=== PATIENT | female | born 1950 | race Caucasian/White ===

== ENCOUNTER 2020-04-19 13:02 | Outpatient (REF) | payer MEDICARE, SELFPAY ==
--- NOTE | 2020-04-19 13:08 | MM_ITS ---
EXAMINATION: MM SCREENING DIGITAL BREAST TOMOSYNTHESIS, BILATERAL CLINICAL INFORMATION: Screening. Asymptomatic. The lifetime risk of breast cancer based on the Tyrer-Cuzick Model is 4.0%. COMPARISON: Mammography: November 09, 2018 and studies dating back to March 25, 2012 TECHNIQUE: Digital breast tomosynthesis is performed in both the craniocaudal and mediolateral oblique views along with computer-aided detection (CAD). Synthesized 2D images are generated from the tomosynthesis. FINDINGS: There are scattered areas of fibroglandular density (ACR BI-RADS breast composition Category b). There are no significant masses, abnormal calcifications, or other abnormalities. MM/MM tomosynthesis screening BI IMPRESSION: There are no significant changes from prior study. ASSESSMENT: BI-RADS 1: Negative RECOMMENDATION: Routine annual mammography screening. This patient's information was entered into a reminder system with a target due date for their next mammogram.
== END 2020-04-19 13:03 | disposition home or self-care (01) ==
LOC: HO.MAMMO 13:02
PROVIDERS: PCP Internal Medicine; Visit Provider Internal Medicine
DX: Z12.31 Encounter for screening mammogram for malignant neoplasm of breast (principal)
CPT/HCPCS: 77063; 77067

== ENCOUNTER 2020-04-27 16:43 | Outpatient (REF) | payer MEDICARE, BC, SELFPAY ==
--- NOTE | 2020-04-27 16:58 | XR_ITS ---
EXAMINATION: 1. LEFT ANKLE. 2. LEFT FOOT. CLINICAL INFORMATION: Pain in left ankle. Trauma. COMPARISON: None TECHNIQUE: 1. Left ankle. 3 views 2. Left foot. 3 views FINDINGS: 1. Left ankle. There is a minimally displaced transverse fracture of the lateral malleolus. There is soft tissue swelling over the lateral malleolus. The ankle mortise is congruent. 2. Left foot. No fracture or dislocation of the foot. Bone and joint are normal. No soft tissue abnormality. XR/XR foot LT min 3V IMPRESSION: 1. Left ankle. Fracture lateral malleolus. 2. Left foot. No acute abnormality.
--- NOTE | 2020-04-27 16:58 | XR_ITS ---
EXAMINATION: 1. LEFT ANKLE. 2. LEFT FOOT. CLINICAL INFORMATION: Pain in left ankle. Trauma. COMPARISON: None TECHNIQUE: 1. Left ankle. 3 views 2. Left foot. 3 views FINDINGS: 1. Left ankle. There is a minimally displaced transverse fracture of the lateral malleolus. There is soft tissue swelling over the lateral malleolus. The ankle mortise is congruent. 2. Left foot. No fracture or dislocation of the foot. Bone and joint are normal. No soft tissue abnormality. XR/XR ankle LT 2V IMPRESSION: 1. Left ankle. Fracture lateral malleolus. 2. Left foot. No acute abnormality.
== END 2020-04-27 16:44 | disposition home or self-care (01) ==
LOC: HO.XRAY 16:43
PROVIDERS: PCP Internal Medicine; Visit Provider Internal Medicine
DX: M25.572 Pain in left ankle and joints of left foot (principal)
CPT/HCPCS: 73600; 73630

== ENCOUNTER 2020-08-09 09:48 | Outpatient (REF) | payer MEDICARE, SELFPAY ==
[2020-08-09 11:10] LABS: MANUAL DIFF FLAG NO
[2020-08-09 11:21] LABS: Basophils Percent Auto 0.5 % (0-2); Eosinophils Absolute Auto 0.2 X10*3/uL (0.0-0.4); Hematocrit 39.9 % (37-47); Hemoglobin 13.2 g/dl (12.0-16.0); Imm Gran Abs Auto 0.03 X10*3/uL (0.00-0.03); Imm Gran Pct Auto 0.4 % (0.0-0.4); Lymphocytes Absolute Auto 2.4 X10*3/uL (1.2-4.9); Lymphocytes Percent Auto 30.6 % (20-40); Mean Corpuscular HGB Conc 33.1 g/dl (31.0-35.0); Mean Corpuscular Hemoglobin 31.2 pg (27.0-33.0); Mean Corpuscular Volume 94.3 fL (80-98); Mean Platelet Volume 11.2 fL (9.4-12.3); Monocytes Absolute Auto 0.6 X10*3/uL (0.1-1.2); Neutrophils Absolute Auto 4.7 X10*3/uL (2.0-8.3); Neutrophils Percent Auto 59.5 % (45-73); Platelet Count 217 X10*3/uL (160-400); Red Blood Count 4.23 X10*6/uL (4.20-5.50); Red Cell Distribution Width 12.3 % (11.0-16.0)
[2020-08-09 11:37] LABS: Estimated Average Glucose 100 mg/dL; Hemoglobin A1c % 5.1 %
[2020-08-09 12:20] LABS: T4 Thyroxine 6.5 ug/dL (4.5-12.0); Vitamin D 25-OH Total 39.3 ng/mL (>30)
[2020-08-09 12:26] LABS: Alanine Aminotransferase 60 U/L (0-31); Albumin Level 4.7 g/dL (3.5-5.0); Alkaline Phosphatase 94 U/L (39-117); Anion Gap 15 (12-20); Aspartate Amino Transferase 35 U/L (5-31); Bilirubin Total 0.5 mg/dL (0.0-1.0); Blood Urea Nitrogen 17 mg/dL (9-16); Calcium 9.3 mg/dL (8.4-10.2); Carbon Dioxide 28 mmol/L (22-29); Chloride 104 mmol/L (96-108); Cholesterol 209 mg/dL; Estimated Glomerular Filt Rate > 60; Glucose Fasting 114 mg/dL (60-99); HDL Cholesterol 50 mg/dL; LDL Cholesterol Calculated 97 mg/dl; Potassium 3.7 mmol/L (3.3-5.1); Sodium 143 mmol/L (135-145); Total Protein 7.4 g/dL (6.5-8.0); Triglycerides 310 mg/dL
[2020-08-09 12:56] LABS: Vitamin B12 415 pg/mL (200-900)
[2020-08-09 13:21] LABS: Erythrocyte Sedimentation Rate 10 MM/HR (0-20)
[2020-08-09 15:20] LABS: Folate > 20.0 ng/mL (> or = 4.0)
[2020-08-10 07:07] LABS: Lyme Blot 0.94 index
[2020-08-10 14:22] LABS: 18 KD (IgG) Band NON-REACTIVE; 23 KD (IgG) Band NON-REACTIVE; 23 KD (IgM) Band NON-REACTIVE; 28 KD (IgG) Band NON-REACTIVE; 30 KD (IgG) Band NON-REACTIVE; 39 KD (IgM) Band NON-REACTIVE; 41 KD (IgM) Band NON-REACTIVE; 45 KD (IgG) Band NON-REACTIVE; 58 KD (IgG) Band NON-REACTIVE; 66 KD (IgG) Band NON-REACTIVE; 93 KD (IgG) Band NON-REACTIVE; Lyme IgG Blot Interp NEGATIVE (NEGATIVE); Lyme IgM Blot Interp NEGATIVE (NEGATIVE)
== END 2020-08-09 09:49 | disposition home or self-care (01) ==
LOC: HO.HMGCLDS 09:48
PROVIDERS: PCP Internal Medicine; Visit Provider Nurse Practitioner Family
DX: I10 Essential (primary) hypertension (principal); K21.9 Gastro-esophageal reflux disease without esophagitis; E78.00 Pure hypercholesterolemia, unspecified; K80.20 Calculus of gallbladder without cholecystitis without obstruction; R73.02 Impaired glucose tolerance (oral); L23.9 Allergic contact dermatitis, unspecified cause; M25.561 Pain in right knee
CPT/HCPCS: 36415; 80053; 80061; 82306; 82607; 82746; 83036; 84436; 84443; 84550; 85025; 85652; 86618

== ENCOUNTER 2020-09-05 13:25 | Outpatient (REF) | payer MEDICARE, SELFPAY ==
--- NOTE | ~2020-09-05 | MM_ITS ---
EXAMINATION: BONE DENSITOMETRY CLINICAL INDICATION: Other fracture of upper and lower end of the left fibula, subsequent encounter for closed fracture with routine healing. COMPARISON: Previous BD dated 11/05/2017 and baseline BD dated 04/24/2005. TECHNIQUE: Using a [employer] DXA System (software version: 13.1) manufactured by [employer], dual-energy x-ray absorptiometry was performed of the lumbar spine and left hip. The images are of good technical quality. Summary results are attached. FINDINGS: AP SPINE L1-L4: Current: BMD 1.155 g/cm2, Z-score 1.6, T-score -0.2, normal, 5.1% increase from previous, 1.5% increase from baseline (<5% change is not significant). Prior: BMD 1.099 g/cm2. Baseline: BMD 1.138 g/cm2. LEFT FEMUR, NECK: Current: BMD 0.864 g/cm2, Z-score 0.5, T-score -1.2, osteopenia. Prior: BMD 0.833 g/cm2. Baseline: BMD 0.894 g/cm2. LEFT FEMUR, TOTAL: Current: BMD 0.902 g/cm2, Z-score 0.7, T-score -0.8, normal, 0.3% decrease from previous, 6.4% decrease from baseline (<5% change is not significant). Prior: BMD 0.905 g/cm2. Baseline: BMD 0.964 g/cm2. IDENTIFIED RISK FACTORS: Menopause, history of fracture (adult). HISTORY OF FRACTURE: Other. MEDICATIONS: Calcium supplements or multivitamin, vitamin D. MM/XR DEXA axial skeleton IMPRESSION: 1. DIAGNOSIS: Osteopenia based on the lowest T-score value of -1.2 in the femoral neck applying World Health Organization criteria. 2. 10-YEAR FRACTURE RISK PREDICTION, FRAX: Major osteoporotic fracture (clinical spine, forearm, hip or shoulder) 14.9%. Hip fracture 1.6%. 3. Treatment Recommendations: NOF guidelines recommend consideration for treatment in postmenopausal women and men age 50 and older presenting with the following: -A hip or vertebral (clinical or morphometric) fracture. -T-score less than or equal to -2.5 at the femoral neck or spine after appropriate evaluation to exclude secondary causes. -Low bone mass at the hip or spine and a 10-year fracture probability by FRAX of greater than or equal to 3% for hip fracture or greater than or equal to 20% for major osteoporotic fracture based on the [place] adapted WHO algorithm. 4. Other Recommendations: All treatment decisions require clinical judgment and consideration of individual patient factors, including patient preferences, comorbidities, previous drug use, risk factors not captured in the FRAX model (e.g. frailty, falls, vitamin D deficiency, increased bone turnover, interval significant decline in bone density) and possible under or overestimation of fracture risk by FRAX. Additional medical evaluation for secondary cause of low bone mineral density may be appropriate. FUTURE SCAN RECOMMENDATION: People with diagnosed cases of osteoporosis or at high risk for fracture should have regular bone mineral density tests. For patients eligible for Medicare, routine testing is allowed once every 2 years. The testing frequency can be increased to one year for patients who have rapidly progressing disease, those who are receiving or discontinuing medical therapy to restore bone mass, or have additional risk factors.
== END 2020-09-05 13:26 | disposition home or self-care (01) ==
LOC: HO.MAMMO 13:25
PROVIDERS: Visit Provider Internal Medicine
DX: M81.0 Age-related osteoporosis without current pathological fracture (principal); S82.832D Other fracture of upper and lower end of left fibula, subsequent encounter for closed fracture with routine healing; X58.XXXD Exposure to other specified factors, subsequent encounter; Z78.0 Asymptomatic menopausal state
CPT/HCPCS: 77080

== ENCOUNTER 2020-11-17 09:42 | Outpatient (REF) | payer MEDICARE, SELFPAY ==
[2020-11-17 11:21] LABS: MANUAL DIFF FLAG NO
[2020-11-17 11:23] LABS: Basophils Percent Auto 0.5 % (0-2); Eosinophils Absolute Auto 0.1 X10*3/uL (0.0-0.4); Hematocrit 39.4 % (37-47); Imm Gran Abs Auto 0.02 X10*3/uL (0.00-0.03); Imm Gran Pct Auto 0.3 % (0.0-0.4); Lymphocytes Absolute Auto 2.2 X10*3/uL (1.2-4.9); Lymphocytes Percent Auto 34.4 % (20-40); Mean Corpuscular Hemoglobin 31.2 pg (27.0-33.0); Mean Corpuscular Volume 94.5 fL (80-98); Mean Platelet Volume 10.7 fL (9.4-12.3); Monocytes Absolute Auto 0.5 X10*3/uL (0.1-1.2); Monocytes Percent Auto 8.1 % (2-11); Neutrophils Absolute Auto 3.5 X10*3/uL (2.0-8.3); Neutrophils Percent Auto 54.7 % (45-73); Platelet Count 206 X10*3/uL (160-400); Red Blood Count 4.17 X10*6/uL (4.20-5.50); Red Cell Distribution Width 12.2 % (11.0-16.0); White Blood Count 6.4 X10*3/uL (4.8-10.8)
[2020-11-17 11:39] LABS: Alanine Aminotransferase 26 U/L (0-31); Albumin Level 4.6 g/dL (3.5-5.0); Alkaline Phosphatase 79 U/L (39-117); Anion Gap 14 (12-20); Aspartate Amino Transferase 24 U/L (5-31); Bilirubin Total 0.5 mg/dL (0.0-1.0); Blood Urea Nitrogen 25 mg/dL (9-16); Calcium 9.6 mg/dL (8.4-10.2); Carbon Dioxide 27 mmol/L (22-29); Chloride 103 mmol/L (96-108); Cholesterol 191 mg/dL; Estimated Glomerular Filt Rate > 60; Glucose Random 101 mg/dL (60-115); HDL Cholesterol 61 mg/dL; LDL Cholesterol Calculated 97 mg/dl; Sodium 140 mmol/L (135-145); Total Protein 6.9 g/dL (6.5-8.0); Triglycerides 169 mg/dL
[2020-11-23 07:17] LABS: Lipoprotein A <10 nmol/L (<75)
== END 2020-11-17 09:43 | disposition home or self-care (01) ==
LOC: HO.HMGCLDS 09:42
PROVIDERS: PCP Internal Medicine; Visit Provider Internal Medicine Cardiovascular Disease
DX: E78.00 Pure hypercholesterolemia, unspecified (principal); Z82.49 Family history of ischemic heart disease and other diseases of the circulatory system
CPT/HCPCS: 36415; 80053; 80061; 83695; 85025; 86141

== ENCOUNTER → 2020-12-11 15:04 | Outpatient (BNVA) | payer MEDICARE, SELFPAY | PROVIDERS: PCP Internal Medicine; Visit Provider Internal Medicine | DX: M25.50 Pain in unspecified joint (principal); I10 Essential (primary) hypertension; E78.00 Pure hypercholesterolemia, unspecified; E55.9 Vitamin D deficiency, unspecified; Z88.0 Allergy status to penicillin; Z88.2 Allergy status to sulfonamides; Z87.891 Personal history of nicotine dependence | CPT/HCPCS: 99202 ==

== ENCOUNTER 2021-04-23 | Outpatient (REF) | payer MEDICARE, SELFPAY ==
[2021-04-24 12:40] LABS: Influenza A PCR NEGATIVE (Negative); Influenza B PCR NEGATIVE (Negative); Resp Syncy Virus RNA Qual PCR NEGATIVE (Negative); SARS COV2 PCR INHOUSE NEGATIVE (Negative)
== END 2021-04-23 00:01 | disposition home or self-care (01) ==
LOC: HO.LNP
PROVIDERS: Visit Provider Internal Medicine
DX: Z20.822 Contact with and (suspected) exposure to COVID-19 (principal); R43.9 Unspecified disturbances of smell and taste
CPT/HCPCS: 0241U

== ENCOUNTER 2021-04-24 11:29 | Outpatient (REF) | payer MEDICARE, SELFPAY | END 2021-04-24 11:30 | disposition home or self-care (01) | LOC: HO.LNP 11:29 | PROVIDERS: Visit Provider Internal Medicine | DX: Z13.89 Encounter for screening for other disorder (principal) | CPT/HCPCS: 0241U ==

== ENCOUNTER 2021-04-30 08:37 | Outpatient (REF) | payer MEDICARE, SELFPAY ==
[2021-04-30 11:28] LABS: MANUAL DIFF FLAG NO
[2021-04-30 11:36] LABS: Basophils Absolute Auto 0.1 X10*3/uL (0.0-0.2); Basophils Percent Auto 0.6 % (0-2); Eosinophils Absolute Auto 0.2 X10*3/uL (0.0-0.4); Eosinophils Percent Auto 2.2 % (0-4); Hematocrit 41.4 % (37.0-47.0); Hemoglobin 13.7 g/dl (12.0-16.0); Imm Gran Abs Auto 0.03 X10*3/uL (0.00-0.03); Imm Gran Pct Auto 0.4 % (0.0-0.4); Lymphocytes Absolute Auto 2.5 X10*3/uL (1.2-4.9); Lymphocytes Percent Auto 32.4 % (20-40); Mean Corpuscular HGB Conc 33.1 g/dl (31.0-35.0); Mean Corpuscular Volume 93.7 fL (80.0-98.0); Mean Platelet Volume 11.1 fL (9.4-12.3); Monocytes Absolute Auto 0.7 X10*3/uL (0.1-1.2); Monocytes Percent Auto 8.7 % (2-11); Neutrophils Absolute Auto 4.4 x10*3/uL (2.0-8.3); Neutrophils Percent Auto 55.7 % (45-73); Platelet Count 233 X10*3/uL (160-400); Red Blood Count 4.42 X10*6/uL (4.20-5.50); White Blood Count 7.9 X10*3/uL (4.8-10.8)
[2021-04-30 12:10] LABS: Alanine Aminotransferase 25 U/L (0-31); Albumin Level 4.6 g/dL (3.5-5.0); Alkaline Phosphatase 76 U/L (39-117); Anion Gap 15 (12-20); Aspartate Amino Transferase 26 U/L (5-31); Bilirubin Total 0.6 mg/dL (0.0-1.0); Blood Urea Nitrogen 18 mg/dL (9-16); Calcium 9.9 mg/dL (8.4-10.2); Carbon Dioxide 27 mmol/L (22-29); Chloride 104 mmol/L (96-108); Cholesterol 184 mg/dL; Estimated Glomerular Filt Rate > 60; Glucose Random 102 mg/dL (60-115); HDL Cholesterol 55 mg/dL; LDL Cholesterol Calculated 98 mg/dl; Potassium 3.9 mmol/L (3.3-5.1); Sodium 142 mmol/L (135-145); Total Protein 7.3 g/dL (6.5-8.0); Triglycerides 156 mg/dL; Uric Acid 5.9 mg/dL (2.4-5.7)
[2021-04-30 12:12] LABS: Free T4 (Free Thyroxine) 1.02 ng/dL (0.71-1.85); Thyroid Stimulating Hormone 2.14 uIU/mL (0.32-4.0); Vitamin D 25-OH Total 38.4 ng/mL (>30)
[2021-04-30 12:29] LABS: Folate > 20.0 ng/mL (> or = 4.0); Vitamin B12 520 pg/mL (200-900)
== END 2021-04-30 08:38 | disposition home or self-care (01) ==
LOC: HO.HMGCLDS 08:37
PROVIDERS: Absent Provider Internal Medicine Cardiovascular Disease; PCP Internal Medicine; Visit Provider Internal Medicine
DX: E78.00 Pure hypercholesterolemia, unspecified (principal); K21.9 Gastro-esophageal reflux disease without esophagitis
CPT/HCPCS: 36415; 80053; 80061; 82306; 82607; 82746; 84439; 84443; 84550; 85025

== ENCOUNTER 2021-06-02 13:40 | Inpatient (IN) | payer MEDICARE, SELFPAY ==
[2021-06-02] VITALS (10 sets, daily range): BP systolic 121–170; BP diastolic 57–76; PULSE 76–98; RESP 16–18; TEMP 36.9; O2SAT 95–98; BMI 24.5
--- NOTE | ~2021-06-02 | CT_ITS ---
EXAMINATION: CT ABDOMEN AND PELVIS WITH CONTRAST CLINICAL INFORMATION: Gallstones and choledocholithiasis noted on a recent abdominal ultrasound. COMPARISON: Abdominal ultrasound dated from 06/02/2021. MR of the abdomen dated from 09/25/2014. TECHNIQUE: Multidetector volumetric images were obtained from the superior aspect of the liver through the pubic symphysis following administration 85 mL of Omnipaque 350 intravenous contrast. Sagittal and coronal reformatted images were obtained on the technologist's workstation. Oral contrast: No This CT examination was performed using dose optimization techniques as appropriate, variously including the following: *Automated exposure control *Adjustment of mA and/or kV according to patient size (this includes techniques or standardized protocols for targeted exams where dose is matched to indication/reason for exam; i.e. extremities or head) *Use of iterative reconstruction technique DLP: 417 mGy-cm FINDINGS: LUNG BASES: Small amount of right-sided pleural fluid with associated subsegmental atelectasis. No focal consolidation. Coronary and aortic valve calcifications. LIVER, GALLBLADDER, AND BILIARY TREE: The liver is normal in size, shape, and attenuation. No focal hepatic lesion or biliary ductal dilatation is present. There is a 2 cm hyperattenuating structure in the gallbladder neck, corresponding to shadowing stones on the most recent ultrasound. There is associated diffuse gallbladder wall thickening, pericholecystic fluid and surrounding inflammatory changes. In the gallbladder fundus, there is focal adenomyomatosis. The common bile duct is mildly dilated up to 0.8 cm. In the lower third of the common bile duct at about 2 cm from the periampullary region, there is a 0.7 cm hyperattenuating structure (5:41 and 3:32) likely correlating with the recently described choledocholithiasis. Trace volume of free fluid predominantly around the liver, gallbladder and right paracolic space, likely reactive. PANCREAS: Subtle cystic-appearing lesions throughout the pancreas are best appreciated on a prior MR from 2014. Indeterminate calcification in the pancreatic body (3:23) possibly sequela of prior pancreatitis. The main pancreatic duct is nondilated. There is no peripancreatic free fluid or fat stranding. SPLEEN: Unremarkable. ADRENAL GLANDS: Unremarkable. KIDNEYS AND URETERS: The kidneys are normal in size, shape, and attenuation. There is a 1.2 cm water density cyst in the lower pole of the right kidney. There are a few other too small to characterize hypodensities bilaterally which statistically are also likely to represent simple cysts and do not require further follow-up. No hydronephrosis, hydroureter, or calculi seen. No perinephric stranding. BLADDER: Unremarkable. GASTROINTESTINAL TRACT: The stomach and the small bowel are nondilated. No active inflammatory bowel changes nor bowel obstruction. ABDOMINAL WALL: No significant hernia is appreciated. LYMPH NODES: No lymphadenopathy by size criteria. VASCULAR: Atherosclerotic disease. The abdominal aorta is of normal diameter. PELVIC VISCERA: There is a tubular-like water density structure in the right adnexa which appears to be in continuity with the small bowel and likely represents fluid-filled loops of small bowel. However, potentially this could also represent hydrosalpinx as is in very close proximity to the right ovary. OSSEOUS STRUCTURES: No acute or suspicious osseous abnormalities. Subtle increased sclerosis in the femoral heads suggesting possible early avascular necrosis. Thoracolumbar spondylosis. CT/CT abdomen pelvis w con IMPRESSION: 1. Cholelithiasis with associated wall thickening and surrounding inflammatory changes most consistent with acute cholecystitis in the appropriate clinical setting. 2. Choledocholithiasis with stable dilatation of the CBD. 3. Small right pleural effusion. 4. Fluid-filled tubular structure adjacent to the right adnexa likely represents a fluid-filled loop of small bowel, although hydrosalpinx cannot be entirely excluded given the proximity to the adnexa. If indicated, consider correlation with a dedicated pelvic ultrasound.
--- NOTE | ~2021-06-02 | XR_ITS ---
EXAMINATION: XR CHEST CLINICAL INFORMATION: Epigastric abdominal pain. COMPARISON: Chest x-ray 07/24/2019 TECHNIQUE: Frontal view of the chest was obtained. FINDINGS: Lungs are clear. No pulmonary vascular congestion. There is no pleural effusion. The heart size is normal. The cardiac and mediastinal contours are normal. There are calcifications of the thoracic aorta. There are multilevel degenerative changes of dorsal spine. XR/XR chest 1V IMPRESSION: Unremarkable examination.
--- NOTE | ~2021-06-02 | US_ITS ---
EXAMINATION: US ABDOMEN LIMITED CLINICAL INFORMATION: Right upper quadrant pain/epigastric pain. COMPARISON: Ultrasound abdomen 01/06/2020 TECHNIQUE: Real-time imaging of the right upper quadrant abdominal viscera. FINDINGS: PANCREAS: The pancreas appears unremarkable, without masses or ductal dilatation, with the exception of the tail which is obscured by bowel gas. LIVER: The liver is normal in size. The liver contour is normal. There is mild increased liver parenchymal echogenicity suggesting hepatic steatosis. No focal hepatic lesion. There is no intrahepatic biliary duct dilatation seen. GALLBLADDER: Multiple stones are noted in the neck of the gallbladder, the largest measuring 1.2 x 1.0 cm The gallbladder is physiologically distended without evidence of stones, sludge, polyps, wall thickening or pericholecystic fluid. COMMON BILE DUCT: Normal in caliber measuring 0.7 cm in diameter. Stones can also be seen within the common bile duct the largest measuring 0.6 x 0.4 cm. RIGHT KIDNEY: No hydronephrosis. No renal calculi or focal parenchymal lesions. The kidney measures 11.0 cm in maximum dimension. A 1.3 cm upper pole cyst is present which needs no further follow-up. FREE FLUID: None. US/US abdomen limited IMPRESSION: Choledocholithiasis with gallstones as well as stones in the common bile duct.
--- NOTE | ~2021-06-02 | FL_ITS ---
PROCEDURE: ERCP INDICATION: Choledocholithiasis FLUOROSCOPY: Fluoroscopy Time: 4.7 minutes Dose: 23.7 Gy cm sq Images saved: 8 FINDINGS: Multiple fluoroscopic images are submitted status post reported ERCP performed by the gastroenterology services. Correlation with operative report. Evaluation is limited secondary to fluoroscopic technique. FL/FL guidance in OR IMPRESSION: Status post reported ERCP. Fluoroscopy was provided by radiology for this procedure. Please refer to the full gastroenterology report.
--- NOTE | 2021-06-02 13:46 | ECG_ITS ---
Test Reason : CHEST PAIN Blood Pressure : / mmHG Vent. Rate : 072 BPM Atrial Rate : 072 BPM P-R Int : 178 ms QRS Dur : 066 ms QT Int : 398 ms P-R-T Axes : 060 006 040 degrees QTc Int : 435 ms Normal sinus rhythm Low voltage QRS Borderline ECG When compared with ECG of 23-JUL-2019 23:53, No significant change was found Referred By: Generic ED Physician Electronically Signed By:Darwin Mckeon
--- NOTE | 2021-06-02 17:10 | ED_ITS ---
HPI - Chest Pain General Chief Complaint: Chest Pain <STEPHANIE Steel - Last Filed: 06/02/21 18:59> Stated Complaint: chest pain <STEPHANIE Steel - Last Filed: 06/02/21 18:59> Time Seen by Provider: 06/02/21 16:39 <STEPHANIE Steel - Last Filed: 06/02/21 18:59> Source: patient <STEPHANIE Steel - Last Filed: 06/02/21 18:59> Mode of arrival: ambulatory <STEPHANIE Steel - Last Filed: 06/02/21 18:59> History of Present Illness HPI narrative: 71-year-old female with a PMHx of cholelithiasis, GERD, HLD, HTN, PUD, duodenal ulcer rupture, presenting to the ED complaining of sudden onset epigastric /substernal CP radiating to RUQ/right scapular region since this afternoon. Reports pain worse with movement/ breathing and palpation. Also reports nausea. Denies SOB, fever, chills, cough, vomiting, diarrhea. <STEPHANIE Steel - Last Filed: 06/02/21 18:59> MD complaint: chest discomfort <STEPHANIE Steel - Last Filed: 06/02/21 18:59> Onset (ago): hour(s) <STEPHANIE Steel - Last Filed: 06/02/21 18:59> Related Data Home Medications: Home Medications Medication Instructions Recorded Confirmed ascorbate calcium (vitamin C) 500 500 mg PO DAILY 05/23/21 06/02/21 mg tablet aspirin 81 mg tablet,delayed 81 mg PO DAILY 05/23/21 06/02/21 release (Adult Aspirin Regimen) cholecalciferol (vitamin D3) 50 50 mcg PO DAILY 05/23/21 06/02/21 mcg (2,000 unit) capsule glucosamine sulfate 500 mg tablet 500 mg PO DAILY 05/23/21 06/02/21 (Glucosamine) multivitamin 1 tab PO DAILY 05/23/21 06/02/21 omega-3 fatty acids 1,000 mg 2,000 mg PO DAILY 05/23/21 06/02/21 capsule (Fish Oil Concentrate) vitamin A-vitamin C-vit E-min 1 tab PO DAILY 05/23/21 06/02/21 tablet Previous Rx's Medication Instructions Recorded lisinopril 20 mg tablet 20 mg PO DAILY #90 tab 10/23/20 omeprazole 20 mg capsule,delayed 20 mg PO DAILY #90 cap 10/23/20 release cetirizine 10 mg tablet 10 mg PO DAILY PRN #30 tab 11/22/20 hydrochlorothiazide 25 mg tablet 25 mg PO DAILY #90 tab 02/09/21 rosuvastatin 40 mg tablet 40 mg PO DAILY 90 Days #90 tab 05/23/21 <STEPHANIE Steel Last Filed: 06/02/21 18:59> Allergies/Adverse Reactions: Allergies Allergy/AdvReac Type Severity Reaction Status Date / Time penicillamine [Cuprimine] Allergy Unknown Rash Verified 05/23/21 13:07 penicillin V Allergy Unknown Rash Verified 05/23/21 13:07 Penicillins [PENICILLINS] Allergy Unknown HIVES Verified 05/23/21 13:07 Sulfa (Sulfonamide Allergy Unknown HIVES Verified 05/23/21 13:07 Antibiotics) [SULFA (SULFONAMIDE ANTIBIOTICS)] sulfasalazine [Sulfazine] Allergy Unknown Rash Verified 05/23/21 13:07 <STEPHANIE Steel Last Filed: 06/02/21 18:59> Review of Systems Review of Systems: Constitutional: No Fever, No Chills, No Fatigue, No Malaise ENT/Mouth: No Ear Pain, No Nasal Congestion, No sore throat, No Rhinorrhea, No Swallowing Difficulty Eyes: No Eye Pain, No Swelling, No Redness, No Discharge Cardiovascular: + Chest Pain, No SOB, No Dyspnea on Exertion, No Edema, No Palpi tations Respiratory: No Cough, No Dyspnea Gastrointestinal: + Nausea, No Vomiting, No Diarrhea, No Constipation, + Abdominal pain Genitourinary: No Dysuria, No Urinary Frequency, No Hematuria, No Flank Pain Musculoskeletal: No joint pain, No Myalgias, No Joint Swelling Skin: No Skin Lesions, No rash Neuro: No Weakness, No Loss of Consciousness, No Dizziness, No Headache <STEPHANIE Steel Last Filed: 06/02/21 18:59> Yes all other systems are reviewed and are negative <STEPHANIE Steel Last Filed: 06/02/21 18:59> [facility] Past Medical History Attestation statement: The following information was validated with the patient. <STEPHANIE Steel Last Filed: 06/02/21 18:59> Medical History: Medical History Arthralgia Cholelithiasis Finger osteomyelitis GERD (gastroesophageal reflux disease) Hypercholesterolemia Hypertension Pancreatic pseudocyst Peptic ulcer disease Vitamin D deficiency <STEPHANIE Steel - Last Filed: 06/02/21 18:59> Family History Family History: Family History Brother CAD (coronary artery disease) Aneurysm <STEPHANIE Steel - Last Filed: 06/02/21 18:59> Social History Social History: Social History Housing: House Alcohol intake: current Alcohol intake frequency: holidays/special occasions only Patient Tobacco Use Status: Former Tobacco user Tobacco use type: Cigarette Years Smoked: quit 1999 Advance Directives: No Advance Directives Information Provided: No service: No Current occupational status: retired <STEPHANIE Steel - Last Filed: 06/02/21 18:59> Physical Exam Vital Signs: Vital Signs: Last Vital Signs Temp 98.4 F 06/02/21 22:50 Pulse 98 06/02/21 22:50 Resp 16 06/02/21 22:47 BP 121/58 L 06/02/21 22:47 Pulse Ox 95 06/02/21 19:33 BMI result Body Mass Index 24.5 <STEPHANIE Steel - Last Filed: 06/02/21 18:59> Vital Signs: Last Vital Signs Temp 98.4 F 06/02/21 22:50 Pulse 98 06/02/21 22:50 Resp 16 06/02/21 22:47 BP 121/58 L 06/02/21 22:47 Pulse Ox 95 06/02/21 19:33 BMI result Body Mass Index 24.5 <STEPHANIE Collazo - Last Filed: 06/02/21 23:15> Const: Other: In pain <STEPHANIE Steel - Last Filed: 06/02/21 18:59> General: cooperative <STEPHANIE Steel - Last Filed: 06/02/21 18:59> Orientation/consciousness: patient oriented x3 <Ashley Tayloroste, [facility] Last Filed: 06/02/21 18:59> Limitations: no limitations <Ashley Owen [facility] Last Filed: 06/02/21 18:59> HENMT: Head: Yes normal to inspection <Ashley Owen [facility] Last Filed: 06/02/21 18:59> Ears: hearing grossly normal bilaterally <Ashley Owen [facility] Last Filed: 18:59> General nose exam: Normal external nose present <Ashley Owen [facility] Last Filed: 06/02/21 18:59> Face and sinus: Yes normal facial exam <Ashley Owen [facility] Last Filed: 06/02/21 18:59> Eyes: General: appearance normal, both eyes and all related structures <Ashley Owen [facility] Last Filed: 06/02/21 18:59> EOM: EOMs intact bilaterally <Ashley Owen [facility] Last Filed: 06/02/21 18:59> Neck: Neck: Yes normal visual inspection and Yes no meningeal signs <Ashley Owen [facility] Last Filed: 06/02/21 18:59> Chest: Other: +Boas's sign <Ashley Owen [facility] Last Filed: 06/02/21 18:59> Resp: Effort & Inspection: normal respiratory effort <Ashley Owen [facility] Last Filed: 06/02/21 18:59> Auscultation: clear to auscultation bilaterally, no rales, no rhonchi and no wheezes <Ashley Owen [facility] Last Filed: 06/02/21 18:59> Cardio: Rate: regular rate <Ashley Owen [facility] Last Filed: 06/02/21 18:59> Heart sounds: S1 normal heart sound present and S2 normal heart sound present <Ashley Owen [facility] Last Filed: 06/02/21 18:59> GI: Inspection: Yes normal to inspection <Ashley Owen [facility] Last Filed: 06/02/21 18:59> Palpation (GI): Soft to palpation, Tenderness to palpation present (GI) in the epigastrum and in the RUQ, no guarding and not rigid <Ashleytodd Weaver NM - Last Filed: 06/02/21 18:59> : General: Yes no CVA tenderness <STEPHANIE Steel Last Filed: 06/02/21 18:59> Back/Spine/Pelvis: Back: no CVA tenderness <STEPHANIE Steel Last Filed: 06/02/21 18:59> Skin: Rashes: no rashes <STEPHANIE Steel Last Filed: 06/02/21 18:59> Wounds: no wounds <STEPHANIE Steel Last Filed: 06/02/21 18:59> Neuro: General: patient oriented x3 and no meningeal signs <STEPHANIE Steel Last Filed: 06/02/21 18:59> Extrem: General: Yes normal to inspection <STEPHANIE Steel Last Filed: 06/02/21 18:59> Course Course Course Narrative: -1746-- leukocytosis of 16.3 >> empiric IV Ceftriaxone and Metronidazole ordered due to patients allergies. UA negative XR chest 1V IMPRESSION: Unremarkable examination. -1800-- lactic acid 1.3. Magnesium low at 1.4 > 2g IV repletion ordered. AST and ALT elevated -1900-- ED care transferred to STEPHANIE Gauthier pending ultrasound results and repeat troponin at 8:30 p.m. Anticipated admission <STEPHANIE Steel Last Filed: 06/02/21 18:59> Reevaluation(s) Reevaluation #1: Patient to be admitted to hospitalist for cholidocholelithiasis and gallstone in the common bowel duct. Patient has intractable pain even while given 8 of morphine and 0.5 of Dilaudid. Elevated liver enzymes. With Dr. Bradshaw of Gastroenterology and Dr. Herrera of surgery and they recommend patient be admitted to hospitalist for ERCP and surgeon will follow up as decorator consultant service. Hospitalist agreeable with plan. <STEPHANIE Collazo - Last Filed: 06/02/21 23:15> Time: 23:14 <STEPHANIE Collazo Last Filed: 06/02/21 23:15> MDM - Chest Pain MDM Narrative Medical decision making narrative: 71-year-old female with a PMHx of cholelithiasis, GERD, HLD, HTN, PUD, duodenal ulcer rupture, presenting to the ED complaining of sudden onset epiga stric /substernal CP radiating to RUQ/right scapular region since this afternoon. on exam vital signs stable, appears in pain, lungs CTA, abdomen soft with epigastric/ RUQ TTP, right scapular region tender to palpation. Concern for cholecystitis/lithiasis vs pancreatitis vs ? PUD. ready CS. Lower concern for dissection/AAA plan: EKG, labs, CXR, abdomen ultrasound, pain management, re-evaluate <STEPHANIE Steel - Last Filed: 06/02/21 18:59> Differential Diagnosis Differential diagnosis: Likely atypical chest pain and biliary colic <STEPHANIE Steel - Last Filed: 06/02/21 18:59> Medical Records Data Attestation: I reviewed the patient's medical records. <STEPHANIE Steel - Last Filed: 06/02/21 18:59> Lab Data Attestation: I reviewed the patient's lab results. <STEPHANIE Steel - Last Filed: 06/02/21 18:59> Result diagrams: : 06/02/21 17:29 06/02/21 17:29 <STEPHANIE Steel - Last Filed: 06/02/21 18:59> Labs: Lab Results 06/02/21 06/02/21 06/02/21 Range/Units 17:28 17:29 17:29 WBC 16.3 H (4.8-10.8) X10*3/uL RBC 4.13 L (4.20-5.50) X10*6/uL Hgb 13.3 (12.0-16.0) g/dl Hct 37.6 (37.0-47.0) % MCV 91.0 (80.0-98.0) fL MCH 32.2 (27.0-33.0) pg MCHC 35.4 H (31.0-35.0) g/dl RDW 11.9 (11.0-16.0) % Plt Count 200 (160-400) X10*3/uL MPV 10.5 (9.4-12.3) fL Absolute Nucleated RBC 0.000 (0.0-0.012) X10*3/uL Nucleated RBC % (auto) 0.0 (0.0-0.2) /100WBC Sodium 136 (135-145) mmol/L Potassium 3.3 (3.3-5.1) mmol/L Chloride 100 (96-108) mmol/L Carbon Dioxide 26 (22-29) mmol/L Anion Gap 13 (12-20) BUN 15 (9-16) mg/dL Creatinine 0.72 (0.5-1.4) mg/dL Estim Creat Clear Calc 60.8 Estimated GFR > 60 Random Glucose 127 H (60-115) mg/dL Lactic Acid 1.3 (0.5-2.0) mmol/L Calcium 9.7 (8.4-10.2) mg/dL Magnesium (1.6-2.6) mg/dL Total Bilirubin (0.0-1.0) mg/dL Direct Bilirubin (0.0-0.5) mg/dL AST (5-31) U/L ALT (0-31) U/L Alkaline Phosphatase (39-117) U/L Troponin I High Sens (<3.5-17.0) ng/L Total Protein (6.5-8.0) g/dL Albumin (3.5-5.0) g/dL Lipase (8-78) U/L Urine Color Urine Appearance Urine pH (5.0-8.0) Ur Specific [place] (1.005-1.025) Urine Protein (NEG-TRACE) MG/DL Urine Glucose (UA) (NEG) MG/DL Urine Ketones (NEG) MG/DL Urine Blood (NEG) Urine Nitrite (NEG) Ur Leukocyte Esterase (NEG) COVID-19 (WONG) (Negative) COVID-19 Clin Com 06/02/21 06/02/21 06/02/21 Range/Units 17:29 17:29 17:31 WBC (4.8-10.8) X10*3/uL RBC (4.20-5.50) X10*6/uL Hgb (12.0-16.0) g/dl Hct (37.0-47.0) % MCV (80.0-98.0) fL MCH (27.0-33.0) pg MCHC (31.0-35.0) g/dl RDW (11.0-16.0) % Plt Count (160-400) X10*3/uL MPV (9.4-12.3) fL Absolute Nucleated RBC (0.0-0.012) X10*3/uL Nucleated RBC % (auto) (0.0-0.2) /100WBC Sodium (135-145) mmol/L Potassium (3.3-5.1) mmol/L Chloride (96-108) mmol/L Carbon Dioxide (22-29) mmol/L Anion Gap (12-20) BUN (9-16) mg/dL Creatinine (0.5-1.4) mg/dL Estim Creat Clear Calc Estimated GFR Random Glucose (60-115) mg/dL Lactic Acid (0.5-2.0) mmol/L Calcium (8.4-10.2) mg/dL Magnesium 1.4 L* (1.6-2.6) mg/dL Total Bilirubin 0.4 (0.0-1.0) mg/dL Direct Bilirubin 0.3 (0.0-0.5) mg/dL AST 140 H (5-31) U/L ALT 200 H (0-31) U/L Alkaline Phosphatase 124 H D (39-117) U/L Troponin I High Sens 6.1 (<3.5-17.0) ng/L Total Protein 7.0 (6.5-8.0) g/dL Albumin 4.4 (3.5-5.0) g/dL Lipase 15 (8-78) U/L Urine Color YELLOW Urine Appearance CLEAR Urine pH 5.5 (5.0-8.0) Ur Specific [place] >= 1.030 H (1.005-1.025) Urine Protein NEG (NEG-TRACE) MG/DL Urine Glucose (UA) NEG (NEG) MG/DL Urine Ketones NEG (NEG) MG/DL Urine Blood NEG (NEG) Urine Nitrite NEG (NEG) Ur Leukocyte Esterase NEG (NEG) COVID-19 (WONG) (Negative) COVID-19 Clin Com 06/02/21 Range/Units 17:33 WBC (4.8-10.8) X10*3/uL RBC (4.20-5.50) X10*6/uL Hgb (12.0-16.0) g/dl Hct (37.0-47.0) % MCV (80.0-98.0) fL MCH (27.0-33.0) pg MCHC (31.0-35.0) g/dl RDW (11.0-16.0) % Plt Count (160-400) X10*3/uL MPV (9.4-12.3) fL Absolute Nucleated RBC (0.0-0.012) X10*3/uL Nucleated RBC % (auto) (0.0-0.2) /100WBC Sodium (135-145) mmol/L Potassium (3.3-5.1) mmol/L Chloride (96-108) mmol/L Carbon Dioxide (22-29) mmol/L Anion Gap (12-20) BUN (9-16) mg/dL Creatinine (0.5-1.4) mg/dL Estim Creat Clear Calc Estimated GFR Random Glucose (60-115) mg/dL Lactic Acid (0.5-2.0) mmol/L Calcium (8.4-10.2) mg/dL Magnesium (1.6-2.6) mg/dL Total Bilirubin (0.0-1.0) mg/dL Direct Bilirubin (0.0-0.5) mg/dL AST (5-31) U/L ALT (0-31) U/L Alkaline Phosphatase (39-117) U/L Troponin I High Sens (<3.5-17.0) ng/L Total Protein (6.5-8.0) g/dL Albumin (3.5-5.0) g/dL Lipase (8-78) U/L Urine Color Urine Appearance Urine pH (5.0-8.0) Ur Specific [place] (1.005-1.025) Urine Protein (NEG-TRACE) MG/DL Urine Glucose (UA) (NEG) MG/DL Urine Ketones (NEG) MG/DL Urine Blood (NEG) Urine Nitrite (NEG) Ur Leukocyte Esterase (NEG) COVID-19 (WONG) Negative (Negative) COVID-19 Clin Com See Note <STEPHANIE Steel - Last Filed: 06/02/21 18:59> Lab Results 06/02/21 06/02/21 06/02/21 Range/Units 17:28 17:29 17:29 WBC 16.3 H (4.8-10.8) X10*3/uL RBC 4.13 L (4.20-5.50) X10*6/uL Hgb 13.3 (12.0-16.0) g/dl Hct 37.6 (37.0-47.0) % MCV 91.0 (80.0-98.0) fL MCH 32.2 (27.0-33.0) pg MCHC 35.4 H (31.0-35.0) g/dl RDW 11.9 (11.0-16.0) % Plt Count 200 (160-400) X10*3/uL MPV 10.5 (9.4-12.3) fL Absolute Nucleated RBC 0.000 (0.0-0.012) X10*3/uL Nucleated RBC % (auto) 0.0 (0.0-0.2) /100WBC Sodium 136 (135-145) mmol/L Potassium 3.3 (3.3-5.1) mmol/L Chloride 100 (96-108) mmol/L Carbon Dioxide 26 (22-29) mmol/L Anion Gap 13 (12-20) BUN 15 (9-16) mg/dL Creatinine 0.72 (0.5-1.4) mg/dL Estim Creat Clear Calc 60.8 Estimated GFR > 60 Random Glucose 127 H (60-115) mg/dL Lactic Acid 1.3 (0.5-2.0) mmol/L Calcium 9.7 (8.4-10.2) mg/dL Magnesium (1.6-2.6) mg/dL Total Bilirubin (0.0-1.0) mg/dL Direct Bilirubin (0.0-0.5) mg/dL AST (5-31) U/L ALT (0-31) U/L Alkaline Phosphatase (39-117) U/L Troponin I High Sens (<3.5-17.0) ng/L Total Protein (6.5-8.0) g/dL Albumin (3.5-5.0) g/dL Lipase (8-78) U/L Urine Color Urine Appearance Urine pH (5.0-8.0) Ur Specific [place] (1.005-1.025) Urine Protein (NEG-TRACE) MG/DL Urine Glucose (UA) (NEG) MG/DL Urine Ketones (NEG) MG/DL Urine Blood (NEG) Urine Nitrite (NEG) Ur Leukocyte Esterase (NEG) COVID-19 (WONG) (Negative) COVID-19 Clin Com 06/02/21 06/02/21 06/02/21 Range/Units 17:29 17:29 17:31 WBC (4.8-10.8) X10*3/uL RBC (4.20-5.50) X10*6/uL Hgb (12.0-16.0) g/dl Hct (37.0-47.0) % MCV (80.0-98.0) fL MCH (27.0-33.0) pg MCHC (31.0-35.0) g/dl RDW (11.0-16.0) % Plt Count (160-400) X10*3/uL MPV (9.4-12.3) fL Absolute Nucleated RBC (0.0-0.012) X10*3/uL Nucleated RBC % (auto) (0.0-0.2) /100WBC Sodium (135-145) mmol/L Potassium (3.3-5.1) mmol/L Chloride (96-108) mmol/L Carbon Dioxide (22-29) mmol/L Anion Gap (12-20) BUN (9-16) mg/dL Creatinine (0.5-1.4) mg/dL Estim Creat Clear Calc Estimated GFR Random Glucose (60-115) mg/dL Lactic Acid (0.5-2.0) mmol/L Calcium (8.4-10.2) mg/dL Magnesium 1.4 L* (1.6-2.6) mg/dL Total Bilirubin 0.4 (0.0-1.0) mg/dL Direct Bilirubin 0.3 (0.0-0.5) mg/dL AST 140 H (5-31) U/L ALT 200 H (0-31) U/L Alkaline Phosphatase 124 H D (39-117) U/L Troponin I High Sens 6.1 (<3.5-17.0) ng/L Total Protein 7.0 (6.5-8.0) g/dL Albumin 4.4 (3.5-5.0) g/dL Lipase 15 (8-78) U/L Urine Color YELLOW Urine Appearance CLEAR Urine pH 5.5 (5.0-8.0) Ur Specific [place] >= 1.030 H (1.005-1.025) Urine Protein NEG (NEG-TRACE) MG/DL Urine Glucose (UA) NEG (NEG) MG/DL Urine Ketones NEG (NEG) MG/DL Urine Blood NEG (NEG) Urine Nitrite NEG (NEG) Ur Leukocyte Esterase NEG (NEG) COVID-19 (WONG) (Negative) COVID-19 Clin Com 06/02/21 Range/Units 17:33 WBC (4.8-10.8) X10*3/uL RBC (4.20-5.50) X10*6/uL Hgb (12.0-16.0) g/dl Hct (37.0-47.0) % MCV (80.0-98.0) fL MCH (27.0-33.0) pg MCHC (31.0-35.0) g/dl RDW (11.0-16.0) % Plt Count (160-400) X10*3/uL MPV (9.4-12.3) fL Absolute Nucleated RBC (0.0-0.012) X10*3/uL Nucleated RBC % (auto) (0.0-0.2) /100WBC Sodium (135-145) mmol/L Potassium (3.3-5.1) mmol/L Chloride (96-108) mmol/L Carbon Dioxide (22-29) mmol/L Anion Gap (12-20) BUN (9-16) mg/dL Creatinine (0.5-1.4) mg/dL Estim Creat Clear Calc Estimated GFR Random Glucose (60-115) mg/dL Lactic Acid (0.5-2.0) mmol/L Calcium (8.4-10.2) mg/dL Magnesium (1.6-2.6) mg/dL Total Bilirubin (0.0-1.0) mg/dL Direct Bilirubin (0.0-0.5) mg/dL AST (5-31) U/L ALT (0-31) U/L Alkaline Phosphatase (39-117) U/L Troponin I High Sens (<3.5-17.0) ng/L Total Protein (6.5-8.0) g/dL Albumin (3.5-5.0) g/dL Lipase (8-78) U/L Urine Color Urine Appearance Urine pH (5.0-8.0) Ur Specific [place] (1.005-1.025) Urine Protein (NEG-TRACE) MG/DL Urine Glucose (UA) (NEG) MG/DL Urine Ketones (NEG) MG/DL Urine Blood (NEG) Urine Nitrite (NEG) Ur Leukocyte Esterase (NEG) COVID-19 (WONG) Negative (Negative) COVID-19 Clin Com See Note <STEPHANIE Collazo - Last Filed: 06/02/21 23:15> ECG Data ECG #1: Attestation: I personally reviewed and interpreted this ECG as follows: <STEPHANIE Steel - Last Filed: 06/02/21 18:59> ECG interpretation date: 06/02/21 <STEPHANIE Steel - Last Filed: 06/02/21 18:59> ECG interpretation time: 13:47 <STEPHANIE Steel - Last Filed: 06/02/21 18:59> Interpretation: EKG normal sinus rhythm at a rate 72. Low-voltage QRS. QTC 435 <STEPHANIE Steel - Last Filed: 06/02/21 18:59> Discharge Plan Discharge Clinical Impression: Abdominal pain, Gallstones, common bile duct <STEPHANIE Steel Last Filed: 06/02/21 18:59> Patient Disposition: Admitted As Inpatient <STEPHANIE Steel - Last Filed: 06/02/21 18:59> Prescriptions: No Action lisinopril 20 mg tablet 20 mg PO DAILY Qty: 90 RF: 2 omeprazole 20 mg capsule,delayed release(DR/EC) 20 mg PO DAILY Qty: 90 RF: 2 hydrochlorothiazide 25 mg tablet 25 mg PO DAILY Qty: 90 RF: 2 cetirizine 10 mg tablet 10 mg PO DAILY PRN (Reason: allergy symptoms) Qty: 30 RF: 0 aspirin [Adult Aspirin Regimen] 81 mg tablet,delayed release (DR/EC) 81 mg PO DAILY RF: 0 omega-3 fatty acids [Fish Oil Concentrate] 1,000 mg capsule 2,000 mg PO DAILY RF: 0 multivitamin Tablet 1 tab PO DAILY RF: 0 cholecalciferol (vitamin D3) 50 mcg (2,000 unit) capsule 50 mcg PO DAILY RF: 0 vitamin A-vitamin C-vit E-min Tablet 1 tab PO DAILY RF: 0 glucosamine sulfate [Glucosamine] 500 mg tablet 500 mg PO DAILY RF: 0 ascorbate calcium (vitamin C) 500 mg tablet 500 mg PO DAILY RF: 0 rosuvastatin 40 mg tablet 40 mg PO DAILY 90 Days Qty: 90 RF: 3 <STEPHANIE Steel - Last Filed: 06/02/21 18:59>
[2021-06-02] MEDS: Morphine Sulfate 2 MG/ML CARTRIDGE IVPUSH ×2 (17:39→19:30)
[2021-06-02 17:40] LABS: Hematocrit 37.6 % (37.0-47.0); Hemoglobin 13.3 g/dl (12.0-16.0); Mean Corpuscular HGB Conc 35.4 g/dl (31.0-35.0); Mean Corpuscular Hemoglobin 32.2 pg (27.0-33.0); Mean Platelet Volume 10.5 fL (9.4-12.3); Platelet Count 200 X10*3/uL (160-400); Red Blood Count 4.13 X10*6/uL (4.20-5.50); Red Cell Distribution Width 11.9 % (11.0-16.0); White Blood Count 16.3 X10*3/uL (4.8-10.8)
[2021-06-02 17:41] LABS: Appearance Urine CLEAR; Color Urine YELLOW; Glucose Urine UA NEG (NEG); Leukocyte Esterase Urine NEG (NEG); Nitrite Urine NEG (NEG); PH 5.5 (5.0-8.0); Specific Gravity - Urine >= 1.030 (1.005-1.025); Urine Blood NEG (NEG); Urine Ketones NEG (NEG); Urine Protein NEG (NEG-TRACE)
[2021-06-02 17:51] LABS: Lactic Acid 1.3 mmol/L (0.5-2.0)
[2021-06-02 17:54] LABS: Anion Gap 13 (12-20); Blood Urea Nitrogen 15 mg/dL (9-16); Calcium 9.7 mg/dL (8.4-10.2); Carbon Dioxide 26 mmol/L (22-29); Chloride 100 mmol/L (96-108); Creatinine Clr Calc Pharmacy 60.8; Estimated Glomerular Filt Rate > 60; Glucose Random 127 mg/dL (60-115); Potassium 3.3 mmol/L (3.3-5.1); Sodium 136 mmol/L (135-145)
[2021-06-02 17:55] LABS: COVID-19 Test Negative (Negative)
[2021-06-02 17:59] LABS: Alanine Aminotransferase 200 U/L (0-31); Albumin Level 4.4 g/dL (3.5-5.0); Alkaline Phosphatase 124 U/L (39-117); Aspartate Amino Transferase 140 U/L (5-31); Bilirubin Direct 0.3 mg/dL (0.0-0.5); Bilirubin Total 0.4 mg/dL (0.0-1.0); Lipase 15 U/L (8-78); Magnesium 1.4 mg/dL (1.6-2.6)
[2021-06-02 18:01] LABS: Troponin-I High Sensitivity 6.1 ng/L (<3.5-17.0)
[2021-06-02] MEDS: cefTRIAXone sodium 2 GM in 0.9 % Sodium Chloride 50 ML IV (18:05)
[2021-06-02] MEDS: 0.9 % Sodium Chloride 1,000 ML 999 ML IVCONT (18:06)
[2021-06-02] MEDS: metroNIDAZOLE/NS 500 MG/100 ML PIGGYBACK 100 MG IV (19:20)
[2021-06-02] MEDS: Magnesium Sulfate/H2O 2 GM/50 ML PIGGYBACK IV (20:43)
[2021-06-02] MEDS: HYDROmorphone HCl 0.5 MG/0.5 ML SYRINGE IVPUSH (21:40)
[2021-06-02] MEDS: Dextrose 5 % and 0.45 % NaCl 1,000 ML 50 ML IVCONT (22:47)
--- NOTE | 2021-06-02 22:49 | PM.IMHP ---
History of Present Illness Date of Service: 06/02/21 Chief Complaint: Abdominal pain 71-year-old female with a past medical history of hypertension, hyperlipidemia, peptic ulcer disease, cholelithiasis, GERD presented to the hospital with a chief complaint of abdominal pain. Patient reported that she was doing fine this morning and suddenly she started oral abdominal pain located in the right side of the abdomen, radiating to the back, sharp in nature, 10/10 in intensity, associated nausea and vomiting. Denies any fevers and chills. Denies cough. Denies any urinary symptoms. Review of all other systems is negative mentioned above ER course: Per ER team who initially spoke to Gastroenterology on-call who suggested to speak to General surgery for possible intervention; general surgery recommended to admit to the medicine service for possible ERCP in the morning. Patient noted to have leukocytosis but no fever; empirically covered with ceftriaxone and Flagyl. Also noted to elevated liver enzymes in the setting of choledocholithiasis. No evidence of cholecystitis on the imaging. Admitted to the hospital for further management no associated fever chills. [facility] Medical History Arthralgia Cholelithiasis Finger osteomyelitis GERD (gastroesophageal reflux disease) Hypercholesterolemia Hypertension Pancreatic pseudocyst Peptic ulcer disease Vitamin D deficiency Family History Brother CAD (coronary artery disease) Aneurysm Pertinent family history: As mentioned above Social History Housing: House Alcohol intake: current Alcohol intake frequency: holidays/special occasions only Patient Tobacco Use Status: Former Tobacco user Tobacco use type: Cigarette Years Smoked: quit 1999 Advance Directives: No Advance Directives Information Provided: No service: No Current occupational status: retired Meds Allergies Allergy/AdvReac Type Severity Reaction Status Date / Time penicillamine [Cuprimine] Allergy Unknown Rash Verified 05/23/21 13:07 penicillin V Allergy Unknown Rash Verified 05/23/21 13:07 Penicillins [PENICILLINS] Allergy Unknown HIVES Verified 05/23/21 13:07 Sulfa (Sulfonamide Allergy Unknown HIVES Verified 05/23/21 13:07 Antibiotics) [SULFA (SULFONAMIDE ANTIBIOTICS)] sulfasalazine [Sulfazine] Allergy Unknown Rash Verified 05/23/21 13:07 Active Medications: Current Medications Ascorbic Acid (Ascorbic Acid 500 Mg Tablet) 500 mg PO DAILY [facility] Hydromorphone HCl (Hydromorphone Hcl 0.5 Mg/0.5 Ml Syringe) 0.5 mg IVPUSH Q4H PRN; Protocol PRN Reason: Pain, Severe (Pain Scale 7-10) Dextrose/Sodium Chloride (D51/2ns) 1,000 mls @ 50 mls/hr IVCONT .Q20H [facility] Last Admin: 06/02/21 22:47 Dose: 50 mls/hr Documented by: Loratadine (Loratadine 10 Mg Tablet) 10 mg PO DAILY PRN PRN Reason: allergy symptoms Melatonin (Melatonin 3 Mg Tablet) 6 mg PO BEDTIME PRN PRN Reason: Insomnia Multivitamins/Vitamin C (Multivitamin Tablet) 1 tab PO DAILY [facility] Omeprazole (Omeprazole 20 Mg Capsule.) 20 mg PO DAILY@0630 [facility] Pharmacy Consult (Consult Rx Perform Med Rec) 1 each MISCELLANE ONCE PRN PRN Reason: Consult order Senna (Sennosides 8.6 Mg Tablet) 17.2 mg PO BEDTIME PRN PRN Reason: Constipation Sodium Chloride (0.9 % Sodium Chloride Flush 3 Ml Syringe) 3 ml IVFLUSH QSHIFT [facility] Home Medications Medication Instructions Recorded Confirmed Last Taken Type ascorbate calcium (vitamin C) 500 500 mg PO DAILY 05/23/21 06/02/21 06/02/21 History mg tablet aspirin 81 mg tablet,delayed 81 mg PO DAILY 05/23/21 06/02/21 06/02/21 History release (Adult Aspirin Regimen) cholecalciferol (vitamin D3) 50 50 mcg PO DAILY 05/23/21 06/02/21 06/02/21 History mcg (2,000 unit) capsule glucosamine sulfate 500 mg tablet 500 mg PO DAILY 05/23/21 06/02/21 Unknown History (Glucosamine) multivitamin 1 tab PO DAILY 05/23/21 06/02/21 Unknown History omega-3 fatty acids 1,000 mg 2,000 mg PO DAILY 05/23/21 06/02/21 Unknown History capsule (Fish Oil Concentrate) vitamin A-vitamin C-vit E-min 1 tab PO DAILY 05/23/21 06/02/21 Unknown History tablet Physical Exam Vital Signs and Narrative: Vital Signs: Last Vital Signs Pulse 94 12/26/21 20:43 Resp 16 06/02/21 22:47 BP 121/58 L 06/02/21 22:47 Pulse Ox 95 06/02/21 19:33 BMI result Body Mass Index 24.5 Gen: Appears be in no acute distress HEENT: NCAT, Moist mucosa. Pulmonary: Vesicular breath sounds, fair air entry CVS: Normal S1-S2 Abdomen: BS+, Soft, tender in the right upper quadrant; no guarding no rigidity Extremities: Warm well perfused Neuro: Alert and awake. Results Labs CBC and Chem 7: 06/02/21 17:29 06/02/21 17:29 Labs: Laboratory Results - last 24 hr 06/02/21 06/02/21 06/02/21 17:28 17:29 17:29 MCV 91.0 MCH 32.2 MCHC 35.4 H RDW 11.9 Plt Count 200 MPV 10.5 Absolute Nucleated RBC 0.000 Nucleated RBC % (auto) 0.0 Anion Gap 13 Estim Creat Clear Calc 60.8 Estimated GFR > 60 Random Glucose 127 H Lactic Acid 1.3 Calcium 9.7 Magnesium Total Bilirubin Direct Bilirubin AST ALT Alkaline Phosphatase Troponin I High Sens Total Protein Albumin Lipase Urine Color Urine Appearance Urine pH Ur Specific [place] Urine Protein Urine Glucose (UA) Urine Ketones Urine Blood Urine Nitrite Ur Leukocyte Esterase COVID-19 ([facility]) COVID-19 Clin Com 06/02/21 06/02/21 06/02/21 17:29 17:29 17:31 MCV MCH MCHC RDW Plt Count MPV Absolute Nucleated RBC Nucleated RBC % (auto) Anion Gap Estim Creat Clear Calc Estimated GFR Random Glucose Lactic Acid Calcium Magnesium 1.4 L* Total Bilirubin 0.4 Direct Bilirubin 0.3 AST 140 H ALT 200 H Alkaline Phosphatase 124 H D Troponin I High Sens 6.1 Total Protein 7.0 Albumin 4.4 Lipase 15 Urine Color YELLOW Urine Appearance CLEAR Urine pH 5.5 Ur Specific [place] >= 1.030 H Urine Protein NEG Urine Glucose (UA) NEG Urine Ketones NEG Urine Blood NEG Urine Nitrite NEG Ur Leukocyte Esterase NEG COVID-19 ([facility]) COVID-19 Clin Com 06/02/21 17:33 MCV MCH MCHC RDW Plt Count MPV Absolute Nucleated RBC Nucleated RBC % (auto) Anion Gap Estim Creat Clear Calc Estimated GFR Random Glucose Lactic Acid Calcium Magnesium Total Bilirubin Direct Bilirubin AST ALT Alkaline Phosphatase Troponin I High Sens Total Protein Albumin Lipase Urine Color Urine Appearance Urine pH Ur Specific [place] Urine Protein Urine Glucose (UA) Urine Ketones Urine Blood Urine Nitrite Ur Leukocyte Esterase COVID-19 ([facility]) Negative COVID-19 Clin Com See Note Imaging Radiologist's Impressions: Impressions Chest X-Ray 06/02/21 16:58 IMPRESSION: Unremarkable examination. Abdomen Ultrasound 06/02/21 18:14 IMPRESSION: Choledocholithiasis with gallstones as well as stones in the common bile duct. Assessment and Plan (1) Abdominal pain: Qualifiers: Abdominal location: right upper quadrant Qualified Code(s): R10.11 - Right upper quadrant pain Status: Acute 71-year-old female with a past medical history of hypertension, hyperlipidemia, peptic ulcer disease, cholelithiasis, GERD presented to the hospital with a chief complaint of abdominal pain. Noted to have choledocholithiasis/transaminitis. Admitted for further management. Choledocholithiasis: USG:Choledocholithiasis with gallstones as well as stones in the common bile duct. Gastroenterology and General surgery aware of the patient. Plan for ERCP. NPO after midnight. Gentle IV fluids Pain control Leukocytosis: Likely reactive. Patient was empirically given antibiotics in the ER. Follow fever curve. Transaminitis: Likely in setting of choledocholithiasis. Trend liver enzymes. Avoid hepatotoxins. Hold home statin. Hypertension: Will hold the patient's blood pressure medications for now. Currently blood pressure is stable and normal side. GI prophylaxis: Ppi DVT prophylaxis: SCD boots Code status: Full code Quality Stroke Does the patient have a stroke diagnosis?: No VTE Prior VTE?: No VTE Risk Level:: Medical - low VTE Device Contraindication: N/A - Device Ordered VTE Drug Contraindication: Treatment Not Indicated
[2021-06-03] VITALS (12 sets, daily range): BP systolic 113–152; BP diastolic 54–70; PULSE 73–101; RESP 16–20; TEMP 36.3–37.4; O2SAT 93–99
--- NOTE | 2021-06-03 | PC.NURSE ---
O2SAT ON ROOM AIR 89%. 1L APPLIED AND SAT UP TO 96.
--- NOTE | 2021-06-03 01:00 | PC.NURSE ---
REPORT GIVEN AND CARE TRANSFERED TO CHRISTAL YOST.
[2021-06-03 01:07] LABS: Troponin-I High Sensitivity 12.3 ng/L (<3.5-17.0)
[2021-06-03] MEDS: HYDROmorphone HCl 0.5 MG/0.5 ML SYRINGE IVPUSH ×3 (03:21→18:02)
[2021-06-03 07:03] LABS: MANUAL DIFF FLAG NO
[2021-06-03 07:07] LABS: Basophils Percent Auto 0.2 % (0-2); Eosinophils Percent Auto 0.1 % (0-4); Hematocrit 36.3 % (37.0-47.0); Hemoglobin 12.4 g/dl (12.0-16.0); Imm Gran Pct Auto 0.6 % (0.0-0.4); Lymphocytes Absolute Auto 1.3 X10*3/uL (1.2-4.9); Lymphocytes Percent Auto 7.7 % (20-40); Mean Corpuscular HGB Conc 34.2 g/dl (31.0-35.0); Mean Corpuscular Hemoglobin 31.2 pg (27.0-33.0); Mean Corpuscular Volume 91.4 fL (80.0-98.0); Mean Platelet Volume 10.5 fL (9.4-12.3); Monocytes Absolute Auto 0.6 X10*3/uL (0.1-1.2); Monocytes Percent Auto 3.5 % (2-11); Neutrophils Absolute Auto 14.9 x10*3/uL (2.0-8.3); Neutrophils Percent Auto 87.9 % (45-73); Platelet Count 172 X10*3/uL (160-400); Red Blood Count 3.97 X10*6/uL (4.20-5.50); Red Cell Distribution Width 12.1 % (11.0-16.0); White Blood Count 16.9 X10*3/uL (4.8-10.8)
[2021-06-03 07:33] LABS: Anion Gap 11 (12-20); Blood Urea Nitrogen 9 mg/dL (9-16); Calcium 8.8 mg/dL (8.4-10.2); Carbon Dioxide 28 mmol/L (22-29); Chloride 101 mmol/L (96-108); Creatinine Clr Calc Pharmacy 65.4; Estimated Glomerular Filt Rate > 60; Glucose Random 129 mg/dL (60-115); Potassium 3.5 mmol/L (3.3-5.1); Sodium 136 mmol/L (135-145)
[2021-06-03 07:39] LABS: Alanine Aminotransferase 126 U/L (0-31); Albumin Level 3.6 g/dL (3.5-5.0); Alkaline Phosphatase 91 U/L (39-117); Aspartate Amino Transferase 59 U/L (5-31); Bilirubin Direct 0.3 mg/dL (0.0-0.5); Bilirubin Total 0.6 mg/dL (0.0-1.0); Total Protein 5.8 g/dL (6.5-8.0)
--- NOTE | 2021-06-03 07:57 | PHA.MEDREC ---
Pharmacy Consult ? Medication Reconciliation RN completed med rec , pharmacist reviewed.
--- NOTE | 2021-06-03 08:18 | PM.CNGS ---
History of Present Illness Consult details Consult date: 06/03/21 <CARRINGTON Childress Last Filed: 06/03/21 08:37> Reason for consult: gallstones <CARRINGTON Childress Last Filed: 06/03/21 08:37> Narrative: Mary Jane Valencia is a 71 year old female with PMH including hypertension, hyperlipidemia, peptic ulcer disease/GERD, cholelithiasis, who presented to the ED with complaints of RUQ abdominal pain. She reports for the past 2-3 days she felt off but yesterday morning awoke with RUQ pain. It progressively worsened throughout the day and became severe, prompting her to seek care in the ED. The pain is sharp in nature and radiates to her upper back. She denies nausea, vomiting, fever or chills. She has a history of gallstones and underwent an ERCP in [address] Coyle for a similar presentation but the exam was normal. She denies episodes of RUQ pain since then. She also has a history of PUD with perforation which was treated nonoperatively with IV abx at [facility]. In the ED, abd US was performed which showed a distended gallbladder with gallstones and stones within the CBD. She had a transaminitis with AST/ALT 140/200. Bilirubin was actually WNL. She does also have a leukocytosis. This morning, she reports continued RUQ pain that remains severe. Pain medication is helping but wears off quickly. She denies change in stool color, urine or skin color. <CARRINGTON Childress Last Filed: 06/03/21 08:37> Review of Systems Constitutional: Constitutional: Denies chills, Denies fever(s) and Denies malaise <CARRINGTON Childress Last Filed: 06/03/21 08:37> ENT: Denies dizziness <CARRINGTON Childress Last Filed: 06/03/21 08:37> Cardiovascular: Cardiovascular: Denies chest pain, Denies palpitations and Denies dyspnea <CARRINGTON Childress Last Filed: 06/03/21 08:37> Respiratory: Respiratory: Denies cough and Denies dyspnea <CARRINGTON Childress Filed: 06/03/21 08:37> Gastrointestinal: Gastrointestinal: Reports as per HPI and Denies diarrhea <Consuelo Pham PA-C - Last Filed: 06/03/21 08:37> Genitourinary: Genitourinary: Denies dysuria <Consuelo Pham PA-C - Last Filed: 06/03/21 08:37> Integumentary/Breasts: Skin/Breast: Denies rash and Denies jaundice <Consuelo Pham PA-C - Last Filed: 06/03/21 08:37> Neurologic: Denies dizziness and Denies focal weakness <Consuelo Pham PA-C - Last Filed: 06/03/21 08:37> Endocrine: Endocrine: Denies palpitations <Consuelo Pham PA-C - Last Filed: 06/03/21 08:37> PMF Past Medical History Medical History: Medical History (Updated 06/02/21 @ 23:15 by STEPHANIE Collazo) Arthralgia Cholelithiasis Finger osteomyelitis GERD (gastroesophageal reflux disease) Hypercholesterolemia Hypertension Pancreatic pseudocyst Peptic ulcer disease Vitamin D deficiency <Consuelo Pham PA-C - Last Filed: 06/03/21 08:37> Family History Family History: Family History Brother CAD (coronary artery disease) Aneurysm <Consuelo Pham PA-C - Last Filed: 06/03/21 08:37> Surgical History Surgical History: Surgical History (Updated 06/03/21 @ 08:30 by Consuelo Pham PA-C) History of section History of ERCP (~2013) History of esophagogastroduodenoscopy (EGD) <Consuelo Pham PA-C - Last Filed: 06/03/21 08:37> Social History Social History: Social History Housing: House Alcohol intake: current Alcohol intake frequency: holidays/special occasions only Patient Tobacco Use Status: Former Tobacco user Quit Date: 21yrs ago Tobacco use type: Cigarette Years Smoked: quit 2000 Use of substances other than those prescribed or required for medical reasons: No Are you DNR?: No Advance Directives: No Advance Directives Information Provided: No service: No Current occupational status: retired <Consuelo Pham PA-C - Last Filed: 06/03/21 08:37> Meds Allergies/Adverse reactions: Allergies Allergy/AdvReac Type Severity Reaction Status Date / Time penicillamine [Cuprimine] Allergy Unknown Rash Verified 05/23/21 13:07 penicillin V Allergy Unknown Rash Verified 05/23/21 13:07 Penicillins [PENICILLINS] Allergy Unknown HIVES Verified 05/23/21 13:07 Sulfa (Sulfonamide Allergy Unknown HIVES Verified 05/23/21 13:07 Antibiotics) [SULFA (SULFONAMIDE ANTIBIOTICS)] sulfasalazine [Sulfazine] Allergy Unknown Rash Verified 05/23/21 13:07 <Consuelo Pham PA-C - Last Filed: 06/03/21 08:37> Active Medications: Current Medications Ascorbic Acid (Ascorbic Acid 500 Mg Tablet) 500 mg PO DAILY [facility] Last Admin: 06/03/21 08:04 Dose: Not Given Documented by: Hydromorphone HCl (Hydromorphone Hcl 0.5 Mg/0.5 Ml Syringe) 0.5 mg IVPUSH Q4H PRN; Protocol PRN Reason: Pain, Severe (Pain Scale 7-10) Last Admin: 06/03/21 08:02 Dose: 0.5 mg Documented by: Dextrose/Sodium Chloride (D51/2ns) 1,000 mls @ 50 mls/hr IVCONT .Q20H [facility] Last Admin: 06/02/21 22:47 Dose: 50 mls/hr Documented by: Loratadine (Loratadine 10 Mg Tablet) 10 mg PO DAILY PRN PRN Reason: allergy symptoms Melatonin (Melatonin 3 Mg Tablet) 6 mg PO BEDTIME PRN PRN Reason: Insomnia Multivitamins/Vitamin C (Multivitamin Tablet) 1 tab PO DAILY [facility] Last Admin: 06/03/21 08:04 Dose: Not Given Documented by: Omeprazole (Omeprazole 20 Mg Capsule.) 20 mg PO DAILY@0630 [facility] Last Admin: 06/03/21 08:03 Dose: Not Given Documented by: Pharmacy Consult (Consult Rx Perform Med Rec) 1 each MISCELLANE ONCE PRN PRN Reason: Consult order Senna (Sennosides 8.6 Mg Tablet) 17.2 mg PO BEDTIME PRN PRN Reason: Constipation Sodium Chloride (0.9 % Sodium Chloride Flush 3 Ml Syringe) 3 ml IVFLUSH [facility] Last Admin: 06/03/21 07:33 Dose: Not Given Documented by: <Consuelo Pham PA-C - Last Filed: 06/03/21 08:37> Home medications: Home Medications Medication Instructions Recorded Confirmed Last Taken Type ascorbate calcium (vitamin C) 500 500 mg PO DAILY 05/23/21 06/02/21 06/02/21 History mg tablet aspirin 81 mg tablet,delayed 81 mg PO DAILY 05/23/21 06/02/21 06/02/21 History release (Adult Aspirin Regimen) cholecalciferol (vitamin D3) 50 50 mcg PO DAILY 05/23/21 06/02/21 06/02/21 History mcg (2,000 unit) capsule glucosamine sulfate 500 mg tablet 500 mg PO DAILY 05/23/21 06/02/21 Unknown History (Glucosamine) multivitamin 1 tab PO DAILY 05/23/21 06/02/21 Unknown History omega-3 fatty acids 1,000 mg 2,000 mg PO DAILY 05/23/21 06/02/21 Unknown History capsule (Fish Oil Concentrate) vitamin A-vitamin C-vit E-min 1 tab PO DAILY 05/23/21 06/02/21 Unknown History tablet <Consuelo Pham PA-C - Last Filed: 06/03/21 08:37> Physical Exam Vital Signs: Vital Signs: Last Vital Signs Temp 98.6 F 06/03/21 07:24 Pulse 90 06/03/21 08:04 Resp 16 06/03/21 08:04 BP 129/61 06/03/21 08:04 Pulse Ox 96 06/03/21 08:04 BMI result Body Mass Index 24.5 <CARRINGTON Childress Last Filed: 06/03/21 08:37> Const: General: no acute distress, alert and other (in pain) <CARRINGTON Childress Last Filed: 06/03/21 08:37> Orientation/consciousness: patient oriented x3 <CARRINGTON Childress Last Filed: 06/03/21 08:37> Eyes: Sclerae: sclerae normal <Consuelo NAYE Pham - Last Filed: 06/03/21 08:37> GI: Inspection: Yes normal to inspection, No distended and Yes scar (pfannensteil incision) [facility] Last Filed: 06/03/21 08:37> Palpation (GI): Soft to palpation, Tenderness to palpation present (GI) in the RUQ and Whyte's sign positive, Guarding due to palpation present (GI) (voluntary) and not rigid <NAYE Childress - Last Filed: 06/03/21 08:37> Percussion: Yes normal to percussion <[facility] Last Filed: 06/03/21 08:37> Skin: General skin exam: no rashes or lesions noted <[facility] Last Filed: 06/03/21 08:37> Neuro: General: patient oriented x3 <[facility] Last Filed: 06/03/21 08:37> Extrem: General: Yes no clubbing, cyanosis or edema <[facility] Last Filed: 06/03/21 08:37> Results Labs Result diagrams: : 06/03/21 06:50 06/03/21 06:50 <[facility] Last Filed: 06/03/21 08:37> Labs: Abnormal lab results 06/02/21 06/02/21 06/02/21 Range/Units 17:29 17:29 17:29 WBC 16.3 H (4.8-10.8) X10*3/uL RBC 4.13 L (4.20-5.50) X10*6/uL Hct (37.0-47.0) % MCHC 35.4 H (31.0-35.0) g/dl Immature Gran % (Auto) (0.0-0.4) % Neut % (Auto) (45-73) % Lymph % (Auto) (20-40) % Abs Immat Gran (auto) (0.00-0.03) X10*3/uL Absolute Neuts (auto) (2.0-8.3) x10*3/uL Anion Gap (12-20) Random Glucose 127 H (60-115) mg/dL Magnesium 1.4 L* (1.6-2.6) mg/dL AST 140 H (5-31) U/L ALT 200 H (0-31) U/L Alkaline Phosphatase 124 H D (39-117) U/L Total Protein (6.5-8.0) g/dL Ur Specific [place] (1.005-1.025) 06/02/21 06/03/21 06/03/21 Range/Units 17:31 06:50 06:50 WBC 16.9 H (4.8-10.8) X10*3/uL RBC 3.97 L (4.20-5.50) X10*6/uL Hct 36.3 L (37.0-47.0) % MCHC (31.0-35.0) g/dl Immature Gran % (Auto) 0.6 H (0.0-0.4) % Neut % (Auto) 87.9 H (45-73) % Lymph % (Auto) 7.7 L (20-40) % Abs Immat Gran (auto) 0.10 H (0.00-0.03) X10*3/uL Absolute Neuts (auto) 14.9 H (2.0-8.3) x10*3/uL Anion Gap 11 L (12-20) Random Glucose 129 H (60-115) mg/dL Magnesium (1.6-2.6) mg/dL AST (5-31) U/L ALT (0-31) U/L Alkaline Phosphatase (39-117) U/L Total Protein (6.5-8.0) g/dL Ur Specific [place] >= 1.030 H (1.005-1.025) 06/03/21 Range/Units 06:50 WBC (4.8-10.8) X10*3/uL RBC (4.20-5.50) X10*6/uL Hct (37.0-47.0) % MCHC (31.0-35.0) g/dl Immature Gran % (Auto) (0.0-0.4) % Neut % (Auto) (45-73) % Lymph % (Auto) (20-40) % Abs Immat Gran (auto) (0.00-0.03) X10*3/uL Absolute Neuts (auto) (2.0-8.3) x10*3/uL Anion Gap (12-20) Random Glucose (60-115) mg/dL Magnesium (1.6-2.6) mg/dL AST 59 H (5-31) U/L ALT 126 H (0-31) U/L Alkaline Phosphatase (39-117) U/L Total Protein 5.8 L (6.5-8.0) g/dL Ur Specific [place] (1.005-1.025) Short CBC 06/02/21 06/03/21 Range/Units 17:29 06:50 WBC 16.3 H 16.9 H (4.8-10.8) X10*3/uL Hgb 13.3 12.4 (12.0-16.0) g/dl Hct 37.6 36.3 L (37.0-47.0) % Plt Count 200 172 (160-400) X10*3/uL BMP 06/02/21 06/03/21 17:29 06:50 Sodium 136 136 Potassium 3.3 3.5 Chloride 100 101 Carbon Dioxide 26 28 BUN 15 9 Creatinine 0.72 0.67 Calcium 9.7 8.8 D Liver Function 06/02/21 06/03/21 Range/Units 17:29 06:50 Total Bilirubin 0.4 0.6 (0.0-1.0) mg/dL Direct Bilirubin 0.3 0.3 (0.0-0.5) mg/dL AST 140 H 59 H (5-31) U/L ALT 200 H 126 H (0-31) U/L Alkaline Phosphatase 124 H D 91 D (39-117) U/L Albumin 4.4 3.6 (3.5-5.0) g/dL Urine 06/02/21 Range/Units 17:31 Urine Color YELLOW Urine Appearance CLEAR Urine pH 5.5 (5.0-8.0) Ur Specific [place] >= 1.030 H (1.005-1.025) Urine Protein NEG (NEG-TRACE) MG/DL Urine Glucose (UA) NEG (NEG) MG/DL All other labs normal. <Consuelo Pham PA-C - Last Filed: 06/03/21 08:37> Assessment and Plan (1) Gallstones, common bile duct: Status: Acute <Consuelo Pham PA-C - Last Filed: 06/03/21 08:37> She was admitted because upper quadrant and epigastric pain Her ultrasound shows CBD stones Her bilirubin was normal yesterday but is a little higher this morning CT scan has been ordered GI consult for ERCP She has a previous ERCP in 2014 Eventual cholecystectomy Antibiotics Pain management Seen and examined - agree with STEPHANIE Pham <Masood Herrera MD - Last Filed: 06/03/21 12:06> Mary Jane Valencia is a 71 year old female with PMH including hypertension, hyperlipidemia, peptic ulcer disease/GERD, cholelithiasis, who presented to the ED with complaints of RUQ abdominal pain found to have elevated transaminases and gallstones, CBD stone on ABD US. Similar presentation in 2013 and underwent ERCP which was negative for CBD stone. The patient was admitted to the medical service for further work up and treatment. She has a transaminitis but her bilirubin is actually normal but she has persistent severe RUQ pain. Will order CT scan. Await GI input regarding possible ERCP today. Also discussed proceeding with laparoscopic cholecystectomy possible open during this visit to prevent further recurrences once the CBD is cleared. She agrees with the plan. Case discussed with Dr. Herrera. <Consuelo Pham PA-C - Last Filed: 06/03/21 08:37> Procedures Date of Service Date of Service: 06/03/21 <Consuelo Pham PA-C - Last Filed: 06/03/21 08:37>
[2021-06-03] MEDS: iohexoL 350 MG/ML 100 ML INFUS..BTL IV (08:50)
--- NOTE | 2021-06-03 09:57 | P.PNIM_ITS ---
Subjective Subjective Date of Service: 06/03/21 Interval History: Follow-up on abdominal pain, transaminitis gallstones. No fever pain is better. Surgeries performed a CT of the abdomen and pelvis. Awaitin Review of Systems Gen: no fever Resp: no sob, no cough CV: no chest, no BARRETT, no leg edema GI: No n/v, +abd pain Neuro: No confusion Physical Exam Vital Signs: Vital Signs: Last Vital Signs Temp 98.6 F 06/03/21 07:24 Pulse 90 06/03/21 08:04 Resp 16 06/03/21 08:04 BP 129/61 06/03/21 08:04 Pulse Ox 96 06/03/21 08:04 BMI result Body Mass Index 24.5 Const: Other: General: AO X 3, no acute distress Resp: CTA bilateral CVS: S1,S2,RRR GI: +BS, mild ruq tendernes, no distention Skin: No rash Neuro: motor grossly intact Psych: appropriate affect Objective Data Active Medications Ascorbic Acid (Ascorbic Acid 500 Mg Tablet) 500 mg PO DAILY [facility] Last Admin: 06/03/21 08:04 Dose: Not Given Documented by: LILLIE Non-Admin Reason: NPO Hydromorphone HCl (Hydromorphone Hcl 0.5 Mg/0.5 Ml Syringe) 0.5 mg IVPUSH Q4H PRN; Protocol PRN Reason: Pain, Severe (Pain Scale 7-10) Last Admin: 06/03/21 08:02 Dose: 0.5 mg Documented by: LILLIE Dextrose/Sodium Chloride (D51/2ns) 1,000 mls @ 50 mls/hr IVCONT .Q20H [facility] Last Admin: 06/02/21 22:47 Dose: 50 mls/hr Documented by: IKER Loratadine (Loratadine 10 Mg Tablet) 10 mg PO DAILY PRN PRN Reason: allergy symptoms Melatonin (Melatonin 3 Mg Tablet) 6 mg PO BEDTIME PRN PRN Reason: Insomnia Multivitamins/Vitamin C (Multivitamin Tablet) 1 tab PO DAILY [facility] Last Admin: 06/03/21 08:04 Dose: Not Given Documented by: LILLIE Non-Admin Reason: NPO Omeprazole (Omeprazole 20 Mg Capsule.Dr) 20 mg PO DAILY@0630 [facility] Last Admin: 06/03/21 08:03 Dose: Not Given Documented by: LILLIE Non-Admin Reason: NPO Pharmacy Consult (Consult Rx Perform Med Rec) 1 each MISCELLANE ONCE PRN PRN Reason: Consult order Senna (Sennosides 8.6 Mg Tablet) 17.2 mg PO BEDTIME PRN PRN Reason: Constipation Sodium Chloride (0.9 % Sodium Chloride Flush 3 Ml Syringe) 3 ml IVFLUSH QSHIFT [facility] Last Admin: 06/03/21 07:33 Dose: Not Given Documented by: LILLIE Non-Admin Reason: IV Running Labs CBC & Chem 7: 06/03/21 06:50 06/03/21 06:50 Labs: Laboratory Results - last 24 hr 06/02/21 06/02/21 06/02/21 17:28 17:29 17:29 MCV 91.0 MCH 32.2 MCHC 35.4 H RDW 11.9 Plt Count 200 MPV 10.5 Immature Gran % (Auto) Neut % (Auto) Lymph % (Auto) [place] % (Auto) Eos % (Auto) Baso % (Auto) Lymph # (Auto) [place] # (Auto) Eos # (Auto) Baso # (Auto) Abs Immat Gran (auto) Absolute Neuts (auto) Absolute Nucleated RBC 0.000 Nucleated RBC % (auto) 0.0 Anion Gap 13 Estim Creat Clear Calc 60.8 Estimated GFR > 60 Random Glucose 127 H Lactic Acid 1.3 Calcium 9.7 Magnesium Total Bilirubin Direct Bilirubin AST ALT Alkaline Phosphatase Troponin I High Sens Total Protein Albumin Lipase Urine Color Urine Appearance Urine pH Ur Specific [place] Urine Protein Urine Glucose (UA) Urine Ketones Urine Blood Urine Nitrite Ur Leukocyte Esterase COVID-19 ([facility]) COVID-19 Clin Com 06/02/21 06/02/21 06/02/21 17:29 17:29 17:31 MCV MCH MCHC RDW Plt Count MPV Immature Gran % (Auto) Neut % (Auto) Lymph % (Auto) [place] % (Auto) Eos % (Auto) Baso % (Auto) Lymph # (Auto) [place] # (Auto) Eos # (Auto) Baso # (Auto) Abs Immat Gran (auto) Absolute Neuts (auto) Absolute Nucleated RBC Nucleated RBC % (auto) Anion Gap Estim Creat Clear Calc Estimated GFR Random Glucose Lactic Acid Calcium Magnesium 1.4 L* Total Bilirubin 0.4 Direct Bilirubin 0.3 AST 140 H ALT 200 H Alkaline Phosphatase 124 H D Troponin I High Sens 6.1 Total Protein 7.0 Albumin 4.4 Lipase 15 Urine Color YELLOW Urine Appearance CLEAR Urine pH 5.5 Ur Specific [place] >= 1.030 H Urine Protein NEG Urine Glucose (UA) NEG Urine Ketones NEG Urine Blood NEG Urine Nitrite NEG Ur Leukocyte Esterase NEG COVID-19 ([facility]) COVID-19 Clin Com 06/02/21 06/03/21 06/03/21 17:33 00:34 06:50 MCV 91.4 MCH 31.2 MCHC 34.2 RDW 12.1 Plt Count 172 MPV 10.5 Immature Gran % (Auto) 0.6 H Neut % (Auto) 87.9 H Lymph % (Auto) 7.7 L [place] % (Auto) 3.5 Eos % (Auto) 0.1 Baso % (Auto) 0.2 Lymph # (Auto) 1.3 [place] # (Auto) 0.6 Eos # (Auto) 0.0 Baso # (Auto) 0.0 Abs Immat Gran (auto) 0.10 H Absolute Neuts (auto) 14.9 H Absolute Nucleated RBC 0.000 Nucleated RBC % (auto) 0.0 Anion Gap Estim Creat Clear Calc Estimated GFR Random Glucose Lactic Acid Calcium Magnesium Total Bilirubin Direct Bilirubin AST ALT Alkaline Phosphatase Troponin I High Sens 12.3 D Total Protein Albumin Lipase Urine Color Urine Appearance Urine pH Ur Specific [place] Urine Protein Urine Glucose (UA) Urine Ketones Urine Blood Urine Nitrite Ur Leukocyte Esterase COVID-19 ([facility]) Negative COVID-19 Clin Com See Note 06/03/21 06/03/21 06:50 06:50 MCV MCH MCHC RDW Plt Count MPV Immature Gran % (Auto) Neut % (Auto) Lymph % (Auto) [place] % (Auto) Eos % (Auto) Baso % (Auto) Lymph # (Auto) [place] # (Auto) Eos # (Auto) Baso # (Auto) Abs Immat Gran (auto) Absolute Neuts (auto) Absolute Nucleated RBC Nucleated RBC % (auto) Anion Gap 11 L Estim Creat Clear Calc 65.4 Estimated GFR > 60 Random Glucose 129 H Lactic Acid Calcium 8.8 D Magnesium Total Bilirubin 0.6 Direct Bilirubin 0.3 AST 59 H ALT 126 H Alkaline Phosphatase 91 D Troponin I High Sens Total Protein 5.8 L Albumin 3.6 Lipase Urine Color Urine Appearance Urine pH Ur Specific [place] Urine Protein Urine Glucose (UA) Urine Ketones Urine Blood Urine Nitrite Ur Leukocyte Esterase COVID-19 ([facility]) COVID-19 Clin Com Assessment and Plan (1) Gallstones, common bile duct: Status: Acute (2) Abdominal pain: Status: Acute Assessment and Plan: 71-year-old female with a past medical history of hypertension, hyperlipidemia, peptic ulcer disease, cholelithiasis, GERD presented to the hospital with a chief complaint of abdominal pain. Noted to have choledocholithiasis/transaminitis. Admitted for further management. Choledocholithiasis: USG:Choledocholithiasis with gallstones as well as stones in the common bile duct.\ -to have CT of abdomen and pelvis today recommended by GI -GI to assess for possible ERCP -Dilaudid for pain Leukocytosis: Likely reactive. Patient was empirically given antibiotics in the ER. Start Abx if CT suggest possible cholecystitis Transaminitis with norml bili, Likely in setting of choledocholithiasis. Trend liver enzymes. Avoid hepatotoxins. Hold home statin. Hypertension: Will hold the patient's blood pressure medications for now. Currently blood pressure is stable and normal side. GI prophylaxis: Ppi DVT prophylaxis: SCD boots Code status: Full code Quality Stroke Does the patient have a stroke diagnosis?: No VTE Prior VTE?: No VTE Risk Level:: Medical - low VTE Device Contraindication: N/A - Device Ordered VTE Drug Contraindication: Treatment Not Indicated
--- NOTE | 2021-06-03 10:11 | PC.NURSE ---
report to PRIYANK Ayala
[2021-06-03 11:11] LABS: INTERNATIONAL NORM RATIO 1.2 (0.9-1.1); Prothrombin Time 13.1 SEC (9.9-13.0)
--- NOTE | 2021-06-03 11:11 | PC.NURSE ---
Pt A&Ox3, walks independ to bathroom, pain 9/10 at this time but aware not due for pain meds for one more hour. Questions about reasons for NPO and procedure answered. Awaiting SS, will continue to monitor.
--- NOTE | 2021-06-03 11:46 | PC.NURSE ---
Pt to short stay at this time.
--- NOTE | 2021-06-03 12:36 | P.CONAN_ITS ---
[facility] Active Problems Active Problems: All Active Problems (Updated 06/02/21 @ 23:15 by STEPHANIE Collazo) Gallstones, common bile duct (Acute) Abdominal pain (Acute) Penicillin allergy (Acute) Impaired glucose tolerance (Acute) Medicare annual wellness visit, initial (Acute) Arthralgia (Acute) Lyme arthritis (Acute) Osteopenia (Acute) Hypercholesterolemia (Acute) GERD (gastroesophageal reflux disease) (Acute) Hypertension (Acute) Gout (Acute) Hand pain (Acute) Strain of left hip and thigh (Acute) Fracture of fibula, distal, left, closed (Acute) Left ankle pain (Acute) Past Medical History Medical History (Updated 06/02/21 @ 23:15 by STEPHANIE Colalzo) Arthralgia Cholelithiasis Finger osteomyelitis GERD (gastroesophageal reflux disease) Hypercholesterolemia Hypertension Pancreatic pseudocyst Peptic ulcer disease Vitamin D deficiency Family History Family History Brother CAD (coronary artery disease) Aneurysm Family history of problems with anesthesia: No Surgical History Surgical History (Updated 06/03/21 @ 08:30 by Consuelo Pham PA-C) History of section History of ERCP (~2013) History of esophagogastroduodenoscopy (EGD) History of Problems with Anesthesia: No Social History Social History Housing: House Alcohol intake: current Alcohol intake frequency: holidays/special occasions only Patient Tobacco Use Status: Former Tobacco user Quit Date: 21yrs ago Tobacco use type: Cigarette Years Smoked: quit 1999 Use of substances other than those prescribed or required for medical reasons: No Are you DNR?: No Advance Directives: No Advance Directives Information Provided: No service: No Current occupational status: retired Meds Allergies Allergy/AdvReac Type Severity Reaction Status Date / Time penicillamine [Cuprimine] Allergy Unknown Rash Verified 05/23/21 13:07 penicillin V Allergy Unknown Rash Verified 05/23/21 13:07 Penicillins [PENICILLINS] Allergy Unknown HIVES Verified 05/23/21 13:07 Sulfa (Sulfonamide Allergy Unknown HIVES Verified 05/23/21 13:07 Antibiotics) [SULFA (SULFONAMIDE ANTIBIOTICS)] sulfasalazine [Sulfazine] Allergy Unknown Rash Verified 05/23/21 13:07 Active Medications: Current Medications Ascorbic Acid (Ascorbic Acid 500 Mg Tablet) 500 mg PO DAILY [facility] Last Admin: 06/03/21 08:04 Dose: Not Given Documented by: Hydromorphone HCl (Hydromorphone Hcl 0.5 Mg/0.5 Ml Syringe) 0.5 mg IVPUSH Q4H PRN; Protocol PRN Reason: Pain, Severe (Pain Scale 7-10) Last Admin: 06/03/21 08:02 Dose: 0.5 mg Documented by: Dextrose/Sodium Chloride (D51/2ns) 1,000 mls @ 50 mls/hr IVCONT .Q20H [facility] Last Admin: 06/02/21 22:47 Dose: 50 mls/hr Documented by: Loratadine (Loratadine 10 Mg Tablet) 10 mg PO DAILY PRN PRN Reason: allergy symptoms Melatonin (Melatonin 3 Mg Tablet) 6 mg PO BEDTIME PRN PRN Reason: Insomnia Multivitamins/Vitamin C (Multivitamin Tablet) 1 tab PO DAILY [facility] Last Admin: 06/03/21 08:04 Dose: Not Given Documented by: Omeprazole (Omeprazole 20 Mg Capsule.) 20 mg PO DAILY@0630 [facility] Last Admin: 06/03/21 08:03 Dose: Not Given Documented by: Pharmacy Consult (Consult Rx Perform Med Rec) 1 each MISCELLANE ONCE PRN PRN Reason: Consult order Senna (Sennosides 8.6 Mg Tablet) 17.2 mg PO BEDTIME PRN PRN Reason: Constipation Sodium Chloride (0.9 % Sodium Chloride Flush 3 Ml Syringe) 3 ml IVFLUSH QSHIFT [facility] Last Admin: 06/03/21 07:33 Dose: Not Given Documented by: Home Medications Medication Instructions Recorded Confirmed Last Taken Type ascorbate calcium (vitamin C) 500 500 mg PO DAILY 05/23/21 06/02/21 06/02/21 History mg tablet aspirin 81 mg tablet,delayed 81 mg PO DAILY 05/23/21 06/02/21 06/02/21 History release (Adult Aspirin Regimen) cholecalciferol (vitamin D3) 50 50 mcg PO DAILY 05/23/21 06/02/21 06/02/21 History mcg (2,000 unit) capsule glucosamine sulfate 500 mg tablet 500 mg PO DAILY 05/23/21 06/02/21 Unknown History (Glucosamine) multivitamin 1 tab PO DAILY 05/23/21 06/02/21 Unknown History omega-3 fatty acids 1,000 mg 2,000 mg PO DAILY 05/23/21 06/02/21 Unknown History capsule (Fish Oil Concentrate) vitamin A-vitamin C-vit E-min 1 tab PO DAILY 05/23/21 06/02/21 Unknown History tablet Exam Exam Date and Time: June 03, 2021 1236 Height,Weight and Vital Signs: Height 5 ft 1 in Weight 58.967 kg Last Vital Signs Temp 99.3 F 06/03/21 11:46 Pulse 91 06/03/21 11:46 Resp 16 06/03/21 11:46 BP 127/62 06/03/21 11:46 Pulse Ox 96 06/03/21 11:46 Pertinent Lab Results Pertinent Lab Results: Laboratory Tests 06/02/21 06/02/21 06/02/21 17:28 17:29 17:29 WBC 16.3 H RBC 4.13 L Hgb 13.3 Hct 37.6 MCV 91.0 MCH 32.2 MCHC 35.4 H RDW 11.9 Plt Count 200 MPV 10.5 Immature Gran % (Auto) Neut % (Auto) Lymph % (Auto) [place] % (Auto) Eos % (Auto) Baso % (Auto) Lymph # (Auto) [place] # (Auto) Eos # (Auto) Baso # (Auto) Abs Immat Gran (auto) Absolute Neuts (auto) Absolute Nucleated RBC 0.000 Nucleated RBC % (auto) 0.0 PT INR Sodium 136 Potassium 3.3 Chloride 100 Carbon Dioxide 26 Anion Gap 13 BUN 15 Creatinine 0.72 Estim Creat Clear Calc 60.8 Estimated GFR > 60 Random Glucose 127 H Lactic Acid 1.3 Calcium 9.7 Magnesium Total Bilirubin Direct Bilirubin AST ALT Alkaline Phosphatase Troponin I High Sens Total Protein Albumin Lipase Urine Color Urine Appearance Urine pH Ur Specific [place] Urine Protein Urine Glucose (UA) Urine Ketones Urine Blood Urine Nitrite Ur Leukocyte Esterase COVID-19 (WONG) COVID-19 Clin Com 06/02/21 06/02/21 06/02/21 17:29 17:29 17:31 WBC RBC Hgb Hct MCV MCH MCHC RDW Plt Count MPV Immature Gran % (Auto) Neut % (Auto) Lymph % (Auto) [place] % (Auto) Eos % (Auto) Baso % (Auto) Lymph # (Auto) [place] # (Auto) Eos # (Auto) Baso # (Auto) Abs Immat Gran (auto) Absolute Neuts (auto) Absolute Nucleated RBC Nucleated RBC % (auto) PT INR Sodium Potassium Chloride Carbon Dioxide Anion Gap BUN Creatinine Estim Creat Clear Calc Estimated GFR Random Glucose Lactic Acid Calcium Magnesium 1.4 L* Total Bilirubin 0.4 Direct Bilirubin 0.3 AST 140 H ALT 200 H Alkaline Phosphatase 124 H D Troponin I High Sens 6.1 Total Protein 7.0 Albumin 4.4 Lipase 15 Urine Color YELLOW Urine Appearance CLEAR Urine pH 5.5 Ur Specific [place] >= 1.030 H Urine Protein NEG Urine Glucose (UA) NEG Urine Ketones NEG Urine Blood NEG Urine Nitrite NEG Ur Leukocyte Esterase NEG COVID-19 (WONG) COVID-[employer] 06/02/21 06/03/21 06/03/21 17:33 00:34 06:50 WBC 16.9 H RBC 3.97 L Hgb 12.4 Hct 36.3 L MCV 91.4 MCH 31.2 MCHC 34.2 RDW 12.1 Plt Count 172 MPV 10.5 Immature Gran % (Auto) 0.6 H Neut % (Auto) 87.9 H Lymph % (Auto) 7.7 L [place] % (Auto) 3.5 Eos % (Auto) 0.1 Baso % (Auto) 0.2 Lymph # (Auto) 1.3 [place] # (Auto) 0.6 Eos # (Auto) 0.0 Baso # (Auto) 0.0 Abs Immat Gran (auto) 0.10 H Absolute Neuts (auto) 14.9 H Absolute Nucleated RBC 0.000 Nucleated RBC % (auto) 0.0 PT INR Sodium Potassium Chloride Carbon Dioxide Anion Gap BUN Creatinine Estim Creat Clear Calc Estimated GFR Random Glucose Lactic Acid Calcium Magnesium Total Bilirubin Direct Bilirubin AST ALT Alkaline Phosphatase Troponin I High Sens 12.3 D Total Protein Albumin Lipase Urine Color Urine Appearance Urine pH Ur Specific [place] Urine Protein Urine Glucose (UA) Urine Ketones Urine Blood Urine Nitrite Ur Leukocyte Esterase COVID-19 (WONG) Negative COVID-[employer] Com See Note 06/03/21 06/03/21 06/03/21 06:50 06:50 10:50 WBC RBC Hgb Hct MCV MCH MCHC RDW Plt Count MPV Immature Gran % (Auto) Neut % (Auto) Lymph % (Auto) [place] % (Auto) Eos % (Auto) Baso % (Auto) Lymph # (Auto) [place] # (Auto) Eos # (Auto) Baso # (Auto) Abs Immat Gran (auto) Absolute Neuts (auto) Absolute Nucleated RBC Nucleated RBC % (auto) PT 13.1 H INR 1.2 H Sodium 136 Potassium 3.5 Chloride 101 Carbon Dioxide 28 Anion Gap 11 L BUN 9 Creatinine 0.67 Estim Creat Clear Calc 65.4 Estimated GFR > 60 Random Glucose 129 H Lactic Acid Calcium 8.8 D Magnesium Total Bilirubin 0.6 Direct Bilirubin 0.3 AST 59 H ALT 126 H Alkaline Phosphatase 91 D Troponin I High Sens Total Protein 5.8 L Albumin 3.6 Lipase Urine Color Urine Appearance Urine pH Ur Specific [place] Urine Protein Urine Glucose (UA) Urine Ketones Urine Blood Urine Nitrite Ur Leukocyte Esterase COVID-19 (WONG) COVID-19 Clin Com Airway Mallampati Class: II TM Dist: >3cm Neck ROM: Full Assessment and Plan Assessment Anesthesia Assessment: Anesthesia Plan Discussed and Chart Reviewed Final Anesthetic Review Family History of Problems with Anesthesia: No History of Problems with Anesthesia: No NPO: Yes ASA Class: II Final Preanesthetic Review: No Changes in Pt Med Stat, Meds/Allgs Chart Reviewed, Consent Obtained/Reviewed and Anes Risks/Benef Reviewed Patient Risk: Intermediate Procedure Risk: Intermediate Anesthetic Plan Anesthetic Plan: GA Disposition: Standard PACU
--- NOTE | 2021-06-03 12:59 | MHC.SHP ---
Pre-Procedural Eval Section A Date of Service: 06/03/21 The patient is an INPATIENT: Yes The History & Physical has been completed within 30 days and I have reviewed it.: Yes Section B Chief Complaint: Choledocholithiasis Allergies: Allergies Allergy/AdvReac Type Severity Reaction Status Date / Time penicillamine [Cuprimine] Allergy Unknown Rash Verified 05/23/21 13:07 penicillin V Allergy Unknown Rash Verified 05/23/21 13:07 Penicillins [PENICILLINS] Allergy Unknown HIVES Verified 05/23/21 13:07 Sulfa (Sulfonamide Allergy Unknown HIVES Verified 05/23/21 13:07 Antibiotics) [SULFA (SULFONAMIDE ANTIBIOTICS)] sulfasalazine [Sulfazine] Allergy Unknown Rash Verified 05/23/21 13:07 Plan I have reviewed the history and physical and performed a pertinent physical examination on my patient. No changes have occurred unless specified.
[2021-06-03] MEDS: Lactated Ringers 1,000 ML 100 ML IVCONT (13:09)
--- NOTE | 2021-06-03 14:38 | PM.EVENT ---
Event Note Date of Service: 06/03/21 Event Note: GI Consult-Full note dictated Imp: Abdominal pain, Gallstones, Elevated LFT's, Presumed Choledocholithiasis on U/S. Rec: ERCP today.Full consent obtained from her for this, including risks of bleeding, cholangitis, perforation, and pancreatitis. Preop antibiotics. Eventual CCY. D/W patient in detail and she is comfortable with this plan.Thanks
--- NOTE | 2021-06-03 16:12 | P.BOP_ITS ---
Brief Operative Note Date of Service: 06/03/21 Pre-op diagnosis: Choledocholithiasis Post-op diagnosis: same Procedure: ERCP with sphincterotomy and CBD stone removal Surgeon: Levi Coyle Anesthesia: GETA Was an Director Underwriter Sales used for this Procedure?: No Estimated blood loss (mL): 0 Pathology: none sent Condition: stable Disposition: PACU
--- NOTE | 2021-06-03 16:15 | PM.EVENT ---
Event Note Date of Service: 06/03/21 Event Note: [id number] note dictated Findings: 1. Major papilla c/w previous sphincterotomy-good flow of bile noted, no purulence noted 2. Just inferior to this was a separate opening which was initially cannulated with a straight guidewire -this entered the pancreatic duct judging fluoroscopically-no dye was injected 3. Above this site the major papilla was then easily cannulated over the straight guidewire and selective cholangiograms revealed multiple filling defects c/w stones. 4. I extended the sphincterotomy by approx. 5mm without any immediate complication 5. I then used 12mm and 15mm balloons to extract 3 CBD stones and sludge 6. F/U cholangiograms were negative for filling defects and there was good drainage of bile and contrast noted--the 15mm balloon pulled easily into the duodenum Imp: Choledocholithiasis Rec: Observe overnight, F/U labs, CCY as per surgery. D/W patient and daughter. Thanks
--- NOTE | 2021-06-03 16:47 | PC.NURSE ---
Pt returned from ting at this time, oriented x3, aware she is to remain NPO at this time due to possible surgery tomorrow, pt c/o 12/15 pain to RUQ. VS as charted, awaiting further orders. Call macdonald in place, will continue to monitor.
[2021-06-03] MEDS: Dextrose 5 % and 0.45 % NaCl 1,000 ML 50 ML IVCONT (16:53)
--- NOTE | 2021-06-03 19:18 | PC.NURSE ---
Assumed care of pt at 1900. Pt resting in bed and in NAD, awake and alert, even and non-labored resps
--- NOTE | 2021-06-03 22:18 | CONS_ITS ---
DATE OF SERVICE: 06/03/2021 REASON FOR CONSULTATION: Abdominal pain, gallstones, elevated LFTs, and choledocholithiasis on ultrasound. HISTORY OF PRESENT ILLNESS: The patient is a 71-year-old female, who describes feeling well up until yesterday when she developed fairly acute onset of right-sided upper abdominal pain. This was associated with some nausea. She did have some chills, but did not have any definitive fever. She did not notice any jaundice. Prior to yesterday, she was basically feeling well without any particular GI symptoms. In reviewing her past history, she did undergo a previous ERCP with sphincterotomy with oh in 2013. That report describes a normal appearing biliary tree without any definitive filling defects, but a sphincterotomy was done due to a previous suspicion of a common duct stone. She tolerated that procedure well. Of note, an abdominal ultrasound in 2013 did not show any sign of gallstones, and therefore, cholecystectomy was not recommended. An MRI also did not show any sign of gallstones either. In any event, she now presents with abdominal pain. She has been noted to have elevated LFTs and an abdominal ultrasound done early describes probable common duct stones. MEDICATIONS: At home included vitamin C, 81 mg aspirin, vitamin D, hydrochlorothiazide, lisinopril, vitamins, omega-3 fish oil, omeprazole, rosuvastatin, and vitamins. PAST MEDICAL HISTORY: Notable for a presumed perforated ulcer several years ago, treated with antibiotics at [facility] and did not require surgery. A followup upper endoscopy with oh in 2017 was negative for any sign of peptic ulcer disease. She had a negative colonoscopy with oh in 2018. She has history of hypertension, hyperlipidemia. She had a section. She denies any history of NV, diabetes, stroke, nor lung disease. SOCIAL HISTORY: She does not smoke nor use any significant alcohol. She is . FAMILY HISTORY: Noncontributory. REVIEW OF SYSTEMS: CONSTITUTIONAL: Prior to yesterday, she had been feeling well with good energy and good appetite. SKIN: No rash. No pruritus. CARDIAC: No chest pain. PULMONARY: No cough. No hemoptysis. GI: As above. She denies any recent significant heartburn nor dysphagia. Her bowel movements have been regular without any sign of melena nor hematochezia. NEUROLOGIC: No headache or seizures. PHYSICAL EXAMINATION: GENERAL: The patient is presently comfortable. She has been afebrile here in the hospital thus far. SKIN: Warm and dry. Nonjaundiced. Anicteric sclerae. NECK: Supple without lymphadenopathy. ABDOMEN: Soft, nondistended. There is some right upper quadrant tenderness without mass rebound or guarding. DIAGNOSTIC STUDIES: She had an ultrasound of the abdomen describing multiple stones in the gallbladder and a dilated common bile duct of 7 mm with what appeared to be stones in the common bile duct. The liver appeared normal and there was no intrahepatic biliary ductal dilatation. She did have a CT scan of the abdomen as well that describes gallstones in the gallbladder and choledocholithiasis. The pancreatic duct was nondilated and there was no sign of any pancreatitis. She had a white count of 16.9, hemoglobin 12.4, platelets 272,000. PT 13.1 with INR 1.2. Normal electrolytes. BUN 9, creatinine 0.7, normal total bilirubin. AST was 140 yesterday and 59 today. ALT was 200 yesterday and 126 today. Alkaline phosphatase was 124 yesterday, 91 today. Albumin 3.6. Lipase 15. IMPRESSION: Given the patient's clinical history and workup thus far this seems consistent with choledocholithiasis secondary to gallstones. She did have a previous endoscopic retrograde cholangiopancreatography with sphincterotomy in 2013, but that time did not appear to have any gallstones nor choledocholithiasis. Given her presentation, she will undergo endoscopic retrograde cholangiopancreatography today. Full consent obtained from her for this, including risks of bleeding, perforation, cholangitis, and pancreatitis. She has already been seen by Dr. Herrera and will undergo eventual cholecystectomy as well. She will receive a dose of IV Levaquin preoperatively as she only received some antibiotics in the ER yesterday. This has been discussed in detail with the patient and she is comfortable with this plan. MD KATARINA Thomas/DEVIN / [id number]
[2021-06-04] VITALS (7 sets, daily range): BP systolic 124–142; BP diastolic 60–67; PULSE 82–95; RESP 16–18; TEMP 36.7–37.1; O2SAT 92–99; BMI 27.6
--- NOTE | 2021-06-04 02:19 | OP_ITS ---
SURGEON: Levi Coyle MD INDICATIONS: Patient presents for evaluation of abdominal pain, elevated LFTs, and evidence of choledocholithiasis on imaging studies. Full consent was obtained from her for this, including risks of bleeding, perforation, cholangitis, and pancreatitis. PREOPERATIVE DIAGNOSIS: Choledocholithiasis. POSTOPERATIVE DIAGNOSIS: Choledocholithiasis. PROCEDURE PERFORMED: ERCP with sphincterotomy and removal of common bile duct stones. ESTIMATED BLOOD LOSS: COMPLICATIONS: ANESTHESIA: General anesthesia. Glucagon 0.5mg IV x 1 dose ASSISTANTS: SPECIMENS: DESCRIPTION OF PROCEDURE: The patient was placed in the semi-prone position. The [employer] video duodenoscope was passed in the posterior oropharynx and upper esophagus. The scope entered the stomach and was advanced to the pylorus. The duodenum was cannulated to the descending portion. The region of the major papilla was visualized. The initial cannulation of the papilla with a triple-lumen sphincterotome over a straight guidewire yielded entry into the pancreatic duct judging fluoroscopically. No dye was injected. Upon withdrawal of the guidewire, I then visualized a separate opening with flow of bile just above this. Using the sphincterotome and guidewire, a selective cannulation of the biliary tree was obtained. Selective cholangiograms were done and revealed at least 2 or 3 filling defects in the distal common duct, consistent with stones. The intrahepatic ducts filled well and appeared normal. The orifice was consistent with a previous sphincterotomy with some scarring, but I did extend the sphincterotomy by at least 4 or 5 mm without any immediate complication. This yielded excellent flow of bile and contrast. There was no purulence and no bleeding. I then switched to a 12 mm balloon catheter, which achieved a selective cannulation of the biliary tree over the straight guidewire. Selective cholangiograms again revealed good filling of the intrahepatic and extrahepatic bile ducts with at least 2 or 3 distal filling defects. Using that balloon catheter as well as a 15 mm balloon catheter, multiple sweeps of the bile duct were done and 3 stones and sludge were pulled into the duodenum. Followup cholangiograms with the balloon inflated and deflated revealed good filling of the intrahepatic and extrahepatic bile ducts, and no further filling defects. There was excellent drainage of bile and contrast noted, along with good decompression of the extrahepatic bile duct judging fluoroscopically.. Again, there was no purulence nor bleeding. The 15 mm balloon pulled easily into the duodenum. At that point, the procedure was terminated once it appeared that the followup cholangiograms did not have any sign of residual filling defects. The scope was then withdrawn from the patient. She tolerated the procedure well and was returned to the recovery area in stable condition. IMPRESSION: Choledocholithiasis, status post sphincterotomy and removal of common duct stones. PLAN: The patient will be observed overnight. She will have followup laboratories tomorrow. She will undergo cholecystectomy as per Dr. Herrera. This has all been discussed with the patient and her daughter in detail. MD KATARINA Thomas/DEVIN / [id number] MTDD
--- NOTE | 2021-06-04 02:34 | PC.NURSE ---
Report called to inpt RN. Pt to floor via wc in stable condition w/ all belongings
[2021-06-04 06:14] LABS: Basophils Percent Auto 0.1 % (0-2); Imm Gran Pct Auto 0.5 % (0.0-0.4); Lymphocytes Absolute Auto 0.8 X10*3/uL (1.2-4.9); Lymphocytes Percent Auto 4.6 % (20-40); MANUAL DIFF FLAG SCAN; Mean Corpuscular HGB Conc 33.3 g/dl (31.0-35.0); Mean Corpuscular Hemoglobin 30.8 pg (27.0-33.0); Mean Corpuscular Volume 92.5 fL (80.0-98.0); Mean Platelet Volume 10.3 fL (9.4-12.3); Monocytes Absolute Auto 0.7 X10*3/uL (0.1-1.2); Neutrophils Absolute Auto 16.5 x10*3/uL (2.0-8.3); Neutrophils Percent Auto 90.8 % (45-73); Platelet Count 176 X10*3/uL (160-400); Red Blood Count 3.89 X10*6/uL (4.20-5.50); Red Cell Distribution Width 12.3 % (11.0-16.0); SCAN SMEAR FLAG 1; White Blood Count 18.2 X10*3/uL (4.8-10.8)
[2021-06-04] MEDS: Omeprazole 20 MG CAPSULE.DR PO (06:24)
[2021-06-04 06:35] LABS: SLIDE REVIEW VERIFIED
[2021-06-04 06:55] LABS: Anion Gap 12 (12-20); Aspartate Amino Transferase 472 U/L (5-31); Bilirubin Direct 3.2 mg/dL (0.0-0.5); Bilirubin Total 3.9 mg/dL (0.0-1.0); Blood Urea Nitrogen 8 mg/dL (9-16); Calcium 8.9 mg/dL (8.4-10.2); Carbon Dioxide 29 mmol/L (22-29); Chloride 105 mmol/L (96-108); Creatinine Clr Calc Pharmacy 67.1; Estimated Glomerular Filt Rate > 60; Glucose Fasting 148 mg/dL (60-99); Potassium 3.7 mmol/L (3.3-5.1); Sodium 142 mmol/L (135-145)
[2021-06-04 06:56] LABS: Alanine Aminotransferase 445 U/L (0-31); Albumin Level 3.4 g/dL (3.5-5.0); Alkaline Phosphatase 315 U/L (39-117); Total Protein 5.8 g/dL (6.5-8.0)
[2021-06-04] MEDS: Multivitamin TABLET 1 TAB PO (07:48)
[2021-06-04] MEDS: Ascorbic Acid 500 MG TABLET PO (07:48)
[2021-06-04] MEDS: 0.9 % Sodium Chloride Flush 3 ML SYRINGE IVFLUSH ×3 (07:49→23:43)
--- NOTE | 2021-06-04 07:55 | P.PNGS_ITS ---
Subjective Subjective Date of Service: 06/04/21 <Consuelo Pham PA-C - Last Filed: 06/04/21 08:01> 06/04/21 <Masood Herrera MD - Last Filed: 06/04/21 11:19> Interval history: Feels a little better- pain now localized to RUQ. Does not want to take any narcotics for this. Asking for food. <Consuelo Pham PA-C - Last Filed: 06/04/21 08:01> Physical Exam Vital Signs: Vital Signs: Last Vital Signs Temp 98.4 F 06/04/21 04:00 Pulse 83 06/04/21 04:00 Resp 18 06/04/21 04:00 BP 142/64 H 06/04/21 04:00 Pulse Ox 98 06/04/21 04:00 BMI result Body Mass Index 27.6 <Consuelo Pham PA-C - Last Filed: 06/04/21 08:01> Const: General: comfortable, no acute distress and alert <Consuelo carney PA-C - Last Filed: 06/04/21 08:01> Orientation/consciousness: patient oriented x3 <Consuelo Pham PA-C - Last Filed: 06/04/21 08:01> Resp: Effort & Inspection: normal respiratory effort <CARRINGTON Childress Last Filed: 06/04/21 08:01> GI: Inspection: No distended <Consuelo Pham PA-C - Last Filed: 06/04/21 08:01> Palpation (GI): Soft to palpation and Tenderness to palpation present (GI) in the RUQ and Whyte's sign positive <Consuelo Pham PA-C - Last Filed: 06/04/21 08:01> Skin: General skin exam: no rashes or lesions noted and no jaundice <CARRINGTON Childress Last Filed: 06/04/21 08:01> Neuro: General: patient oriented x3 <CARRINGTON Childress Last Filed: 06/04/21 08:01> Objective Data Active Medications Acetaminophen (Acetaminophen 325 Mg Tablet) 650 mg PO Q6H PRN PRN Reason: Pain, Mild (Pain Scale 1-3) Acetaminophen (Acetaminophen 325 Mg Tablet) 650 mg PO Q6H PRN PRN Reason: Pain, Mild (Pain Scale 1-3) Ascorbic Acid (Ascorbic Acid 500 Mg Tablet) 500 mg PO DAILY [facility] Last Admin: 06/03/21 08:04 Dose: Not Given Documented by: LILLIE Non-Admin Reason: NPO Fentanyl (Fentanyl Citrate/Pf 100 Mcg/2 Ml Vial) 50 mcg IVPUSH Q5M PRN; Protocol PRN Reason: Pain, Severe (Pain Scale 7-10) Hydromorphone HCl (Hydromorphone Hcl 0.5 Mg/0.5 Ml Syringe) 0.5 mg IVPUSH Q4H PRN; Protocol PRN Reason: Pain, Severe (Pain Scale 7-10) Last Admin: 06/03/21 18:02 Dose: 0.5 mg Documented by: ARON Dextrose/Sodium Chloride (D51/2ns) 1,000 mls @ 50 mls/hr IVCONT .Q20H [facility] Last Admin: 06/03/21 16:53 Dose: 50 mls/hr Documented by: MARIEL-JASPREET Lactated Ringer's (Lr) 1,000 mls @ 100 mls/hr IVCONT .Q10H [facility] Last Admin: 06/04/21 00:51 Dose: Not Given Documented by: ELICEO Non-Admin Reason: Duplicate Order Loratadine (Loratadine 10 Mg Tablet) 10 mg PO DAILY PRN PRN Reason: allergy symptoms Medication (No Anticoagulants) 1 each MISCELLANE DAILY [facility] Stop: 06/10/21 12:00 Medication (No Nsaids) 1 each MISCELLANE DAILY [facility] Stop: 06/10/21 16:25 Medication (No Aspirin) 1 each MISCELLANE DAILY [facility] Stop: 06/10/21 12:00 Melatonin (Melatonin 3 Mg Tablet) 6 mg PO BEDTIME PRN PRN Reason: Insomnia Multivitamins/Vitamin C (Multivitamin Tablet) 1 tab PO DAILY [facility] Last Admin: 06/03/21 08:04 Dose: Not Given Documented by: LILLIE Non-Admin Reason: NPO Omeprazole (Omeprazole 20 Mg Capsule.) 20 mg PO DAILY@0630 [facility] Last Admin: 06/04/21 06:24 Dose: 20 mg Documented by: CYNDEE Ondansetron HCl (Ondansetron Hcl 4 Mg/2 Ml Vial) 4 mg IVPUSH ONCE PRN PRN Reason: Nausea and Vomiting Oxycodone HCl (Oxycodone Hcl Immed Release 5 Mg Tablet) 5 mg PO ONCE PRN PRN Reason: Pain, Severe (Pain Scale 7-10) Oxycodone HCl (Oxycodone Hcl Immed Release 5 Mg Tablet) 5 mg PO Q4H PRN PRN Reason: Pain, Moderate (Pain Scale 4-6 Pharmacy Consult (Consult Rx Perform Med Rec) 1 each MISCELLANE ONCE PRN PRN Reason: Consult order Senna (Sennosides 8.6 Mg Tablet) 17.2 mg PO BEDTIME PRN PRN Reason: Constipation Sodium Chloride (0.9 % Sodium Chloride Flush 3 Ml Syringe) 3 ml IVFLUSH QSHIFT [facility] Last Admin: 06/04/21 00:16 Dose: Not Given Documented by: ELICEO Non-Admin Reason: Med Not Available <Consuelo Pham PA-C - Last Filed: 06/04/21 08:01> Labs CBC & Chem 7: : 06/04/21 06:06 06/04/21 06:06 <Consuelo Pham PA-C - Last Filed: 06/04/21 08:01> Labs: Laboratory Results - last 24 hr 06/03/21 06/04/21 06/04/21 10:50 06:06 06:06 MCV 92.5 MCH 30.8 MCHC 33.3 RDW 12.3 Plt Count 176 MPV 10.3 Immature Gran % (Auto) 0.5 H Neut % (Auto) 90.8 H Lymph % (Auto) 4.6 L [place] % (Auto) 4.0 Eos % (Auto) 0.0 Baso % (Auto) 0.1 Lymph # (Auto) 0.8 L [place] # (Auto) 0.7 Eos # (Auto) 0.0 Baso # (Auto) 0.0 Abs Immat Gran (auto) 0.10 H Absolute Neuts (auto) 16.5 H Absolute Nucleated RBC 0.000 Nucleated RBC % (auto) 0.0 Smear Tech's Comments VERIFIED PT 13.1 H INR 1.2 H Anion Gap 12 Estim Creat Clear Calc 67.1 Estimated GFR > 60 Fasting Glucose 148 H Calcium 8.9 Total Bilirubin 3.9 H Direct Bilirubin 3.2 H AST 472 H ALT 445 H Alkaline Phosphatase 315 H D Total Protein 5.8 L Albumin 3.4 L <Consuelo Pham PA-C - Last Filed: 06/04/21 08:01> Microbiology Microbiology Results: Microbiology 06/02/21 17:30 Blood Culture - Preliminary Blood - Venous No growth after 24 hours. 06/02/21 17:29 Blood Culture - Preliminary Blood - Venous No growth after 24 hours. <Consuelo Pham PA-C - Last Filed: 06/04/21 08:01> Procedures Date of Service Date of Service: 06/04/21 <Consuelo Pham PA-C - Last Filed: 06/04/21 08:01> Progress Note: A&P Assessment and plan (1) Gallstones, common bile duct: Status: Acute <Consuelo Pham PA-C - Last Filed: 06/04/21 08:01> Assessment and Plan: successful ERCP done yesterday - multiple stones removed from the CBD feels better although with some pain bilirubin bump up this morning - likely post ERCP edema abdomen soft repeat bilirubin levels tomorrow possible lap kanwal tomorrow she understands the plan technique of lap cholecystectomy/ open cholecystectomy reviewed with the patient. I explained the risks including but not limited to bleeding, infections, or to other organs including bowel, and bile duct, retained stones, bile leak, as well as the benefits and alternatives patient seen and examined - agree with STEPHANIE Pham <Masood Herrera MD - Last Filed: 06/04/21 11:19> Assessment and Plan: 71 year old female who presented with RUQ/epigastric pain found to have CBD stone. She is now s/p ERCP with sphincterotomy. Pain now more localized to RUQ. WBC trending up, bili also up this morning likely related to ERCP. Will add tenatively to OR schedule for tomorrow for laparoscopic cholecystectomy possible open if bili downtrending. Abx for likely acute cholecystitis. Plan discussed with patient who is in agreement. Can have clear liquids until midnight. <Consuelo Pham PA-C - Last Filed: 06/04/21 08:01> Fall Risk Details Current Medications: Current Medications Acetaminophen (Acetaminophen 325 Mg Tablet) 650 mg PO Q6H PRN PRN Reason: Pain, Mild (Pain Scale 1-3) Acetaminophen (Acetaminophen 325 Mg Tablet) 650 mg PO Q6H PRN PRN Reason: Pain, Mild (Pain Scale 1-3) Ascorbic Acid (Ascorbic Acid 500 Mg Tablet) 500 mg PO DAILY [facility] Last Admin: 06/03/21 08:04 Dose: Not Given Documented by: Fentanyl (Fentanyl Citrate/Pf 100 Mcg/2 Ml Vial) 50 mcg IVPUSH Q5M PRN; Protocol PRN Reason: Pain, Severe (Pain Scale 7-10) Hydromorphone HCl (Hydromorphone Hcl 0.5 Mg/0.5 Ml Syringe) 0.5 mg IVPUSH Q4H PRN; Protocol PRN Reason: Pain, Severe (Pain Scale 7-10) Last Admin: 06/03/21 18:02 Dose: 0.5 mg Documented by: Dextrose/Sodium Chloride (D51/2ns) 1,000 mls @ 50 mls/hr IVCONT .Q20H [facility] Last Admin: 06/03/21 16:53 Dose: 50 mls/hr Documented by: Lactated Ringer's (Lr) 1,000 mls @ 100 mls/hr IVCONT .Q10H [facility] Last Admin: 06/04/21 00:51 Dose: Not Given Documented by: Loratadine (Loratadine 10 Mg Tablet) 10 mg PO DAILY PRN PRN Reason: allergy symptoms Medication (No Anticoagulants) 1 each MISCELLANE DAILY [facility] Stop: 06/10/21 12:00 Medication (No Nsaids) 1 each MISCELLANE DAILY [facility] Stop: 06/10/21 16:25 Medication (No Aspirin) 1 each MISCELLANE DAILY [facility] Stop: 06/10/21 12:00 Melatonin (Melatonin 3 Mg Tablet) 6 mg PO BEDTIME PRN PRN Reason: Insomnia Multivitamins/Vitamin C (Multivitamin Tablet) 1 tab PO DAILY [facility] Last Admin: 06/03/21 08:04 Dose: Not Given Documented by: Omeprazole (Omeprazole 20 Mg Capsule.) 20 mg PO DAILY@0630 [facility] Last Admin: 06/04/21 06:24 Dose: 20 mg Documented by: Ondansetron HCl (Ondansetron Hcl 4 Mg/2 Ml Vial) 4 mg IVPUSH ONCE PRN PRN Reason: Nausea and Vomiting Oxycodone HCl (Oxycodone Hcl Immed Release 5 Mg Tablet) 5 mg PO ONCE PRN PRN Reason: Pain, Severe (Pain Scale 7-10) Oxycodone HCl (Oxycodone Hcl Immed Release 5 Mg Tablet) 5 mg PO Q4H PRN PRN Reason: Pain, Moderate (Pain Scale 4-6 Pharmacy Consult (Consult Rx Perform Med Rec) 1 each MISCELLANE ONCE PRN PRN Reason: Consult order Senna (Sennosides 8.6 Mg Tablet) 17.2 mg PO BEDTIME PRN PRN Reason: Constipation Sodium Chloride (0.9 % Sodium Chloride Flush 3 Ml Syringe) 3 ml IVFLUSH QSHIFT [facility] Last Admin: 06/04/21 00:16 Dose: Not Given Documented by: <Consuelo Pham PA-C - Last Filed: 06/04/21 08:01> Time Spent With Patient Time: Total time spent is greater than 50% in coordination of care (as documented) at patient's floor/unit and/or counseling patient: <Consuelo Pham PA-C - Last Filed: 06/04/21 08:01> Time with patient: 15 - 24 minutes <CARRINGTON Childress Last Filed: 06/04/21 08:01> Quality Stroke Does the patient have a stroke diagnosis?: No <CARRINGTON Childress Last Filed: 06/04/21 08:01> VTE Prior VTE?: No <CARRINGTON Childress Last Filed: 06/04/21 08:01> VTE Risk Level:: Medical - low <CARRINGTON Childress Last Filed: 06/04/21 08:01> VTE Device Contraindication: N/A - Device Ordered <CARRINGTON Childress Last Filed: 06/04/21 08:01> VTE Drug Contraindication: Treatment Not Indicated <CARRINGTON Childress Last Filed: 06/04/21 08:01>
[2021-06-04] MEDS: Acetaminophen 325 MG TABLET 650 MG PO (07:58)
--- NOTE | 2021-06-04 08:44 | HO.POSTANES ---
Post Anesthesia Evaluation Post Anesthesia Evaluation Vital Signs: Vital Signs Temp Pulse Resp BP Pulse Ox 06/04/21 08:00 98.0 F 82 16 136/65 99 06/04/21 04:00 98.4 F 83 18 142/64 H 98 06/04/21 00:16 18 Anesthesia: General Endotracheal-GETA Mental Status: Awake Pain Control: Satisfactory Nausea/Vomiting: None Hydration: Adequate Anesthesia-Related Issues: No Anes. Related Issues
--- NOTE | 2021-06-04 09:31 | MHC.CM.PN ---
MC MET WITH PT WHO REPORTS SHE LIVES WITH HER AND IS INDEPENDENT WITH CARE PT DENIES USE OF DME OR SERVICES PT REPORTS HER DAUGHTER, ZHEN, IS HER HCP. COPY REQUESTED PT CONFIRMS HER PCP IS [facility] DELIVERED CURRENT DC PLAN, HOME NO SERVICES PT TO ARRANGE TRANSPORT
[2021-06-04] MEDS: metroNIDAZOLE/NS 500 MG/100 ML PIGGYBACK 100 MG IV ×3 (10:29→23:43)
[2021-06-04] MEDS: levoFLOXacin/D5W 500 MG/100 ML PIGGYBACK 100 MG IV (10:30)
--- NOTE | 2021-06-04 13:54 | HO.PM.IMPN ---
Subjective Subjective Date of Service: 06/04/21 Interval History: Choledocholithiasis, acute cholecystitis. Review of Systems Patient says she still has significant pain in the right upper quadrant area but seems better than yesterday denies any chest pain or fever or cough or phlegm or nausea vomiting. Physical Exam Vital Signs: Vital Signs: Last Vital Signs Temp 98.2 F 06/04/21 12:00 Pulse 88 06/04/21 12:00 Resp 18 06/04/21 12:00 BP 124/62 06/04/21 12:00 Pulse Ox 94 06/04/21 12:39 BMI result Body Mass Index 27.6 General: AO X 3, no acute distress Resp:? CTA bilateral CVS: S1,S2,RRR GI: +BS, mild ruq tendernes, no distention Skin: No rash Neuro:? motor grossly intact Psych: appropriate affect Objective Data Active Medications Ascorbic Acid (Ascorbic Acid 500 Mg Tablet) 500 mg PO DAILY [facility] Last Admin: 06/04/21 07:48 Dose: 500 mg Documented by: IAM Fentanyl (Fentanyl Citrate/Pf 100 Mcg/2 Ml Vial) 50 mcg IVPUSH Q5M PRN; Protocol PRN Reason: Pain, Severe (Pain Scale 7-10) Hydromorphone HCl (Hydromorphone Hcl 0.5 Mg/0.5 Ml Syringe) 0.5 mg IVPUSH Q4H PRN; Protocol PRN Reason: Pain, Severe (Pain Scale 7-10) Last Admin: 06/03/21 18:02 Dose: 0.5 mg Documented by: ARON Levofloxacin (Levaquin) 500 mg in 100 mls @ 100 mls/hr IV Q24H [facility] Last Infusion: 06/04/21 11:58 Dose: 0 mls/hr Documented by: IAM Metronidazole (Flagyl) 500 mg in 100 mls @ 100 mls/hr IV Q8H [facility] Last Infusion: 06/04/21 11:55 Dose: 0 mls/hr Documented by: IAM Cefotetan Disodium 2 gm/ (Sodium Chloride) 50 mls @ 100 mls/hr IV PREOP ONE Stop: 06/05/21 07:06 Loratadine (Loratadine 10 Mg Tablet) 10 mg PO DAILY PRN PRN Reason: allergy symptoms Medication (No Anticoagulants) 1 each MISCELLANE DAILY [facility] Stop: 06/10/21 12:00 Medication (No Nsaids) 1 each MISCELLANE DAILY [facility] Stop: 06/10/21 16:25 Medication (No Aspirin) 1 each MISCELLANE DAILY [facility] Stop: 06/10/21 12:00 Melatonin (Melatonin 3 Mg Tablet) 6 mg PO BEDTIME PRN PRN Reason: Insomnia Multivitamins/Vitamin C (Multivitamin Tablet) 1 tab PO DAILY [facility] Last Admin: 06/04/21 07:48 Dose: 1 tab Documented by: IAM Omeprazole (Omeprazole 20 Mg Capsule.Dr) 20 mg PO DAILY@0630 [facility] Last Admin: 06/04/21 06:24 Dose: 20 mg Documented by: CYNDEE Ondansetron HCl (Ondansetron Hcl 4 Mg/2 Ml Vial) 4 mg IVPUSH ONCE PRN PRN Reason: Nausea and Vomiting Oxycodone HCl (Oxycodone Hcl Immed Release 5 Mg Tablet) 5 mg PO ONCE PRN PRN Reason: Pain, Severe (Pain Scale 7-10) Oxycodone HCl (Oxycodone Hcl Immed Release 5 Mg Tablet) 5 mg PO Q4H PRN PRN Reason: Pain, Moderate (Pain Scale 4-6 Pharmacy Consult (Consult Rx Perform Med Rec) 1 each MISCELLANE ONCE PRN PRN Reason: Consult order Senna (Sennosides 8.6 Mg Tablet) 17.2 mg PO BEDTIME PRN PRN Reason: Constipation Sodium Chloride (0.9 % Sodium Chloride Flush 3 Ml Syringe) 3 ml IVFLUSH QSHIFT [facility] Last Admin: 06/04/21 07:49 Dose: 3 ml Documented by: AIM Labs CBC & Chem 7: 06/04/21 06:06 06/04/21 06:06 Labs: Laboratory Results - last 24 hr 06/04/21 06/04/21 06:06 06:06 MCV 92.5 MCH 30.8 MCHC 33.3 RDW 12.3 Plt Count 176 MPV 10.3 Immature Gran % (Auto) 0.5 H Neut % (Auto) 90.8 H Lymph % (Auto) 4.6 L [place] % (Auto) 4.0 Eos % (Auto) 0.0 Baso % (Auto) 0.1 Lymph # (Auto) 0.8 L [place] # (Auto) 0.7 Eos # (Auto) 0.0 Baso # (Auto) 0.0 Abs Immat Gran (auto) 0.10 H Absolute Neuts (auto) 16.5 H Absolute Nucleated RBC 0.000 Nucleated RBC % (auto) 0.0 Smear Tech's Comments VERIFIED Anion Gap 12 Estim Creat Clear Calc 67.1 Estimated GFR > 60 Fasting Glucose 148 H Calcium 8.9 Total Bilirubin 3.9 H Direct Bilirubin 3.2 H AST 472 H ALT 445 H Alkaline Phosphatase 315 H D Total Protein 5.8 L Albumin 3.4 L Microbiology Microbiology Results: Microbiology 06/02/21 17:30 Blood Culture - Preliminary Blood - Venous No growth after 24 hours. 06/02/21 17:29 Blood Culture - Preliminary Blood - Venous No growth after 24 hours. Assessment and Plan (1) Abdominal pain: Status: Acute (2) Acute cholecystitis: Status: Acute Assessment and Plan: 71-year-old female with a past medical history of hypertension, hyperlipidemia, peptic ulcer disease, cholelithiasis, GERD presented to the hospital with a chief complaint of abdominal pain.? Noted to have choledocholithiasis/transaminitis.? Admitted for further management.? Choledocholithiasis: USG:Choledocholithiasis with gallstones as well as stones in the common bile duct.\ -to have CT of abdomen and pelvis today recommended by GI ERCP yesterday:balloons to extraction 3 CBD stones and sludge -Dilaudid for pain cholecystitis/Leukocytosis: Likely reactive.? Patient was empirically given antibiotics in the ER. on levoquin/flagyl day 2 Blood culture prelim at 24:00 hour negative. Plan for cholecystectomy in the morning, NPO past midnight. Transaminitis with norml bili, Likely in setting of choledocholithiasis. Bilirubin and LFTs are going slightly up probably related to ERCP and CBD stones.? Trend liver enzymes.? Avoid hepatotoxins.? Hold home statin.? Hypertension:? Will hold the patient's blood pressure medications for now.? Currently blood pressure is stable and normal side.? GI prophylaxis:? Ppi DVT prophylaxis: SCD boots Code status:? Full code Quality Stroke Does the patient have a stroke diagnosis?: No VTE Prior VTE?: No VTE Risk Level:: Medical - low VTE Device Contraindication: N/A - Device Ordered VTE Drug Contraindication: Treatment Not Indicated
[2021-06-04] MEDS: HYDROmorphone HCl 0.5 MG/0.5 ML SYRINGE IVPUSH ×2 (19:40→23:43)
--- NOTE | 2021-06-04 20:18 | P.EN_ITS ---
Event Note Date of Service: 06/04/21 Event Note: GI-Course noted-chart and labs reviewed. Seems stable after ERCP w ith sphincterotomy and removal of CBD stones and sludge. Increased LFT's noted which could be from instrumentation of biliary tract and removal of CBD stones vs. retained biliary stones not visualized on fluoroscopy. Rec: Agree with plan of continued antibiotics and F/U labs in AM. If LFT's improve I would agree with plans for CCY per surgical service. If jaundice and LFT's worsen, would need to obtain a MRCP to reassess CBD for any retained stones and potential need for repeat ERCP preoperatively. Will follow. Thanks
[2021-06-05] VITALS (11 sets, daily range): BP systolic 101–145; BP diastolic 56–80; PULSE 83–101; RESP 10–18; TEMP 35.6–37; O2SAT 91–100
--- NOTE | 2021-06-05 | ECG_ITS ---
Test Reason : chest pain Blood Pressure : / mmHG Vent. Rate : 077 BPM Atrial Rate : 077 BPM P-R Int : 160 ms QRS Dur : 068 ms QT Int : 392 ms P-R-T Axes : 045 -02 -06 degrees QTc Int : 443 ms Normal sinus rhythm Cannot rule out Inferior infarct , age undetermined Abnormal ECG When compared with ECG of 02-JUN-2021 13:47, No significant change was found Referred By: Christina Hall Electronically Signed By:Darwin Mckeon
[2021-06-05] MEDS: HYDROmorphone HCl 0.5 MG/0.5 ML SYRINGE IVPUSH ×3 (04:14→19:43)
--- NOTE | 2021-06-05 04:18 | MHC.PIE ---
late entry; 0000 p; pt c/o chest pain. pt refusing nytro, but wants ekg done. i; dr aj notified; ekg ordered. prn dilaudid given e; ekg sent via [email or web address], will cont to monitor
[2021-06-05] MEDS: Omeprazole 20 MG CAPSULE.DR PO (05:17)
[2021-06-05 05:50] LABS: Hematocrit 32.3 % (37.0-47.0); Hemoglobin 10.7 g/dl (12.0-16.0); Mean Corpuscular HGB Conc 33.1 g/dl (31.0-35.0); Mean Corpuscular Volume 93.6 fL (80.0-98.0); Mean Platelet Volume 10.6 fL (9.4-12.3); Platelet Count 155 X10*3/uL (160-400); Red Blood Count 3.45 X10*6/uL (4.20-5.50); Red Cell Distribution Width 12.4 % (11.0-16.0); White Blood Count 13.8 X10*3/uL (4.8-10.8)
[2021-06-05 06:13] LABS: Alanine Aminotransferase 224 U/L (0-31); Albumin Level 3.2 g/dL (3.5-5.0); Alkaline Phosphatase 230 U/L (39-117); Aspartate Amino Transferase 90 U/L (5-31); Bilirubin Direct 0.6 mg/dL (0.0-0.5); Bilirubin Total 1.1 mg/dL (0.0-1.0); Total Protein 5.4 g/dL (6.5-8.0)
--- NOTE | 2021-06-05 07:09 | P.CONAN_ITS ---
[facility] Active Problems Active Problems: All Active Problems (Updated 06/04/21 @ 14:00 by Joseline perez MD) Acute cholecystitis (Acute) Gallstones, common bile duct (Acute) Abdominal pain (Acute) Penicillin allergy (Acute) Impaired glucose tolerance (Acute) Medicare annual wellness visit, initial (Acute) Arthralgia (Acute) Lyme arthritis (Acute) Osteopenia (Acute) Hypercholesterolemia (Acute) GERD (gastroesophageal reflux disease) (Acute) Hypertension (Acute) Gout (Acute) Hand pain (Acute) Strain of left hip and thigh (Acute) Fracture of fibula, distal, left, closed (Acute) Left ankle pain (Acute) Past Medical History Medical History (Updated 06/04/21 @ 14:00 by Joseline Cedillo MD) Arthralgia Cholelithiasis Finger osteomyelitis GERD (gastroesophageal reflux disease) Hypercholesterolemia Hypertension Pancreatic pseudocyst Peptic ulcer disease Vitamin D deficiency Family History Family History Brother CAD (coronary artery disease) Aneurysm Family history of problems with anesthesia: No Surgical History Surgical History (Updated 06/03/21 @ 08:30 by Consuelo Pham PA-C) History of section History of ERCP (~2013) History of esophagogastroduodenoscopy (EGD) History of Problems with Anesthesia: No Social History Social History Household Members: Spouse Housing: House Do you presently have visiting nurse or other home services: No Alcohol intake: current Alcohol intake frequency: holidays/special occasions only Patient Tobacco Use Status: Former Tobacco user Quit Date: 21yrs ago Tobacco use type: Cigarette Years Smoked: quit 1999 service: No Current occupational status: retired Meds Allergies Allergy/AdvReac Type Severity Reaction Status Date / Time penicillamine [Cuprimine] Allergy Unknown Rash Verified 05/23/21 13:07 penicillin V Allergy Unknown Rash Verified 05/23/21 13:07 Penicillins [PENICILLINS] Allergy Unknown HIVES Verified 05/23/21 13:07 Sulfa (Sulfonamide Allergy Unknown HIVES Verified 05/23/21 13:07 Antibiotics) [SULFA (SULFONAMIDE ANTIBIOTICS)] sulfasalazine [Sulfazine] Allergy Unknown Rash Verified 05/23/21 13:07 Active Medications: Current Medications Ascorbic Acid (Ascorbic Acid 500 Mg Tablet) 500 mg PO DAILY [facility] Last Admin: 06/04/21 07:48 Dose: 500 mg Documented by: Fentanyl (Fentanyl Citrate/Pf 100 Mcg/2 Ml Vial) 50 mcg IVPUSH Q5M PRN; Protocol PRN Reason: Pain, Severe (Pain Scale 7-10) Hydromorphone HCl (Hydromorphone Hcl 0.5 Mg/0.5 Ml Syringe) 0.5 mg IVPUSH Q4H PRN; Protocol PRN Reason: Pain, Severe (Pain Scale 7-10) Last Admin: 06/05/21 04:14 Dose: 0.5 mg Documented by: Levofloxacin (Levaquin) 500 mg in 100 mls @ 100 mls/hr IV Q24H [facility] Last Infusion: 06/04/21 11:58 Dose: Infused Documented by: Metronidazole (Flagyl) 500 mg in 100 mls @ 100 mls/hr IV Q8H [facility] Last Infusion: 06/05/21 00:45 Dose: Infused Documented by: Loratadine (Loratadine 10 Mg Tablet) 10 mg PO DAILY PRN PRN Reason: allergy symptoms Medication (No Anticoagulants) 1 each MISCELLANE DAILY [facility] Stop: 06/10/21 12:00 Medication (No Nsaids) 1 each MISCELLANE DAILY [facility] Stop: 06/10/21 16:25 Medication (No Aspirin) 1 each MISCELLANE DAILY [facility] Stop: 06/10/21 12:00 Melatonin (Melatonin 3 Mg Tablet) 6 mg PO BEDTIME PRN PRN Reason: Insomnia Multivitamins/Vitamin C (Multivitamin Tablet) 1 tab PO DAILY [facility] Last Admin: 06/04/21 07:48 Dose: 1 tab Documented by: Omeprazole (Omeprazole 20 Mg Capsule.) 20 mg PO DAILY@0630 [facility] Last Admin: 06/05/21 05:17 Dose: 20 mg Documented by: Ondansetron HCl (Ondansetron Hcl 4 Mg/2 Ml Vial) 4 mg IVPUSH ONCE PRN PRN Reason: Nausea and Vomiting Oxycodone HCl (Oxycodone Hcl Immed Release 5 Mg Tablet) 5 mg PO ONCE PRN PRN Reason: Pain, Severe (Pain Scale 7-10) Oxycodone HCl (Oxycodone Hcl Immed Release 5 Mg Tablet) 5 mg PO Q4H PRN PRN Reason: Pain, Moderate (Pain Scale 4-6 Pharmacy Consult (Consult Rx Perform Med Rec) 1 each MISCELLANE ONCE PRN PRN Reason: Consult order Senna (Sennosides 8.6 Mg Tablet) 17.2 mg PO BEDTIME PRN PRN Reason: Constipation Sodium Chloride (0.9 % Sodium Chloride Flush 3 Ml Syringe) 3 ml IVFLUSH QSHIFT [facility] Last Admin: 06/04/21 23:43 Dose: 3 ml Documented by: Home Medications Medication Instructions Recorded Confirmed Last Taken Type ascorbate calcium (vitamin C) 500 500 mg PO DAILY 05/23/21 06/02/21 06/02/21 History mg tablet aspirin 81 mg tablet,delayed 81 mg PO DAILY 05/23/21 06/02/21 06/02/21 History release (Adult Aspirin Regimen) cholecalciferol (vitamin D3) 50 50 mcg PO DAILY 05/23/21 06/02/21 06/02/21 History mcg (2,000 unit) capsule glucosamine sulfate 500 mg tablet 500 mg PO DAILY 05/23/21 06/02/21 Unknown History (Glucosamine) multivitamin 1 tab PO DAILY 05/23/21 06/02/21 Unknown History omega-3 fatty acids 1,000 mg 2,000 mg PO DAILY 05/23/21 06/02/21 Unknown History capsule (Fish Oil Concentrate) vitamin A-vitamin C-vit E-min 1 tab PO DAILY 05/23/21 06/02/21 Unknown History tablet Exam Exam Date and Time: June 05, 2021 0709 Height,Weight and Vital Signs: Height 5 ft 1 in Weight 66.4 kg Last Vital Signs Temp 97.9 F 06/05/21 06:42 Pulse 85 06/05/21 06:42 Resp 18 06/05/21 06:42 BP 145/65 H 06/05/21 06:42 Pulse Ox 95 06/05/21 06:42 Pertinent Lab Results Pertinent Lab Results: Laboratory Tests 06/02/21 06/02/21 06/02/21 17:28 17:29 17:29 WBC 16.3 H RBC 4.13 L Hgb 13.3 Hct 37.6 MCV 91.0 MCH 32.2 MCHC 35.4 H RDW 11.9 Plt Count 200 MPV 10.5 Immature Gran % (Auto) Neut % (Auto) Lymph % (Auto) Wheeler % (Auto) Eos % (Auto) Baso % (Auto) Lymph # (Auto) Wheeler # (Auto) Eos # (Auto) Baso # (Auto) Abs Immat Gran (auto) Absolute Neuts (auto) Absolute Nucleated RBC 0.000 Nucleated RBC % (auto) 0.0 Smear Tech's Comments PT INR Sodium 136 Potassium 3.3 Chloride 100 Carbon Dioxide 26 Anion Gap 13 BUN 15 Creatinine 0.72 Estim Creat Clear Calc 60.8 Estimated GFR > 60 Random Glucose 127 H Fasting Glucose Lactic Acid 1.3 Calcium 9.7 Magnesium Total Bilirubin Direct Bilirubin AST ALT Alkaline Phosphatase Troponin I High Sens Total Protein Albumin Lipase Urine Color Urine Appearance Urine pH Ur Specific [place] Urine Protein Urine Glucose (UA) Urine Ketones Urine Blood Urine Nitrite Ur Leukocyte Esterase COVID-19 ([facility]ONG) COVID-[employer] 06/02/21 06/02/21 06/02/21 17:29 17:29 17:31 WBC RBC Hgb Hct MCV MCH MCHC RDW Plt Count MPV Immature Gran % (Auto) Neut % (Auto) Lymph % (Auto) Wheeler % (Auto) Eos % (Auto) Baso % (Auto) Lymph # (Auto) Wheeler # (Auto) Eos # (Auto) Baso # (Auto) Abs Immat Gran (auto) Absolute Neuts (auto) Absolute Nucleated RBC Nucleated RBC % (auto) Smear Tech's Comments PT INR Sodium Potassium Chloride Carbon Dioxide Anion Gap BUN Creatinine Estim Creat Clear Calc Estimated GFR Random Glucose Fasting Glucose Lactic Acid Calcium Magnesium 1.4 L* Total Bilirubin 0.4 Direct Bilirubin 0.3 AST 140 H ALT 200 H Alkaline Phosphatase 124 H D Troponin I High Sens 6.1 Total Protein 7.0 Albumin 4.4 Lipase 15 Urine Color YELLOW Urine Appearance CLEAR Urine pH 5.5 Ur Specific [place] >= 1.030 H Urine Protein NEG Urine Glucose (UA) NEG Urine Ketones NEG Urine Blood NEG Urine Nitrite NEG Ur Leukocyte Esterase NEG COVID-19 ([facility]ONG) COVID-19 [employer] [place] 06/02/21 06/03/21 06/03/21 17:33 00:34 06:50 WBC 16.9 H RBC 3.97 L Hgb 12.4 Hct 36.3 L MCV 91.4 MCH 31.2 MCHC 34.2 RDW 12.1 Plt Count 172 MPV 10.5 Immature Gran % (Auto) 0.6 H Neut % (Auto) 87.9 H Lymph % (Auto) 7.7 L Wheeler % (Auto) 3.5 Eos % (Auto) 0.1 Baso % (Auto) 0.2 Lymph # (Auto) 1.3 Wheeler # (Auto) 0.6 Eos # (Auto) 0.0 Baso # (Auto) 0.0 Abs Immat Gran (auto) 0.10 H Absolute Neuts (auto) 14.9 H Absolute Nucleated RBC 0.000 Nucleated RBC % (auto) 0.0 Smear Tech's Comments PT INR Sodium Potassium Chloride Carbon Dioxide Anion Gap BUN Creatinine Estim Creat Clear Calc Estimated GFR Random Glucose Fasting Glucose Lactic Acid Calcium Magnesium Total Bilirubin Direct Bilirubin AST ALT Alkaline Phosphatase Troponin I High Sens 12.3 D Total Protein Albumin Lipase Urine Color Urine Appearance Urine pH Ur Specific [place] Urine Protein Urine Glucose (UA) Urine Ketones Urine Blood Urine Nitrite Ur Leukocyte Esterase COVID-19 (WONG) Negative COVID-19 [facility] See Note 06/03/21 06/03/21 06/03/21 06:50 06:50 10:50 WBC RBC Hgb Hct MCV MCH MCHC RDW Plt Count MPV Immature Gran % (Auto) Neut % (Auto) Lymph % (Auto) Wheeler % (Auto) Eos % (Auto) Baso % (Auto) Lymph # (Auto) Wheeler # (Auto) Eos # (Auto) Baso # (Auto) Abs Immat Gran (auto) Absolute Neuts (auto) Absolute Nucleated RBC Nucleated RBC % (auto) Smear Tech's Comments PT 13.1 H INR 1.2 H Sodium 136 Potassium 3.5 Chloride 101 Carbon Dioxide 28 Anion Gap 11 L BUN 9 Creatinine 0.67 Estim Creat Clear Calc 65.4 Estimated GFR > 60 Random Glucose 129 H Fasting Glucose Lactic Acid Calcium 8.8 D Magnesium Total Bilirubin 0.6 Direct Bilirubin 0.3 AST 59 H ALT 126 H Alkaline Phosphatase 91 D Troponin I High Sens Total Protein 5.8 L Albumin 3.6 Lipase Urine Color Urine Appearance Urine pH Ur Specific [place] Urine Protein Urine Glucose (UA) Urine Ketones Urine Blood Urine Nitrite Ur Leukocyte Esterase COVID-19 ([facility]) COVID-[place] [facility] 06/04/21 06/04/21 06/05/21 06:06 06:06 05:11 WBC 18.2 H RBC 3.89 L Hgb 12.0 Hct 36.0 L MCV 92.5 MCH 30.8 MCHC 33.3 RDW 12.3 Plt Count 176 MPV 10.3 Immature Gran % (Auto) 0.5 H Neut % (Auto) 90.8 H Lymph % (Auto) 4.6 L Wheeler % (Auto) 4.0 Eos % (Auto) 0.0 Baso % (Auto) 0.1 Lymph # (Auto) 0.8 L Wheeler # (Auto) 0.7 Eos # (Auto) 0.0 Baso # (Auto) 0.0 Abs Immat Gran (auto) 0.10 H Absolute Neuts (auto) 16.5 H Absolute Nucleated RBC 0.000 Nucleated RBC % (auto) 0.0 Smear Tech's Comments VERIFIED PT INR Sodium 142 Potassium 3.7 Chloride 105 Carbon Dioxide 29 Anion Gap 12 BUN 8 L Creatinine 0.69 Estim Creat Clear Calc 67.1 Estimated GFR > 60 Random Glucose Fasting Glucose 148 H Lactic Acid Calcium 8.9 Magnesium Total Bilirubin 3.9 H 1.1 H Direct Bilirubin 3.2 H 0.6 H AST 472 H 90 H ALT 445 H 224 H Alkaline Phosphatase 315 H D 230 H D Troponin I High Sens Total Protein 5.8 L 5.4 L Albumin 3.4 L 3.2 L Lipase Urine Color Urine Appearance Urine pH Ur Specific [place] Urine Protein Urine Glucose (UA) Urine Ketones Urine Blood Urine Nitrite Ur Leukocyte Esterase COVID-19 ([facility]) COVID-19 Clin Com 06/05/21 05:11 WBC 13.8 H RBC 3.45 L Hgb 10.7 L Hct 32.3 L MCV 93.6 MCH 31.0 MCHC 33.1 RDW 12.4 Plt Count 155 L MPV 10.6 Immature Gran % (Auto) Neut % (Auto) Lymph % (Auto) Wheeler % (Auto) Eos % (Auto) Baso % (Auto) Lymph # (Auto) Wheeler # (Auto) Eos # (Auto) Baso # (Auto) Abs Immat Gran (auto) Absolute Neuts (auto) Absolute Nucleated RBC 0.000 Nucleated RBC % (auto) 0.0 Smear Tech's Comments PT INR Sodium Potassium Chloride Carbon Dioxide Anion Gap BUN Creatinine Estim Creat Clear Calc Estimated GFR Random Glucose Fasting Glucose Lactic Acid Calcium Magnesium Total Bilirubin Direct Bilirubin AST ALT Alkaline Phosphatase Troponin I High Sens Total Protein Albumin Lipase Urine Color Urine Appearance Urine pH Ur Specific [place] Urine Protein Urine Glucose (UA) Urine Ketones Urine Blood Urine Nitrite Ur Leukocyte Esterase COVID-19 ([facility]ONG) COVID-19 Clin Com Airway Mallampati Class: I TM Dist: <=3cm Neck ROM: Full Loose/Missing/Broken Teeth: No Heart: ok Lungs: ok Assessment and Plan Assessment Anesthesia Assessment: Anesthesia Plan Discussed and Chart Reviewed Final Anesthetic Review Family History of Problems with Anesthesia: No History of Problems with Anesthesia: No NPO: Yes ASA Class: II and III Final Preanesthetic Review: No Changes in Pt Med Stat, Meds/Allgs Chart Reviewed, Consent Obtained/Reviewed and Anes Risks/Benef Reviewed Patient Risk: Intermediate Procedure Risk: Intermediate Anesthetic Plan Anesthetic Plan: GA and Agree w/ Assess. and Plan Disposition: Standard PACU
--- NOTE | 2021-06-05 07:25 | PM.EVENT ---
Event Note Date of Service: 06/06/21 Event Note: says she still has RUQ pain no fever WBC down to 13.8 bilirubin down to 1.2 will proceed with lap kanwal she understands procedure as well as risks, benefits and alternatives
--- NOTE | 2021-06-05 09:06 | W.PM.OPN ---
Operative Note Operative Note Date of Service: 06/05/21 Narrative: Preop diagnosis: acute cholecystitis Postop diagnosis: Acute cholecystitis, with hydrops and purulent gallbladder contents Procedure: Laparoscopic cholecystectomy Surgeon: Masood Herrera MD critical care physician assistant: STEPHANIE Pham The patient is a 71 year female admitted because of abdominal pain. Her imaging studies showed CBD stones. She underwent ERCP with removal of stones and sphincterotomy last June 03, 2021. Her bilirubin bump up yesterday likely from post ERCP edema or delayed increase in her lab values from CBD obstruction. Her bilirubin was near normal this morning. However continued to have significant pain and tenderness. she understood the technique of laparoscopic cholecystectomy. She was aware of the risks, benefits, and alternatives . She was brought to the operating room placed supine on the table under general anesthesia via endotracheal tube. The abdomen is prepped and draped usual sterile fashion. A surgical time-out was done. The patient received Cefotan 2 g IV preoperatively A short incision in the supraumbilical margin using a blade 15 and this was carried down through the fll-thickness of the skin subcutaneous fat to the fascia. The fascia was incised. The peritoneum was entered. This incision a Alisa port was introduced. Pneumoperitoneum was introduced to a pressure of 15 mm hg. From here on the rest of procedure was done under vision with The 10 mm laparoscopic. Laparoscopic visualization, I proceeded to insert a 5/12 mm port in the epigastric area below the subcostal margin. 5 mm port introduced a small incisions below the subcostal margin along the anterior axillary line and the midclavicular line. Graspers were placed through these working ports. The patient is placed in head-up and [id number] position Examination of the right upper quadrant showed the gallbladder to be very distended, indurated and was covered mostly with omentum. We had therefore to decompress this with an aspirating needle. clear fluid along with pus was aspirated and we were able to decompress the bladder enough to allow placement of the graspers. The a grasper was applied on the fundus of the gallbladder and this was used to retract the gallbladder cephalad. The anterior wall the gallbladder was covered with omentum so we had to do a lot of careful dissection using the [place] dissector to release this adhesions and allow closure of the anterior wall the gallbladder. Eventually was able to apply a grasper near the pouch of the gallbladder and this was used to retract the gallbladder laterally. At this point therefore the gallbladder was being retracted in a cephalad and lateral fashion To put the cystic duct on stretch. There was however a lot of thick, indurated markedly inflamed fatty tissue covering the neck of the gallbladder and we had to do a lot of careful dissection again using the [place] dissector as well as the tip of the laparoscopic suction to for this. This took a long period of time. Eventually were able to see cystic duct. We were able to confirm its confluence with the neck of the gallbladder. At this point therefore, we were able to achieve a critical view of the hepato cystic triangle despite all the inflammatory changes and the neck of the gallbladder. I continued to carefully dissect the cystic duct to define this. Once this was clearly defined, I proceeded to apply clips with 2 clips being applied distally. The cystic duct was transected between clips. The cystic artery was seen running alongside and Tylenol. We carefully define this as well and applied clips. Says this was transected between clips as well with Endo scissors We continued to do traction the gallbladder away from the liver bed. We had to go to thick created tissue at the hilum with the electrocautery spatula as well as with the L hook cautery. I reached the interface of the gallbladder and the liver bed. I incised the thick peritoneum with electrocautery spatula. However, we could not clearly define a good plane because of the severe inflammation so we had to proceed slowly with a combination of the L hook cautery as well as the electrocautery spatula to separate the gallbladder from the liver bed. Again the planes were not well defined and there was note of significant oozing from the liver bed. We proceeded slowly all the way to the fundus. There was note of a tear in the gallbladder wall retraction with the graspers and there was note of large amounts of purulent fluid that was drained from the gallbladder. We continued operation of the gallbladder from the liver bed with careful dissection until this was completely . This was retrieved through an endobag through the umbilical incision . I reinserted all ports and re-insufflated. I had to do a lot of irrigation on the subhepatic space to clear out old blood well. I examined the liver bed and this was oozing despite of electrocautery. I therefore position Gelfoam in the subhepatic space. I then and a 7. LAZARO drain under the liver was brought out through an exit site at the most lateral port. This drain was secured to the skin with nylon 2-0 sutures. I examined the entire abdomen laparoscopically and there was no other pathology identified nor any evidence of any bowel injury I examined the subhepatic space. There was no significant bleeding nor any evidence of bile leak. I irrigated andregain did and suctioned and fluid until the return was clear Once hemostasis was confirmed, I proceeded to then desufflated the port sites. I removed all ports of the vision with laparoscopic. The umbilical port was removed last. The fascia of the umbilical incision was closed with a [id number] Dexon 0 stitch. Skin closure was achieved on all incisions using Dexon 4-0 subcuticular sutures. Steri-Strips dressings were applied. All incisions were infiltrated with Marcaine 0.5% for postop analgesia. The procedure was then completed The patient tolerated The procedure well. There were no complications noted. Initial and final counts of sponges and instruments were correct. Estimated blood loss was about 100 cc . The patient was extubated without difficulty and transferred to the recovery room with stable vital signs.
--- NOTE | 2021-06-05 09:12 | P.BOP_ITS ---
Brief Operative Note Date of Service: 06/05/21 <Consuleo Pham PA-C - Last Filed: 06/05/21 09:13> Pre-op diagnosis: choledocolithiasis, acute cholecystitis <Consuelo Pham PA-C - Last Filed: 06/05/21 09:13> Post-op diagnosis: same <Consuelo Pham PA-C - Last Filed: 06/05/21 09:13> same ( With purulent gallbladder contents, hydrops) <Adriana Naik MD - Last Filed: 06/05/21 09:19> Procedure: laparoscopic cholecystectomy <Consuelo Pham PA-C - Last Filed: 06/05/21 09:13> Surgeon: ADRIANA NAIK MD <Consuelo Pham PA-C - Last Filed: 06/05/21 09:13> Anesthesia: GETA <Consuelo Pham PA-C - Last Filed: 06/05/21 09:13> Was an Exceptional Student Education Aide used for this Procedure?: Yes <Consuelo Pham PA-C - Last Filed: 06/05/21 09:13> No <Adriana Naik MD - Last Filed: 06/05/21 09:19> Exceptional Student Education Aide: Consuelo Pham <Consuelo Pham PA-C - Last Filed: 06/05/21 09:13> Estimated blood loss (mL): 50 <Consuelo Pham PA-C - Last Filed: 06/05/21 09:13> Pathology: other (GALLBLADDER) <Consuelo Pham PA-C - Last Filed: 06/05/21 09:13> Condition: stable <CARRINGTON Childress Last Filed: 06/05/21 09:13> Disposition: PACU <CARRINGTON Childress Last Filed: 06/05/21 09:13>
[2021-06-05] MEDS: 0.9 % Sodium Chloride Flush 3 ML SYRINGE IVFLUSH ×2 (10:35→15:31)
[2021-06-05] MEDS: Ascorbic Acid 500 MG TABLET PO (10:36)
[2021-06-05] MEDS: Multivitamin TABLET 1 TAB PO (10:36)
[2021-06-05] MEDS: oxyCODONE HCl Immed Release 5 MG TABLET PO (14:21)
--- NOTE | 2021-06-05 14:22 | P.PNIM_ITS ---
Subjective Subjective Date of Service: 06/05/21 Interval History: abdominal pain, elevated LFTs Review of Systems patient still has abdominal soreness, status post lap choly today. Denies any chest pain or shortness of breath or fever or chills or cough or phlegm. Physical Exam Vital Signs: Vital Signs: Last Vital Signs Temp 96.7 F L 06/05/21 11:40 Pulse 83 06/05/21 11:40 Resp 18 06/05/21 11:40 BP 101/80 06/05/21 11:40 Pulse Ox 95 06/05/21 11:40 BMI result Body Mass Index 27.6 ?General: AO X 3, no acute distress Resp:? CTA bilateral CVS: S1,S2,RRR GI: +BS, has soarness in lap kanwal area,no distention Skin: No rash Neuro:? motor grossly intact Psych: appropriate affect Objective Data Active Medications Ascorbic Acid (Ascorbic Acid 500 Mg Tablet) 500 mg PO DAILY [facility] Last Admin: 06/05/21 10:36 Dose: 500 mg Documented by: LUIS EDUARDO Hydromorphone HCl (Hydromorphone Hcl 0.5 Mg/0.5 Ml Syringe) 0.5 mg IVPUSH Q4H PRN; Protocol PRN Reason: Pain, Severe (Pain Scale 7-10) Last Admin: 06/05/21 04:14 Dose: 0.5 mg Documented by: CYNDEE Loratadine (Loratadine 10 Mg Tablet) 10 mg PO DAILY PRN PRN Reason: allergy symptoms Medication (No Anticoagulants) 1 each MISCELLANE DAILY [facility] Stop: 06/10/21 12:00 Medication (No Nsaids) 1 each MISCELLANE DAILY [facility] Stop: 06/10/21 16:25 Medication (No Aspirin) 1 each MISCELLANE DAILY [facility] Stop: 06/10/21 12:00 Melatonin (Melatonin 3 Mg Tablet) 6 mg PO BEDTIME PRN PRN Reason: Insomnia Multivitamins/Vitamin C (Multivitamin Tablet) 1 tab PO DAILY [facility] Last Admin: 06/05/21 10:36 Dose: 1 tab Documented by: LUIS EDUARDO Omeprazole (Omeprazole 20 Mg Capsule.) 20 mg PO DAILY@0630 [facility] Last Admin: 06/05/21 05:17 Dose: 20 mg Documented by: CYNDEE Oxycodone HCl (Oxycodone Hcl Immed Release 5 Mg Tablet) 5 mg PO Q4H PRN PRN Reason: Pain, Moderate (Pain Scale 4-6 Last Admin: 06/05/21 14:21 Dose: 5 mg Documented by: ELISSA Pharmacy Consult (Consult Rx Perform Med Rec) 1 each MISCELLANE ONCE PRN PRN Reason: Consult order Senna (Sennosides 8.6 Mg Tablet) 17.2 mg PO BEDTIME PRN PRN Reason: Constipation Sodium Chloride (0.9 % Sodium Chloride Flush 3 Ml Syringe) [facility] Last Admin: 06/05/21 10:35 Dose: 3 ml Documented by: LUIS EDUARDO Labs CBC & Chem 7: 06/05/21 05:11 06/04/21 06:06 Labs: Laboratory Results - last 24 hr 06/05/21 06/05/21 06/05/21 05:11 05:11 06:54 MCV 93.6 MCH 31.0 MCHC 33.1 RDW 12.4 Plt Count 155 L MPV 10.6 Absolute Nucleated RBC 0.000 Nucleated RBC % (auto) 0.0 Total Bilirubin 1.1 H Direct Bilirubin 0.6 H AST 90 H ALT 224 H Alkaline Phosphatase 230 H D Total Protein 5.4 L Albumin 3.2 L Blood Type O Negative Antibody Screen NEGATIVE Microbiology Microbiology Results: Microbiology 06/02/21 17:30 Blood Culture - Preliminary Blood - Venous No growth after 48 hours. 06/02/21 17:29 Blood Culture - Preliminary Blood - Venous No growth after 48 hours. Assessment and Plan (1) Acute cholecystitis: Status: Acute Assessment and Plan: 71-year-old female with a past medical history of hypertension, hyperlipidemia, peptic ulcer disease, cholelithiasis, GERD presented to the hospital with a chief complaint of abdominal pain.? Noted to have choledocholithiasis/transaminitis.? Admitted for further management.? 1.Choledocholithiasis: USG:Choledocholithiasis with gallstones as well as stones in the common bile paul t.\ -to have CT of abdomen and pelvis today recommended by GI ERCP yesterday:balloons to extraction 3 CBD stones and sludge -Dilaudid for pain 2.cholecystitis/Leukocytosis: Likely reactive.? Patient was empirically given antibiotics in the ER. ? Blood culture prelim at 24hour negative. Status post lap choly, continue Levaquin and Flagyl. Day 3 3.Transaminitis with norml bili, Likely in setting of choledocholithiasis.? Bilirubin and LFTs are improving probably related to ERCP and CBD stones.? Trend liver enzymes.? Avoid hepatotoxins.? Hold home statin.? 4.:? Will hold the patient's blood pressure medications for now.? Currently blood pressure is stable and normal side.? GI prophylaxis:? Ppi DVT prophylaxis: [facility] Quality Stroke Does the patient have a stroke diagnosis?: No VTE Prior VTE?: No VTE Risk Level:: Medical - low VTE Device Contraindication: N/A - Device Ordered VTE Drug Contraindication: Treatment Not Indicated
[2021-06-05] MEDS: metroNIDAZOLE 500 MG TABLET PO (15:30)
[2021-06-05] MEDS: levoFLOXacin/D5W 500 MG/100 ML PIGGYBACK 100 MG IV (15:31)
--- NOTE | 2021-06-05 15:38 | MHC.CM.PN ---
Female 71 s/p Carlos today DP Home no services family transport.
--- NOTE | 2021-06-05 15:38 | PM.EVENT ---
Event Note Date of Service: 06/05/21 Event Note: Seen postop on afternoon rounds She underwent laparoscopic cholecystectomy earlier She had a markedly inflamed gallbladder with pus She says she has adequate pain control Stable vital signs LAZARO drain serosanguineous She looks well Pain management Continue IV antibiotics for now Possible DC home tomorrow with LAZARO drain Discussed with family
[2021-06-06] VITALS: BP 110/60; PULSE 80; RESP 17; TEMP 36.9; O2SAT 96
[2021-06-06] MEDS: metroNIDAZOLE 500 MG TABLET PO ×3 (00:36→10:55)
[2021-06-06] MEDS: 0.9 % Sodium Chloride Flush 3 ML SYRINGE IVFLUSH (00:52)
[2021-06-06] MEDS: HYDROmorphone HCl 0.5 MG/0.5 ML SYRINGE IVPUSH (01:18)
[2021-06-06 04:00] VITALS: BP 118/62; PULSE 81; RESP 17; TEMP 36.6; O2SAT 94
[2021-06-06] MEDS: Omeprazole 20 MG CAPSULE.DR PO (06:00)
[2021-06-06 06:27] LABS: Alanine Aminotransferase 156 U/L (0-31); Albumin Level 3.2 g/dL (3.5-5.0); Alkaline Phosphatase 183 U/L (39-117); Aspartate Amino Transferase 50 U/L (5-31); Bilirubin Direct 0.4 mg/dL (0.0-0.5); Bilirubin Total 0.5 mg/dL (0.0-1.0); Total Protein 5.3 g/dL (6.5-8.0)
[2021-06-06 07:30] VITALS: BP 123/59; PULSE 74; RESP 18; TEMP 36.3; O2SAT 95
--- NOTE | 2021-06-06 08:16 | P.PNGS_ITS ---
Subjective Subjective Date of Service: 06/06/21 <Consuelo Pham PA-C - Last Filed: 06/06/21 08:20> 06/06/21 <Masood Herrera MD - Last Filed: 06/06/21 10:57> Interval history: Feels much better, now just having incisional and referred R shoulder pain. Tolerating diet. OOB and ambulating. Wants to go home. <Consuelo Pham PA-C - Last Filed: 06/06/21 08:20> Physical Exam Vital Signs: Vital Signs: Last Vital Signs Temp 97.4 F 06/06/21 07:30 Pulse 74 06/06/21 07:30 Resp 18 06/06/21 07:30 BP 123/59 L 06/06/21 07:30 Pulse Ox 95 06/06/21 07:30 BMI result Body Mass Index 27.6 <Consuelo Pham PA-C - Last Filed: 06/06/21 08:20> Const: General: comfortable, no acute distress and well developed <Consuelo Pham PA-C - Last Filed: 06/06/21 08:20> Orientation/consciousness: patient oriented x3 <Consuelo Pham PA-C - Last Filed: 06/06/21 08:20> GI: Inspection: No distended and Yes incision (dressing c/d/i) <Consuelo Pham PA-C - Last Filed: 06/06/21 08:20> Palpation (GI): Soft to palpation, Tenderness to palpation present (GI) (incisional), no guarding and not rigid <Consuelo Pham PA-C - Last Filed: 06/06/21 08:20> Percussion: Yes normal to percussion <Consuelo Pham PA-C - Last Filed: 06/06/21 08:20> Skin: General skin exam: no rashes or lesions noted <CARRINGTON Childress Last Filed: 06/06/21 08:20> Neuro: General: patient oriented x3 <CARRINGTON Childress Last Filed: 06/06/21 08:20> Objective Data Active Medications Ascorbic Acid (Ascorbic Acid 500 Mg Tablet) 500 mg PO DAILY [facility] Last Admin: 06/05/21 10:36 Dose: 500 mg Documented by: LUIS EDUARDO Hydromorphone HCl (Hydromorphone Hcl 0.5 Mg/0.5 Ml Syringe) 0.5 mg IVPUSH Q4H PRN; Protocol PRN Reason: Pain, Severe (Pain Scale 7-10) Last Admin: 06/06/21 01:18 Dose: 0.5 mg Documented by: MARY Levofloxacin (Levaquin) 500 mg in 100 mls @ 100 mls/hr IV Q24H ON LICENSE OF [facility] Last Infusion: 06/05/21 16:45 Dose: 0 mls/hr Documented by: LUIS EDUARDO Loratadine (Loratadine 10 Mg Tablet) 10 mg PO DAILY PRN PRN Reason: allergy symptoms Medication (No Anticoagulants) 1 each MISCELLANE DAILY [facility] Stop: 06/10/21 12:00 Medication (No Nsaids) 1 each MISCELLANE DAILY [facility] Stop: 06/10/21 16:25 Medication (No Aspirin) 1 each MISCELLANE DAILY [facility] Stop: 06/10/21 12:00 Melatonin (Melatonin 3 Mg Tablet) 6 mg PO BEDTIME PRN PRN Reason: Insomnia Metronidazole (Metronidazole 500 Mg Tablet) 500 mg PO Q8H ON LICENSE OF [facility] Last Admin: 06/06/21 06:00 Dose: 500 mg Documented by: MARY Multivitamins/Vitamin C (Multivitamin Tablet) 1 tab PO DAILY [facility] OF [facility] Last Admin: 06/05/21 10:36 Dose: 1 tab Documented by: LUIS EDUARDO Omeprazole (Omeprazole 20 Mg Capsule.Dr) 20 mg PO DAILY@0630 [facility] OF [facility] Last Admin: 06/06/21 06:00 Dose: 20 mg Documented by: MARY Oxycodone HCl (Oxycodone Hcl Immed Release 5 Mg Tablet) 5 mg PO Q4H PRN PRN Reason: Pain, Moderate (Pain Scale 4-6 Last Admin: 06/05/21 14:21 Dose: 5 mg Documented by: ELISSA Pharmacy Consult (Consult Rx Perform Med Rec) 1 each MISCELLANE ONCE PRN PRN Reason: Consult order Senna (Sennosides 8.6 Mg Tablet) 17.2 mg PO BEDTIME PRN PRN Reason: Constipation Sodium Chloride (0.9 % Sodium Chloride Flush 3 Ml Syringe) 3 ml IVFLUSH QSHIFT ON [facility] OF [facility] Last Admin: 06/06/21 00:52 Dose: 3 ml Documented by: MARY <Consuelo Pham PA-C - Last Filed: 06/06/21 08:20> Labs CBC & Chem 7: : 06/05/21 05:11 06/04/21 06:06 <Consuelo Pham PA-C - Last Filed: 06/06/21 08:20> Labs: Laboratory Results - last 24 hr 06/06/21 05:09 Total Bilirubin 0.5 Direct Bilirubin 0.4 AST 50 H D ALT 156 H Alkaline Phosphatase 183 H D Total Protein 5.3 L Albumin 3.2 L <Consuelo Pham PA-C - Last Filed: 06/06/21 08:20> Procedures Date of Service Date of Service: 06/06/21 <Consuelo Pham PA-C - Last Filed: 06/06/21 08:20> Progress Note: A&P Assessment and plan (1) Acute cholecystitis: Status: Acute <Consuelo Pham PA-C - Last Filed: 06/06/21 08:20> Assessment and Plan: Status post laparoscopic cholecystectomy Feels well today Has referred pain in the right shoulder Tolerating oral intake Abdomen soft LAZARO drain scanty old blood If she continues to do well today, okay to DC home later today Oral antibiotics because of presence of pus in the gallbladder -Augmentin Will see next week office to remove LAZARO drain Explained postop instructions to patient and daughter Dana Seen and examined - agree with STEPHANIE Pham <Masood Herrera MD - Last Filed: 06/06/21 10:57> (2) Gallstones, common bile duct: Status: Acute <Consuelo Pham PA-C - Last Filed: 06/06/21 08:20> Assessment and Plan: 71 year old female admitted with choledocolithiasis, acute cholecystitis now s/p ERCP and POD #1 s/p lap CCY. Doing well post op. Abd benign. Appropriate post op tenderness. Dressings clean. LAZARO output nonbilious. LFTs cont to downtrend. Stable for dc today from surgical standpoint. Will d/c with drain in place. Transition to PO abx as IV leaking. Can f/u with Dr. Herrera in 1 week for drain removal, wound check. <Consuelo Pham PA-C - Last Filed: 06/06/21 08:20> Fall Risk Details Current Medications: Current Medications Ascorbic Acid (Ascorbic Acid 500 Mg Tablet) 500 mg PO DAILY ON [facility] OF [facility] Last Admin: 06/05/21 10:36 Dose: 500 mg Documented by: Hydromorphone HCl (Hydromorphone Hcl 0.5 Mg/0.5 Ml Syringe) 0.5 mg IVPUSH Q4H PRN; Protocol PRN Reason: Pain, Severe (Pain Scale 7-10) Last Admin: 06/06/21 01:18 Dose: 0.5 mg Documented by: Levofloxacin (Levaquin) 500 mg in 100 mls @ 100 mls/hr IV Q24H ON [facility] OF [facility] Last Infusion: 06/05/21 16:45 Dose: Infused Documented by: Loratadine (Loratadine 10 Mg Tablet) 10 mg PO DAILY PRN PRN Reason: allergy symptoms Medication (No Anticoagulants) 1 each MISCELLANE DAILY [facility] Stop: 06/10/21 12:00 Medication (No Nsaids) 1 each MISCELLANE DAILY [facility] Stop: 06/10/21 16:25 Medication (No Aspirin) 1 each MISCELLANE DAILY [facility] Stop: 06/10/21 12:00 Melatonin (Melatonin 3 Mg Tablet) 6 mg PO BEDTIME PRN PRN Reason: Insomnia Metronidazole (Metronidazole 500 Mg Tablet) 500 mg PO Q8H ON [facility] OF [facility] Last Admin: 06/06/21 06:00 Dose: 500 mg Documented by: Multivitamins/Vitamin C (Multivitamin Tablet) 1 tab PO DAILY [facility] Last Admin: 06/05/21 10:36 Dose: 1 tab Documented by: Omeprazole (Omeprazole 20 Mg Capsule.) 20 mg PO DAILY@0630 [facility] OF [facility] Last Admin: 06/06/21 06:00 Dose: 20 mg Documented by: Oxycodone HCl (Oxycodone Hcl Immed Release 5 Mg Tablet) 5 mg PO Q4H PRN PRN Reason: Pain, Moderate (Pain Scale 4-6 Last Admin: 06/05/21 14:21 Dose: 5 mg Documented by: Pharmacy Consult (Consult Rx Perform Med Rec) 1 each MISCELLANE ONCE PRN PRN Reason: Consult order Senna (Sennosides 8.6 Mg Tablet) 17.2 mg PO BEDTIME PRN PRN Reason: Constipation Sodium Chloride (0.9 % Sodium Chloride Flush 3 Ml Syringe) [facility] Last Admin: 06/06/21 00:52 Dose: 3 ml Documented by: <Consuelo Pham PA-C - Last Filed: 06/06/21 08:20> Time Spent With Patient Time: Total time spent is greater than 50% in coordination of care (as documented) at patient's floor/unit and/or counseling patient: <Consuelo Pham PA-C - Last Filed: 06/06/21 08:20> Time with patient: 15 - 24 minutes <Consuelo Pham PA-C - Last Filed: 06/06/21 08:20> Quality Stroke Does the patient have a stroke diagnosis?: No <Consuelo Pham PA-C - Last Filed: 06/06/21 08:20> VTE Prior VTE?: No <Consuelo Pahm PA-C - Last Filed: 06/06/21 08:20> VTE Risk Level:: Medical - low <Consuelo Pham PA-C - Last Filed: 06/06/21 08:20> VTE Device Contraindication: N/A - Device Ordered <Consuelo Pham PA-C - Last Filed: 06/06/21 08:20> VTE Drug Contraindication: Treatment Not Indicated <CARRINGTON Childress Last Filed: 06/06/21 08:20>
--- NOTE | 2021-06-06 08:50 | HO.POSTANES ---
Post Anesthesia Evaluation Post Anesthesia Evaluation Vital Signs: Vital Signs Temp Pulse Resp BP Pulse Ox 06/06/21 07:30 97.4 F 74 18 123/59 L 95 06/06/21 04:00 97.9 F 81 17 118/62 94 06/06/21 00:00 98.5 F 80 17 110/60 96 Anesthesia: General Endotracheal-GETA Mental Status: Awake Pain Control: Satisfactory Nausea/Vomiting: None Hydration: Adequate Anesthesia-Related Issues: No Anes. Related Issues (1 cm linear hematoma on the left frontal area of tounge.)
--- NOTE | 2021-06-06 08:58 | PM.DS ---
DS: Providers Provider Date of Service: 06/06/21 Date of admission: 06/02/21 22:22 Primary care physician: Nury Rubio MD Consults: 06/02/21 22:22 Consult to General Surgery Routine Consulting Provider: Masood Herrera Reason for consultation: cholelithiasis 06/03/21 12:03 Consult to Gastroenterology Routine Consulting Provider: Levi Coyle Reason for consultation: CBD stone DS: Diagnosis Discharge Diagnosis (1) Acute cholecystitis: Status: Acute (2) Gallstones, common bile duct: Status: Acute DS: Summary Hospital Course Hospital Course: 71-year-old female with a past medical history of hypertension, hyperlipidemia, peptic ulcer disease, cholelithiasis, GERD presented to the hospital with a chief complaint of abdominal pain.? Noted to have choledocholithiasis/transaminitis.? Admitted for further management.? Hospital course:Patient came to the hospital because of abdominal pain found to have elevated liver function test, found to have choledocholithiasis and acute cholecystitis- was seen by GI and surgery: had ERCP done with bile duct stone removal and subsequently also had laparoscopic cholecystectomy- LFT improved significantly, please complete the course of antibiotics. blood cultures negative at 48 hours above was discussed with the surgery, updated the patient in detail. Please follow-up with surgery out patiently. further management outpatient as per PCP and repeat liver function test in 1 week with PCP. in addition need to follow up with Dr Herrera in 1 week. patient states daughter said she will take care of her j drain so does not want VNA. Above management discussed with the patient and her daughter in detail length both understand and in agreement with the above plan, time spent 50 minutes and 50% time spent on counseling. Significant findings: As above. Procedures performed: None. Treatment and response: As above. Complications: None. Time Spent with Patient Time attestation: Total time spent providing and/or coordinating discharge services: Discharge coordination time: Greater than 30 minutes Quality: Stroke Does the patient have a stroke diagnosis?: No Physical Exam Vital Signs: Vital Signs: Last Vital Signs Temp 97.4 F 06/06/21 07:30 Pulse 74 06/06/21 07:30 Resp 18 06/06/21 07:30 BP 123/59 L 06/06/21 07:30 Pulse Ox 95 06/06/21 07:30 BMI result Body Mass Index 27.6 General: AO X 3, no acute distress Resp:? CTA bilateral CVS: S1,S2,RRR GI: +BS, has soarness in lap kanwal area which seems to be improved,no distention Skin: No rash Neuro:? motor grossly intact Psych: appropriate affect DS: Data Data Completed and Pending Pending studies at discharge: Pending at discharge 06/05/21 08:22 Surgical [PTH] Routine Labs on day of discharge: Laboratory Results - last 24 hr 06/06/21 05:09 Total Bilirubin 0.5 Direct Bilirubin 0.4 AST 50 H D ALT 156 H Alkaline Phosphatase 183 H D Total Protein 5.3 L Albumin 3.2 L Preliminary micro results at discharge 06/02/21 17:30 Blood Culture - Preliminary Blood - Venous No growth after 48 hours. 06/02/21 17:29 Blood Culture - Preliminary Blood - Venous No growth after 48 hours. Additional Comments Additional comments: ?CT/CT abdomen pelvis w con IMPRESSION: 1.? Cholelithiasis with associated wall thickening and surrounding inflammatory changes most consistent with acute cholecystitis in the appropriate clinical setting. ? 2.? Choledocholithiasis with stable dilatation of the CBD. ? 3.? Small right pleural effusion. ? 4.? Fluid-filled tubular structure adjacent to the right adnexa likely represents a fluid-filled loop of small bowel, although hydrosalpinx cannot be entirely excluded given the proximity to the adnexa. If indicated, consider correlation with a dedicated pelvic ultrasound. US/US abdomen limited IMPRESSION: Choledocholithiasis with gallstones as well as stones in the common bile duct. Discharge Plan Discharge Patient Disposition: Home, Self-Care Discharge Diagnosis: Choledocholithiasis, acute cholecystitis. Referrals: Masood Herrera MD [Physician] - 1 Week Po,Nury South MD [Primary Care Provider] - 1 Week Discharge Medications: New levofloxacin 500 mg tablet 500 mg PO DAILY Qty: 3 RF: 0 metronidazole 500 mg tablet 500 mg PO BID Qty: 6 RF: 0 Continued lisinopril 20 mg tablet 20 mg PO DAILY Qty: 90 RF: 2 omeprazole 20 mg capsule,delayed release(DR/EC) 20 mg PO DAILY Qty: 90 RF: 2 hydrochlorothiazide 25 mg tablet 25 mg PO DAILY Qty: 90 RF: 2 cetirizine 10 mg tablet 10 mg PO DAILY PRN (Reason: allergy symptoms) Qty: 30 RF: 0 aspirin [Adult Aspirin Regimen] 81 mg tablet,delayed release (DR/EC) 81 mg PO DAILY RF: 0 omega-3 fatty acids [Fish Oil Concentrate] 1,000 mg capsule 2,000 mg PO DAILY RF: 0 multivitamin Tablet 1 tab PO DAILY RF: 0 cholecalciferol (vitamin D3) 50 mcg (2,000 unit) capsule 50 mcg PO DAILY RF: 0 vitamin A-vitamin C-vit E-min Tablet 1 tab PO DAILY RF: 0 glucosamine sulfate [Glucosamine] 500 mg tablet 500 mg PO DAILY RF: 0 ascorbate calcium (vitamin C) 500 mg tablet 500 mg PO DAILY RF: 0 rosuvastatin 40 mg tablet 40 mg PO DAILY 90 Days Qty: 90 RF: 3 Discharge Orders: Discharge Order (Routine); Ordered 06/06/21 Ordered By: Joseline Cedillo Diet: low fat, low cholesterol Activity on Discharge: As tolerated Stand Alone Forms: Patient Portal Discharge page Activity Restrictions/Additional Instructions: If the incision area is tender, you may apply an ice pack for short intervals (No more than 20 minutes on, followed by at least 20 minutes off). Do not apply heat. Do not use creams, lotions, or topical antibiotics unless instructed to do so by your surgeon. These can cause infection or allergic reaction. Ok to shower 06/07/31. Remove bandaids in 2 days and replace. You have steri strips (small white cloth strips) covering your incision- these will fall off ~1 week. LAZARO drain care- empty BID and PRN. Follow up in office with Dr. Herrera in 1 week. ([phone]) No heavy lifting (>15-20lbs)! Call Your Doctor If: -Your temperature exceeds 101.5? F -You experience excessive pain or swelling -You have an unexpected reaction to medication -You have excessive bleeding -You experience continued vomiting/nausea -Your incision begins to separate -Your incision shows signs of infection such as increased redness, swelling, excessive pain, drainage (light blood or clear fluid is normal) or heat Care Plan Goals: Patient came to the hospital because of abdominal pain found to have elevated liver function test, stone in bile duct( liver draining duct) and gallbladder inflammation- was seen by GI and surgery: had ERCP done with bile duct stone removal and subsequently also had laparoscopic cholecystectomy- LFT improved significantly, please complete the course of antibiotics. above was discussed with the surgery, updated the patient in detail. Please follow-up with surgery out patiently. further management outpatient as per PCP and repeat liver function test in 1 week with PCP. Health Concerns: As above. Plan of Treatment: As above. Assessment: As above.
--- NOTE | 2021-06-06 09:37 | MHC.CM.PN ---
NURSE METAL STAMPER NOTE ELECTROMNIC MEDICAL RECORD REVIEWD PATIENT IS ASCHEDULED FOR DISCHARGE TODAY DISCHARGE PLAN HOME WITH NO SERVICES NEEDED TRANSPORTATION FAMILY PCP PATIENT TO CALL FOR [facility] DISCHARGE
[2021-06-06] MEDS: Multivitamin TABLET 1 TAB PO (10:55)
[2021-06-06] MEDS: Ascorbic Acid 500 MG TABLET PO (10:55)
[2021-06-06 12:00] VITALS: BP 129/62; PULSE 77; RESP 18; TEMP 36.9; O2SAT 95
--- NOTE | 2021-06-06 14:06 | PM.EVENT ---
Event Note Date of Service: 06/06/21 Event Note: patient seen on afternoon rounds says she is ready to go minimal incisional pain stable vital sign no fever looks well and has been ambulating abdomen soft sclerae anicteric LAZARO drain with very scant serosanguineous output okay to DC oral antibiotics will see in the office next week for removal of LAZARO drain discussed with daughter Dana
[2021-06-06 15:05] VITALS: BP 130/60; PULSE 88; RESP 18; TEMP 36.8; O2SAT 96
== END 2021-06-06 17:00 | disposition home or self-care (01) | DRG 418 ==
LOC: HO.ED 23:15 → HO.EDOVER 06-03 00:08 → HO.S3 06-04 00:14
PROVIDERS: Internal Medicine; Physician Assistant; Physician Assistant Surgical; Surgery; Admitting Provider Hospitalist; Emergency Provider Emergency Medicine Emergency Medical Services; PCP Internal Medicine; Visit Provider Internal Medicine
PROC: 0FC98ZZ Extirpation of Matter from Common Bile Duct, Via Natural or Artificial Opening Endoscopic (ICD-10-PCS; CPT 43260; principal; 2021-06-03 13:00)
PROC: 0FT44ZZ Resection of Gallbladder, Percutaneous Endoscopic Approach (ICD-10-PCS; CPT 47562; principal; 2021-06-05 07:30)
DX: K80.62 Calculus of gallbladder and bile duct with acute cholecystitis without obstruction (principal); K82.1 Hydrops of gallbladder; K21.9 Gastro-esophageal reflux disease without esophagitis; E78.5 Hyperlipidemia, unspecified; I10 Essential (primary) hypertension; D72.829 Elevated white blood cell count, unspecified; Z20.822 Contact with and (suspected) exposure to COVID-19; Z87.891 Personal history of nicotine dependence; Z88.0 Allergy status to penicillin; Z88.2 Allergy status to sulfonamides; Z79.82 Long term (current) use of aspirin; Z79.899 Other long term (current) drug therapy
CPT/HCPCS: 36415; 71045; 74177; 76705; 80048; 80076; 81003; 83605; 83690; 83735; 84484; 85025; 85027; 85610; 86850; 86900; 86901; 87040; 87635; 88304; 93005; 96365; 96366; 96367; 96375; 96376; 99284; 99285; J0696; J1100; J1170; J1610; J1956; J2250; J2270; J2370; J2405; J3010; J3475; Q9967

== ENCOUNTER → 2021-06-13 10:49 | Outpatient (BNVA) | payer OTHER, MEDICARE, SELFPAY | PROVIDERS: PCP Internal Medicine; Referring Provider Internal Medicine; Visit Provider Surgery | DX: Z48.815 Encounter for surgical aftercare following surgery on the digestive system (principal); Z90.49 Acquired absence of other specified parts of digestive tract | CPT/HCPCS: 99212 ==

== ENCOUNTER 2021-06-17 11:48 | Outpatient (REF) | payer MEDICARE, SELFPAY ==
--- NOTE | ~2021-06-17 | XR_ITS ---
EXAMINATION: XR CHEST CLINICAL INFORMATION: Short of breath COMPARISON: Chest 06/02/2021 TECHNIQUE: 2 views of the chest were obtained. FINDINGS: The lungs are well-expanded and clear of acute pneumonic process. There is dense calcification along bilateral diaphragmatic pleura. Heart size and pulmonary vascularity is normal. No gross bony abnormality seen. XR/XR chest 2V IMPRESSION: No acute process. New diaphragmatic bilateral pleural calcifications.
[2021-06-17 13:54] LABS: Hematocrit 34.6 % (37.0-47.0); Hemoglobin 11.2 g/dl (12.0-16.0); Mean Corpuscular HGB Conc 32.4 g/dl (31.0-35.0); Mean Corpuscular Hemoglobin 30.7 pg (27.0-33.0); Mean Corpuscular Volume 94.8 fL (80.0-98.0); Mean Platelet Volume 10.2 fL (9.4-12.3); Platelet Count 492 X10*3/uL (160-400); Red Blood Count 3.65 X10*6/uL (4.20-5.50); Red Cell Distribution Width 12.3 % (11.0-16.0); White Blood Count 11.7 X10*3/uL (4.8-10.8)
[2021-06-17 14:11] LABS: Alanine Aminotransferase 36 U/L (0-31); Albumin Level 3.9 g/dL (3.5-5.0); Alkaline Phosphatase 133 U/L (39-117); Aspartate Amino Transferase 28 U/L (5-31); Bilirubin Direct 0.2 mg/dL (0.0-0.5); Bilirubin Total 0.3 mg/dL (0.0-1.0); Lipase 75 U/L (8-78)
[2021-06-17 14:33] LABS: TSH reflex Free T4 1.88 uIU/mL (0.32-4.0)
== END 2021-06-17 11:49 | disposition home or self-care (01) ==
LOC: HO.HMGCLDS 11:48
PROVIDERS: PCP Internal Medicine; Visit Provider Physician Assistant
DX: Z13.29 Encounter for screening for other suspected endocrine disorder (principal); Z90.49 Acquired absence of other specified parts of digestive tract
CPT/HCPCS: 36415; 71046; 80076; 83690; 84443; 85027

== ENCOUNTER 2021-07-03 10:46 | Outpatient (REF) | payer MEDICARE, SELFPAY ==
--- NOTE | ~2021-07-03 | CT_ITS ---
EXAMINATION: CT CHEST WITHOUT CONTRAST CLINICAL INFORMATION: Smoker for 20 years. COMPARISON: None TECHNIQUE: Multidetector volumetric CT imaging of the chest was done. Axial MIP volume rendering provided. Sagittal and coronal reformatted images were obtained. This CT examination was performed using dose optimization techniques as appropriate, variously including the following: *Automated exposure control. *Adjustment of mA and/or kV according to patient size (this includes techniques or standardized protocols for targeted exams where dose is matched to indication/reason for exam; i.e. extremities or head). *Use of iterative reconstruction technique. DLP: 123 mGy-cm FINDINGS: BILINGUAL MEDICAL ASSISTANT: Unremarkable. LUNGS: There are punctate 1 mm scattered calcifications in the right lower lobe, right major fissure. There are no non-calcified pulmonary nodules, mass or consolidation. There is a tree-in-bud appearance in the right upper lobe posterior segment, axial image 185/8 to 193/8. MEDIASTINUM: The thyroid lobes are symmetric and normal. The central trachea and the bronchi are widely patent. There are coronary artery calcifications. The heart size and the great vessels are normal caliber. PLEURA: There is no pleural effusion. No pleural mass or thickening. AXILLA: No lymphadenopathy. UPPER ABDOMEN: The visualized liver, spleen, pancreas and bilateral adrenal glands appear unremarkable. The gallbladder has been surgically removed. OSSEOUS STRUCTURES: There is mild ventral spondylosis in upper and lower dorsal spine. No aggressive lytic process seen. CT/CT chest wo con IMPRESSION: 1. Small area of tree-in-bud appearance right upper lobe likely small airway disease with no consolidation seen. 2. There are no non-calcified nodules except for tiny granulomas. Fleischner guidelines were followed.
== END 2021-07-03 10:47 | disposition home or self-care (01) ==
LOC: HO.CT 10:46
PROVIDERS: Visit Provider Physician Assistant
DX: J94.8 Other specified pleural conditions (principal); Z87.891 Personal history of nicotine dependence
CPT/HCPCS: 71250

== ENCOUNTER 2021-07-04 14:53 | Outpatient (REF) | payer MEDICARE, SELFPAY ==
[2021-07-04 16:01] LABS: Appearance Urine CLEAR; Color Urine YELLOW; Glucose Urine UA NEG (NEG); Leukocyte Esterase Urine NEG (NEG); Nitrite Urine NEG (NEG); PH 5.5 (5.0-8.0); Urine Blood NEG (NEG); Urine Ketones NEG (NEG); Urine Protein NEG (NEG-TRACE)
== END 2021-07-04 14:54 | disposition home or self-care (01) ==
LOC: HO.HMGCLDS 14:53
PROVIDERS: PCP Surgery; Visit Provider Surgery
DX: Z13.9 Encounter for screening, unspecified (principal)
CPT/HCPCS: 81003

== ENCOUNTER 2021-07-09 11:43 | Outpatient (REF) | payer MEDICARE, SELFPAY ==
--- NOTE | ~2021-07-09 | MM_ITS ---
EXAMINATION: MM SCREENING DIGITAL BREAST TOMOSYNTHESIS, BILATERAL CLINICAL INFORMATION: Screening. Asymptomatic. The lifetime risk of breast cancer based on the Tyrer-Cuzick Model is 5%. COMPARISON: Mammography: 04/19/2020, 11/09/2018, 11/05/2017 TECHNIQUE: Digital breast tomosynthesis is performed in both the craniocaudal and mediolateral oblique views along with computer-aided detection (CAD). Synthesized 2D images are generated from the tomosynthesis. Additional left CC view is provided. FINDINGS: There are scattered areas of fibroglandular density (ACR BI-RADS breast composition Category b). There are no significant masses, abnormal calcifications, or other abnormalities. Parenchymal pattern is similar to prior studies. There is chronic bilateral nipple retraction similar to prior studies. No significant changes. MM/MM tomosynthesis screening BI IMPRESSION: No significant changes from prior studies. ASSESSMENT: BI-RADS 2: Benign RECOMMENDATION: Routine annual mammography screening. This patient's information was entered into a reminder system with a target due date for their next mammogram.
== END 2021-07-09 11:44 | disposition home or self-care (01) ==
LOC: HO.MAMMO 11:43
PROVIDERS: PCP Internal Medicine; Visit Provider Internal Medicine
DX: Z12.31 Encounter for screening mammogram for malignant neoplasm of breast (principal)
CPT/HCPCS: 77063; 77067

== ENCOUNTER 2021-07-12 11:37 | Outpatient (REF) | payer MEDICARE, SELFPAY ==
--- NOTE | ~2021-07-12 | XR_ITS ---
EXAMINATION: XR HAND, LEFT CLINICAL INFORMATION: Gout. COMPARISON: None TECHNIQUE: 3 views of the left hand FINDINGS: Metallic rings overlie the proximal phalanx of the 3rd and 4th digits. The patient apparently could not remove the rings for the exam. Interphalangeal joints: There is prominent joint space narrowing with marginal osteophytes and capsular calcification of the 2nd and 3rd DIP joints. There is additional marginal osteophytes and nonuniform joint space narrowing of the 5th DIP joint. Capsular calcification also noted. Metacarpophalangeal joints: Normal. Wrists: Normal. 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 No specific radiographic signs of gout.
[2021-07-12 14:01] LABS: Uric Acid 4.5 mg/dL (2.4-5.7)
[2021-07-12 14:29] LABS: Erythrocyte Sedimentation Rate 27 MM/HR (0-20)
== END 2021-07-12 11:38 | disposition home or self-care (01) ==
LOC: HO.HMGCX 11:37
PROVIDERS: PCP Internal Medicine; Visit Provider Physician Assistant
DX: M10.042 Idiopathic gout, left hand (principal)
CPT/HCPCS: 36415; 73110; 73130; 84550; 85652; 86140

== ENCOUNTER 2021-08-06 09:43 | Outpatient (REF) | payer MEDICARE, SELFPAY ==
[2021-08-06 11:53] LABS: Estimated Average Glucose 103 mg/dL; Hemoglobin A1c % 5.2 %
[2021-08-06 12:16] LABS: Alanine Aminotransferase 34 U/L (0-31); Albumin Level 4.6 g/dL (3.5-5.0); Alkaline Phosphatase 124 U/L (39-117); Anion Gap 14 (12-20); Aspartate Amino Transferase 30 U/L (5-31); Bilirubin Total 0.5 mg/dL (0.0-1.0); Blood Urea Nitrogen 16 mg/dL (9-16); Calcium 10.1 mg/dL (8.4-10.2); Carbon Dioxide 29 mmol/L (22-29); Chloride 103 mmol/L (96-108); Cholesterol 143 mg/dL; Estimated Glomerular Filt Rate > 60; Glucose Random 99 mg/dL (60-115); HDL Cholesterol 50 mg/dL; LDL Cholesterol Calculated 69 mg/dl; Sodium 142 mmol/L (135-145); Total Protein 7.6 g/dL (6.5-8.0); Triglycerides 121 mg/dL
== END 2021-08-06 09:44 | disposition home or self-care (01) ==
LOC: HO.HMGCLDS 09:43
PROVIDERS: Absent Provider Internal Medicine Cardiovascular Disease; PCP Internal Medicine; Visit Provider Internal Medicine
DX: E78.00 Pure hypercholesterolemia, unspecified (principal)
CPT/HCPCS: 36415; 80053; 80061; 83036

== ENCOUNTER 2021-11-07 09:44 | Outpatient (REF) | payer MEDICARE, SELFPAY ==
[2021-11-07 11:19] LABS: MANUAL DIFF FLAG NO
[2021-11-07 11:25] LABS: Basophils Percent Auto 0.5 % (0-2); Eosinophils Absolute Auto 0.2 X10*3/uL (0.0-0.4); Eosinophils Percent Auto 2.7 % (0-4); Hematocrit 41.1 % (37.0-47.0); Hemoglobin 13.8 g/dl (12.0-16.0); Imm Gran Abs Auto 0.03 X10*3/uL (0.00-0.03); Imm Gran Pct Auto 0.4 % (0.0-0.4); Lymphocytes Absolute Auto 2.4 X10*3/uL (1.2-4.9); Lymphocytes Percent Auto 30.6 % (20-40); Mean Corpuscular HGB Conc 33.6 g/dl (31.0-35.0); Mean Corpuscular Hemoglobin 30.3 pg (27.0-33.0); Mean Corpuscular Volume 90.3 fL (80.0-98.0); Mean Platelet Volume 10.7 fL (9.4-12.3); Monocytes Absolute Auto 0.6 X10*3/uL (0.1-1.2); Monocytes Percent Auto 7.4 % (2-11); Neutrophils Absolute Auto 4.5 x10*3/uL (2.0-8.3); Neutrophils Percent Auto 58.4 % (45-73); Platelet Count 237 X10*3/uL (160-400); Red Blood Count 4.55 X10*6/uL (4.20-5.50); Red Cell Distribution Width 14.2 % (11.0-16.0); White Blood Count 7.7 X10*3/uL (4.8-10.8)
[2021-11-07 11:53] LABS: Alanine Aminotransferase 32 U/L (0-31); Albumin Level 4.4 g/dL (3.5-5.0); Alkaline Phosphatase 109 U/L (39-117); Anion Gap 13 (12-20); Aspartate Amino Transferase 29 U/L (5-31); Bilirubin Total 0.6 mg/dL (0.0-1.0); Blood Urea Nitrogen 21 mg/dL (9-16); Calcium 9.9 mg/dL (8.4-10.2); Carbon Dioxide 28 mmol/L (22-29); Chloride 102 mmol/L (96-108); Cholesterol 156 mg/dL; Estimated Glomerular Filt Rate > 60; Glucose Random 96 mg/dL (60-115); HDL Cholesterol 56 mg/dL; LDL Cholesterol Calculated 75 mg/dl; Potassium 4.4 mmol/L (3.3-5.1); Sodium 139 mmol/L (135-145); Total Protein 7.3 g/dL (6.5-8.0); Triglycerides 127 mg/dL
[2021-11-07 12:01] LABS: Free T4 (Free Thyroxine) 0.91 ng/dL (0.71-1.85); Thyroid Stimulating Hormone 1.77 uIU/mL (0.32-4.0)
[2021-11-07 12:17] LABS: Folate > 20.0 ng/mL (> or = 4.0); Vitamin B12 317 pg/mL (200-900)
== END 2021-11-07 09:45 | disposition home or self-care (01) ==
LOC: HO.HMGCLDS 09:44
PROVIDERS: PCP Internal Medicine; Visit Provider Internal Medicine
DX: E78.00 Pure hypercholesterolemia, unspecified (principal)
CPT/HCPCS: 36415; 80053; 80061; 82306; 82607; 82746; 84439; 84443; 85025

== ENCOUNTER 2022-03-04 14:38 | Outpatient (REF) | payer MEDICARE, SELFPAY ==
--- NOTE | ~2022-03-04 | XR_ITS ---
EXAMINATION: XR KNEE, RIGHT CLINICAL INFORMATION: Right knee pain COMPARISON: None TECHNIQUE: Four views of the right knee. FINDINGS: No acute visible fracture or dislocation. Mild multicompartment degenerative changes. Spurring of the tibial spines. Mild narrowing of the medial femorotibial compartment. Periarticular osteophytes along the superior inferior margins of the patella. Joint spaces and alignment are otherwise maintained. No large knee joint effusion. Soft tissues are XR/XR knee RT 4V IMPRESSION: 1. No acute visible fracture or dislocation. 2. Mild multicompartment degenerative changes.
[2022-03-04 17:16] LABS: Erythrocyte Sedimentation Rate 7 MM/HR (0-20)
[2022-03-06 15:12] LABS: CRP High Sensitivity 2.4 mg/L
== END 2022-03-04 14:39 | disposition home or self-care (01) ==
LOC: HO.HMGCX 14:38
PROVIDERS: PCP Internal Medicine; Visit Provider Nurse Practitioner Family
DX: M10.042 Idiopathic gout, left hand (principal); M25.561 Pain in right knee
CPT/HCPCS: 36415; 73564; 84550; 85652; 86141

== ENCOUNTER 2022-05-09 08:56 | Outpatient (REF) | payer MEDICARE, SELFPAY ==
[2022-05-09 11:29] LABS: MANUAL DIFF FLAG NO
[2022-05-09 11:42] LABS: Basophils Absolute Auto 0.1 X10*3/uL (0.0-0.2); Basophils Percent Auto 0.5 % (0-2); Eosinophils Absolute Auto 0.2 X10*3/uL (0.0-0.4); Eosinophils Percent Auto 2.1 % (0-4); Hemoglobin 13.7 g/dl (12.0-16.0); Imm Gran Abs Auto 0.04 X10*3/uL (0.00-0.03); Imm Gran Pct Auto 0.4 % (0.0-0.4); Lymphocytes Absolute Auto 2.6 X10*3/uL (1.2-4.9); Lymphocytes Percent Auto 27.3 % (20-40); Mean Corpuscular HGB Conc 32.6 g/dl (31.0-35.0); Mean Corpuscular Hemoglobin 30.9 pg (27.0-33.0); Mean Corpuscular Volume 94.6 fL (80.0-98.0); Mean Platelet Volume 10.6 fL (9.4-12.3); Monocytes Absolute Auto 0.6 X10*3/uL (0.1-1.2); Monocytes Percent Auto 6.3 % (2-11); Neutrophils Percent Auto 63.4 % (45-73); Platelet Count 226 X10*3/uL (160-400); Red Blood Count 4.44 X10*6/uL (4.20-5.50); Red Cell Distribution Width 12.4 % (11.0-16.0); White Blood Count 9.4 X10*3/uL (4.8-10.8)
[2022-05-09 12:49] LABS: Estimated Average Glucose 105 mg/dL; Hemoglobin A1C 152.2499 umol/L; Hemoglobin A1c % 5.3 %
[2022-05-09 12:55] LABS: Alanine Aminotransferase 38 U/L (0-31); Albumin Level 4.4 g/dL (3.5-5.0); Alkaline Phosphatase 107 U/L (39-117); Anion Gap 14 (12-20); Aspartate Amino Transferase 28 U/L (5-31); Bilirubin Total 0.6 mg/dL (0.0-1.0); Blood Urea Nitrogen 22 mg/dL (9-16); Calcium 9.7 mg/dL (8.4-10.2); Carbon Dioxide 28 mmol/L (22-29); Chloride 105 mmol/L (96-108); Cholesterol 160 mg/dL; Estimated Glomerular Filt Rate > 60; Free T4 (Free Thyroxine) 0.92 ng/dL (0.71-1.85); Glucose Random 100 mg/dL (60-115); HDL Cholesterol 53 mg/dL; LDL Cholesterol Calculated 77 mg/dl; Potassium 4.4 mmol/L (3.3-5.1); Thyroid Stimulating Hormone 1.73 uIU/mL (0.32-4.0); Total Protein 7.1 g/dL (6.5-8.0); Triglycerides 152 mg/dL
[2022-05-09 12:58] LABS: Sodium 143 mmol/L (135-145)
[2022-05-09 13:01] LABS: Folate 17.1 ng/mL (> or = 4.0); Vitamin B12 345 pg/mL (200-900)
== END 2022-05-09 08:57 | disposition home or self-care (01) ==
LOC: HO.HMGCLDS 08:56
PROVIDERS: PCP Internal Medicine; Visit Provider Internal Medicine
DX: E78.00 Pure hypercholesterolemia, unspecified (principal); R73.02 Impaired glucose tolerance (oral)
CPT/HCPCS: 36415; 80053; 80061; 82306; 82607; 82746; 83036; 84439; 84443; 85025

== ENCOUNTER 2022-07-15 11:23 | Outpatient (REF) | payer MEDICARE, SELFPAY ==
--- NOTE | ~2022-07-15 | MM_ITS ---
EXAMINATION: MM SCREENING DIGITAL BREAST TOMOSYNTHESIS, BILATERAL CLINICAL INFORMATION: Screening. Asymptomatic. The lifetime risk of breast cancer based on the Tyrer-Cuzick Model is 4%. COMPARISON: Mammography: July 09, 2021 and studies dating back to August 31, 2015 TECHNIQUE: Digital breast tomosynthesis is performed in both the craniocaudal and mediolateral oblique views along with computer-aided detection (CAD). Synthesized 2D images are generated from the tomosynthesis. FINDINGS: There are scattered areas of fibroglandular density (ACR BI-RADS breast composition Category b). There are no significant masses, abnormal calcifications, or other abnormalities. MM/MM tomosynthesis screening BI IMPRESSION: No significant changes ASSESSMENT: BI-RADS 1: Negative RECOMMENDATION: Routine annual mammography screening. This patient's information was entered into a reminder system with a target due date for their next mammogram.
== END 2022-07-15 11:24 | disposition home or self-care (01) ==
LOC: HO.MAMMO 11:23
PROVIDERS: Absent Provider Obstetrics & Gynecology; PCP Internal Medicine; Visit Provider Internal Medicine
DX: Z12.31 Encounter for screening mammogram for malignant neoplasm of breast (principal)
CPT/HCPCS: 77063; 77067

== ENCOUNTER 2022-11-14 09:41 | Outpatient (REF) | payer MEDICARE, SELFPAY ==
[2022-11-14 11:18] LABS: MANUAL DIFF FLAG NO
[2022-11-14 11:43] LABS: Basophils Absolute Auto 0.1 X10*3/uL (0.0-0.2); Basophils Percent Auto 0.6 % (0-2); Eosinophils Absolute Auto 0.2 X10*3/uL (0.0-0.4); Eosinophils Percent Auto 2.3 % (0-4); Hematocrit 41.7 % (37.0-47.0); Hemoglobin 13.7 g/dl (12.0-16.0); Imm Gran Abs Auto 0.03 X10*3/uL (0.00-0.03); Imm Gran Pct Auto 0.3 % (0.0-0.4); Lymphocytes Percent Auto 32.9 % (20-40); Mean Corpuscular HGB Conc 32.9 g/dl (31.0-35.0); Mean Corpuscular Hemoglobin 31.1 pg (27.0-33.0); Mean Corpuscular Volume 94.6 fL (80.0-98.0); Mean Platelet Volume 10.8 fL (9.4-12.3); Monocytes Absolute Auto 0.7 X10*3/uL (0.1-1.2); Monocytes Percent Auto 7.7 % (2-11); Neutrophils Absolute Auto 5.1 x10*3/uL (2.0-8.3); Neutrophils Percent Auto 56.2 % (45-73); Platelet Count 208 X10*3/uL (160-400); Red Blood Count 4.41 X10*6/uL (4.20-5.50); Red Cell Distribution Width 12.8 % (11.0-16.0); White Blood Count 9.1 X10*3/uL (4.8-10.8)
[2022-11-14 12:06] LABS: Alanine Aminotransferase 50 U/L (0-31); Albumin Level 4.2 g/dL (3.5-5.0); Alkaline Phosphatase 103 U/L (39-117); Anion Gap 11 (12-20); Aspartate Amino Transferase 35 U/L (5-31); Bilirubin Total 0.8 mg/dL (0.0-1.0); Blood Urea Nitrogen 16 mg/dL (9-16); Calcium 9.6 mg/dL (8.4-10.2); Carbon Dioxide 30 mmol/L (22-29); Chloride 105 mmol/L (96-108); Cholesterol 161 mg/dL; Estimated Glomerular Filt Rate > 60; Glucose Random 90 mg/dL (60-115); HDL Cholesterol 69 mg/dL; LDL Cholesterol Calculated 68 mg/dl; Potassium 3.8 mmol/L (3.3-5.1); Sodium 142 mmol/L (135-145); Total Protein 6.8 g/dL (6.5-8.0); Triglycerides 124 mg/dL
[2022-11-14 12:27] LABS: Folate 18.8 ng/mL (> or = 4.0); Free T4 (Free Thyroxine) 0.92 ng/dL (0.71-1.85); Thyroid Stimulating Hormone 1.79 uIU/mL (0.32-4.0); Vitamin B12 302 pg/mL (200-900); Vitamin D 25-OH Total 43.4 ng/mL (>30)
[2022-11-14 12:34] LABS: Uric Acid 5.8 mg/dL (2.4-5.7)
== END 2022-11-14 09:42 | disposition home or self-care (01) ==
LOC: HO.HMGCLDS 09:41
PROVIDERS: PCP Internal Medicine; Visit Provider Internal Medicine
DX: E78.00 Pure hypercholesterolemia, unspecified (principal); E55.9 Vitamin D deficiency, unspecified
CPT/HCPCS: 36415; 80053; 80061; 82306; 82607; 82746; 84439; 84443; 84550; 85025

== ENCOUNTER 2022-11-24 10:07 | Outpatient (REF) | payer MEDICARE, SELFPAY ==
[2022-11-24 11:22] LABS: Hematocrit 40.6 % (37.0-47.0); Hemoglobin 13.4 g/dl (12.0-16.0); Mean Platelet Volume 10.6 fL (9.4-12.3); Platelet Count 193 X10*3/uL (160-400); Red Blood Count 4.32 X10*6/uL (4.20-5.50); Red Cell Distribution Width 12.9 % (11.0-16.0); White Blood Count 8.7 X10*3/uL (4.8-10.8)
[2022-11-24 11:44] LABS: Alanine Aminotransferase 72 U/L (0-31); Albumin Level 4.1 g/dL (3.5-5.0); Alkaline Phosphatase 117 U/L (39-117); Anion Gap 13 (12-20); Aspartate Amino Transferase 64 U/L (5-31); Bilirubin Direct < 0.1 mg/dL (0.0-0.5); Bilirubin Total 0.4 mg/dL (0.0-1.0); Blood Urea Nitrogen 27 mg/dL (9-16); Calcium 9.9 mg/dL (8.4-10.2); Carbon Dioxide 29 mmol/L (22-29); Chloride 105 mmol/L (96-108); Estimated Glomerular Filt Rate > 60; Glucose Random 95 mg/dL (60-115); Potassium 4.2 mmol/L (3.3-5.1); Sodium 143 mmol/L (135-145); Total Protein 6.9 g/dL (6.5-8.0)
[2022-11-24 12:03] LABS: Erythrocyte Sedimentation Rate 5 MM/HR (0-20)
== END 2022-11-24 10:08 | disposition home or self-care (01) ==
LOC: HO.HMGCLDS 10:07
PROVIDERS: PCP Internal Medicine; Visit Provider Internal Medicine
DX: M31.6 Other giant cell arteritis (principal)
CPT/HCPCS: 36415; 80048; 80076; 85027; 85652

== ENCOUNTER 2022-11-27 12:51 | Outpatient (REF) | payer MEDICARE, SELFPAY ==
--- NOTE | ~2022-11-27 | US_ITS ---
EXAMINATION: US EXTRACRANIAL CAROTID DUPLEX, BILATERAL CLINICAL INFORMATION: Right carotid bruit COMPARISON: None available. TECHNIQUE: Real-time ultrasound and Doppler techniques (integrating B-mode 2-D vascular images, Doppler spectral analysis and color-flow Doppler imaging) were utilized to interrogate the extracranial carotid arteries, the vertebral arteries and proximal subclavian arteries bilaterally. The degree of stenosis is determined by criteria similar to NASCET. FINDINGS: Right Side: 1. There is mild atherosclerotic plaque seen in the bifurcation/proximal ICA region. 2. The common carotid artery PSV proximally is 86 cm/s and distally 101 cm/s. 3. The proximal internal carotid artery velocities are 72 cm/s systolic and 24 cm/s diastolic. 4. The proximal external carotid artery PSV is 92 cm/s. 5. The vertebral artery shows antegrade flow. 6. The subclavian artery waveforms are normal. Left Side: 1. There is mild atherosclerotic plaque seen in the bifurcation/proximal ICA region. 2. The common carotid artery PSV proximally is 108 cm/s and distally 96 cm/s. 3. The proximal internal carotid artery velocities are 70 cm/s systolic and 20 cm/s diastolic. 4. The proximal external carotid artery PSV is 107 cm/s. 5. The vertebral artery shows antegrade flow. 6. The subclavian artery waveforms are normal. US/US carotid duplex BI IMPRESSION: 1. RIGHT: Minimal, non-hemodynamically significant stenosis of the proximal right internal carotid artery corresponding to a 0-49% stenosis by velocity criteria. 2. LEFT: Minimal, non-hemodynamically significant stenosis of the proximal left internal carotid artery corresponding to a 0-49% stenosis by velocity criteria.
--- NOTE | ~2022-11-27 | MM_ITS ---
EXAMINATION: BONE DENSITOMETRY CLINICAL INDICATION: Osteoporosis. COMPARISON: Previous BD dated 09/05/2020 and baseline BD dated 04/24/2005. TECHNIQUE: Using a M9 [employer] DXA System (software version: 13.1) manufactured by [employer], dual-energy x-ray absorptiometry was performed of the lumbar spine and left hip. The images are of good technical quality. Summary results are attached. FINDINGS: AP SPINE L1-L4: Current: BMD 1.164 g/cm2, Z-score 1.7, T-score -0.1, normal, 0.8% increase from previous, 2.3% increase from baseline (<5% change is not significant). Prior: BMD 1.155 g/cm2. Baseline: BMD 1.138 g/cm2. LEFT FEMUR, NECK: Current: BMD 0.849 g/cm2, Z-score 0.5, T-score -1.4, osteopenia. Prior: BMD 0.864 g/cm2. Baseline: BMD 0.894 g/cm2. LEFT FEMUR, TOTAL: Current: BMD 0.849 g/cm2, Z-score 0.4, T-score -1.3, osteopenia, 5.9% decrease from previous, 11.9% decrease from baseline (<5% change is not significant). Prior: BMD 0.902 g/cm2. Baseline: BMD 0.964 g/cm2. IDENTIFIED RISK FACTORS: Menopause, history of fracture (adult). HISTORY OF FRACTURE: Ankle. MEDICATIONS: Multivitamin, vitamin D. MM/XR DEXA axial skeleton IMPRESSION: 1. DIAGNOSIS: Osteopenia based on the lowest T-score value of -1.4 in the femoral neck applying World Health Organization criteria. 2. 10-YEAR FRACTURE RISK PREDICTION, FRAX: Major osteoporotic fracture (clinical spine, forearm, hip or shoulder) 15.7%. Hip fracture 2.1%. 3. Treatment Recommendations: NOF guidelines recommend consideration for treatment in postmenopausal women and men age 50 and older presenting with the following: -A hip or vertebral (clinical or morphometric) fracture. -T-score less than or equal to -2.5 at the femoral neck or spine after appropriate evaluation to exclude secondary causes. -Low bone mass at the hip or spine and a 10-year fracture probability by FRAX of greater than or equal to 3% for hip fracture or greater than or equal to 20% for major osteoporotic fracture based on the [place] adapted WHO algorithm. 4. Other Recommendations: All treatment decisions require clinical judgment and consideration of individual patient factors, including patient preferences, comorbidities, previous drug use, risk factors not captured in the FRAX model (e.g. frailty, falls, vitamin D deficiency, increased bone turnover, interval significant decline in bone density) and possible under or overestimation of fracture risk by FRAX. Additional medical evaluation for secondary cause of low bone mineral density may be appropriate. FUTURE SCAN RECOMMENDATION: People with diagnosed cases of osteoporosis or at high risk for fracture should have regular bone mineral density tests. For patients eligible for Medicare, routine testing is allowed once every 2 years. The testing frequency can be increased to one year for patients who have rapidly progressing disease, those who are receiving or discontinuing medical therapy to restore bone mass, or have additional risk factors.
== END 2022-11-27 12:52 | disposition home or self-care (01) ==
LOC: HO.HMGCX 12:51
PROVIDERS: PCP Internal Medicine; Visit Provider Internal Medicine
DX: M81.0 Age-related osteoporosis without current pathological fracture (principal); R09.89 Other specified symptoms and signs involving the circulatory and respiratory systems; M85.80 Other specified disorders of bone density and structure, unspecified site
CPT/HCPCS: 77080; 93880

== ENCOUNTER 2023-02-25 10:31 | Outpatient (AMB) | payer MEDICARE, SELFPAY ==
--- OUTSIDE RECORDS SUMMARY | 2023-02-25 10:33 | XMS_ITS | Patient Health Record ---
Author Name Unknown Organization [facility] Address [address] [place] [id number] Care Team Providers Care Control System Manager Name Role Phone Nury Rubio MD Primary Care Provider Levi Castro [phone] ALLERGIES Allergen (clinical drug ingredient) Drug/Non Drug Allergy documented on EMR Reaction Allergy Type Onset Date Status Sulfa Unknown Drug Allergy Active Penicillin Unknown Drug Allergy Active REASON FOR REFERRAL No Information MEDICATIONS Medication SIG (Take, Route, Frequency, Duration) Notes Start Date End Date Status Vitamin B12 100 MCG 1 tablet Orally Once a day Active hydroCHLOROthiazide 25 MG 1 tablet Orall y Once a day Active Crestor 10 MG 1 tablet Orally Once a day Resumed in 2013 Active Lisinopril 20 MG 1 tablet Orally Once a day Active Omeprazole 20 MG 1 capsule Orally Twice a day Active Vitamin D 1000 UNIT 1 tablet Orally Once a day Active ZyrTEC Allergy 10 MG 1 tablet Orally Once a day Active Multi Vitamin/Minerals - 1 Orally QD Active Vitamin E 200 UNIT 1 tablet Orally Once a day Active Vitamin C 500 MG 1 tablet Orally Once a day Active IMMUNIZATIONS Vaccine Route Administration Date Status Comme nts Flu vaccine no Preserv 3 and > Unknown 04/14/2017 Admin istered SOCIAL HISTORY Sex Assigned At : Social History Observation Description Sex Assigned At Unknown PROBLEMS Problem Type ICD Code Onset Dates Problem Status W/U Status Risk SNOMED Code Notes Problem Encounter for screening for malignant neoplasm of colon (Z12.11) Active confirmed 423900979 Problem Irritable bowel syndrome with diarrhea (K58.0) Active confirmed 682090575 Problem Abdominal pain, epigastric (R10.13) Active confirmed 21167184 Problem Peptic ulcer disease (K27.9) Active confirmed [id number] Problem Pre-procedural examination (Z01.818) Active confirmed 154050045875783 Problem Diarrhea, unspecified type (R19.7) Active confirmed [id number] Encounters Encounter Location Date Provider Diagnosis [facility] [address] [place] [address] 02/24/2023 Levi Coyle PLAN OF TREATMENT Pending Test Test Name Order Date LIVER PROFILE 10/25/2013 LIVER PROFILE 02/27/2016 CRP 02/27/2016 CBC w DIFF 02/27/2016 SED RATE (ESR) 02/27/2016 CLOSTRIDIUM DIFF TOXIN A&B (C DIFF) 02/07 STOOL WBC 02/27/2016 CELIAC PANEL #10 02/27/2016 GIARDIA AG, STOOL EIA 02/27/2016 OVA & PARASITES (O&P) 02/27/2016 CULTURE, STOOL 02/27/2016 Future Test Test Name Order Date BUN 04/26/2014 CREATININE 04/26/2014 MRI ABD W&WO CONTRAST 04/26/2014 UPPER GI ENDOSCOPY 01/27/2017 COLONOSCOPY 11/11/2017 Insurance Providers Payer Name Payer Address Payer Phone Subscriber Number Group Number Insured Name Patient Relationship to Insured Coverage Start Date Coverage End Date [facility] [address] [place], [place] [id number] DELVIS ARAIZA Self - patient is the insured MEDICAL (GENERAL) HISTORY Medical History History ICD Code Colonoscopy 01-24-2008--negat jesusita except for mild diverticulosis and internal hemorrhoids Hyperlipidemia Denies MO,DM,CVA,Lung disease,renal dise ase Perforated duodenal ulcer in 2010--treated at [facility]-no surgery required--she had been on ASA and NSAIDs---F/U EGD was reportedly negative Kidney stones-[facility] ERCP- 10/06/13--s/p sphinctero yi--no stones seen, although her common bile duct was mildly dilated MRI of the abdomen in September of 2013 showed a 5 mm pancreatic cyst, but without any sign of solid lesion nor any septations--- followup MRI in September of 2014 revealed a slight decrease in the tiny pancreatic cyst and without any worrisome findings otherwise Hospitalized at [facility] in 10/2016 for possible recurrent ulcer disease and/or a perforated duodenal diverticulum --had a NG tube--increased Omeprazole from 20mg QD to BID EGD in 04/2017--small HH, no PUD, gastric biopsies were negative for H.pylori Surgical History Surgery Date(Month/Year)
--- NOTE | 2023-02-25 11:32 | AM.OFFWIN_ITS ---
Intake Vital Signs 02/25/23 11:33 Height 5 ft 1 in Weight 135 lb BMI 25.5 BP 124/76 Blood Pressure Location Lt brachial Position Sitting Pulse 71 Pulse Source Pulse Oximeter Temp 98 F Temp Source Oral Pulse Oximetry (%) 98 Oxygen Delivery Method Room Air Intake Visit Reasons: EP Post nasal Drip/mucus/upset stomach Intake Note: Patient here because she got a flu shot last week and started with post nasal drip, she does cough up some yellow phlegm, and upset stomach ( nausea). Patient Tobacco Use Status: Former Tobacco user Quit Date: 21yrs ago Allergies penicillamine [Cuprimine] Allergy (Unknown, Verified 02/25/23 12:37) Rash penicillin V Allergy (Unknown, Verified 02/25/23 12:37) Rash Penicillins [PENICILLINS] Allergy (Unknown, Verified 02/25/23 12:37) HIVES Sulfa (Sulfonamide Antibiotics) [SULFA (SULFONAMIDE ANTIBIOTICS)] Allergy (Unknown, Verified 02/25/23 12:37) HIVES sulfasalazine [Sulfazine] Allergy (Unknown, Verified 02/25/23 12:37) Rash Medication List - Last Reconciled 02/25/23 by Naga Hussein MD ascorbate calcium (vitamin C) 500 mg PO DAILY aspirin (Adult Aspirin Regimen) 81 mg PO DAILY cetirizine 10 mg PO DAILY PRN cholecalciferol (vitamin D3) 50 mcg PO DAILY fluticasone propionate 50 mcg/actuation 1 spray intranasal DAILY glucosamine sulfate (Glucosamine) 500 mg PO DAILY hydrochlorothiazide 25 mg PO DAILY lisinopril 20 mg PO DAILY meloxicam 15 mg PO DAILY multivitamin 1 tab PO DAILY omega-3 fatty acids (Fish Oil Concentrate) 2,000 mg PO DAILY omeprazole 20 mg PO DAILY rosuvastatin 40 mg PO DAILY 90 days vit C-E-zinc [id number] 50 mg-15 unit- 4.5 mg-2.5 mg ([facility]) 2 tabs PO DAILY Do you need a note to return to daycare/school/sports/work: No HPI EP Post nasal Drip/mucus/upset stomach HPI Details Patient presents for a sick visit. Reporting symptoms of sinus congestion, sore throat and difficulty swallowing. Low-grade fever. No family member is sick. No recent travel. Patient reports symptoms of malaise and fatigue. PFSH Medical History (Updated 02/25/23 @ 13:17 by Naga Hussein MD) Screening for hypothyroidism Arthralgia Pancreatic pseudocyst Hypercholesterolemia GERD (gastroesophageal reflux disease) Hypertension Vitamin D deficiency Finger osteomyelitis Peptic ulcer disease Surgical History Cholelithiasis History of section History of ERCP (~2013) History of esophagogastroduodenoscopy (EGD) Status post laparoscopic cholecystectomy Family History (Updated 11/19/22 @ 13:32 by WILLIAM Bell) Brother CAD (coronary artery disease) Aneurysm Social History (Updated 11/19/22 @ 13:52 by Nury Rubio MD) Household Members: Spouse Housing: House Do you presently have visiting nurse or other home services: No Alcohol intake: current Alcohol intake frequency: holidays/special occasions only Patient Tobacco Use Status: Former Tobacco user Quit Date: 21yrs ago Tobacco use type: Cigarette Years Smoked: quit 1999 e-Cigarette/Vaping Use: Never Used Second Hand Smoke Exposure: No service: No Current occupational status: retired Cognitive needs: No Hearing needs: No Vision needs: Yes Physical Exam Vital Signs: Last Vital Signs Temp 98 F 02/25/23 11:33 Pulse 71 02/25/23 11:33 BP 124/76 02/25/23 11:33 Pulse Ox 98 02/25/23 11:33 Oxygen Delivery Method Room Air 02/25/23 11:33 BMI result Body Mass Index 25.5 Const General: cooperative and healthy appearing Nutritional Appearance: well nourished Orientation/consciousness: patient oriented x3 Limitations: no limitations HEENT Head: Yes normal to inspection Eyes General: appearance normal, both eyes and all related structures Neck Neck: Yes normal visual inspection Chest Chest palpation & inspection: normal palpation of entire chest wall Resp Effort & Inspection: normal respiratory effort Neuro General: patient oriented x3 Assessment & Plan Assessment & Plan (1) Upper respiratory tract infection: Code(s): J06.9 - Acute upper respiratory infection, unspecified Plan: Increase fluid intake. Tylenol for aches and pains. If symptoms worsen, follow-up here for a recheck. Take allergy medications as needed. If symptoms do not improve to follow-up here. Coding Level of Care Code Est Pt Level 3 (03692) Diagnoses Upper respiratory tract infection J06.9
[2023-02-25 11:33] VITALS: BP 124/76; PULSE 71; TEMP 36.6; O2SAT 98; BMI 25.5
== END 2023-02-25 12:41 | disposition home or self-care (01) ==
PROVIDERS: PCP Internal Medicine; Visit Provider Internal Medicine
DX: J06.9 Acute upper respiratory infection, unspecified (principal)
CPT/HCPCS: 99213

== ENCOUNTER 2023-04-07 14:22 | Outpatient (AMB) | payer MEDICARE, SELFPAY ==
--- NOTE | 2023-04-07 15:16 | AM.OFFWIN_ITS ---
Intake Vital Signs 04/07/23 15:17 Height 5 ft 1 in Weight 138 lb 8 oz BMI 26.2 BP 110/68 Blood Pressure Location Lt brachial Position Sitting Pulse 74 Pulse Source Pulse Oximeter Temp 97.9 F Temp Source Oral Pulse Oximetry (%) 96 Oxygen Delivery Method Room Air Intake Visit Reasons: EP, nasal congestion (masked) Intake Note: pt is here for head congestion and coughing up phlegm 2-3 days pt says she does not think she has a fever pt says she has sinus congestion Patient Tobacco Use Status: Former Tobacco user Quit Date: 21yrs ago Allergies penicillamine [Cuprimine] Allergy (Unknown, Verified 04/07/23 15:46) Rash penicillin V Allergy (Unknown, Verified 04/07/23 15:46) Rash Penicillins [PENICILLINS] Allergy (Unknown, Verified 04/07/23 15:46) HIVES Sulfa (Sulfonamide Antibiotics) [SULFA (SULFONAMIDE ANTIBIOTICS)] Allergy (Unknown, Verified 04/07/23 15:46) HIVES sulfasalazine [Sulfazine] Allergy (Unknown, Verified 04/07/23 15:46) Rash Medication List - Last Reconciled 04/07/23 by Naga Hussein MD ascorbate calcium (vitamin C) 500 mg PO DAILY aspirin (Adult Aspirin Regimen) 81 mg PO DAILY cholecalciferol (vitamin D3) 50 mcg PO DAILY doxycycline hyclate 100 mg PO BID 7 days fexofenadine (Suellen Allergy) 180 mg PO DAILY fluticasone propionate 50 mcg/actuation 1 spray intranasal DAILY hydrochlorothiazide 25 mg PO DAILY lisinopril 20 mg PO DAILY multivitamin 1 tab PO DAILY omega-3 fatty acids (Fish Oil Concentrate) 2,000 mg PO DAILY omeprazole 20 mg PO DAILY rosuvastatin 40 mg PO DAILY 90 days scopolamine base (Transderm-Scop) 1 patch transdermal Q3D PRN vit C-E-zinc [id number]-[id number] 50 mg-15 unit- 4.5 mg-2.5 mg ([facility]) 2 tabs PO DAILY HPI EP, nasal congestion (masked) HPI Details Patient presents for a sick visit. Reporting symptoms of sinus congestion, sore throat and difficulty swallowing. Low-grade fever. No family member is sick. No recent travel. Patient reports symptoms of malaise and fatigue. [facility] Medical History (Updated 02/25/23 @ 13:17 by Naga Hussein MD) Screening for hypothyroidism Arthralgia Pancreatic pseudocyst Hypercholesterolemia GERD (gastroesophageal reflux disease) Hypertension Vitamin D deficiency Finger osteomyelitis Peptic ulcer disease Surgical History Cholelithiasis History of section History of ERCP (~2013) History of esophagogastroduodenoscopy (EGD) Status post laparoscopic cholecystectomy Family History (Updated 11/19/22 @ 13:32 by WILLIAM Bell) Brother CAD (coronary artery disease) Aneurysm Social History (Updated 11/19/22 @ 13:52 by Nury Rubio MD) Household Members: Spouse Housing: House Do you presently have visiting nurse or other home services: No Alcohol intake: current Alcohol intake frequency: holidays/special occasions only Patient Tobacco Use Status: Former Tobacco user Quit Date: 21yrs ago Tobacco use type: Cigarette Years Smoked: quit 1999 e-Cigarette/Vaping Use: Never Used Second Hand Smoke Exposure: No service: No Current occupational status: retired Cognitive needs: No Hearing needs: No Vision needs: Yes Physical Exam Vital Signs: Last Vital Signs Temp 97.9 F 04/07/23 15:17 Pulse 74 04/07/23 15:17 BP 110/68 04/07/23 15:17 Pulse Ox 96 04/07/23 15:17 Oxygen Delivery Method Room Air 04/07/23 15:17 BMI result Body Mass Index 26.2 Const General: cooperative and healthy appearing Nutritional Appearance: well nourished Orientation/consciousness: patient oriented x3 Limitations: no limitations HEENT Head: Yes normal to inspection Eyes General: appearance normal, both eyes and all related structures Neck Neck: Yes normal visual inspection Chest Chest palpation & inspection: normal palpation of entire chest wall Resp Effort & Inspection: normal respiratory effort Neuro General: patient oriented x3 Assessment & Plan Assessment & Plan (1) Upper respiratory tract infection: Code(s): J06.9 - Acute upper respiratory infection, unspecified Plan: Antibiotics ordered. Increase fluid intake. Tylenol for aches and pains. If symptoms worsen, follow-up here for a recheck. Orders: Orders SARS-CoV2/FLU/RSV Today R43.9 - Unspecified disturbances of smell and taste Medications: Refilled doxycycline hyclate 100 mg PO BID 14 caps 0RF 7 days Coding Level of Care Code Est Pt Level 3 (70107) Diagnoses Upper respiratory tract infection J06.9
[2023-04-07 15:17] VITALS: BP 110/68; PULSE 74; TEMP 36.6; O2SAT 96; BMI 26.2
== END 2023-04-07 15:55 | disposition home or self-care (01) ==
PROVIDERS: PCP Internal Medicine; Visit Provider Internal Medicine
DX: J06.9 Acute upper respiratory infection, unspecified (principal)
CPT/HCPCS: 99213

== ENCOUNTER 2023-04-07 16:46 | Outpatient (REF) | payer MEDICARE, SELFPAY ==
[2023-04-08 12:31] LABS: Influenza A PCR NEGATIVE (Negative); Influenza B PCR NEGATIVE (Negative); Resp Syncy Virus RNA Qual PCR NEGATIVE (Negative); SARS COV2 PCR INHOUSE POSITIVE (Negative)
== END 2023-04-07 16:47 | disposition home or self-care (01) ==
LOC: HO.LAB 16:46
PROVIDERS: Visit Provider Internal Medicine
DX: R43.9 Unspecified disturbances of smell and taste (principal); Z11.52 Encounter for screening for COVID-19
CPT/HCPCS: 0241U

== ENCOUNTER 2023-05-15 09:59 | Outpatient (REF) | payer MEDICARE, SELFPAY ==
[2023-05-15 12:18] LABS: MANUAL DIFF FLAG NO
[2023-05-15 12:30] LABS: Basophils Absolute Auto 0.1 X10*3/uL (0.0-0.2); Basophils Percent Auto 0.7 % (0-2); Eosinophils Absolute Auto 0.2 X10*3/uL (0.0-0.4); Eosinophils Percent Auto 2.1 % (0-4); Hematocrit 42.3 % (37.0-47.0); Imm Gran Abs Auto 0.03 X10*3/uL (0.00-0.03); Imm Gran Pct Auto 0.3 % (0.0-0.4); Lymphocytes Absolute Auto 2.4 X10*3/uL (1.2-4.9); Lymphocytes Percent Auto 27.3 % (20-40); Mean Corpuscular HGB Conc 33.1 g/dl (31.0-35.0); Mean Corpuscular Hemoglobin 31.4 pg (27.0-33.0); Mean Corpuscular Volume 94.8 fL (80.0-98.0); Mean Platelet Volume 10.9 fL (9.4-12.3); Monocytes Absolute Auto 0.6 X10*3/uL (0.1-1.2); Monocytes Percent Auto 6.4 % (2-11); Neutrophils Absolute Auto 5.5 x10*3/uL (2.0-8.3); Neutrophils Percent Auto 63.2 % (45-73); Platelet Count 252 X10*3/uL (160-400); Red Blood Count 4.46 X10*6/uL (4.20-5.50); Red Cell Distribution Width 12.7 % (11.0-16.0); White Blood Count 8.7 X10*3/uL (4.8-10.8)
[2023-05-15 12:52] LABS: Estimated Average Glucose 111 mg/dL; Hemoglobin A1c % 5.5 % (<6.0)
[2023-05-15 13:13] LABS: Alanine Aminotransferase 59 U/L (0-31); Albumin Level 4.4 g/dL (3.5-5.0); Alkaline Phosphatase 100 U/L (39-117); Anion Gap 12 (12-20); Aspartate Amino Transferase 31 U/L (5-31); Bilirubin Total 0.4 mg/dL (0.0-1.0); Blood Urea Nitrogen 21 mg/dL (9-16); Calcium 9.9 mg/dL (8.4-10.2); Carbon Dioxide 29 mmol/L (22-29); Chloride 107 mmol/L (96-108); Cholesterol 156 mg/dL (<200); Estimated Glomerular Filt Rate > 60; Glucose Random 105 mg/dL (60-115); HDL Cholesterol 62 mg/dL (>40); LDL Cholesterol Calculated 71 mg/dL (<100); Potassium 3.8 mmol/L (3.3-5.1); Sodium 144 mmol/L (135-145); Total Protein 7.4 g/dL (6.5-8.0); Triglycerides 118 mg/dL (<150)
[2023-05-15 13:45] LABS: Thyroid Stimulating Hormone 2.39 uIU/mL (0.32-4.0); Vitamin D 25-OH Total 74.9 ng/mL (>30)
[2023-05-15 14:08] LABS: Folate 14.4 ng/mL (> or = 4.0); Vitamin B12 462 pg/mL (200-900)
[2023-05-16 04:46] LABS: HBc Num1 6.35 S/CO (0.00-0.79); HBsAGNum1 0.21 S/CO (0.00-0.99); Hepatitis B Surface Antigen Negative (Negative)
[2023-05-16 04:57] LABS: ~HepC Num1 0.49 S/CO (0.00-0.79); ~Hepatitis B Surface Antibody REACTIVE (Nonreactive); ~Hepatitis C Antibody Nonreactive (Nonreactive)
[2023-05-16 05:39] LABS: HBc Num2 6.36 S/CO; HBc Num3 6.58 S/CO; Hepatitis B Core Antibody Reactive (Nonreactive)
== END 2023-05-15 10:00 | disposition home or self-care (01) ==
LOC: HO.HMGCLDS 09:59
PROVIDERS: PCP Internal Medicine; Visit Provider Internal Medicine
DX: R73.02 Impaired glucose tolerance (oral) (principal); E78.00 Pure hypercholesterolemia, unspecified; R79.89 Other specified abnormal findings of blood chemistry; E55.9 Vitamin D deficiency, unspecified; M85.80 Other specified disorders of bone density and structure, unspecified site
CPT/HCPCS: 36415; 80053; 80061; 82306; 82607; 82746; 83036; 84443; 84550; 85025; 86704; 86706; 86803; 87340

== ENCOUNTER 2023-05-21 14:08 | Outpatient (AMB) | payer MEDICARE, SELFPAY ==
[2023-05-21 14:12] VITALS: BP 136/66; PULSE 54; O2SAT 96; BMI 25.8
--- NOTE | 2023-05-21 14:12 | MHC.PC.OV ---
Vital Signs 05/21/23 14:12 Height 5 ft 1 in Weight 136 lb 6 oz BMI 25.8 BP 136/66 Blood Pressure Location Lt brachial Position Sitting Pulse 54 Pulse Source Pulse Oximeter Pulse Oximetry (%) 96 Oxygen Delivery Method Room Air Intake Visit Reasons: Hypertension Dining Service Worker Required: No Accompanied by: Self / Same As Patient Allergies penicillamine [Cuprimine] Allergy (Unknown, Verified 05/21/23 14:12) Rash penicillin V Allergy (Unknown, Verified 05/21/23 14:12) Rash Penicillins [PENICILLINS] Allergy (Unknown, Verified 05/21/23 14:12) HIVES Sulfa (Sulfonamide Antibiotics) [SULFA (SULFONAMIDE ANTIBIOTICS)] Allergy (Unknown, Verified 05/21/23 14:12) HIVES sulfasalazine [Sulfazine] Allergy (Unknown, Verified 05/21/23 14:12) Rash Tobacco use date assessed: 05/21/23 Fall risk assessment: No Falls in past year Last assessed Fall Risk: 05/21/23 Dental Screening Dental Screen Date: 05/21/23 Did you have a dental visit in the last 12 months?: No Did you have a dental problem in the last 6 months where you did not have access to dental care?: No Was dental information given to patient?: Patient has dentist HPI Hypertension HPI Details 73-year-old female with hypercholesterolemia impaired glucose tolerance GERD hypertension last seen in November for annual well visit. Patient is here for follow-up. Colonoscopy is up-to-date November 2017 mammogram July 2022 bone density November 2022 patient does have osteoarthritis of the knee. Review of the notes was [facility] the [facility] for nasal congestion treated for upper respiratory tract infection the with doxycycline. stong FH of CAD R knee pain OA and 2 months ago had shot- but had bowling and had swellling - [facility] Medical History (Updated 02/25/23 @ 13:17 by Naga Hussein MD) Screening for hypothyroidism Arthralgia Pancreatic pseudocyst Hypercholesterolemia GERD (gastroesophageal reflux disease) Hypertension Vitamin D deficiency Finger osteomyelitis Peptic ulcer disease Surgical History Status post laparoscopic cholecystectomy History of ERCP (~2013) History of esophagogastroduodenoscopy (EGD) History of section Cholelithiasis Family History Brother CAD (coronary artery disease) Aneurysm Social History Household Members: Spouse Housing: House Do you presently have visiting nurse or other home services: No Alcohol intake: current Alcohol intake frequency: holidays/special occasions only Patient Tobacco Use Status: Former Tobacco user Quit Date: 21yrs ago Tobacco use type: Cigarette Years Smoked: quit 1999 e-Cigarette/Vaping Use: Never Used Second Hand Smoke Exposure: No service: No Current occupational status: retired Cognitive needs: No Hearing needs: No Vision needs: Yes Questionnaire Thrive Questionnaire Date Thrive assessed: 11/19/22 DEVAN-7 AMB Questionnaire DEVAN-7 Date DEVAN - 7 assessed: 11/19/22 Source: Developed by Drs. Levi Sage, Georgia Mahoney, Melo Mooney and colleagues, with an educational izzy from [employer]. Physical exam (Primary Care) Vital Signs: Last Vital Signs Pulse 54 05/21/23 14:12 BP 136/66 05/21/23 14:12 Pulse Ox 96 05/21/23 14:12 Oxygen Delivery Method Room Air 05/21/23 14:12 BMI result Body Mass Index 25.8 Tobacco/Smoking Status: Tobacco use Status Tobacco use date assessed 05/21/23 05/21/23 14:21 Patient Tobacco Use Status Former Tobacco user 05/21/23 14:13 Tobacco use type Cigarette 05/21/23 14:13 e-Cigarette/Vaping Use Never Used 05/21/23 14:13 Thrive Assessment: Date of Thrive Assessment Date Thrive assessed 11/19/22 05/21/23 14:13 Const General: alert; No acute distress Eyes Conjunctivae: conjunctivae normal Resp Auscultation: clear to auscultation bilaterally Cardio Rate: regular rate Rhythm: regular rhythm GI Inspection: Yes normal to inspection Extrem General: Yes normal to inspection and No edema Assessment and Plan Assessment & Plan (1) Impaired glucose tolerance: Code(s): R73.02 - Impaired glucose tolerance (oral) Plan: Decrease the amount of carbohydrate intake, pasta, bread, rice and potatoes are all sugar and that is aside from all the sweet stuff, remember that fruits are good but they are Sweet also. (2) Hypercholesterolemia: Code(s): E78.00 - Pure hypercholesterolemia, unspecified Plan: Avoid fried foods, chicken skin, eggs, butter margarine, pastries and meat. Be it pork or beef they have a lot of cholesterol LDL goal of less than 130 and triglyceride of less than 150. Patient on rosuvastatin 40 mg once a day (3) GERD (gastroesophageal reflux disease): Code(s): K21.9 - Gastro-esophageal reflux disease without esophagitis Plan: Avoid the foods that causes that usually spicy foods, tomato products, juices, coffee, soda and foods that your sensitive to. After eating do not lie down, allow 3-4 hours before in lie down. And keep the head of bed above 30 degrees to avoid the acid from going up. (4) Hypertension: Comment: Echocardiogram November 2019 EF 60-65%, nuclear stress test August 25- Code(s): I10 - Essential (primary) hypertension Qualifiers: Hypertension type: essential hypertension Qualified Code(s): I10 - Essential (primary) hypertension Plan: Continue with blood pressure medication. Decrease salt intake and exercise patient is taking lisinopril 20 mg once a day hydrochlorothiazide 25 mg once a day (5) Gout: Code(s): M10.9 - Gout, unspecified Qualifiers: Gout site: hand Gout etiology: unspecified cause Chronicity: acute Laterality: left Qualified Code(s): M10.9 - Gout, unspecified Plan: Keep well hydrated low purine diet Coding Level of Care Code Est Pt Level 4 (95882) Diagnoses Impaired glucose tolerance R73.02 Hypercholesterolemia E78.00 GERD (gastroesophageal reflux disease) K21.9 Essential hypertension I10 Hypertension type: essential hypertension Acute gout of left hand, unspecified cause M10.9 Gout site: hand Gout etiology: unspecified cause Chronicity: acute Laterality: left
== END 2023-05-21 15:14 | disposition home or self-care (01) ==
PROVIDERS: PCP Internal Medicine; Visit Provider Internal Medicine
DX: R73.02 Impaired glucose tolerance (oral) (principal); E78.00 Pure hypercholesterolemia, unspecified; K21.9 Gastro-esophageal reflux disease without esophagitis; I10 Essential (primary) hypertension; M10.9 Gout, unspecified
CPT/HCPCS: 99214

== ENCOUNTER 2023-06-10 11:59 | Outpatient (AMB) | payer MEDICARE, SELFPAY ==
--- NOTE | 2023-06-10 12:55 | MHC.OFFWIV ---
Intake Vital Signs 06/10/23 12:56 Height 5 ft 1 in Weight 137 lb 2 oz BMI 25.9 BP 122/80 Blood Pressure Location Rt brachial Position Sitting Pulse 80 Pulse Source Pulse Oximeter Temp 98.1 F Temp Source Oral Pulse Oximetry (%) 98 Oxygen Delivery Method Room Air Intake Visit Reasons: EP cough congestion [phone] Intake Note: pt is here today for cough congestion started thursday Patient Tobacco Use Status: Former Tobacco user Quit Date: 21yrs ago Allergies penicillamine [Cuprimine] Allergy (Unknown, Verified 06/10/23 12:58) Rash penicillin V Allergy (Unknown, Verified 06/10/23 12:58) Rash Penicillins [PENICILLINS] Allergy (Unknown, Verified 06/10/23 12:58) HIVES Sulfa (Sulfonamide Antibiotics) [SULFA (SULFONAMIDE ANTIBIOTICS)] Allergy (Unknown, Verified 06/10/23 12:58) HIVES sulfasalazine [Sulfazine] Allergy (Unknown, Verified 06/10/23 12:58) Rash Do you need a note to return to daycare/school/sports/work: No HPI EP cough congestion [id number] HPI Details This is a 73 year old female patient who presents today with a productive cough, chest congestion, and sinus pressure since this past Thursday. Reports her body is sore from coughing. Has been taking Nyquil, robitussin, Tylenol, Suellen, and her Neti-pot with minir relief. Denies fever. [facility] Medical History Screening for hypothyroidism Arthralgia Pancreatic pseudocyst Hypercholesterolemia GERD (gastroesophageal reflux disease) Hypertension Vitamin D deficiency Finger osteomyelitis Peptic ulcer disease Surgical History Status post laparoscopic cholecystectomy History of ERCP (~2013) History of esophagogastroduodenoscopy (EGD) History of section Cholelithiasis Family History Brother CAD (coronary artery disease) Aneurysm Social History Household Members: Spouse Housing: House Do you presently have visiting nurse or other home services: No Alcohol intake: current Alcohol intake frequency: holidays/special occasions only Patient Tobacco Use Status: Former Tobacco user Quit Date: 21yrs ago Tobacco use type: Cigarette Years Smoked: quit 1999 e-Cigarette/Vaping Use: Never Used Second Hand Smoke Exposure: No service: No Current occupational status: retired Cognitive needs: No Hearing needs: No Vision needs: Yes Review of Systems Const All systems reviewed & are unremarkable except as noted in HPI and below Physical Exam Vital Signs: Last Vital Signs Temp 98.1 F 06/10/23 12:56 Pulse 80 06/10/23 12:56 BP 122/80 06/10/23 12:56 Pulse Ox 98 06/10/23 12:56 Oxygen Delivery Method Room Air 06/10/23 12:56 BMI result Body Mass Index 25.9 Const General: cooperative and no acute distress Nutritional Appearance: average body habitus HEENT Head: Yes normal to inspection Ears: hearing grossly normal bilaterally General nose exam: Normal external nose present and Normal nasal mucous membranes and turbinates present Face and sinus: Yes sinus tenderness (maxillary) Neck Neck: Yes no lymphadenopathy Resp Effort & Inspection: normal respiratory effort, able to speak in complete sentences and Actively coughing Quality: dry Auscultation: rhonchi (mild) upper bilaterally and wheezes upper bilaterally Cardio Palpation: normal PMI Rate: regular rate Rhythm: regular rhythm Skin General skin exam: no rashes or lesions noted Extrem General: Yes capillary refill normal and Yes no clubbing, cyanosis or edema Psych Appearance: grossly normal Mental Status: mental status grossly normal Speech and movement: Normal speech and movement present Assessment & Plan Assessment & Plan (1) Upper respiratory tract infection: Code(s): J06.9 - Acute upper respiratory infection, unspecified Qualifiers: URI type: unspecified URI Qualified Code(s): J06.9 - Acute upper respiratory infection, unspecified Plan: Will start patient on Benzonatate and antibiotics. Patient states she had testing at allergy office and can tolerate Amoxicillin. She would like to try this instead of Doxycycline since she was just on Doxy back in March. We reviewed signs/symptoms of allergic reactions and plan if this develops. She can continue otc tylenol/motrin as needed for any myalgias, and can continue neti-pot and suellen as needed. She will return to the clinic if she does not improve with treatment. She verbalizes understanding and agrees to plan. Medications: New amoxicillin-pot clavulanate 875-125 mg 1 tab PO BID 7 days 14 tabs 0RF J06.9 - Acute upper respiratory infection, unspecified benzonatate 100 mg PO BID 7 days PRN 14 caps 0RF cough R05.9 - Cough, unspecified Coding Level of Care Code Est Pt Level 3 (09129) Diagnoses Upper respiratory tract infection, unspecified type J06.9 URI type: unspecified URI
[2023-06-10 12:56] VITALS: BP 122/80; PULSE 80; TEMP 36.7; O2SAT 98; BMI 25.9
== END 2023-06-10 13:31 | disposition home or self-care (01) ==
PROVIDERS: PCP Internal Medicine; Visit Provider Nurse Practitioner Family
DX: J06.9 Acute upper respiratory infection, unspecified (principal)
CPT/HCPCS: 99213

== ENCOUNTER 2023-06-13 09:39 | Outpatient (AMB) | payer MEDICARE, SELFPAY ==
--- NOTE | 2023-06-13 11:17 | MHC.OFFWIV ---
Intake Vital Signs 06/13/23 11:21 Height 5 ft 1 in Weight 137 lb BMI 25.9 BP 142/68 H Blood Pressure Location Rt brachial Position Sitting Pulse 69 Pulse Source Pulse Oximeter Temp 97.9 F Temp Source Oral Pulse Oximetry (%) 97 Oxygen Delivery Method Room Air Intake Visit Reasons: EP, congestion, cough ([phone]) Intake Note: Pt is here today c/o cough and chest congestion Patient Tobacco Use Status: Former Tobacco user Quit Date: 21yrs ago Allergies penicillamine [Cuprimine] Allergy (Unknown, Verified 06/13/23 11:18) Rash penicillin V Allergy (Unknown, Verified 06/13/23 11:18) Rash Penicillins [PENICILLINS] Allergy (Unknown, Verified 06/13/23 11:18) HIVES Sulfa (Sulfonamide Antibiotics) [SULFA (SULFONAMIDE ANTIBIOTICS)] Allergy (Unknown, Verified 06/13/23 11:18) HIVES sulfasalazine [Sulfazine] Allergy (Unknown, Verified 06/13/23 11:18) Rash Do you need a note to return to daycare/school/sports/work: No HPI HPI Comments History of Present Illness Details 73-year-old female that returns to the walk-in clinic for cough chest congestion. Patient has a cough productive sinus pressure chest congestion for several days proceed in the walk-in clinic on Thursday started on Augmentin and Tessalon Perles has had no relief worsening upper back pain worsening cough denies fevers or chills. [facility] Medical History Screening for hypothyroidism Arthralgia Pancreatic pseudocyst Hypercholesterolemia GERD (gastroesophageal reflux disease) Hypertension Vitamin D deficiency Finger osteomyelitis Peptic ulcer disease Surgical History Status post laparoscopic cholecystectomy History of ERCP (~2013) History of esophagogastroduodenoscopy (EGD) History of section Cholelithiasis Family History Brother CAD (coronary artery disease) Aneurysm Social History Household Members: Spouse Housing: House Do you presently have visiting nurse or other home services: No Alcohol intake: current Alcohol intake frequency: holidays/special occasions only Patient Tobacco Use Status: Former Tobacco user Quit Date: 21yrs ago Tobacco use type: Cigarette Years Smoked: quit 1999 e-Cigarette/Vaping Use: Never Used Second Hand Smoke Exposure: No service: No Current occupational status: retired Cognitive needs: No Hearing needs: No Vision needs: Yes Review of Systems Resp Reports chest congestion and Reports cough Physical Exam Vital Signs: Last Vital Signs Temp 97.9 F 06/13/23 11:21 Pulse 69 06/13/23 11:21 BP 142/68 H 06/13/23 11:21 Pulse Ox 97 06/13/23 11:21 Oxygen Delivery Method Room Air 06/13/23 11:21 BMI result Body Mass Index 25.9 Const General: cooperative, healthy appearing, no acute distress and alert Orientation/consciousness: patient oriented x3 Limitations: no limitations HEENT Head: Yes normal to inspection Ears: hearing grossly normal bilaterally General nose exam: Normal external nose present Resp Other: Rhonchi throughout with expiratory wheeze Effort & Inspection: normal respiratory effort and able to speak in complete sentences Cardio Rate: regular rate Skin General skin exam: no rashes or lesions noted Neuro General: patient oriented x3 Extrem General: Yes normal to inspection Assessment & Plan Assessment & Plan (1) Upper respiratory tract infection: Code(s): J06.9 - Acute upper respiratory infection, unspecified Qualifiers: URI type: unspecified URI Qualified Code(s): J06.9 - Acute upper respiratory infection, unspecified Plan Vital signs notable for mild hypertension. Exam notable for rhonchi throughout with bilateral expiratory wheeze Chest x-ray negative Will switch to doxycycline 100 mg b.i.d. At prednisone 40 mg x 5 days Given failed trial Arik Florian will prescribe cough codeine for limited duration Orders: Orders XR chest 2V Today R05.9 - Cough, unspecified Medications: New prednisone 40 mg (2 x 20 mg) PO DAILY 5 days 10 tabs 0RF promethazine-codeine 6.25-10 mg/5 mL 5 mL PO Q4-6H 3 days PRN 118 mL 0RF cough doxycycline hyclate 100 mg PO BID 7 days 14 caps 0RF albuterol sulfate 90 mcg/actuation 2 puffs inhalation Q6H PRN 6.7 grams 0RF shortness of breath or wheezing Coding Level of Care Code Est Pt Level 3 (20114) Diagnoses Upper respiratory tract infection, unspecified type J06.9 URI type: unspecified URI
[2023-06-13 11:21] VITALS: BP 142/68; PULSE 69; TEMP 36.6; O2SAT 97; BMI 25.9
== END 2023-06-13 12:03 | disposition home or self-care (01) ==
PROVIDERS: PCP Internal Medicine; Visit Provider Physician Assistant
DX: J06.9 Acute upper respiratory infection, unspecified (principal)
CPT/HCPCS: 99051; 99213

== ENCOUNTER 2023-06-13 11:42 | Outpatient (REF) | payer MEDICARE, SELFPAY | END 2023-06-13 11:43 | disposition home or self-care (01) | LOC: HO.HMGCX 11:42 | PROVIDERS: Visit Provider Physician Assistant | DX: R05.9 Cough, unspecified (principal) | CPT/HCPCS: 71046 ==

== ENCOUNTER 2023-07-28 11:21 | Outpatient (REF) | payer MEDICARE, SELFPAY | END 2023-07-28 11:22 | disposition home or self-care (01) | LOC: HO.MAMMO 11:21 | PROVIDERS: PCP Internal Medicine; Visit Provider Internal Medicine | DX: Z12.31 Encounter for screening mammogram for malignant neoplasm of breast (principal) | CPT/HCPCS: 77063; 77067 ==

== ENCOUNTER → 2023-07-28 11:30 | Outpatient (BNV) | payer MEDICARE, SELFPAY | PROVIDERS: PCP Internal Medicine; Visit Provider Radiology Diagnostic Radiology | DX: Z12.31 Encounter for screening mammogram for malignant neoplasm of breast (principal) | CPT/HCPCS: 77063; 77067 ==

== ENCOUNTER 2023-11-30 08:50 | Outpatient (REF) | payer MEDICARE, SELFPAY ==
[2023-11-30 12:11] LABS: MANUAL DIFF FLAG NO
[2023-11-30 12:16] LABS: Basophils Absolute Auto 0.1 X10*3/uL (0.0-0.2); Basophils Percent Auto 0.6 % (0-2); Eosinophils Absolute Auto 0.2 X10*3/uL (0.0-0.4); Eosinophils Percent Auto 2.5 % (0-4); Hematocrit 38.8 % (37.0-47.0); Hemoglobin 12.8 g/dl (12.0-16.0); Imm Gran Abs Auto 0.02 X10*3/uL (0.00-0.03); Imm Gran Pct Auto 0.2 % (0.0-0.4); Lymphocytes Absolute Auto 2.3 X10*3/uL (1.2-4.9); Lymphocytes Percent Auto 28.5 % (20-40); Mean Corpuscular Hemoglobin 30.6 pg (27.0-33.0); Mean Corpuscular Volume 92.8 fL (80.0-98.0); Mean Platelet Volume 10.4 fL (9.4-12.3); Monocytes Absolute Auto 0.6 X10*3/uL (0.1-1.2); Monocytes Percent Auto 7.4 % (2-11); Neutrophils Absolute Auto 4.9 x10*3/uL (2.0-8.3); Neutrophils Percent Auto 60.8 % (45-73); Platelet Count 340 X10*3/uL (160-400); Red Blood Count 4.18 X10*6/uL (4.20-5.50); Red Cell Distribution Width 12.3 % (11.0-16.0); White Blood Count 8.1 X10*3/uL (4.8-10.8)
[2023-11-30 12:23] LABS: Appearance Urine Clear; Color Urine Yellow; Glucose Urine UA Negative (Negative); Leukocyte Esterase Urine Trace (Negative); Nitrite Urine Negative (Negative); UMIC TRIGGER UA YES; Urine Blood Negative (Negative); Urine Ketones Negative (Negative); Urine Protein Negative (Neg-Trace)
[2023-11-30 12:28] LABS: Estimated Average Glucose 100 mg/dL; Hemoglobin A1c % 5.1 % (<6.0)
[2023-11-30 12:38] LABS: Alanine Aminotransferase 16 U/L (0-31); Albumin Level 4.3 g/dL (3.5-5.0); Alkaline Phosphatase 98 U/L (39-117); Anion Gap 15 (12-20); Aspartate Amino Transferase 21 U/L (5-31); Bilirubin Total 0.4 mg/dL (0.0-1.0); Blood Urea Nitrogen 22 mg/dL (9-16); Calcium 10.6 mg/dL (8.4-10.2); Carbon Dioxide 26 mmol/L (22-29); Chloride 104 mmol/L (96-108); Cholesterol 123 mg/dL (<200); Estimated Glomerular Filt Rate > 60; Glucose Random 92 mg/dL (60-115); HDL Cholesterol 35 mg/dL (>40); LDL Cholesterol Calculated 56 mg/dL (<100); Potassium 4.5 mmol/L (3.3-5.1); Sodium 140 mmol/L (135-145); Total Protein 7.3 g/dL (6.5-8.0); Triglycerides 162 mg/dL (<150)
[2023-11-30 12:40] LABS: Bacteria Urine None Seen (None Seen); Hyaline Casts Urine 0-2 /LPF (0-2); RBC Urine 0-2 /HPF (0-2); Squamous Epithelial Cell Urine 0-2 /HPF (0-2); WBC Urine 0-5 /HPF (0-5)
[2023-11-30 12:48] LABS: Free T4 (Free Thyroxine) 1.03 ng/dL (0.71-1.85); Thyroid Stimulating Hormone 1.52 uIU/mL (0.32-4.0)
[2023-11-30 13:04] LABS: Folate 12.4 ng/mL (> or = 4.0); Vitamin B12 308 pg/mL (200-900)
== END 2023-11-30 08:51 | disposition home or self-care (01) ==
LOC: HO.HMGCLDS 08:50
PROVIDERS: PCP Internal Medicine; Visit Provider Internal Medicine
DX: R73.02 Impaired glucose tolerance (oral) (principal); E78.00 Pure hypercholesterolemia, unspecified
CPT/HCPCS: 36415; 80053; 80061; 81001; 82306; 82607; 82746; 83036; 84439; 84443; 85025

== ENCOUNTER 2023-12-02 13:02 | Outpatient (AMB) | payer MEDICARE, SELFPAY ==
--- NOTE | 2023-12-02 13:03 | A.OFFVIS_ITS ---
Intake Vital Signs 12/02/23 13:04 Height 5 ft 1 in Weight 129 lb 0.2 oz BMI 24.4 BP 118/62 Blood Pressure Location Lt brachial Position Sitting Pulse 66 Pulse Source Pulse Oximeter Pulse Oximetry (%) 99 Oxygen Delivery Method Room Air Intake Visit Reasons: JOSE LUISV G0439 Intake Note: Patient is here for an Annual Wellness Visit. Allergies penicillamine [Cuprimine] Allergy (Unknown, Verified 12/02/23 13:05) Rash penicillin V Allergy (Unknown, Verified 12/02/23 13:05) Rash Penicillins [PENICILLINS] Allergy (Unknown, Verified 12/02/23 13:05) HIVES Sulfa (Sulfonamide Antibiotics) [SULFA (SULFONAMIDE ANTIBIOTICS)] Allergy (Unknown, Verified 12/02/23 13:05) HIVES sulfasalazine [Sulfazine] Allergy (Unknown, Verified 12/02/23 13:05) Rash Medication List - Last Reconciled 12/02/23 by Nury Rubio MD albuterol sulfate 90 mcg/actuation 2 puffs inhalation Q6H PRN ascorbate calcium (vitamin C) 500 mg PO DAILY cholecalciferol (vitamin D3) 50 mcg PO DAILY fexofenadine (Suellen Allergy) 180 mg PO DAILY fluticasone propionate 50 mcg/actuation 1 spray intranasal DAILY hydrochlorothiazide 25 mg PO DAILY hydrocodone-acetaminophen 5-325 mg 1 tab PO BID PRN lisinopril 20 mg PO DAILY multivitamin 1 tab PO DAILY omeprazole 20 mg PO DAILY rosuvastatin 40 mg PO DAILY 90 days HPI [facility] G0439 HPI Details 68-year-old morbidly obese male with kings betes mellitus rotator cuff syndrome of the right shoulder on narcotic pain medication coming in for follow- up. Last seen in 10/26/2023. Patient has had the eye exam done in November 16 patient was seen by the pulmonary also for the obstructive sleep apnea with orthopnea patient was advised to get an echocardiogram. Nephrology notes received also 11/04/2023 with lower extremity swelling was advised to increase Bumex to 2 mg twice a day adding Aldactone and advised retesting of blood work. taking CBD helping sleep. dizzy. PFSH Medical History Screening for hypothyroidism Arthralgia Pancreatic pseudocyst Hypercholesterolemia GERD (gastroesophageal reflux disease) Hypertension Vitamin D deficiency Finger osteomyelitis Peptic ulcer disease Surgical History Status post laparoscopic cholecystectomy History of ERCP (~2013) History of esophagogastroduodenoscopy (EGD) History of section Cholelithiasis Family History Brother CAD (coronary artery disease) Aneurysm Social History Household Members: Spouse Housing: House Do you presently have visiting nurse or other home services: No Alcohol intake: current Alcohol intake frequency: holidays/special occasions only Patient Tobacco Use Status: Former Tobacco user Tobacco use type: Cigarette Years Smoked: quit 1999 e-Cigarette/Vaping Use: Never Used Second Hand Smoke Exposure: No service: No Current occupational status: retired Cognitive needs: No Hearing needs: No Vision needs: Yes Questionnaire Medicare Wellness Checkup What [age] What gender do you identify with?: female During the past 4 weeks, how much have you been bothered by emotional problems such as feeling anxious, depressed, irritable, sad or downhearted, and blue?: quite a bit During the past 4 weeks, has your physical & emotional health limited your social activities with family, friends, neighbors, or groups?: quite a bit During the past 4 weeks, how much bodily pain have you generally had?: severe pain (patient had recent knee surgery ) During the past 4 weeks, was someone available to help you if you needed & wanted help?: yes, as much as I wanted During the past 4 weeks, what was the hardest physical activity you could do for at least 2 minutes?: very light Can you get to places out of walking distance without help? (For eg., can you travel alone on buses, taxis or drive your car?): No Can you go shopping for groceries or clothes without someone's help?: No Can you prepare your own meals?: Yes Can you do your housework without help?: No Because of any health problems, do you need the help of another person with your personal care needs such as eating, bathing, dressing or getting around the house?: Yes Can you handle your own money without help?: Yes During the past 4 weeks, how would you rate your health in general?: excellent Do you always fasten your seat belt when you are in a car?: yes, usually During past 4 weeks, have you been bothered by the following: never: Falling or dizzy when standing up, Sexual problems?, Trouble eating well?, Teeth or denture problems?, Problems using the telephone? and Tiredness or fatigue? Have you fallen 2 or more times in the past year?: No Are you afraid of falling?: Yes Are you a smoker?: no During the past 4 weeks, how many drinks of wine, beer, or other alcoholic beverages did you have?: no alcohol at all Do you exercise for about 20 minutes 3 or more times a week?: yes, all the time Have you been given information to help with the following?: no: Hazards in your house that might hurt you? and no: Keeping track of your medications? How often do you have trouble taking medicines the way you have been told to take them?: I always take medicine as prescribed How confident are you that you can control & manage most of your health problems?: very confident What is your race?: White PHQ-9 Over the last 2 weeks, how often have you been bothered by any of the following problems? 1. Little interest or pleasure in doing things: not at all 2. Feeling down, depressed, or hopeless: not at all 3. Trouble falling or staying asleep, or sleeping too much: not at all 4. Feeling tired or having little energy: not at all 5. Poor appetite or overeating: not at all 6. Feeling bad about yourself - or that you are a failure or have let yourself or your family down: not at all 7. Trouble concentrating on things, such as reading the newspaper or watching television: not at all 8. Moving or speaking so slowly that other people could have noticed. Or the opposite - being so fidgety or restless that you have been moving around a lot more than usual: not at all 9. Thoughts that you would be better off or of hurting yourself in some wa y: not at all Total score: 0 Depression Screening Interpretation: Negative Depression Screening Done: Yes 49572 - PHQ-9 Billing: Yes Source: Developed by Drs. Levi Sage, Georgia Mahoney, Melo Mooney and colleagues, with an educational izzy from [employer]. DEVAN-7 AMB Questionnaire DEVAN-7 Date DEVAN - 7 assessed: 12/02/23 Source: Developed by Georgia Wise Kurt Kroenke and colleagues, with an educational izzy from [employer]. Thrive Questionnaire Date Thrive assessed: 11/19/22 Review of Systems Const Denies poor appetite and Denies weakness Eyes Denies no additional complaints ENT Reports Normal hearing present, Denies dizziness, Denies nasal congestion, Denies tinnitus and Denies sore throat Card Denies chest pain, Denies syncope, Denies rapid heart rate and Denies dyspnea Resp Denies cough and Denies dyspnea GI Denies change in stool character, Reports constipation, Denies diarrhea, Denies nausea and Denies vomiting Denies urinary frequency, Denies difficulty voiding and Denies dysuria Neuro Reports Normal hearing present, Denies confusion, Denies dizziness, Denies syncope and Denies weakness Psych Denies confusion Physical Exam Vital Signs: Last Vital Signs Pulse 66 12/02/23 13:04 BP 118/62 12/02/23 13:04 Pulse Ox 99 12/02/23 13:04 Oxygen Delivery Method Room Air 12/02/23 13:04 BMI result Body Mass Index 24.4 Const General: No confusion Orientation/consciousness: No confusion HEENT Head: Yes normocephalic Ears: external ears normal and TM's normal bilaterally Face and sinus: Yes normal facial exam Mouth: moist mucous membranes Throat: Yes tonsils normal Eyes Conjunctivae: conjunctivae normal Pupils: Equal, round and reactive pupils present and Pupil accommodation reflex normal Direct Ophthalmoscopy: normal light reflex Neck Neck: No lymphadenopathy Thyroid: Thyroid normal Chest Chest palpation & inspection: normal inspection of the chest Resp Effort & Inspection: normal respiratory effort and no audible wheezes Auscultation: clear to auscultation bilaterally, no crackles, no wheezes and lung sounds not diminished Cardio Rate: regular rate Rhythm: regular rhythm Peripheral pulses: radial pulses present and dorsalis pedis present GI Palpation (GI): no masses Auscultation: normal bowel sounds and normoactive bowel sounds Rectal Exam - Female: deferred Skin General skin exam: no rashes or lesions noted Rashes: no rashes Neuro General: No confusion Cranial nerves: Yes Equal, round and reactive pupils present and Yes Normal hearing present Cognition (Neuro): normal cognition Gait exam (Neuro): Normal gait present Motor exam (neuro): 5/5 motor strength present throughout Deep tendon reflexes (DTR's): Right brachioradialis reflex intensity grade: 2+, Left brachioradialis reflex intensity grade: 2+, Right patellar reflex intensity grade: 2+ and Left patellar reflex intensity grade: 2+ Extrem General: No edema Assessment & Plan Assessment & Plan (1) Medicare annual wellness visit, subsequent: Code(s): Z00.00 - Encounter for general adult medical examination without abnormal findings Plan: Patient is advised to eat healthy, keep well hydrated, keep active and have adequate sleep. (2) Knee osteoarthritis: Comment: Right knee arthroplasty 10/2023 Dr. Carr Code(s): M17.9 - Osteoarthritis of knee, unspecified Qualifiers: Osteoarthritis type: primary Laterality: right Qualified Code(s): M17.11 - Unilateral primary osteoarthritis, right knee Plan: Status post arthroplasty keep active (3) Hypertension: Comment: Echocardiogram November 2019 EF 60-65%, nuclear stress test August 25- Code(s): I10 - Essential (primary) hypertension Qualifiers: Hypertension type: essential hypertension Qualified Code(s): I10 - Essential (primary) hypertension Plan: Continue with blood pressure medication. Decrease salt intake and exercise patient takes hydrochlorothiazide 25 mg once a day and lisinopril 20 mg once a day (4) Hypercholesterolemia: Code(s): E78.00 - Pure hypercholesterolemia, unspecified Plan: Avoid fried foods, chicken skin, eggs, butter margarine, pastries and meat. Be it pork or beef they have a lot of cholesterol LDL goal of less than 130 and triglyceride of less than 150 on rosuvastatin 40 mg once a day (5) GERD (gastroesophageal reflux disease): Code(s): K21.9 - Gastro-esophageal reflux disease without esophagitis Plan: Avoid the foods that causes that usually spicy foods, tomato products, juices, coffee, soda and foods that your sensitive to. After eating do not lie down, allow 3-4 hours before in lie down. And keep the head of bed above 30 degrees to avoid the acid from going up. On omeprazole (6) Hypercalcemia: Code(s): E83.52 - Hypercalcemia Plan: advised to stop MVT, retesting to do and advised to hold off vitamin d for 2 weeks also Orders: Orders Comprehensive Met. Panel Today E83.52 - Hypercalcemia Parathyroid Hormone Intact Today E83.52 - Hypercalcemia Complete Blood Count Auto Diff 6 Months E78.00 - Pure hypercholesterolemia, unspecified Comprehensive Met. Panel 6 Months E78.00 - Pure hypercholesterolemia, unspecified Lipid Panel 6 Months E78.00 - Pure hypercholesterolemia, unspecified Calcium, Ionized Today E83.52 - Hypercalcemia Thyroid Stimulating Hormone 6 Months E78.00 - Pure hypercholesterolemia, unspecified Free T4 (Free Thyroxine) 6 Months E78.00 - Pure hypercholesterolemia, unspecified Vitamin B12 and Folate 6 Months E78.00 - Pure hypercholesterolemia, unspecified Vitamin D 25-OH Total 6 Months E78.00 - Pure hypercholesterolemia, unspecified Quality Reporting (2019) Depression/Bipolar (159/160/161/177) PHQ-9: Total score: 0 Coding Level of Care Code Medicare Subsequent (G0439) Diagnoses Medicare annual wellness visit, subsequent Z00.00 Primary osteoarthritis of right knee M17.11 Osteoarthritis type: primary Laterality: right Essential hypertension I10 Hypertension type: essential hypertension Hypercholesterolemia E78.00 GERD (gastroesophageal reflux disease) K21.9 Hypercalcemia E83.52
[2023-12-02 13:04] VITALS: BP 118/62; PULSE 66; O2SAT 99; BMI 24.4
== END 2023-12-02 14:10 | disposition home or self-care (01) ==
PROVIDERS: PCP Internal Medicine; Visit Provider Internal Medicine
DX: Z00.00 Encounter for general adult medical examination without abnormal findings (principal); M17.11 Unilateral primary osteoarthritis, right knee; I10 Essential (primary) hypertension; E78.00 Pure hypercholesterolemia, unspecified; K21.9 Gastro-esophageal reflux disease without esophagitis; E83.52 Hypercalcemia
CPT/HCPCS: G0439

== ENCOUNTER 2023-12-19 11:35 | Outpatient (REF) | payer MEDICARE, SELFPAY ==
[2023-12-19 13:21] LABS: Alanine Aminotransferase 15 U/L (0-31); Albumin Level 4.5 g/dL (3.5-5.0); Alkaline Phosphatase 92 U/L (39-117); Anion Gap 16 (12-20); Aspartate Amino Transferase 18 U/L (5-31); Bilirubin Total 0.5 mg/dL (0.0-1.0); Blood Urea Nitrogen 25 mg/dL (9-16); Carbon Dioxide 26 mmol/L (22-29); Chloride 101 mmol/L (96-108); Estimated Glomerular Filt Rate > 60; Glucose Random 125 mg/dL (60-115); Sodium 139 mmol/L (135-145); Total Protein 7.1 g/dL (6.5-8.0)
[2023-12-19 13:26] LABS: Parathyroid Hormone Intact 67.5 pg/mL (8.7-77.1)
== END 2023-12-19 11:36 | disposition home or self-care (01) ==
LOC: HO.HMGCLDS 11:35
PROVIDERS: PCP Internal Medicine; Visit Provider Internal Medicine
DX: E83.52 Hypercalcemia (principal)
CPT/HCPCS: 36415; 80053; 82330; 83970

== ENCOUNTER 2024-05-24 09:55 | Outpatient (REF) | payer MEDICARE, SELFPAY ==
--- OUTSIDE RECORDS SUMMARY | 2024-05-24 10:00 | XMS_ITS ---
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 Generated for Henryi janet/Aditi/eTransmitting on:?05/24/2024 10:00 AM EST
--- OUTSIDE RECORDS SUMMARY | 2024-05-24 10:00 | XMS_ITS | Patient Health Record ---
Author Organization [facility] Address [address] [place] [address] Care Team Providers Care Registered Public Surveyor Name Role Phone Nury Rubio MD Primary Care Provider Levi Castro [phone] ALLERGIES Allergen (clinical drug ingredient) Drug/Non Drug Allergy documented on EMR Reaction Allergy Type Onset Date Status Sulfa Unknown Drug Allergy Active Penicillin Unknown Drug Allergy Active REASON FOR REFERRAL No Information MEDICATIONS Medication SIG (Take, Route, Frequency, Duration) Notes Start Date End Date Status Rosuvastatin Calcium 40 MG TAKE 1 TABLET BY MOUTH EVERY DAY Oral for 90 Active Ondansetron 4 MG 1 tablet on the tongue and allow to dissolve Orally Every 4 to 6 hours as needed for nausea for 30 day(s) 02/25/2023 Active Xicyd-7-vekz Ethyl Esters 1 GM TAKE 2 CA PSULES BY MOUTH TWICE A DAY FOR 90 DAYS Oral for 90 Active Multi Vitamin/Minerals - 1 Orally QD Active Lisinopril 20 MG 1 tablet Orally Once a day Active Omeprazole 20 MG 1 capsule Orally Twice a day Active Magnesium Active Vitamin D 1000 UNIT 1 tablet Orally Once a day Active ZyrTEC Allergy 10 MG 1 tablet Orally Onc e a day Active hydroCHLOROthiazide 25 MG 1 tablet Orall y Once a day Active Vitamin C 500 [...] malignant neoplasm of colon (Z12.11) Active confirmed 359706932 Problem Irritable bowel syndrome with diarrhea (K58.0) Active confirmed 612819822 Problem Nausea (R11.0) Active confirmed 5585809 07 Problem Abdominal pain, epigastric (R10.13) Active confirmed 01870363 Problem Peptic ulcer disease (K27.9) Active confirmed 23274800 Problem Pre-procedural examination (Z01.818) Active confirmed [id number] Problem Diarrhea, unspecified type (R19.7) Active confirmed 73316657 PLAN OF TREATMENT Pending Test Test Name [...] Insured Coverage Start Date Coverage End Date [facility] [address] [place], [place] [id number] DELVIS JOYCE Self - patient is the insured MEDICAL (GENERAL) HISTORY Medical History History ICD Code Colonoscopy 01-24-2008--negat jesusita except for mild diverticulosis and internal hemorrhoids Hyperlipidemia Denies IN,DM,CVA,Lung disease,renal dise ase Perforated duodenal ulcer in 2010--treated at [facility]-no surgery required--she had been on ASA and [...] without any worrisome findings otherwise Hospitalized at [facility] in 10/2016 for possible recurrent ulcer disease and/or a perforated duodenal diverticulum --had a NG tube--increased Omeprazole from 20mg QD to BID EGD in 04/2017--small HH, no PUD, gastric biopsies were negative for H.pylori Negative screening colonoscopy in 11/2017 Choledocholithiasis--ERCP wi th sphincterotomy and stone removal in May of 2021; she had a subsequent cholecystectomy with Dr. Herrera Surgical History Surgery Date(Month/Year) cholecystectomy
--- OUTSIDE RECORDS SUMMARY | 2024-05-24 10:00 | XMS_ITS | Data Portability ---
Author Organization [facility] [id number] Address [address] [place] [phone] Assessment No assessment recorded. Plan of Treatment Reminders Order Date Submit Date Provider Last Modified By Organization Details Last Modified Time Details Appointments None record ed. Lab None record ed. Referral None record ed. Procedures None record ed. Surgeries None record ed. Imaging None record ed. Medication Orders None record ed. Patient TargetsNo targets recorded. Patient InstructionsNo instructions recorded. Reason for Referral None Reported. Medical Equipment None Reported. Medications Name Sig Start Date Stop Date Status Note LastModified by Organization Details LastModified Time doxycycline hyclate 100 mg capsule TAKE 1 CAPSULE BY MOUTH TWICE A DAY FOR 7 DAYS active Not Available Not Available No t Available fluconazole 150 mg tablet TAKE 1 TABLET BY MOUTH FOR 1 DAY active Not Available Not Available No t Available lisinopril 20 mg tablet TAKE 1 TABLET BY MOUTH EVERY DAY active Not Available Not Available No t Available omeprazole 20 mg capsule,delaye d release TAKE 1 CAPSULE BY MOUTH EVERY DAY active Not Available Not Available No t Available hydrochlorothi azide 25 mg tablet TAKE 1 TABLET BY MOUTH EVERY DAY active Not Available Not Available No t Available clobetasol 0.05 % topical ointment APPLY TO AFFECTED AREA TWICE A WEEK active Not Available Not Available No t Available colchicine 0.6 mg tablet TAKE 1 TABLET BY MOUTH EVERY DAY active Not Available Not Available No t Available neomycin 3.5 mg/g-polymyxin B 10,000 unit/g-dexamet h 0.1 % eye oint APPLY 1/4 STRIP TO EYELIDS 3 TIMES DAILY INTO BOTH EYES active Not Available Not Available No t Available rosuvastatin 40 mg tablet TAKE 1 TABLET BY MOUTH EVERY DAY active Not Available Not Available No t Available omega-3 acid ethyl esters 1 gram capsule TAKE 2 CAPSULES BY MOUTH TWICE A DAY FOR 90 DAYS active Not Available Not Available No t Available Vitals None Recorded Social History None recorded. Functional Status None recorded. Mental Status None recorded. Family History Nothing Reported. Medical History No medical history recorded. Gynecological HistoryNo gynecological history recorded. Obstetrics History GPAL:G 0 P 0 0 0 0 Past Encounters Encounter ID Performer Location Encounter Start Date Encounter Closed Date Diagnosis/Indication Diagnosis SNOMED-CT Code Diagnosis ICD10 Code [id number] [address] 04/14/2017 17:41:32 04/14/2017 19:01:19 Health Concerns Section Related Observation LastModified by Organization Detai ls LastModified Time None Recorded Concern Status LastModified by Organization Details LastModified Time None Recorded Advance Directives Directive None Recorded Payers Encounter Date Sequence Insurance Name Policy Number Policy Ivy Covered Member ID Ivy Member ID Guarantor Name 04/14/2017 1 [facility] [employer] Shania Valencia [id number] Mary Jane Valencia OBGyn Episode No OBEpisode recorded.
--- OUTSIDE RECORDS SUMMARY | 2024-05-24 10:00 | XMS_ITS | Continuity of Care Document ---
Author Organization [facility] ter Address [address] [place] [id number]- Care Team Providers Care Occupational Psychologist Name Role Phone Po Nury CHOUDHARY Primary Care Physician Encounter [facility] Date(s): 05/01/24 - 05/02/[address] [address]- Discharge Disposition: A-D/C Home Attending Physician: Kat Coy MD Admitting Physician: Kat Coy MD Referring Physician: Not on Staff, Referring MD Encounter Type: Disch ES Allergies, Adverse Reactions, Alerts Substance Criticality Severity Reaction Reaction Severity Status penicillins Active sulfa drugs Active Immunizations Given and Recorded Vaccine Date Status Refusal Reason SARS-CoV-2 (COVID-19) mRNA-1273 vaccine 08/27/20 G iven SARS-CoV-2 (COVID-19) mRNA-1273 vaccine 07/30/20 G iven influenza virus vaccine, inactivated 03/23/11 Give n pneumococcal 23-valent vaccine 03/23/11 Given Medications acetaminophen 325 mg oral tablet 650 mg, By Mouth, Every 6 hours, May take OTC not to exceed 3000 mg/day, Refills 0, Maintenance, 11/05/23 11:39:00 AM EDT, Partial fill upon patient request if the prescription is for a schedule II opioid drug. Start Date: 11/05/23 Status: Ordered Repeat number: 1 Cholecalciferol By Mouth, 0 Refills, Maintenance, 10/30/23 2:24:00 PM EDT, Partial fill upon patient request if the prescription is for a schedule II opioid drug. Start Date: 10/30/23 Status: Ordered Repeat number: 1 Crestor 10 mg oral tablet 1 tablet = 10 mg, By Mouth, Daily at bedtime, 0 Refills, Maintenance, 04/04/11 11:27:44 AM EDT Start Date: 04/04/11 Status: Ordered Repeat number: 1 docusate sodium 100 mg oral capsule 100 mg, 1, capsule, By Mouth, 2 times a day, PRN, # 60 capsule, Refills 0, Tot. Refills 0, Maintenance, as needed for constipation, 11/05/23 11:36:00 AM EDT, Route to Pharmacy Electronically, [facility] 3, Partial fill upon patient request if the prescription is for a schedule II opioid drug., 155, cm, 10/30/23 12:22:00 EDT, Height, 61.2, kg, 11/05/23 7:21:00 EDT, Dry Weight Start Date: 11/05/23 Stop Date: 12/05/23 Status: Ordered Quantity: 60.0 Unit: capsule Repeat number: 1 Eliquis 2.5 mg oral tablet 1 tablet = 2.5 mg, By Mouth, 2 times a day, # 60 tablet, 0 Refills, Maintenance, 11/05/23 11:36:00 AM EDT, Tablet, [facility] 3, Partial fill upon patient request if the prescription is for a schedule II opioid drug., 155, cm, 10/30/23 12:22:00 EDT, Height, 61.2, kg, 11/05/23 7:21:00 EDT, Dry Weight Start Date: 11/05/23 Stop Date: 12/05/23 Status: Ordered Quantity: 60.0 Unit: tablet Repeat number: 1 Hydrochlorothiazide = 25 mg, By Mouth, Daily, 0 Refills, Maintenance, 10/10/16 3:16:10 PM EDT Start Date: 10/10/16 Status: Ordered Repeat number: 1 Lisinopril = 20 mg, By Mouth, Daily, 0 Refills, Maintenance, 10/10/16 3:14:53 PM EDT Start Date: 10/10/16 Status: Ordered Repeat number: 1 magnesium oxide 400 mg oral tablet 1 tablet = 400 mg, By Mouth, Daily, 0 Refills, Maintenance, 10/30/23 2:25:00 PM EDT, Partial fill upon patient request if the prescription is for a schedule II opioid drug. Start Date: 10/30/23 Status: Ordered Repeat number: 1 MiraLax Powder 1 pack/packet = 17 Gm, By Mouth, Daily, PRN Constipation, 0 Refills, Maintenance, 11/05/23 11:39:00 AM EDT, Powder, Partial fill upon patient request if the prescription is for a schedule II opioid drug. Start Date: 11/05/23 Status: Ordered Repeat number: 1 Prilosec 20 mg oral enteric coated capsule 1 capsule = 20 mg, By Mouth, 2 times a day, # 60 capsule, 0 Refills, Maintenance, 10/15/16 11:06:56 AM EDT, EC Capsule Start Date: 10/15/16 Status: Ordered Quantity: 60.0 Unit: capsule Repeat number: 1 Vitamin C By Mouth, Daily, 0 Refills, Maintenance, 10/30/23 2:24:00 PM EDT, Partial fill upon patient request if the prescription is for a schedule II opioid drug. Start Date: 10/30/23 Status: Ordered Repeat number: 1 ZyrTEC 10 mg oral tablet 1 tablet = 10 mg, By Mouth, Daily, # 30 tablet, 0 Refills, Maintenance, 10/10/16 3:16:23 PM EDT, Tablet Start Date: 10/10/16 Status: Ordered Quantity: 30.0 Unit: tablet Repeat number: 1 Problem List Condition Confirmation Course Effective Dates Status H ealth Status Informant Allergic rhinitis Confirmed Active Hypertension Confirmed Active History of duodenal ulcer Confirmed Active Hyperlipidemia Confirmed Active Results Radiology Reports * Exam Date Time Procedure Performing Provider Status 05/02/24 12:13 AM Chest 2 Views Frontal and Lat Auth (Verified) Notes: (Chest 2 Views Frontal and Lat) Reason For Exam: Chest Pain;Other: RESULT: Chest 2 Views Frontal and Lat Chest 2 Views Frontal and Lat Hx of Present Illness: pt coming in with gradual onset of left shoulder pain. States hadn;t noticedit all day but this evening stratted to notice soreness to entire shoulder with gradual worsening of pain. Denies any injury, denies any chest pain.; Reason: Other:; Chest Pain; Clinical Question(s):Other: COMPARISON: 10/22/2016. FINDINGS: LINES AND TUBES: None. LUNGS AND PLEURA: Clear lungs. Normal pulmonary vascularity. No pleural effusion. No pneumothorax. HEART, MEDIASTINUM AND ANTONINO: Heart is normal in size. Normal mediastinal and hilar contour. BONES AND SOFT TISSUES: No acute abnormality. IMPRESSION: No acute abnormality. WSN: [id number] Ordering Physician: Maria Isabel Grace Dictated By: Lai Benavides MD, V Dictated Date/Time: 05/02/24 7:01 am Reviewed By: Lai Benavides MD, V Signed By: Lai Benavides MD, V Signed Date/Time: 05/02/24 7:01 am Transcribed By: STEPHEN Transcribed Date/Time: 05/02/24 7:00 am * Exam Date Time Procedure Performing Provider Status 05/02/24 12:13 AM Shoulder Min 2 Views Left Alona , Chad; Auth (Verified) Notes: (Shoulder Min 2 Views Left) Reason For Exam: with Pain;Trauma RESULT: Shoulder Min 2 Views Left Shoulder Min 2 Views Left, 2 views Refer to EMR; Hx of Present Illness: pt coming in with gradual onset of left shoulder pain. States hadn;t noticed it all day but this evening stratted to notice soreness to entire shoulder with gradual worsening of pain. Denies any injury, denies any chest pain.; Reason: Trauma; with Pain; ClinicalQuestion(s): Fracture; Special Instructions: This is a protocol film and radiologist should call any COMPARISON: None. FINDINGS: No fracture or dislocation. Mild glenohumeral joint space narrowing and marginal spurring. Mild degenerative changes of the AC joint. The portion of the clavicle included on the exam is normal. No calcification of the rotator cuff. IMPRESSION: Mild degenerative change left shoulder without acute fracture or dislocation seen. WSN: [id number] Ordering Physician: Maria Isabel Grace Dictated By: Lai Benavides MD, V Dictated Date/Time: 05/02/24 6:59 am Reviewed By: Lai Benavides MD, V Signed By: Lai Benavides MD, V Signed Date/Time: 05/02/24 6:59 am Transcribed By: STEPHEN Transcribed Date/Time: 05/02/24 6:58 am Vital Signs Most recent to oldest [Reference Range]: 1 2 3 Height 167 cm (05/02/24 4:46 AM) 167 cm (05/01/24 10:43 PM) Oxygen Saturation [94-100 %] 99 % (05/02/24 4:46 AM) 95 % (05/02/24 2:57 AM) 100 % (05/01/24 10:43 PM) Pulse Rate [55-90 bpm] 68 bpm (05/02/24 4:46 AM) 66 bpm (05/02/24 2:57 AM) 81 bpm (05/01/24 10:43 PM) Blood Pressure [90-138/55-84 mm Hg] 153/70mm Hg *H* (05/02/24 4:46 AM) 156/74mm Hg *H* (05/02/24 2:57 AM) 165/76mm Hg *H* (05/01/24 10:43 PM) Respiratory Rate [16-30 br/min] 18 br/min (05/02/24 4:46 AM) 18 br/min (05/02/24 2:57 AM) 18 br/min (05/01/24 10:43 PM) Temperature [96.8-100.4 DegF] 98.5 DegF (05/02/24 2:57 AM) 98.2 DegF (05/01/24 10:43 PM) Mode of Delivery (Oxygen) Room air (05/02/24 4:46 AM) Room air (05/02/24 2:57 AM) Room air (05/01/24 10:43 PM) Blood pressure sites Arm, right (05/02/24 4:46 AM) Temperature Route Oral (05/02/24 2:57 AM) Oral (05/01/24 10:43 PM) Social History Social History Type Response Tobacco Other: Former smoker . Sex Sex Representation Female (finding) EKG study * Event Display: ECG 12-Lead Authored Date: Please click on pdf link to open report * Event Display: ECG 12-Lead Authored Date: Ventricular Rate: 72 BPM Atrial Rate: 72 BPM P-R Interval: 174 ms QRS Duration: 66 ms Q-T Interval: 398 ms QTC Calculation(Bazett): 435 ms P [place]: 28 degrees R [place]: 2 degrees T [place]: 36 degrees Normal sinus rhythm Low voltage QRS Borderline ECG When compared with ECG of 30-Oct-2023 13:02, No significant change was found Confirmed by Mike Vuong ([id number]) on 05/02/2024 7:28:54 AM Ransom: Mike Vuong Note * Leona Robison: PERFORM, SIGN, VERIFY Event Display: Patient Education Handout Authored Date: * Leona Robison: PERFORM Event Display: Patient Education Leaflets Authored Date: [id number] Shoulder Pain with Uncertain Cause ?? [id number] Shoulder Pain with Uncertain Cause Shoulder pain can have many causes. Pain often comes from the structures that surround the shoulderjoint. These are the joint capsule, ligaments, tendons, muscles, and bursa. Pain can also come fromcartilage in the joint. Cartilage can become worn out or injured. It???s important to know what???scausing your pain so the healthcare provider can use the correct treatment. But sometimes, it???s difficult to find the exact cause of shoulder pain. You may need to see a specialist (orthopedist). You may also need special tests such as a CT scan or MRI. The provider may need to use special tools to look inside the joint (arthroscopy). Shoulder pain can be treated with a sling or a device that keeps your shoulder from moving. You cantake an anti-inflammatory medicine such as ibuprofen to ease pain. You may need to do special shoulder exercises. Follow up with a specialist if the pain is severe or doesn???t go away after a few weeks. Home care Follow these tips when caring for yourself at home: ??? If a sling was given to you, leave it in place for the time advised by your healthcare provider. If you aren???t sure how long to wear it, ask for advice. If the sling becomes loose, adjust it so that your forearm is level with the ground. Your shoulder should feel well supported. ??? Put an ice pack on the injured area for 20 minutes every 1 to 2 hours the first day. You can make your own ice pack by putting ice cubes in a plastic bag. Wrap the bag in a thin towel. Continue with ice packs 3 to 4 times a day for the next 2 days. Then usethe pack as needed to ease pain and swelling. ??? You may use acetaminophen or ibuprofen to controlpain, unless another pain medicine was prescribed.??If you have chronic liver or kidney disease, talk with your healthcare provider before using these medicines. Also talk with your provider if you???ve ever had a stomach ulcer or digestive bleeding. ??? Shoulder pain may seem worse at night, when there is less to distract you from the pain. If you sleep on your side, try to keep weight off your painful shoulder. Propping pillows behind you may stop you from rolling over onto that shoulder during sleep.? Shoulder and elbow joints can become stiff if left in a sling for too long. You may be instructed to start range of motion exercises about 7 to 10 days after the injury. Talk with yourprovider to find out what type of exercises to do and how soon to start. ??? You can take the slingoff to shower or bathe. ?? Follow-up care Follow up with your healthcare provider if you don???t start to get better in the next 5 days. ?? When to seek medical advice Call your healthcare provider right away??if any of these occur: ??? Pain or swelling gets worse??or continues for more than a few days ??? Your hand or fingers become cold, blue, numb, or tingly ???Large amount of bruising on your shoulder or upper arm ??? Trouble moving your hand or fingers ??? Weakness in your hand or fingers ??? Your shoulder becomes stiff ??? It feels like your shoulder is popping out ??? You are less able to do your daily activities ?? Last Reviewed Date: 2021 ?? 2192-2907 [employer]. All rights reserved. This information is not intended as a substitute for professional medical care. Always follow your healthcare professional's instructions. ?? Patient Care team information Care Team Personnel Name: Mike Escalona RN Position: S RN Member Role: Primary Care Nurse Name: Nury Rubio MD Position: Reference Physician Member Role: PCP Address: [address] [place] [address]- Telecom: Name: Kaitlin Green RN Position: S RN Member Role: Primary Care Nurse Care Team Related Persons Name: MARIA DEL CARMEN ZHEN Name: CODIE JOYCE Insurance Providers Guarantor name: DELVIS JOYCE [employer] [facility] Information #: 1 Payer: NA Member Number: [id number] Policy Number: JOHNY Group Number: [id number] Health Plan Information #: 2 Payer: [employer] MED[employer] ADV HMO Member Number: [id number] Policy Number: JOHNY Group Number: [id number]
--- OUTSIDE RECORDS SUMMARY | 2024-05-24 10:00 | XMS_ITS ---
Author Organization [facility] Address [address] [place] [id number] Care Team Providers Care Insurance Counsel Name Role Phone Nury Rubio MD Primary Care Provider Levi Castro [phone] REASON FOR VISIT nausea MEDICATIONS Medication SIG (Take, Route, Fr equency, Duration) Notes Start Date End Date Status Ondansetron 4 MG 1 tablet on the tong ue and allow to dissolve Orally Every 4 to 6 hours as needed for nausea for 30 day(s) 02/25/2023 Active Encounters Encounter Location Date Provider Diagnosis [facility] [address] [facility] [address] [place] [phone] 02/24/2023 Levi Coyle PLAN OF TREATMENT Medication Medication Name Sig Start Date Stop Date Notes Ondansetron 4 MG 1 tablet on the tong ue and allow to dissolve Orally Every 4 to 6 hours as needed for nausea for 30 day(s) 02/25/2023
--- OUTSIDE RECORDS SUMMARY | 2024-05-24 10:00 | XMS_ITS ---
Author Organization [facility] dar[facility] Jackson Address [address] [place] [address] Care Team Providers Care Recreational Counselor Name Role Phone Nury Rubio Primary Care Provider Meredith Mar Unavailable [phone] Allergies Allergen (clinical drug ingredient) Drug/Non Drug Allergy documented on EMR Reaction Allergy Type Onset Date Status sulfamethoxazole / trimethoprim Bactrim Unknown Drug Allergy Active Penicillin Unknown Drug Allergy Active Results Component Value Reference Range Notes X ray : Foot, left 3V Reviewed date:10/08/2023 09:07:38 PM Interpretation:See Examination above Performing Lab: Notes/Report: See Examination above X ray : Foot, right 3V Reviewed date:10/08/2023 09:07:49 PM Interpretation:See Examination above Performing Lab: Notes/Report: See Examination above REASON FOR VISIT PCP: 04/2023, Foot pain Medications Medication SIG (Take, Route, Frequency, Duration) Notes Start Date End Date Status hydroCHLOROthiazide 25 MG Oral for 90 Days Active Rosuvastatin Calcium 40 MG Oral for 90 Days Active Omeprazole 20 MG Oral for 90 Days Active Lisinopril 20 MG TAKE 1 TABLET BY SAGRARIO TH EVERY DAY Oral for 90 Days Active Social History Tobacco Use: Social History Observation Description Date Details (start date - stop date) Former Smoker NA - NA Tobacco Use/Smoking Question Answer Notes Are you a: former smoker Additional Findings: Tobacco Non-User Current no n-smoker Alcohol Screen Question Answer Notes Did you have a drink containing alcohol in the p ast year? Yes Points 0 Interpretation Negative Tobacco use other than smoking: Question Answer Notes Are you an other tobacco user? No Problems Problem Type SNOMED Code ICD Code Onset Dates Problem Status W/U Status Risk Notes Problem Acquired hallux valgus (80915200) Hallux valgus (acquired), left foot (M20.12) Active confirmed Chronic problem, Worse (4) Problem Acquired hallux valgus (05060796) Hallux valgus (acquired), right foot (M20.11) Active confirmed Vital Signs Height 5 ft 1 in in 10/08/2023 Weight 130 lbs 10/08/2023 BMI 24.56 kg/m2 10/08/2023 Encounters Encounter Location Date Provider Diagnosis [facility] [address] [address] 10/08/2023 Meredith Black Pain in left foot M79.672 ; Hallux valgus (acquired), left foot M20.12 ; Pain in left ankle and joints of left foot M25.572 ; Bursitis of left foot M77.52 ; Pain in right foot M79.671 ; Pain in right ankle and joints of right foot M25.571 ; Bursitis of right foot M77.51 and Hallux valgus (acquired), right foot M20.11 Assessments Encounter Date Diagnosis (ICD Code) Assessment Notes Treatment Notes Treatment Clinical Notes Section Notes 10/08/2023 Pain in left foot (ICD-10 - M79.672) 10/08/2023 Hallux valgus (acquired), left foot (ICD-10 - M20.12) Chronic problem, Worse (4) 10/08/2023 Pain in left ankle and joints of left foot (ICD-10 - M25.572) 10/08/2023 Bursitis of left foot (ICD-10 - M77.52) 10/08/2023 Pain in right foot (ICD-10 - M79.671) 10/08/2023 Pain in right ankle and joints of right foot (ICD-10 - M25.571) 10/08/2023 Bursitis of right foot (ICD-10 - M77.51) 10/08/2023 Hallux valgus (acquired), right foot (ICD-10 - M20.11) Plan Of Treatment Next Appt Details Follow Up: prn, Reason: Progress Notes * Abby JOYCE: 2 (73 yo F)Acc No.[id number]:10/08/2023 Progress Notes Patient:?Mary Jane Joyce Provider:?Meredith Corbett DPM :1950???Age:73 Y???Sex:Female D ate:10/08/2023 Address:[address] [place], [place] [address] Pcp:Nury Rubio Subjective: * Chief Complaints: * ??? PCP: 04/2023Foot pain * HPI: ???Foot Pain:?Nature:?swelling , tenderness.?Location:?Inside, Great toe joint, B/L.?Duration:?several years.?Course:?worse.?Aggrevated:?any pressure.?Treatments:?rest/alter normal daily activity , change in shoes.? * ROS:?General/Constitutional:?Nausea?denies.?Vomiting?denies.?Hunger Thirst?denies.?Loss appetite?denies.?Chills?denies.?Fatigue?denies.?Fever?denies.?Night Sweats?denies.?Unexplained weight loss?denies.?Unexplained weight gain?denies.?HEENTM:?Dentures?denies.?Dizziness?denies.?Glasses/contacts?denies.?Retinopathy?de nies.?Blurred/double vision?denies.?TMJ?denies.?Discharge/drainage?denies.?Implants?denies.?Sore throat?denies.?Dental implants?denies.?Hard of hearing ?admits.?Difficulty chewing/swallowing/speaking?denies.?Nose bleeds?denies.?Sore mouth?denies.?Respiratory:?On Oxygen?denies.?Pneumonia/pleurisy?denies.?Bronchitis?denies.?Emphysema?denies.?C oughing?denies.?Cough blood?denies.?Shortness of breath?denies.?Wheezing?denies.?Cardiovascular:?Pacemaker?denies.?MVP?denies.?WPW?denies.?CHF?denies.?Heart attack?denies.?Septal defect?denies.?Rapid beat?denies.?Chest pain ?denies.?Atrial Fib.?denies.?Murmur/Palpitations?denies.?Gastrointestinal:?Hemorrhoids?denies.?Stomach/Abdominal pain?denies.?Dark blood stool?denies.?Irritable bowel ?denies.?Constipation?denies.?Diarrhea?denies.?Hematology:?Swelling?denies.?Clots?denies.?Varicose Veins?denies.?Bruising?denies.?Bleeding problem?denies.?Genitourinary:?Blood urine?denies.?Frequent/Painfu/urination/bladder control?denies.?Kidney stones?denies.?Infection (UTI)?denies.?Nephropathy?denies.?sex trans dis (STD)?denies.?Prostate?denies.?Musculoskeletal:?Hammertoes?denies.?Bunions?admits.?Back Pain?denies.?Muscle Cramps/ Resting?denies.?Muscle cramps / walking?denies.?Generalized aches and pains?denies.?Weakness?denies.?Integ.:?Horan?denies.?Scars?denies.?Corns/calluses?denies.?Ingrown nails?denies.?Painful nails?denies.?Open Sores?denies.?Rashes?denies.?Neurologic:?Difficulty sleeping?denies.?Brain disorder?denies.?Numbness?denies.?Balance trouble?denies.?Confusion?denies.?Fainting/blackouts?denies.?Tingling?denies.?Tr emors?denies.? * Medical History:? * Surgical History:?Gall bladd er removal * Hospitalization/Major Diagno stic Procedure:?Denies Past Hospitalization * Family History:?Mother: dece ased, diagnosed with Family history of arthritis, Diabetic - NIDDM, Unspecified essential hypertension, Unspecified heart disease.?Father: , diagnosed with Unspecified heart disease.? * Social History:?Tobacco Use:?Tobacco Use/Smoking?Are you a:?former smoker ?Additional Findings: Tobacco Non-User?Current non-smoker ?Tobacco use other than smoking?Are you an other tobacco user??No ???Drugs/Alcohol:?Drugs?Have you used drugs other than those for medical reasons in the past 12 months??No ?Alcohol Screen?Did you have a drink containing alcohol in the past year??Yes ?Points?0 ?Interpretation?Negative ???Miscellaneous:?no Caffeine. ?Children: yes, 2. ?no Exercise. ?Marital status: . * Medications:?TakingOmeprazol e 20 MG Capsule Delayed Release Oral Lisinopril 20 MG Tablet TAKE 1 TABLET BY MOUTH EVERY DAY Oral hydroCHLOROthiazide 25 MG Tablet Oral Rosuvastatin Calcium 40 MG Tablet Oral Medication List reviewed and reconciled with the patientTaking Omeprazole 20 MG Capsule Delayed Release Oral Taking Lisinopril 20 MG Tablet TAKE 1 TABLET BY MOUTH EVERY DAY Oral Taking hydroCHLOROthiazide 25 MG Tablet Oral Taking Rosuvastatin Calcium 40 MG Tablet Oral Medication List reviewed and reconciled with the patient * Allergies:?PenicillinBactrim yes[Allergies Verified] Objective: * Vitals:?Ht: 5 ft 1 in, Wt:13 0, BMI:24.56, Shoe size: 8, Ht-cm: 154.94 cm, Wt-k.97 kg. * Examination: ???General Examination: ?GENERAL APPEARANCE:?Reveals a pleasant, alert, well nourished, well- developed, well hydrated individual, who demonstrates proper attention to hygiene/body habitus, and is in no acute distress, Pt serves as own historian for office visit today.?ORIENTED:?person, place, and time.?Orthopedic: ?BUNION:? Medially prominent 1st MPJ, (+) Pain on palpation, inflammation present medially, Lateral tracking 1st MPJ incompletely reducible, B/L, Limited 1st MPJ Dorsal ROM, B/L.?Neurological: ?SENSORY:?Neurological exam reveals intact sensorium, pain sensation normal, vibration sensation intact, pinprick sensation is normal in the lower extremities, Pt denies, anesthesia, burning, paresthesia, tingling, B/L.?TINEL'S COMPRESSION:? Negative, Saphenous nerve distribution, B/L.?Vascular: ?DP PULSES:?3/4, B/L.?PT PULSES:?3/4, B/L.?CAPILLARY FILL TIME:?immediate, all digits, B/L.?SKIN TEMPERTURE GRADIENT OF THE LOWER EXTERMITIES:?normal, warm to cool, proximal to distal, B/L, B/L.?HAIR GROWTH/TEXTURE/ELASTICITY/TURGOR:?normal, B/L.?PIGMENTATION:?normal, B/L.?Dermatologic: ?SKIN FINDINGS:?Skin exam reveals normal color, texture, elasticity, and turgor. There are no masses, nor excrescences. The interspaces are clear, B/L.?X-Rays - IMAGING REPORT: ?Clinical Indication(s):? Evaluate Biomechanical Deformity.?Views:? 3 views of Foot, AP, LAT, MO, B/L.?Findings:?normal bone and soft tissue density consistent for patients age and sex.?HAV:?increased First Intermetatarsal angle and Hallux Abductus angle consistent with Bunion deformity noted, hypertrophy of the dorsal and medial 1st MTH without subchondral cyst , there is asymmetrical narrowing of the 1st MPJ joint space , 4.?Fracture:?Negative fractures identified.? Assessment: * Assessment: 1.?Pain in left foot - M79.6 72?2.?Hallux valgus (acquired), left foot - M20.12 (Primary), Chronic problem, Worse (4)?3.?Pain in left ankle and joints of left foot - M25.572?4.?Bursitis of left foot - M77.52?5.?Pain in right foot - M79.671?6.?Pain in right ankle and joints of right foot - M25.571?7.?Bursitis of right foot - M77.51?8.?Hallux valgus (acquired), right foot - M20.11, Chronic problem, Worse (4)? Plan: * Treatment: 2.?Pain in right foot?Imaging: X ray : Foot, right 3V?See Examination above * Procedure Codes:?17819 X-RAY EXAM OF LEFT FOOT 3V, Modifiers: 26 , [id number] X-RAY EXAM OF RIGHT FOOT 3V, Modifiers: 26 , RT * Preventive Medicine:? ??Counseling:?Discussion:?-04: Office or other outpatient visit for the evaluation and management of a new patient, which required a medically appropriate history and/or examination and MODERATE level of DECISION MAKING for: 1 OR MORE CHRONIC PROBLEM(S) THATS WORSENING, 2 STABLE CHRONIC PROBLEMS, A NEWLY DIAGNOSED PROBLEM WITH UNCERTAIN PROGNOSIS, AN ACUTE COMPLICATED INJURY WITH MULTIPLE TREATMENT OPTIONS, OR AN ACUTE PROBLEM WITH ACCOMPANYING SYSTEMIC SYMPTOMS, THAT POSE(S) A MODERATE RISK OF MORBIDITY. THIS CONDITION MAY ALSO INCLUDE RX DRUG MANAGEMENT, OR A DECISON FOR MINOR SURGERY. The visit on the day of the encounter encompassed interpreting the data and educating the patient as to the nature of their condition, treatment options available according to their individual PMH, meds, allergies, and overall health/living conditions, as well as any potential risks or complications that may occur from a failure to adhere to, and participate in, the recommended course of therapy. The discussion included a complete verbal, and/or written explanation of the examination results, any x-rays taken, the proposed diagnosis, and outline of the treatment plan. A schedule for future care needs was also explained. The patient verbalized an understanding of the instructions at this time and agreed to be an active participant in their treatment. If the patient should think of any questions or concerns after the visit, I have encouraged the patient to call the office.?BioMech.:?Discussed and reviewed the X-rays with the patient. We discussed how the findings relate to the patients symptoms/complaints. Answered any and all questions., I discussed the Pts foot biomechanics with them and how it relates to their problem.?Digital Treatment:?HV - I explained to the patient the risks/benefits of all the different treatment options for their pain including: No treatment at all, Rest, Ice, New/supportive/wider/deeper Shoegear, Digital Padding/Strapping/Taping/Bracing/Gel protective sleeves, Foot/Ankle AFO Bracing, Stretching exercises, Deep Tissue Massage, Arch support/shoe inserts with splay metatarsal padding, and Custom orthoses. I insisted that any digital devices be removed daily and not worn overnight for safety. The patient is to carefully examine the toes daily for any skin irritation while using any splinting or padding device. The advantages and disadvantages of each option were discussed and the patients questions re: shoegear, padding, custom vs prefabricated inserts, activity level, and consistency in home treatment regimens for optimal success were answered to their verbally confirmed satisfaction.?Discussion for Bunion sx:?Several different types of Bunion surgeries were discussed with the patient, including, but not limited to: Modified Foster bone removal and soft tissue release/realignment, Teodoro osteotomy with soft tissue release/realignment and internal fixation, Shaft v Base wedge osteotomies with internal fixation, and Lapidus joint fusion procedures with internal fixation. We discussed the risks of having surgery (described below) vs not having surgery (persistent pain, deformity, risk for skin ulceration/infection, loss of toe) as well as the potential surgical complications including, but not limited to: pain, swelling, bleeding, scarring, numbness, infection, delayed/non healing, floppy/unstable/shorthened toe, recurrence, failure of the procedure, overcorrection leading to plantarflexed/downward/upward positioned toe, recurrence, need for further surgery, as well as the possibility for loss of the toe itself. We discussed the use of IV/Local regional anesthesia, and the usual post-op course for healing. No guarentees were given. The patient verbally indicated a full understanding of the above conversation, and any other of their questions were answered to their satisfaction, Pt defers on any surgical intervention at this time and would like to try conservative treatment, Recomm, rest, ice, proper shoegear, padding, orthotics, anti-inflammatories or tylenol as tolerated, topical analgesics, cortisone injections.? * Follow Up:?prn * Images: * Sign off status: Completed true * Provider:?Meredith Corbett DPM Date:?2023 Generated for Mimi gonzales/Aditi/Azamitting on:?05/24/2024 10:00 AM EST History and Physical Notes * HPI (History of Present Illness) Category Sub-Category Detail Notes Category Not es Foot Pain Nature: swelling , tenderness Location: Inside, Great toe selvin int, B/L Duration: several years Course: worse Aggravated: any pressure Treatments: rest/alter normal da augusta activity , change in shoes Examination Category Sub-Category Detail Notes Category Not es Neurological SENSORY: Neurological exa m reveals intact sensorium, pain sensation normal, vibration sensation intact, pinprick sensation is normal in the lower extremities, Pt denies, anesthesia, burning, paresthesia, tingling, B/L TINEL'S COMPRESSION: Negative, Saphenous nerve distribution, B/L Dermatologic SKIN FINDINGS: Skin exam reveal s normal color, texture, elasticity, and turgor. There are no masses, nor excrescences. The interspaces are clear, B/L Orthopedic BUNION: Medially promine nt 1st MPJ, (+) Pain on palpation, inflammation present medially, Lateral tracking 1st MPJ incompletely reducible, B/L, Limited 1st MPJ Dorsal ROM, B/L General Examination GENERAL APPEARANCE: Reveals a pleasant, alert, well nourished, well-developed, well hydrated individual, who demonstrates proper attention to hygiene/body habitus, and is in no acute distress, Pt serves as own historian for office visit today ORIENTED: person, place, and t eze Vascular DP PULSES(B): 3/4, B/L PT PULSES(B): 3/4, B/L CAPILLARY FILL TIME: immediate, all digi ts, B/L TEMPERTURE GRADIENT(C): normal, warm to cool, proximal to distal, B/L, B/L TROPHIC CONDITION-TEXTURE/ELASTICITY/TURGOR/HAIR GROWTH(B): normal, B/L PIGMENTATION: normal, B/L X-Rays - IMAGING REPORT Findings: normal b one and soft tissue density consistent for patients age and sex Fracture: Negative fractures i dentified HAV: increased First Inte rmetatarsal angle and Hallux Abductus angle consistent with Bunion deformity noted, hypertrophy of the dorsal and medial 1st MTH without subchondral cyst , there is asymmetrical narrowing of the 1st MPJ joint space , 4 Views: 3 views of Foot, AP, LAT, MO, B/L Clinical Indication(s): Evaluate Biomech anical Deformity
--- OUTSIDE RECORDS SUMMARY | 2024-05-24 10:00 | XMS_ITS ---
Author Organization [facility] Address [address] [place] [address] Care Team Providers Care Iv Therapy Nurse Name Role Phone Nury Rubio MD Primary Care Provider Levi Castro [phone] ALLERGIES Allergen (clinical drug ingredient) Drug/Non Drug Allergy documented on EMR Reaction Allergy Type Onset Date Status Sulfa Unknown Drug Allergy Active Penicillin Unknown Drug Allergy Active REASON FOR VISIT Patient presents today for REFLUX MEDICATIONS Medication SIG (Take, Route, Frequency, Duration) Notes Start Date End Date Status Multi Vitamin/Minerals - 1 Orally QD Active Lisinopril 20 MG 1 tablet Orally Once a day Active ZyrTEC Allergy 10 MG 1 tablet Orally Onc e a day Active hydroCHLOROthiazide 25 MG 1 tablet Orall y Once a day Active Vitamin C 500 MG 1 tablet Orally Once a day Active Omeprazole 20 MG 1 capsule Orally Twice a day Active Magnesium Active Rosuvastatin Calcium 40 MG TAKE 1 TABLET BY MOUTH EVERY DAY Oral for 90 Active Ondansetron 4 MG 1 tablet on the tongue and allow to dissolve Orally Every 4 to 6 hours as needed for nausea for 30 day(s) 02/25/2023 Active Xrmrb-8-yoyr Ethyl Esters 1 GM TAKE 2 CA PSULES BY MOUTH TWICE A DAY FOR 90 DAYS Oral for 90 Active Vitamin D 1000 UNIT 1 tablet Orally Once a day Active PROBLEMS Problem Type ICD Code Onset Dates Problem Status W/U Status Risk SNOMED Code Notes Problem Nausea (R11.0) Active confirmed 260440752 VITAL SIGNS BMI 25.51 kg/m2 04/23/2023 Blood pressure systolic 00 mm Hg 04/23/20 23 Blood pressure diastolic 00 mm Hg 11/16/2 023 Height 61 in 04/23/2023 Temperature 97.2 degrees Fahrenheit 04/23/20 23 Weight 135 lbs 04/23/2023 Encounters Encounter Location Date Provider Diagnosis [facility] [address] [place] [address] 04/23/2023 Levi Coyle Nausea R11.0 ASSESSMENTS Encounter Date Diagnosis Assessment Notes Treatment Notes Treatment Clinical Notes 04/23/2023 Nausea (ICD-10 - R11.0) PLAN OF TREATMENT Next Appt Details Follow Up: prn, Reason: Progress Notes * Examination Category Sub-Category Detail Notes General Examination GENERAL APPEARANCE: pleasant , well nourished, well developed, in no acute distress HEAD: EYES: sclera non-icteric EARS: NOSE: THROAT: NECK/THYROID: no cervical lymphade nopathy, neck supple HEART: S1, S2 normal CHEST: LUNGS: clear to auscultatio n bilaterally ABDOMEN: normal bowel sounds, no guarding or rigidity, no guarding or rigidity, no masses palpable, soft, nontender, nondistended NEUROLOGIC: alert and oriented SKIN: nonjaundiced, no spi funmi angiomata EXTREMITIES: no edema PERIPHERAL PULSES: BACK: BREASTS: MUSCULOSKELETAL: MALE GENITOURINARY: LYMPH NODES: RECTAL EXAM: FEMALE GENITOURINARY: ORAL CAVITY: mucosa moist
--- OUTSIDE RECORDS SUMMARY | 2024-05-24 10:01 | XMS_ITS | Patient Health Record ---
Author Organization [facility] [place] Address [address] [place] [address] Care Team Providers Care Accounting Technician Name Role Phone Nury Rubio Primary Care Provider Meredith Mar Unavailable [phone] Allergies Allergen (clinical drug ingredient) Drug/Non Drug [...] above Performing Lab: Notes/Report: See Examination above Reason For Referral No Information Medications Medication SIG (Take, Route, Frequency, Duration) [...] Status Risk Notes Problem Acquired hallux valgus (67117374) Hallux valgus (acquired), left foot (M20.12) Active confirmed Chronic problem, Worse (4) Problem Acquired hallux valgus (51987545) Hallux valgus (acquired), right foot (M20.11) Active confirmed Vital Signs Height 5 ft 1 in in 10/08/2023 Weight 130 lbs 10/08/2023 BMI 24.56 kg/m2 10/08/2023 Encounters Encounter Location Date Provider Diagnosis [facility] [address] 10/08/2023 Meredith Corbett Pain in left foot M79.672 ; Hallux valgus (acquired), left foot M20.12 ; Pain in left ankle and joints of left foot M25.572 ; Bursitis of left foot M77.52 ; Pain in right foot M79.671 ; Pain in right ankle and joints of right foot M25.571 ; Bursitis of right foot M77.51 and Hallux valgus (acquired), right foot M20.[address] [facility] [address] 09/21/2023 Meredith Corbett Assessments Encounter Date Diagnosis (ICD Code) Assessment [...] foot (ICD-10 - M20.11) Plan Of Treatment No Information Insurance Providers Payer Name Payer Address Payer Phone Subscriber Number Group Number Insured Name Patient Relationship to Insured Coverage Start Date Coverage End Date [employer] [address] [place] [phone] [id number] Mary Jane Valencia Self - patient is the insured Medical (General) History Medical History History ICD Code Cataracts High blood pressure Surgical History Surgery Date(Month/Year) Gall bladder removal
[2024-05-24 13:16] LABS: MANUAL DIFF FLAG NO
[2024-05-24 13:23] LABS: Basophils Percent Auto 0.6 % (0-2); Eosinophils Absolute Auto 0.2 X10*3/uL (0.0-0.4); Eosinophils Percent Auto 2.3 % (0-4); Hematocrit 39.2 % (37.0-47.0); Hemoglobin 13.3 g/dl (12.0-16.0); Imm Gran Abs Auto 0.02 X10*3/uL (0.00-0.03); Imm Gran Pct Auto 0.3 % (0.0-0.4); Lymphocytes Absolute Auto 2.4 X10*3/uL (1.2-4.9); Mean Corpuscular HGB Conc 33.9 g/dl (31.0-35.0); Mean Corpuscular Hemoglobin 31.4 pg (27.0-33.0); Mean Corpuscular Volume 92.7 fL (80.0-98.0); Mean Platelet Volume 10.6 fL (9.4-12.3); Monocytes Absolute Auto 0.5 X10*3/uL (0.1-1.2); Monocytes Percent Auto 7.3 % (2-11); Neutrophils Absolute Auto 3.7 x10*3/uL (2.0-8.3); Neutrophils Percent Auto 54.5 % (45-73); Platelet Count 209 X10*3/uL (160-400); Red Blood Count 4.23 X10*6/uL (4.20-5.50); Red Cell Distribution Width 12.6 % (11.0-16.0); White Blood Count 6.8 X10*3/uL (4.8-10.8)
[2024-05-24 14:00] LABS: Albumin Level 4.4 g/dL (3.5-5.0); Alkaline Phosphatase 81 U/L (39-117); Anion Gap 9 (12-20); Aspartate Amino Transferase 39 U/L (5-31); Bilirubin Total 0.5 mg/dL (0.0-1.0); Blood Urea Nitrogen 23 mg/dL (9-16); Calcium 9.4 mg/dL (8.4-10.2); Carbon Dioxide 30 mmol/L (22-29); Chloride 107 mmol/L (96-108); Cholesterol 143 mg/dL (<200); Estimated Glomerular Filt Rate > 60; Free T4 (Free Thyroxine) 1.01 ng/dL (0.71-1.85); Glucose Random 98 mg/dL (60-115); HDL Cholesterol 60 mg/dL (>40); LDL Cholesterol Calculated 65 mg/dL (<100); Potassium 4.3 mmol/L (3.3-5.1); Sodium 142 mmol/L (135-145); Thyroid Stimulating Hormone 1.57 uIU/mL (0.32-4.0); Triglycerides 90 mg/dL (<150); Vitamin D 25-OH Total 63.2 ng/mL (>30)
[2024-05-24 14:07] LABS: Folate 10.9 ng/mL (> or = 4.0); Vitamin B12 300 pg/mL (200-900)
[2024-05-24 14:20] LABS: Alanine Aminotransferase 46 U/L (0-31)
== END 2024-05-24 09:56 | disposition home or self-care (01) ==
LOC: HO.HMGCLDS 09:55
PROVIDERS: PCP Internal Medicine; Visit Provider Internal Medicine
DX: E78.00 Pure hypercholesterolemia, unspecified (principal)
CPT/HCPCS: 36415; 80053; 80061; 82306; 82607; 82746; 84439; 84443; 85025

== ENCOUNTER 2024-06-06 13:28 | Outpatient (AMB) | payer MEDICARE, SELFPAY ==
--- OUTSIDE RECORDS SUMMARY | 2024-06-06 13:30 | XMS_ITS | Patient Health Record ---
Author Organization [facility] Address [address] [place] [address] Care Team Providers Care Inside Sales Lead Name Role Phone Nury Rubio MD Primary Care Provider Levi Castro [phone] ALLERGIES Allergen (clinical drug ingredient) Drug/Non Drug [...] for nausea for 30 day(s) 02/25/2023 Active Qykgk-9-hkgo Ethyl Esters 1 GM TAKE 2 CA [...] malignant neoplasm of colon (Z12.11) Active confirmed 542719533 Problem Irritable bowel syndrome with diarrhea (K58.0) Active confirmed 423856648 Problem Nausea (R11.0) Active confirmed 2522297 07 Problem Abdominal pain, epigastric (R10.13) Active confirmed 04051364 Problem Peptic ulcer disease (K27.9) Active confirmed 88462751 Problem Pre-procedural examination (Z01.818) Active confirmed [id number] Problem Diarrhea, unspecified type (R19.7) Active confirmed 42494375 PLAN OF TREATMENT Pending Test Test Name Order Date LIVER PROFILE 02/27/2016 LIVER PROFILE 10/25/2013 CRP 02/27/2016 CBC w DIFF 02/27/2016 SED [...] Insured Coverage Start Date Coverage End Date [facility] [employer] [address] [place], [place] [id number] DELVIS JOYCE Self - patient is the insured MEDICAL (GENERAL) HISTORY Medical History History ICD Code Colonoscopy 01-24-2008--negat jesusita except for mild diverticulosis and internal hemorrhoids Hyperlipidemia Denies [place],DM,CVA,Lung disease,renal dise ase Perforated duodenal ulcer in 2010--treated at [facility]-no surgery required--she had been on ASA [...] without any worrisome findings otherwise Hospitalized at [facility] in 10/2016 for possible recurrent ulcer [...]
--- OUTSIDE RECORDS SUMMARY | 2024-06-06 13:30 | XMS_ITS ---
Author Organization [facility] Address [address] [place] [address] Care Team Providers Care Weights And Measures Sealer Name Role Phone Nury Rubio MD Primary Care Provider Levi Castro [phone] ALLERGIES Allergen (clinical drug ingredient) Drug/Non Drug [...] for nausea for 30 day(s) 02/25/2023 Active Xbvsk-0-jpqn Ethyl Esters 1 GM TAKE 2 CA PSULES BY MOUTH TWICE A DAY FOR 90 DAYS Oral for 90 Active Vitamin D 1000 UNIT 1 tablet Orally Once a day Active PROBLEMS Problem Type ICD Code Onset Dates Problem Status W/U Status Risk SNOMED Code Notes Problem Nausea (R11.0) Active confirmed 502289205 VITAL SIGNS BMI 25.51 kg/m2 04/23/2023 Blood pressure systolic 00 mm Hg 04/23/20 23 Blood pressure diastolic 00 mm Hg 11/16/2 023 Height 61 in 04/23/2023 Temperature 97.2 degrees Fahrenheit 04/23/20 23 Weight 135 lbs 04/23/2023 Encounters Encounter Location Date Provider Diagnosis [facility] [address] [place] [address] 04/23/2023 Levi Coyle Nausea R11.0 ASSESSMENTS Encounter [...]
--- OUTSIDE RECORDS SUMMARY | 2024-06-06 13:30 | XMS_ITS ---
Author Organization [facility] Address [address] [place] [address] Care Team Providers Care Devops Architect Name Role Phone Nury Rubio MD Primary Care Provider Levi Castro [phone] REASON FOR VISIT nausea MEDICATIONS Medication SIG (Take, Route, Fr equency, Duration) Notes Start Date End Date Status Ondansetron 4 MG 1 tablet on the tong ue and allow to dissolve Orally Every 4 to 6 hours as needed for nausea for 30 day(s) 02/25/2023 Active Encounters Encounter Location Date Provider Diagnosis [facility] [address] [place] [address] 02/24/2023 Levi Coyle PLAN OF TREATMENT Medication Medication Name Sig Start Date Stop Date Notes Ondansetron 4 MG 1 tablet on the tong ue and allow to dissolve Orally Every 4 to 6 hours as needed for nausea for 30 day(s) 02/25/2023
--- OUTSIDE RECORDS SUMMARY | 2024-06-06 13:31 | XMS_ITS | Data Portability ---
Author Organization [facility] [address] Address [address] [place] [address] Assessment No assessment recorded. Plan of Treatment [...] Diagnosis/Indication Diagnosis SNOMED-CT Code Diagnosis ICD10 Code [id number] [address] [address] 04/14/2017 17:41:32 04/14/2017 19:01:19 Health Concerns Section Related Observation LastModified by Organization Detai ls LastModified Time None Recorded Concern Status LastModified by Organization Details LastModified Time None Recorded Advance Directives Directive None Recorded Payers Encounter Date Sequence Insurance Name Policy Number Policy Ivy Covered Member ID Ivy Member ID Guarantor Name 04/14/2017 1 [facility]: [employer]ER[employer] EMPL[employer]EE PROGRAM Shania Valencia [id number] Mary Jane Valencia OBGyn Episode No OBEpisode recorded.
--- OUTSIDE RECORDS SUMMARY | 2024-06-06 13:31 | XMS_ITS ---
[facility] [address] [address] Address [address] [place] [address] Care Team Providers Care Ribbon Inker Name Role Phone Nury Rubio Primary Care Provider Meredith Mar Unavailable [phone] Allergies Allergen (clinical drug ingredient) Drug/Non Drug [...] Status Risk Notes Problem Acquired hallux valgus (04907597) Hallux valgus (acquired), left foot (M20.12) Active confirmed Chronic problem, Worse (4) Problem Acquired hallux valgus (51792568) Hallux valgus (acquired), right foot (M20.11) Active confirmed Vital Signs Height 5 ft 1 in in 10/08/2023 Weight 130 lbs 10/08/2023 BMI 24.56 kg/m2 10/08/2023 Encounters Encounter Location Date Provider Diagnosis [facility] [address] [address] 10/08/2023 Meredith Black Pain in left foot [...] * Abby JOYCE: 2 (73 yo F)Acc No.[id number]:10/08/2023 Progress Notes Patient:?Mary Jane Joyce Provider:?Meredith Corbett DPM :1950???Age:73 Y???Sex:Female D ate:10/08/2023 Address:[address] [place], [place] [address] Pcp:Nury Rubio Subjective: * Chief Complaints: * [...] Foot, right 3V?See Examination above * Procedure Codes:?14281 X-RAY EXAM OF LEFT FOOT 3V, Modifiers: 26 , IR32629 X-RAY EXAM OF RIGHT FOOT 3V, Modifiers: [...] Provider:?Meredith Corbett DPM Date:?2023 Generated for Mimi gonzales/Aditi/Cruz on:?06/06/2024 01:30 PM EST History and Physical Notes * HPI [...] person, place, and t eze Vascular DP PULSES (B): 3/4, B/L PT PULSES (B): 3/4, B/L CAPILLARY FILL TIME: immediate, all digi ts, B/L TEMPERTURE GRADIENT (C): normal, warm to cool, proximal to distal, B/L, B/L TROPHIC CONDITION-TEXTURE/ELASTICITY/TURGOR/HAIR GROWTH (B): normal, B/L PIGMENTATION: normal, B/L X-Rays - [...]
--- OUTSIDE RECORDS SUMMARY | 2024-06-06 13:31 | XMS_ITS | Patient Health Record ---
Author Organization [facility] [place] Address [address] [place] [address] Care Team Providers Care Lean Six Sigma Senior Specialist Name Role Phone Nury Rubio Primary Care Provider Meredith Mar Unavailable [phone] Allergies Allergen (clinical drug ingredient) Drug/Non Drug [...] Status Risk Notes Problem Acquired hallux valgus (59543969) Hallux valgus (acquired), left foot (M20.12) Active confirmed Chronic problem, Worse (4) Problem Acquired hallux valgus (08346487) Hallux valgus (acquired), right foot (M20.11) Active confirmed Vital Signs Height 5 ft 1 in in 10/08/2023 Weight 130 lbs 10/08/2023 BMI 24.56 kg/m2 10/08/2023 Encounters Encounter Location Date Provider Diagnosis [facility] [address] 10/08/2023 Meredith Corbett Pain in left foot M79.672 ; Hallux valgus (acquired), left foot M20.12 ; Pain in left ankle and joints of left foot M25.572 ; Bursitis of left foot M77.52 ; Pain in right foot M79.671 ; Pain in right ankle and joints of right foot M25.571 ; Bursitis of right foot M77.51 and Hallux valgus (acquired), right foot M20.[address] [facility] [address] 09/21/2023 Meredith Corbett Assessments Encounter Date Diagnosis [...] Date Coverage End Date [employer] [address] [place] [phone] [id number] Mary Jane Valencia Self - patient is the insured Medical (General) History Medical History History ICD Code Cataracts High blood pressure Surgical History Surgery Date(Month/Year) Gall bladder removal
--- OUTSIDE RECORDS SUMMARY | 2024-06-06 13:31 | XMS_ITS ---
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 Generated for Henryi janet/Aditi/eTransmitting on:?06/06/2024 01:30 PM EST
[2024-06-06 13:36] VITALS: BP 128/62; PULSE 72; O2SAT 97; BMI 24.7
--- NOTE | 2024-06-06 13:36 | MHC.PC.OV ---
Vital Signs 06/06/24 13:36 Height 5 ft 1 in Weight 130 lb 8 oz BMI 24.7 BP 128/62 Blood Pressure Location Lt brachial Position Sitting Pulse 72 Pulse Source Pulse Oximeter Pulse Oximetry (%) 97 Oxygen Delivery Method Room Air Intake Visit Reasons: 6 Month F/U Allergies penicillamine [Cuprimine] Allergy (Unknown, Verified 06/06/24 13:39) Rash penicillin V Allergy (Unknown, Verified 06/06/24 13:39) Rash Penicillins [PENICILLINS] Allergy (Unknown, Verified 06/06/24 13:39) HIVES Sulfa (Sulfonamide Antibiotics) [SULFA (SULFONAMIDE ANTIBIOTICS)] Allergy (Unknown, Verified 06/06/24 13:39) HIVES sulfasalazine [Sulfazine] Allergy (Unknown, Verified 06/06/24 13:39) Rash Tobacco use date assessed: 06/06/24 Fall risk assessment: No Falls in past year Last assessed Fall Risk: 06/06/24 Dental Screening Dental Screen Date: 06/06/24 Did you have a dental visit in the last 12 months?: Yes Did you have a dental problem in the last 6 months where you did not have access to dental care?: No Was dental information given to patient?: Patient has dentist HPI 6 Month F/U HPI Details The patient is a 74-year-old female presenting with complications following knee replacement surgery. She underwent the procedure approximately seven months ago but continues to experience significant discomfort and pain, particularly affecting her sleep and daily activities. Despite surgery aimed to alleviate osteoarthritis symptoms, she reports only minimal improvement and is still experiencing significant pain that impacts her quality of life. She noted increasing discomfort, especially when lying down in a position or attempting to move at night. Follow-up imaging was limited due to the knee prosthetic, with X-rays unable to reveal underlying issues. The patient has attempted various interventions, including Celecoxib for pain management; however, concerns regarding gastrointestinal safety have been discussed, given her history of GERD. Past surgical consultations indicated the recovery process might extend up to a year, but current discomfort exceeds expected postoperative recovery severity. She continues with physical exercises such as walking and an elliptical machine to manage pain and maintain mobility. Her medical history also includes essential hypertension managed with Lisinopril and Hydrochlorothiazide, gout, osteopenia with a recent 5% decrease in bone density, and liver function tests indicating elevated liver enzymes. She is on medications including Rosuvastatin, Omeprazole, and vitamin supplements. Recent laboratory results indicated no anemia, normal white blood cell and platelet counts, stable renal function, and well-controlled blood glucose. Although liver enzymes remain elevated, it has been a recurrent finding, and no acute causes were identified. [facility] Medical History Screening for hypothyroidism Arthralgia Pancreatic pseudocyst Hypercholesterolemia GERD (gastroesophageal reflux disease) Hypertension Vitamin D deficiency Finger osteomyelitis Peptic ulcer disease Surgical History Status post laparoscopic cholecystectomy History of ERCP (~2013) History of esophagogastroduodenoscopy (EGD) History of section Cholelithiasis Family History Brother CAD (coronary artery disease) Aneurysm Social History Household Members: Spouse Housing: House Do you presently have visiting nurse or other home services: No Alcohol intake: current Alcohol intake frequency: holidays/special occasions only Patient Tobacco Use Status: Former Tobacco user Tobacco use type: Cigarette Years Smoked: quit 1999 e-Cigarette/Vaping Use: Never Used Second Hand Smoke Exposure: No service: No Current occupational status: retired Cognitive needs: No Hearing needs: No Vision needs: Yes Questionnaire PHQ-9 Over the last 2 weeks, how often have you been bothered by any of the following problems? 1. Little interest or pleasure in doing things: not at all 2. Feeling down, depressed, or hopeless: not at all 3. Trouble falling or staying asleep, or sleeping too much: not at all 4. Feeling tired or having little energy: not at all 5. Poor appetite or overeating: not at all 6. Feeling bad about yourself - or that you are a failure or have let yourself or your family down: not at all 7. Trouble concentrating on things, such as reading the newspaper or watching television: not at all 8. Moving or speaking so slowly that other people could have noticed. Or the opposite - being so fidgety or restless that you have been moving around a lot more than usual: not at all 9. Thoughts that you would be better off or of hurting yourself in some way: not at all Total score: 0 Depression Screening Interpretation: Negative Depression Screening Done: Yes 94615 - PHQ-9 Billing: Yes Source: Developed by Drs. Levi Sage, Georgia Mahoney, Melo Mooney and colleagues, with an educational izzy from [employer]. Thrive Questionnaire Date Thrive assessed: 06/06/24 I am a: Patient What is your living situation today?: I have a steady place to live Within the past 12 months, did the food you bought not last and you didn't have the money to get more?: Never true Within the past 12 months, did you worry whether your food would run out before you got money to buy more?: Never true Do you have trouble paying for medicines?: No Do you have trouble getting transportation to medical appointments?: No Do you have trouble paying your heating and electricity bill?: No Do you have trouble taking care of your child, family member or friend?: No Do you have trouble with day-to-day activities such as bathing, preparing meals, shopping, managing finances, etc.?: No Are you currently unemployed and looking for a job?: No Are you interested in more education?: No Please select the resources that you would like help with: None THRIVE Score: 0 AUDIT C Alcohol Use Questionnaire (AUDIT-C) 1. How often do you have a drink containing alcohol?: 2-3 times a week 2. How many drinks containing alcohol do you have on a typical day when you are drinking?: 1 or 2 3. How often do you have six or more drinks on one occasion?: Never Total Score: 3 DEVAN-7 AMB Questionnaire DEVAN-7 Date DEVAN - 7 assessed: 06/06/24 Feeling nervous, anxious, or on edge: 0 = Not at all Not being able to stop or control worryin = Not at all Worrying too much about different things: 0 = Not at all Trouble relaxin = Not at all Being so restless that it is hard to sit still: 0 = Not at all Becoming easily annoyed or irritable: 0 = Not at all Feeling afraid as if something awful might happen: 0 = Not at all Total DEVAN-7 score (0-4 normal; 5-9 mild; 10-14 moderate; 15-21 severe): 0 Source: Developed by Drs. Levi aSge, Georgia Mahoney, Melo Mooney and colleagues, with an educational izzy from [employer]. Physical exam (Primary Care) Vital Signs: Last Vital Signs Pulse 72 06/06/24 13:36 BP 128/62 06/06/24 13:36 Pulse Ox 97 06/06/24 13:36 Oxygen Delivery Method Room Air 06/06/24 13:36 BMI result Body Mass Index 24.7 Tobacco/Smoking Status: Tobacco use Status Tobacco use date assessed 06/06/24 06/06/24 13:43 Patient Tobacco Use Status Former Tobacco user 06/06/24 13:43 Tobacco use type Cigarette 06/06/24 13:43 e-Cigarette/Vaping Use Never Used 06/06/24 13:43 PHQ-9: PHQ-9 Score PHQ-9: Total score 0 06/06/24 13:57 Depression Screening Interpretation: Negative Thrive Assessment: Date of Thrive Assessment Date Thrive assessed 06/06/24 06/06/24 13:43 Const General: alert; No acute distress Eyes Conjunctivae: conjunctivae normal Resp Auscultation: clear to auscultation bilaterally Cardio Rate: regular rate Rhythm: regular rhythm GI Inspection: Yes normal to inspection Extrem General: Yes normal to inspection and No edema Coding Level of Care Code Est Pt Level 4 (93615) Complex EM visit Add On G2211 Diagnoses Acute gout of left hand, unspecified cause M10.9 Chronicity: acute Gout etiology: unspecified cause Gout site: hand Laterality: left Essential hypertension I10 Hypertension type: essential hypertension GERD (gastroesophageal reflux disease) K21.9 Hypercholesterolemia E78.00 Impaired glucose tolerance R73.02 Additional Codes PHQ-9 - 53978 - PHQ-9 Billing: Yes ([id number]) Assessment & Plan Assessment & Plan (1) Gout: Code(s): M10.9 - Gout, unspecified Category: Medical Qualifiers: Chronicity: acute Gout etiology: unspecified cause Gout site: hand Laterality: left Qualified Code(s): M10.9 - Gout, unspecified Plan: Low purine diet (2) Hypertension: Comment: Echocardiogram November 2019 EF 60-65%, nuclear stress test August 25- Code(s): I10 - Essential (primary) hypertension Category: Medical Qualifiers: Hypertension type: essential hypertension Qualified Code(s): I10 - Essential (primary) hypertension Plan: Continue with blood pressure medication. Decrease salt intake and exercise continue with lisinopril hydrochlorothiazide (3) GERD (gastroesophageal reflux disease): Code(s): K21.9 - Gastro-esophageal reflux disease without esophagitis Category: Medical Plan: Avoid the foods that causes that usually spicy foods, tomato products, juices, coffee, soda and foods that your sensitive to. After eating do not lie down, allow 3-4 hours before in lie down. And keep the head of bed above 30 degrees to avoid the acid from going up. (4) Hypercholesterolemia: Code(s): E78.00 - Pure hypercholesterolemia, unspecified Category: Medical Plan: Avoid fried foods, chicken skin, eggs, butter margarine, pastries and meat. Be it pork or beef they have a lot of cholesterol (5) Impaired glucose tolerance: Code(s): R73.02 - Impaired glucose tolerance (oral) Category: Medical Plan: Decrease the amount of carbohydrate intake, pasta, bread, rice and potatoes are all sugar and that is aside from all the sweet stuff, remember that fruits are good but they are Sweet also. Plan - Continue monitoring liver function tests regularly given the history of elevated liver enzymes, and school adjustment counselor on maintaining a healthy diet. - Encourage compliance with anti-hypertensive agents Lisinopril, Hydrochlorothiazide) and continue monitoring blood pressure. - Maintain use of Rosuvastatin for hyperlipidemia, considering potential interactions with liver enzymes. - Continue physical therapy and exercise regimen to manage postoperative knee discomfort. - Advise limited use of Celecoxib given potential gastrointestinal risks; consider alternative pain management strategies. - Monitor bone density given osteopenia findings; ensure adequate intake of calcium and vitamin D. - Offer support for seasonal allergy symptoms as needed with current medication. - Regular follow-up consultations advised to assess current medical therapy effectiveness and postoperative recovery status.
== END 2024-06-06 14:15 | disposition home or self-care (01) ==
PROVIDERS: PCP Internal Medicine; Visit Provider Internal Medicine
DX: M10.9 Gout, unspecified (principal); I10 Essential (primary) hypertension; K21.9 Gastro-esophageal reflux disease without esophagitis; E78.00 Pure hypercholesterolemia, unspecified; R73.02 Impaired glucose tolerance (oral)

== ENCOUNTER → 2024-06-06 13:28 | Outpatient (BNVA) | payer MEDICARE, SELFPAY | PROVIDERS: PCP Internal Medicine; Visit Provider Internal Medicine | DX: M10.9 Gout, unspecified (principal); I10 Essential (primary) hypertension; K21.9 Gastro-esophageal reflux disease without esophagitis; E78.00 Pure hypercholesterolemia, unspecified; R73.02 Impaired glucose tolerance (oral) | CPT/HCPCS: 96127; 99212 ==

== ENCOUNTER → 2024-08-03 14:00 | Outpatient (BNV) | payer MEDICARE, SELFPAY | PROVIDERS: PCP Internal Medicine; Visit Provider Internal Medicine | DX: Z12.31 Encounter for screening mammogram for malignant neoplasm of breast (principal) | CPT/HCPCS: 77063; 77067 ==

== ENCOUNTER 2024-08-03 14:04 | Outpatient (REF) | payer MEDICARE, SELFPAY ==
--- OUTSIDE RECORDS SUMMARY | 2024-08-03 17:19 | XMS_ITS ---
Author [facility] [place] Address [address] [place] [address] Care Team Providers Care Aviation Technician Name Role Phone Nury Rubio Primary Care Provider Meredith Mar Unavailable [phone] Allergies Allergen (clinical drug ingredient) Drug/Non Drug [...] Status Risk Notes Problem Acquired hallux valgus (68526735) Hallux valgus (acquired), left foot (M20.12) Active confirmed Chronic problem, Worse (4) Problem Acquired hallux valgus (47906138) Hallux valgus (acquired), right foot (M20.11) Active confirmed Vital Signs Height 5 ft 1 in in 10/08/2023 Weight 130 lbs 10/08/2023 BMI 24.56 kg/m2 10/08/2023 Encounters Encounter Location Date Provider Diagnosis [facility] [address] [address] 10/08/2023 Meredith Black Pain in left foot [...] * Abby JOYCE: 2 (73 yo F)Acc No.[id number]:10/08/2023 Progress Notes Patient:?Mary Jane Joyce Provider:?Meredith Corbett DPM :1950???Age:73 Y???Sex:Female D ate:10/08/2023 Address:[address] [place], [place] [address] Pcp:Nury Rubio Subjective: * Chief Complaints: * [...] Foot, right 3V?See Examination above * Procedure Codes:?54994 X-RAY EXAM OF LEFT FOOT 3V, Modifiers: 26 , PP23308 X-RAY EXAM OF RIGHT FOOT 3V, Modifiers: [...] Corbett DPM Date:?2023 Generated for Mimi gonzales/Aditi/Cruz on:?08/03/2024 05:19 PM EST History and Physical Notes * [...]
--- OUTSIDE RECORDS SUMMARY | 2024-08-03 17:20 | XMS_ITS ---
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 Generated for Henryi janet/Aditi/eTransmitting on:?08/03/2024 05:19 PM EST
--- OUTSIDE RECORDS SUMMARY | 2024-08-03 17:20 | XMS_ITS | Data Portability ---
Author Organization [facility] [address] Address [address] [place] [address] Assessment No assessment recorded. Plan of Treatment [...] Diagnosis/Indication Diagnosis SNOMED-CT Code Diagnosis ICD10 Code Diagnosis Note [id number] [address] [address] 04/14/2017 17:41:32 04/14/2017 19:01:19 Health Concerns Section Related Observation LastModified by Organization Detai ls LastModified Time None Recorded Concern Status LastModified by Organization Details LastModified Time None Recorded Advance Directives Directive None Recorded Payers Encounter Date Sequence Insurance Name Policy Number Policy Ivy Covered Member ID Ivy Member ID Guarantor Name 04/14/2017 1 [facility]: [employer] PRO[employer] Shania Valencia [id number] Mary Jane Valencia OBGyn Episode No OBEpisode recorded.
--- OUTSIDE RECORDS SUMMARY | 2024-08-03 17:20 | XMS_ITS | Patient Health Record ---
Author Organization [facility] [place] [facility] Address [address] [place] [address] Care Team Providers Care Farm Adviser Name Role Phone Nury Rubio Primary Care Provider Meredith Mar Unavailable [phone] Allergies Allergen (clinical drug ingredient) Drug/Non Drug [...] Status Risk Notes Problem Acquired hallux valgus (16869420) Hallux valgus (acquired), left foot (M20.12) Active confirmed Chronic problem, Worse (4) Problem Acquired hallux valgus (65735819) Hallux valgus (acquired), right foot (M20.11) Active confirmed Vital Signs Height 5 ft 1 in in 10/08/2023 Weight 130 lbs 10/08/2023 BMI 24.56 kg/m2 10/08/2023 Encounters Encounter Location Date Provider Diagnosis [facility] [address] 10/08/2023 Meredith Corbett Pain in left foot M79.672 ; Hallux valgus (acquired), left foot M20.12 ; Pain in left ankle and joints of left foot M25.572 ; Bursitis of left foot M77.52 ; Pain in right foot M79.671 ; Pain in right ankle and joints of right foot M25.571 ; Bursitis of right foot M77.51 and Hallux valgus (acquired), right foot M20.[address] [facility] [address] 09/21/2023 Meredith Corbett Assessments Encounter Date Diagnosis [...] Date Coverage End Date [employer] [address] [place] [phone] [id number] Mary Jane Valencia Self - patient is the insured Medical (General) History Medical History History ICD Code Cataracts High blood pressure Surgical History Surgery Date(Month/Year) Gall bladder removal
== END 2024-08-03 14:05 | disposition home or self-care (01) ==
LOC: HO.MAMMO 14:04
PROVIDERS: PCP Internal Medicine; Visit Provider Internal Medicine
DX: Z12.31 Encounter for screening mammogram for malignant neoplasm of breast (principal)
CPT/HCPCS: 77063; 77067

== ENCOUNTER 2024-11-25 08:21 | Outpatient (REF) | payer MEDICARE, SELFPAY ==
--- OUTSIDE RECORDS SUMMARY | 2024-11-25 08:27 | XMS_ITS | Patient Health Record ---
Author Organization [facility] [address] [place] Address [address] [place] [address] Care Team Providers Care Directional Driller Name Role Phone Nury Rubio Primary Care Provider Meredith Mar Unavailable [phone] Allergies Allergen (clinical drug ingredient) Drug/Non Drug Allergy documented on EMR Reaction Allergy Type Onset Date Status sulfamethoxazole / trimethoprim Bactrim Unknown Drug Allergy Active Penicillin Unknown Drug Allergy Active Reason For Referral No Information Medications Medication [...] Status Risk Notes Problem Acquired hallux valgus (25976439) Hallux valgus (acquired), left foot (M20.12) Active confirmed Chronic problem, Worse (4) Problem Acquired hallux valgus (45578717) Hallux valgus (acquired), right foot (M20.11) Active confirmed Plan Of Treatment No Information Insurance Providers Payer Name Payer Address Payer Phone Subscriber Number Group Number Insured Name Patient Relationship to Insured Coverage Start Date Coverage End Date [employer] [address] [place] [phone] [id number] Mary Jane Valencia Self - patient is the insured Medical (General) History Medical History History ICD Code Cataracts High blood pressure Surgical History Surgery Date(Month/Year) Gall bladder removal
[2024-11-25 10:06] LABS: MANUAL DIFF FLAG NO
[2024-11-25 10:11] LABS: Basophils Absolute Auto 0.1 X10*3/uL (0.0-0.2); Basophils Percent Auto 0.6 % (0-2); Eosinophils Absolute Auto 0.2 X10*3/uL (0.0-0.4); Eosinophils Percent Auto 1.5 % (0-4); Hematocrit 40.8 % (37.0-47.0); Hemoglobin 13.4 g/dl (12.0-16.0); Imm Gran Abs Auto 0.11 X10*3/uL (0.00-0.03); Imm Gran Pct Auto 0.9 % (0.0-0.4); Lymphocytes Absolute Auto 3.1 X10*3/uL (1.2-4.9); Lymphocytes Percent Auto 26.2 % (20-40); Mean Corpuscular HGB Conc 32.8 g/dl (31.0-35.0); Mean Corpuscular Hemoglobin 30.5 pg (27.0-33.0); Mean Corpuscular Volume 92.7 fL (80.0-98.0); Mean Platelet Volume 10.1 fL (9.4-12.3); Monocytes Absolute Auto 0.8 X10*3/uL (0.1-1.2); Monocytes Percent Auto 6.9 % (2-11); Neutrophils Absolute Auto 7.5 x10*3/uL (2.0-8.3); Neutrophils Percent Auto 63.9 % (45-73); Platelet Count 231 X10*3/uL (160-400); Red Cell Distribution Width 12.4 % (11.0-16.0); White Blood Count 11.8 X10*3/uL (4.8-10.8)
[2024-11-25 10:53] LABS: Alanine Aminotransferase 69 U/L (0-31); Albumin Level 4.8 g/dL (3.5-5.0); Alkaline Phosphatase 110 U/L (39-117); Anion Gap 14 (12-20); Aspartate Amino Transferase 58 U/L (5-31); Bilirubin Total 0.4 mg/dL (0.0-1.0); Blood Urea Nitrogen 28 mg/dL (9-16); Calcium 9.7 mg/dL (8.4-10.2); Carbon Dioxide 27 mmol/L (22-29); Chloride 104 mmol/L (96-108); Cholesterol 145 mg/dL (<200); Estimated Glomerular Filt Rate > 60; Glucose Random 109 mg/dL (60-115); HDL Cholesterol 56 mg/dL (>40); LDL Cholesterol Calculated 54 mg/dL (<100); Magnesium 1.8 mg/dL (1.6-2.6); Potassium 3.9 mmol/L (3.3-5.1); Sodium 141 mmol/L (135-145); Total Protein 7.4 g/dL (6.5-8.0); Triglycerides 175 mg/dL (<150)
[2024-11-25 10:54] LABS: Estimated Average Glucose 108 mg/dL; Hemoglobin A1c % 5.4 % (<6.0)
[2024-11-25 10:55] LABS: Free T4 (Free Thyroxine) 1.01 ng/dL (0.71-1.85); Thyroid Stimulating Hormone 2.69 uIU/mL (0.32-4.0); Vitamin D 25-OH Total 90.7 ng/mL (>30)
[2024-11-25 11:12] LABS: Folate 6.9 ng/mL (> or = 4.0); Vitamin B12 284 pg/mL (200-900)
== END 2024-11-25 08:22 | disposition home or self-care (01) ==
LOC: HO.HMGCLDS 08:21
PROVIDERS: PCP Internal Medicine; Referring Provider Student in an Organized Health Care Education/Training Program; Visit Provider Internal Medicine
DX: E78.00 Pure hypercholesterolemia, unspecified (principal)
CPT/HCPCS: 36415; 80053; 80061; 82306; 82607; 82746; 83036; 83735; 84439; 84443; 85025

== ENCOUNTER 2024-12-02 12:17 | Outpatient (AMB) | payer MEDICARE, SELFPAY ==
[2024-12-02 12:27] VITALS: BP 118/70; PULSE 71; O2SAT 98; BMI 24.7
--- NOTE | 2024-12-02 12:27 | AM.OFFVISMDC ---
Intake Vital Signs 12/02/24 12:27 Height 5 ft 1 in Weight 131 lb BMI 24.7 BP 118/70 Blood Pressure Location Lt brachial Position Sitting Pulse 71 Pulse Source Pulse Oximeter Pulse Oximetry (%) 98 Oxygen Delivery Method Room Air Intake Visit Reasons: wellness Allergies penicillamine (Cuprimine) Allergy (Unknown, Verified 12/02/24 12:27) Rash penicillin V Allergy (Unknown, Verified 12/02/24 12:27) Rash Penicillins (PENICILLINS) Allergy (Unknown, Verified 12/02/24 12:27) HIVES Sulfa (Sulfonamide Antibiotics) (SULFA (SULFONAMIDE ANTIBIOTICS)) Allergy (Unknown, Verified 12/02/24 12:27) HIVES sulfasalazine (Sulfazine) Allergy (Unknown, Verified 12/02/24 12:27) Rash Medication List - Last Reconciled 12/02/24 by Nury Rubio MD ascorbate calcium (vitamin C) 500 mg PO DAILY aspirin 81 mg PO DAILY cholecalciferol (vitamin D3) 50 mcg PO DAILY fexofenadine (Suellen Allergy) 180 mg PO DAILY debbie (Zingiber officinalis) 1 g PO TID PRN hydrochlorothiazide 25 mg PO DAILY lisinopril 20 mg PO DAILY omega-3 acid ethyl esters 2 caps PO BID omeprazole 20 mg PO BID rosuvastatin 40 mg PO DAILY 90 days HPI wellness HPI Details [facility] orthopedics [facility] orthopedic [facility] D[facility], [facility], [facility] cardiovascular Dr. Oliver Gastroenterology Dr. Coyle [facility] Medical History Screening for hypothyroidism Arthralgia Pancreatic pseudocyst Hypercholesterolemia GERD (gastroesophageal reflux disease) Hypertension Vitamin D deficiency Finger osteomyelitis Peptic ulcer disease Surgical History Status post laparoscopic cholecystectomy History of ERCP (~2013) History of esophagogastroduodenoscopy (EGD) History of section Cholelithiasis Family History Brother CAD (coronary artery disease) Aneurysm Social History (Updated 12/02/24 @ 12:48 by Nury Rubio MD) Household Members: Spouse Housing: House Do you presently have visiting nurse or other home services: No Alcohol intake: current Alcohol intake frequency: holidays/special occasions only Comment: one glass 4x a week Patient Tobacco Use Status: Former Tobacco user Tobacco use type: Cigarette Years Smoked: quit 1999 e-Cigarette/Vaping Use: Never Used Second Hand Smoke Exposure: No service: No Current occupational status: retired Cognitive needs: No Hearing needs: No Vision needs: Yes Questionnaire Medicare Wellness Checkup [age] What gender do you identify with?: female During the past 4 weeks, how much have you been bothered by emotional problems such as feeling anxious, depressed, irritable, sad or downhearted, and blue?: not at all During the past 4 weeks, has your physical & emotional health limited your social activities with family, friends, neighbors, or groups?: not at all During the past 4 weeks, how much bodily pain have you generally had?: moderate pain During the past 4 weeks, was someone available to help you if you needed & wanted help?: no, not at all During the past 4 weeks, what was the hardest physical activity you could do for at least 2 minutes?: moderate Can you get to places out of walking distance without help? (For eg., can you travel alone on buses, taxis or drive your car?): Yes Can you go shopping for groceries or clothes without someone's help?: Yes Can you prepare your own meals?: Yes Can you do your housework without help?: Yes Because of any health problems, do you need the help of another person with your personal care needs such as eating, bathing, dressing or getting around the house?: No Can you handle your own money without help?: Yes During the past 4 weeks, how would you rate your health in general?: good During the past 4 weeks how have things been going for you?: good & bad parts about equal Are you having difficulties driving your car?: no Do you always fasten your seat belt when you are in a car?: yes, usually During past 4 weeks, have you been bothered by the following: never: Falling or dizzy when standing up, Sexual problems?, Trouble eating well?, Teeth or denture problems?, Problems using the telephone? and Tiredness or fatigue? Have you fallen 2 or more times in the past year?: No Are you afraid of falling?: No Are you a smoker?: no During the past 4 weeks, how many drinks of wine, beer, or other alcoholic beverages did you have?: 2-5 drinks per week Do you exercise for about 20 minutes 3 or more times a week?: yes, some of the time Have you been given information to help with the following?: no: Hazards in your house that might hurt you? and no: Keeping track of your medications? How often do you have trouble taking medicines the way you have been told to take them?: I always take medicine as prescribed How confident are you that you can control & manage most of your health problems?: very confident What is your race?: Other PHQ-9 Over the last 2 weeks, how often have you been bothered by any of the following problems? 1. Little interest or pleasure in doing things: not at all 2. Feeling down, depressed, or hopeless: not at all 3. Trouble falling or staying asleep, or sleeping too much: not at all 4. Feeling tired or having little energy: not at all 5. Poor appetite or overeating: not at all 6. Feeling bad about yourself - or that you are a failure or have let yourself or your family down: not at all 7. Trouble concentrating on things, such as reading the newspaper or watching television: not at all 8. Moving or speaking so slowly that other people could have noticed. Or the opposite - being so fidgety or restless that you have been moving around a lot more than usual: not at all 9. Thoughts that you would be better off or of hurting yourself in some way: not at all Total score: 0 Depression Screening Interpretation: Negative Depression Screening Done: Yes 54615 - PHQ-9 Billing: Yes Source: Developed by Drs. Levi Sage, Georgia Mahoney, Melo Mooney and colleagues, with an educational izzy from [employer]. Thrive Questionnaire Date Thrive assessed: 12/02/24 I am a: Patient What is your living situation today?: I have a steady place to live Within the past 12 months, did the food you bought not last and you didn't have the money to get more?: Never true Within the past 12 months, did you worry whether your food would run out before you got money to buy more?: Never true Do you have trouble paying for medicines?: No Do you have trouble getting transportation to medical appointments?: No Do you have trouble paying your heating and electricity bill?: No Do you have trouble taking care of your child, family member or friend?: No Do you have trouble with day-to-day activities such as bathing, preparing meals, shopping, managing finances, etc.?: No Are you currently unemployed and looking for a job?: No Are you interested in more education?: No Please select the resources that you would like help with: None Currently or been in a relationship where the following occur: No concerns reported THRIVE Score: 0 DEVAN-7 AMB Questionnaire DEVAN-7 Date DEVAN - 7 assessed: 12/02/24 Feeling nervous, anxious, or on edge: 0 = Not at all Not being able to stop or control worryin = Not at all Worrying too much about different things: 0 = Not at all Trouble relaxin = Not at all Being so restless that it is hard to sit still: 0 = Not at all Becoming easily annoyed or irritable: 0 = Not at all Feeling afraid as if something awful might happen: 0 = Not at all Total DEVAN-7 score (0-4 normal; 5-9 mild; 10-14 moderate; 15-21 severe): 0 Source: Developed by Drs. Levi Sage, Georgia Mahoney, Melo Mooney and colleagues, with an educational izzy from [employer]. DEVAN-7 Assessment Billing DEVAN-7 Assessment Tool: DEVAN-7 Assessment 35931 Review of Systems Const Denies poor appetite and Denies weakness Eyes Denies no additional complaints ENT Reports Normal hearing present, Denies dizziness, Denies nasal congestion, Denies tinnitus and Denies sore throat Card Denies chest pain, Denies syncope, Denies rapid heart rate and Denies dyspnea Resp Denies cough and Denies dyspnea GI Denies change in stool character, Reports constipation, Denies diarrhea, Denies nausea and Denies vomiting Denies urinary frequency, Denies difficulty voiding and Denies dysuria Neuro Reports Normal hearing present, Denies confusion, Denies dizziness, Denies syncope and Denies weakness Psych Denies confusion Physical Exam Vital Signs: Oxygen Delivery Method Room Air 12/02/24 12:27 BMI result Body Mass Index 24.7 Const General: alert; No acute distress or confusion Orientation/consciousness: No confusion HEENT Head: Yes normocephalic Ears: external ears normal and TM's normal bilaterally Face and sinus: Yes normal facial exam Mouth: moist mucous membranes Throat: Yes tonsils normal Eyes Conjunctivae: conjunctivae normal Pupils: Equal, round and reactive pupils present and Pupil accommodation reflex normal Direct Ophthalmoscopy: normal light reflex Neck Neck: No lymphadenopathy Thyroid: Thyroid normal Chest Chest palpation & inspection: normal inspection of the chest Resp Effort & Inspection: normal respiratory effort and no audible wheezes Auscultation: clear to auscultation bilaterally Cardio Rate: regular rate Rhythm: regular rhythm Peripheral pulses: radial pulses present and dorsalis pedis present GI Inspection: Yes normal to inspection Palpation (GI): no masses Auscultation: normal bowel sounds and normoactive bowel sounds Rectal Exam - Female: deferred Skin General skin exam: no rashes or lesions noted Rashes: no rashes Neuro General: No confusion Cranial nerves: Yes Equal, round and reactive pupils present and Yes Normal hearing present Cognition (Neuro): normal cognition Gait exam (Neuro): Normal gait present Motor exam (neuro): 5/5 motor strength present throughout Deep tendon reflexes (DTR's): Right brachioradialis reflex intensity grade: 2+, Left brachioradialis reflex intensity grade: 2+, Right patellar reflex intensity grade: 2+ and Left patellar reflex intensity grade: 2+ Extrem General: Yes normal to inspection and No edema Assessment & Plan Assessment & Plan (1) Annual wellness visit: Code(s): Z00.00 - Encounter for general adult medical examination without abnormal findings Plan: Patient is advised to eat healthy, keep well hydrated, keep active and have adequate sleep. (2) Hypertension: Comment: Echocardiogram November 2019 EF 60-65%, nuclear stress test August 25- Code(s): I10 - Essential (primary) hypertension Qualifiers: Hypertension type: essential hypertension Qualified Code(s): I10 - Essential (primary) hypertension Plan: Continue with blood pressure medication. Decrease salt intake and exercise patient on lisinopril 20 mg once a day hydrochlorothiazide 25 mg once a day (3) Hypercholesterolemia: Code(s): E78.00 - Pure hypercholesterolemia, unspecified Plan: Avoid fried foods, chicken skin, eggs, butter margarine, pastries and meat. Be it pork or beef they have a lot of cholesterol LDL goal of less than 130 and triglyceride of less than 150 on rosuvastatin 40 mg once a day (4) Impaired glucose tolerance: Code(s): R73.02 - Impaired glucose tolerance (oral) Plan: Decrease the amount of carbohydrate intake, pasta, bread, rice and potatoes are all sugar and that is aside from all the sweet stuff, remember that fruits are good but they are Sweet also. (5) Osteopenia: Code(s): M85.80 - Other specified disorders of bone density and structure, unspecified site Plan: Discussed about calcium and vitamin-D and reminded about bone density (6) GERD (gastroesophageal reflux disease): Code(s): K21.9 - Gastro-esophageal reflux disease without esophagitis Plan: Avoid the foods that causes that usually spicy foods, tomato products, juices, coffee, soda and foods that your sensitive to. After eating do not lie down, allow 3-4 hours before in lie down. And keep the head of bed above 30 degrees to avoid the acid from going up. (7) Hepatic steatosis: Code(s): K76.0 - Fatty (change of) liver, not elsewhere classified Plan: Low-fat diet and exercise (8) Knee osteoarthritis: Comment: Right knee arthroplasty 10/2023 Dr. Carr Code(s): M17.9 - Osteoarthritis of knee, unspecified Qualifiers: Laterality: right Osteoarthritis type: primary Qualified Code(s): M17.11 - Unilateral primary osteoarthritis, right knee Plan: Patient follows up with orthopedics (9) Sinus congestion: Code(s): R09.81 - Nasal congestion Plan History of Present Illness The patient is a 74-year-old female presenting for a follow-up visit. The patient has a history of hypertension, managed with lisinopril 20 mg and hydrochlorothiazide 25 mg daily. Her blood pressure management plan includes maintaining a healthy lifestyle with a low-fat diet and regular exercise. The patient has been diagnosed with gastroesophageal reflux disease (GERD), for which she takes omeprazole 20 mg twice daily. She reports that her symptoms are well-controlled with this regimen. Hypercholesterolemia is managed with rosuvastatin 40 mg daily, with a target LDL cholesterol of less than 130 mg/dL and triglycerides less than 150 mg/dL. Recent lab results show an LDL of 54 mg/dL, which is within the desired range, but triglycerides are elevated at 175 mg/dL. The patient has osteopenia, with the last bone density test conducted in November 2022. She has been advised to take calcium and vitamin D supplements and to follow up with bone density assessments. Impaired glucose tolerance was noted with a fasting blood sugar of 109 mg/dL, although hemoglobin A1c remains normal. The patient is advised to monitor her carbohydrate intake and maintain a healthy diet. The patient has a history of hepatic steatosis, identified via an abdominal ultrasound in 2020. She is advised to maintain a low-fat diet and limit alcohol consumption to manage this condition. The patient underwent a right total knee replacement on November 05, 2023, and has been experiencing persistent stiffness and tenderness in the knee. She has been using a diagnostic brace to assess the need for further surgical intervention. The patient reports symptoms consistent with sinusitis, including facial pain and congestion. She has been prescribed doxycycline for treatment. Vitamin B12 deficiency was noted, with levels slightly below the normal range. The patient is advised to take vitamin B12 supplements as needed. Health Maintenance - Colon cancer screening last performed in 2017. - Mammogram up to date as of July 2024. - Advised to maintain a low-fat diet and regular exercise for cardiovascular health. - Recommended calcium and vitamin D supplementation for bone health. Social History - Alcohol consumption: Approximately four glasses of wine per week. - No current tobacco use. - Diet includes chicken, fish, vegetables, and fruits. - Limited physical activity due to knee issues. Review of Systems - General: Denies fever, nausea, or vomiting. - Cardiovascular: Denies chest pain or dyspnea. - Gastrointestinal: Denies heartburn with current medication regimen. - Genitourinary: Reports nocturia once per night. - Neurological: Denies dizziness or syncope. - Musculoskeletal: Reports knee stiffness and tenderness post-replacement. - ENT: Reports sinus congestion and facial pain. Physical Exam - Head and Neck: No pain on palpation, no visible swelling or deformities noted. - Ears: Scarring noted on eardrums, no pain on manipulation. - Oral Cavity: Good color, no lesions noted. - Musculoskeletal: Able to lift leg straight, scar from knee replacement noted to be well-healed. Results - Labs: Mild leukocytosis, normal blood count, elevated fasting blood sugar at 109 mg/dL, normal hemoglobin A1c, elevated triglycerides at 175 mg/dL, LDL at 54 mg/dL, mildly low B12 levels. - Imaging: Abdominal ultrasound in 2020 showed hepatic steatosis. Plan The patient will continue her current antihypertensive regimen of lisinopril and hydrochlorothiazide, with an emphasis on maintaining a low-fat diet and regular exercise to support cardiovascular health. For GERD, the patient will continue taking omeprazole 20 mg twice daily, as her symptoms are well-controlled. Management of hypercholesterolemia will continue with rosuvastatin 40 mg daily, aiming to maintain LDL cholesterol below 130 mg/dL and triglycerides below 150 mg/dL. The patient is advised to monitor her diet closely to manage triglyceride levels. For osteopenia, the patient is advised to continue calcium and vitamin D supplementation and to follow up with bone density assessments as recommended. The patient is encouraged to engage in weight-bearing exercises as tolerated. The patient will monitor her blood sugar levels and maintain a healthy diet to manage impaired glucose tolerance. Regular follow-up appointments will be scheduled to monitor her condition. For hepatic steatosis, the patient is advised to adhere to a low-fat diet and limit alcohol intake. Regular monitoring of liver function tests will be conducted to assess progression. The patient will continue using the diagnostic brace for her right knee and will follow up with orthopedics to determine the need for further intervention. Physical therapy may be considered to improve knee function and reduce stiffness. For sinusitis, the patient has been prescribed doxycycline and will monitor symptoms for improvement. Follow-up will be scheduled if symptoms persist or worsen. The patient is advised to take vitamin supplements as needed to address the deficiency. Dietary adjustments may also help improve levels. Patient was informed and verbally consented to the use of an ambient scribe for clinic note documentation during this visit. Discussion Notes During the visit, I discussed with the patient the management of her hypertension, emphasizing the importance of medication adherence and lifestyle modifications such as diet and exercise. We reviewed her GERD management plan, confirming that her current medication regimen is effective. I explained the significance of maintaining target cholesterol levels and advised dietary monitoring to manage triglycerides. For osteopenia, I recommended continued supplementation and follow-up assessments. We discussed the need for dietary management in light of her impaired glucose tolerance and hepatic steatosis, with a focus on reducing fat and alcohol intake. I advised her on the use of a diagnostic brace for her knee and the potential need for further orthopedic evaluation. For sinusitis, I prescribed doxycycline and instructed her to monitor her symptoms, with a follow-up if necessary. We also discussed the importance of addressing her vitamin B12 deficiency through supplementation and dietary adjustments. Patient Instructions - Continue taking lisinopril and hydrochlorothiazide as prescribed. - Maintain a low-fat diet and engage in regular exercise. - Take omeprazole 20 mg twice daily for GERD. - Continue rosuvastatin 40 mg daily for cholesterol management. - Monitor carbohydrate intake to manage blood sugar levels. - Follow a low-fat diet and limit alcohol intake for liver health. - Use the diagnostic brace for knee support and follow up with orthopedics. - Take doxycycline as prescribed for sinusitis and monitor symptoms. - Take vitamin B12 supplements as needed. Orders: Orders Thyroid Stimulating Hormone 6 Months K76.0 - Fatty (change of) liver, not elsewhere classified Vitamin D 25-OH Total 6 Months K76.0 - Fatty (change of) liver, not elsewhere classified Complete Blood Count Auto Diff 6 Months K76.0 - Fatty (change of) liver, not elsewhere classified Comprehensive Met. Panel 6 Months K76.0 - Fatty (change of) liver, not elsewhere classified Free T4 (Free Thyroxine) 6 Months K76.0 - Fatty (change of) liver, not elsewhere classified Lipid Panel 6 Months E78.00 - Pure hypercholesterolemia, unspecified, K76.0 - Fatty (change of) liver, not elsewhere classified Vitamin B12 and Folate 6 Months K76.0 - Fatty (change of) liver, not elsewhere classified Magnesium 6 Months K76.0 - Fatty (change of) liver, not elsewhere classified Medications: New doxycycline hyclate 100 mg PO BID 14 caps 0RF R09.81 - Nasal congestion Quality Reporting (2019) Depression/Bipolar (159/160/161/177) PHQ-9: Total score: 0 Coding Level of Care Code Medicare Subsequent (G0439) Diagnoses Annual wellness visit Z00.00 Essential hypertension I10 Hypertension type: essential hypertension Hypercholesterolemia E78.00 Impaired glucose tolerance R73.02 Osteopenia M85.80 GERD (gastroesophageal reflux disease) K21.9 Hepatic steatosis K76.0 Primary osteoarthritis of right knee M17.11 Laterality: right Osteoarthritis type: primary Sinus congestion R09.81 Additional Codes DEVAN-7 Assessment Billing - DEVAN-7 Assessment Tool: DEVAN-7 Assessment 05336 ([id number]) PHQ-9 - 08556 - PHQ-9 Billing: Yes ([id number])
--- OUTSIDE RECORDS SUMMARY | 2024-12-02 13:08 | XMS_ITS | Patient Health Record ---
[facility] [place] Address [address] [place] [address] Care Team Providers Care Physician Office Specialist Name Role Phone Nury Rubio Primary Care Provider Meredith Mar Unavailable [phone] Allergies Allergen (clinical drug ingredient) Drug/Non Drug Allergy documented on EMR Reaction Allergy Type Onset Date Status sulfamethoxazole / trimethoprim Bactrim Unknown Drug Allergy Active Penicillin Unknown Drug Allergy Active Reason For Referral No Information Medications Medication SIG (Take, Route, Frequency, Duration) Notes Start Date End Date Status hydroCHLOROthiazide 25 MG Oral; Duration: 90 Days Active Rosuvastatin Calcium 40 MG Oral; Duration: 90 Days Active Omeprazole 20 MG Oral; Duration: 90 Days Active Lisinopril 20 MG TAKE 1 TABLET BY SAGRARIO TH EVERY DAY Oral; Duration: 90 Days Active Social History Tobacco Use: [...] Status Risk Notes Problem Acquired hallux valgus (05936539) Hallux valgus (acquired), left foot (M20.12) Active confirmed Chronic problem, Worse (4) Problem Acquired hallux valgus ([id number]) Hallux valgus (acquired), right foot (M20.11) Active confirmed Plan Of Treatment No Information Insurance Providers Payer Name Payer Address Payer Phone Subscriber Number Group Number Insured Name Patient Relationship to Insured Coverage Start Date Coverage End Date [employer] [address] [place] [address] [phone] [id number] Mary Jane Valencia Self - patient is the insured Medical (General) History Medical History History ICD Code Cataracts High blood pressure Surgical History Surgery Date(Month/Year) Gall bladder removal
== END 2024-12-02 14:16 | disposition home or self-care (01) ==
LOC: HO.HMCH 12:17
PROVIDERS: PCP Internal Medicine; Visit Provider Internal Medicine
DX: Z00.00 Encounter for general adult medical examination without abnormal findings (principal); I10 Essential (primary) hypertension; E78.00 Pure hypercholesterolemia, unspecified; R73.02 Impaired glucose tolerance (oral); M85.80 Other specified disorders of bone density and structure, unspecified site; K21.9 Gastro-esophageal reflux disease without esophagitis; K76.0 Fatty (change of) liver, not elsewhere classified; M17.11 Unilateral primary osteoarthritis, right knee; R09.81 Nasal congestion

== ENCOUNTER → 2024-12-02 12:17 | Outpatient (BNVA) | payer MEDICARE, SELFPAY | PROVIDERS: PCP Internal Medicine; Visit Provider Internal Medicine | DX: Z00.00 Encounter for general adult medical examination without abnormal findings (principal); I10 Essential (primary) hypertension; E78.00 Pure hypercholesterolemia, unspecified; R73.02 Impaired glucose tolerance (oral); M85.80 Other specified disorders of bone density and structure, unspecified site; K21.9 Gastro-esophageal reflux disease without esophagitis; K76.0 Fatty (change of) liver, not elsewhere classified; M17.11 Unilateral primary osteoarthritis, right knee; R09.81 Nasal congestion; Z96.651 Presence of right artificial knee joint | CPT/HCPCS: 96127 ==

== ENCOUNTER 2025-03-29 10:19 | Outpatient (AMB) | payer MEDICARE, SELFPAY ==
--- NOTE | 2025-03-29 10:41 | A.OFFPC_ITS ---
Vital Signs 03/29/25 10:42 Height 5 ft 1 in Weight 130 lb BMI 24.6 BP 130/60 Blood Pressure Location Lt brachial Position Sitting Pulse 65 Pulse Source Pulse Oximeter Temp 96.9 F Temp Source Temporal Artery Scan Pulse Oximetry (%) 98 Oxygen Delivery Method Room Air Intake Visit Reasons: bowel changes Intake Note: Patient is here to follow up on Bowel changes. Telephone Supervisor Required: No Corporate Communications Specialist: Not Required per policy Accompanied by: Self / Same As Patient Allergies penicillamine (Cuprimine) Allergy (Unknown, Verified 03/29/25 10:42) Rash penicillin V Allergy (Unknown, Verified 03/29/25 10:42) Rash Penicillins (PENICILLINS) Allergy (Unknown, Verified 03/29/25 10:42) HIVES Sulfa (Sulfonamide Antibiotics) (SULFA (SULFONAMIDE ANTIBIOTICS)) Allergy (Unknown, Verified 03/29/25 10:42) HIVES sulfasalazine (Sulfazine) Allergy (Unknown, Verified 03/29/25 10:42) Rash Medication List - Last Reconciled 03/29/25 by Idalia Reyes MD ascorbate calcium (vitamin C) 500 mg PO DAILY aspirin 81 mg PO DAILY cholecalciferol (vitamin D3) 50 mcg PO DAILY fexofenadine (Suellen Allergy) 180 mg PO DAILY debbie (Zingiber officinalis) 1 g PO TID PRN hydrochlorothiazide 25 mg PO DAILY lisinopril 20 mg PO DAILY omega-3 acid ethyl esters 2 caps PO BID omeprazole 20 mg PO BID rosuvastatin 40 mg PO DAILY 90 days Tobacco use date assessed: 03/29/25 Fall risk assessment: No Falls in past year Last assessed Fall Risk: 03/29/25 Dental Screening Dental Screen Date: 03/29/25 Did you have a dental visit in the last 12 months?: Yes Did you have a dental problem in the last 6 months where you did not have access to dental care?: No Was dental information given to patient?: Patient has dentist HPI HPI Comments History of Present Illness Details The patient is a 75-year-old female presenting with gastrointestinal symptoms, primarily diarrhea. The diarrhea has been intermittent over the past month, often occurring after consuming certain foods such as tomatoes, dairy, and almonds. She reports no associated abdominal pain but experiences significant gas and urgency. The patient has a history of a perforated bowel, which occurred twice without a preceding ulcer. She denies any chronic gastrointestinal issues prior to this recent episode of diarrhea. The patient also reports a history of lactose intolerance, despite previous testing indicating otherwise. She avoids dairy products due to symptoms of diarrhea following consumption. Additionally, the patient underwent knee surgery approximately a year and four months ago, which has resulted in persistent lower back pain. She attributes this pain to changes in her gait post-surgery. [facility] Medical History Screening for hypothyroidism Arthralgia Pancreatic pseudocyst Hypercholesterolemia GERD (gastroesophageal reflux disease) Hypertension Vitamin D deficiency Finger osteomyelitis Peptic ulcer disease Surgical History Status post laparoscopic cholecystectomy History of ERCP (~2013) History of esophagogastroduodenoscopy (EGD) History of section Cholelithiasis Family History Brother CAD (coronary artery disease) Aneurysm Social History Household Members: Spouse Housing: House Do you presently have visiting nurse or other home services: No Alcohol intake: current Alcohol intake frequency: holidays/special occasions only Comment: one glass 4x a week Patient Tobacco Use Status: Former Tobacco user Tobacco use type: Cigarette Years Smoked: quit 1999 e-Cigarette/Vaping Use: Never Used Second Hand Smoke Exposure: Yes service: No Current occupational status: retired Cognitive needs: No Hearing needs: No Vision needs: Yes Questionnaire PHQ-9 Over the last 2 weeks, how often have you been bothered by any of the following problems? 1. Little interest or pleasure in doing things: not at all 2. Feeling down, depressed, or hopeless: not at all 3. Trouble falling or staying asleep, or sleeping too much: not at all 4. Feeling tired or having little energy: not at all 5. Poor appetite or overeating: not at all 6. Feeling bad about yourself - or that you are a failure or have let yourself or your family down: not at all 7. Trouble concentrating on things, such as reading the newspaper or watching television: not at all 8. Moving or speaking so slowly that other people could have noticed. Or the opposite - being so fidgety or restless that you have been moving around a lot more than usual: not at all 9. Thoughts that you would be better off or of hurting yourself in some way: not at all Total score: 0 Depression Screening Interpretation: Negative Depression Screening Done: Yes Source: Developed by Drs. Levi Sage, Georgia Mahoney, Melo Mooney and colleagues, with an educational izzy from [employer]. Thrive Questionnaire Date Thrive assessed: 12/02/24 I am a: Patient What is your living situation today?: I have a steady place to live Within the past 12 months, did the food you bought not last and you didn't have the money to get more?: I choose not to answer this question Within the past 12 months, did you worry whether your food would run out before you got money to buy more?: I choose not to answer this question Do you have trouble paying for medicines?: I choose not to answer this question Do you have trouble getting transportation to medical appointments?: No Do you have trouble paying your heating and electricity bill?: I choose not to answer this question Do you have trouble taking care of your child, family member or friend?: I choose not to answer this question Do you have trouble with day-to-day activities such as bathing, preparing meals, shopping, managing finances, etc.?: I choose not to answer this question Are you currently unemployed and looking for a job?: I choose not to answer this question Are you interested in more education?: I choose not to answer this question Please select the resources that you would like help with: None Currently or been in a relationship where the following occur: I choose not to answer THRIVE Score: 0 AUDIT C Alcohol Use Questionnaire (AUDIT-C) 1. How often do you have a drink containing alcohol?: 2-3 times a week 2. How many drinks containing alcohol do you have on a typical day when you are drinking?: 1 or 2 3. How often do you have six or more drinks on one occasion?: Never Total Score: 3 DEVAN-7 AMB Questionnaire DEVAN-7 Date DEVAN - 7 assessed: 12/02/24 Feeling nervous, anxious, or on edge: 0 = Not at all Not being able to stop or control worryin = Not at all Worrying too much about different things: 0 = Not at all Trouble relaxin = Not at all Being so restless that it is hard to sit still: 0 = Not at all Becoming easily annoyed or irritable: 0 = Not at all Feeling afraid as if something awful might happen: 0 = Not at all Total DEVAN-7 score (0-4 normal; 5-9 mild; 10-14 moderate; 15-21 severe): 0 Source: Developed by Drs. Levi Sage, Georgia Mahoney, Melo Mooney and colleagues, with an educational izzy from [employer]. Review of Systems Const Details: Not done Physical exam (Primary Care) Vital Signs: Last Vital Signs Temp 96.9 F 03/29/25 10:42 Pulse 65 03/29/25 10:42 BP 130/60 03/29/25 10:42 Pulse Ox 98 03/29/25 10:42 Oxygen Delivery Method Room Air 03/29/25 10:42 BMI result Body Mass Index 24.6 Tobacco/Smoking Status: Tobacco use Status Tobacco use date assessed 03/29/25 03/29/25 10:51 Patient Tobacco Use Status Former Tobacco user 03/29/25 10:51 Tobacco use type Cigarette 03/29/25 10:51 e-Cigarette/Vaping Use Never Used 03/29/25 10:51 PHQ-9: PHQ-9 Score PHQ-9: Total score 0 03/29/25 10:51 Depression Screening Interpretation: Negative Thrive Assessment: Date of Thrive Assessment Date Thrive assessed 12/02/24 03/29/25 10:51 Currently or been in a relationship where the following occur: I choose not to answer Const Other: Pertinent findings are in BOLD GENERAL APPEARANCE NAD, activity normal for age, well developed/ well nourished, no cyanosis, pallor, or diaphoresis. EYES lids/conjunctiva normal. EARS/NOSE/THROAT Mucous membranes moist, nares normal, lips/teeth normal uvula midline without oral pharyngeal erythema, exudate or swelling TMs normal bilaterally. No lymphangitis/lymphedema. HEAD/NECK normocephalic atraumatic, no facial trauma, neck is supple. RESPIRATORY respiratory effort normal, speaks in full sentences, no tripod position, no accessory muscle use. Lungs clear to auscultation without rhonchi, wheezes, rales CARDIAC Regular rate and rhythm, no edema. ABDOMINAL Soft, ND/NT. No evidence of fluid wave. No pulsatile masses on exam, rebound tenderness, Whyte sign or pain over Mcburney's point. MUSCLES/EXTREMITIES No abnormal range of motion, no swelling. SKIN Warm, pink and dry. No rashes, dermatoses, petechiae or lesions. NEUROLOGICAL Speech is clear and appropriate. Normal level of consciousness. Gait and coordination are normal. 5/5 strength in all extremities. PSYCH Normal mood and affect. Judgement/competence is appropriate Coding Level of Care Code Est Pt Level 3 (57481) Diagnoses Irritable bowel syndrome with diarrhea K58.0 Irritable bowel syndrome type: with diarrhea Time Spent (min) 20 Assessment & Plan Assessment & Plan (1) IBS (irritable bowel syndrome): Code(s): K58.9 - Irritable bowel syndrome, unspecified Category: Medical Qualifiers: Irritable bowel syndrome type: with diarrhea Qualified Code(s): K58.0 - Irritable bowel syndrome with diarrhea Plan: Rifaximin 550 mg TID for 7 days. Advised patient to keep a diary of her symptoms/ food to know her triggers. Imodium PRN for diarrhea. Okay for Metamucil. Patient will be due for colonoscopy in 2027. Patient will discuss with Dr. Rubio about her next scheduled colonoscopy. Plan I discussed with the patient the likely diagnosis of irritable bowel syndrome and the importance of identifying dietary triggers through a food diary. We also talked about the use of rifaximin and imodium to manage diarrhea. We also talked about potentially getting her colonscopy ahead of schedule after discussing with Dr. Rubio. Medications: New rifaximin 550 mg PO TID 21 tabs 0RF loperamide (Imodium A-D) 2 mg PO Q6H PRN 10 caps 0RF loose stool
[2025-03-29 10:42] VITALS: BP 130/60; PULSE 65; TEMP 36.1; O2SAT 98; BMI 24.6
--- OUTSIDE RECORDS SUMMARY | 2025-03-29 12:48 | XMS_ITS | Patient Health Record ---
Author Organization [facility] Address [address] [place] [id number] Care Team Providers Care Candy Maker Helper Name Role Phone Nury Rubio MD Primary Care Provider Levi Castro [phone] Allergies Allergen (clinical drug ingredient) Drug/Non Drug Allergy documented on EMR Reaction Allergy Type Onset Date Status Sulfa Unknown Drug Allergy Active Penicillin Unknown Drug Allergy Active Reason For Referral No Information Medications Medication SIG (Take, Route, Frequency, Duration) Notes Start Date End Date Status Rosuvastatin Calcium 40 MG TAKE 1 TABLET BY MOUTH EVERY DAY Oral; Duration: 90 Active Ondansetron 4 MG 1 tablet on the tongue and allow to dissolve Orally Every 4 to 6 hours as needed for nausea; Duration: 30 day(s) 02/25/2023 Active Seusy-0-brcf Ethyl Esters 1 GM TAKE 2 CA PSULES BY MOUTH TWICE A DAY FOR 90 DAYS Oral; Duration: 90 Active Multi Vitamin/Minerals - 1 Orally [...] 1 tablet Orally Once a day Active Immunizations Vaccine Route Administration Date Status Comme nts Flu vaccine no Preserv 3 and > Unknown 04/14/2017 Admin istered Problems Problem Type SNOMED Code ICD Code Onset Dates Problem Status W/U Status Risk Notes Problem Screening for malignant neoplasm of colon (051247136) Encounter for screening for malignant neoplasm of colon (Z12.11) Active confirmed Problem Irritable bowel syndrome with diarrhea (728403482) Irritable bowel syndrome with diarrhea (K58.0) Active confirmed Problem Nausea (752174248) Nausea (R11.0) Active confirmed Problem Epigastric pain (85900568) Abdominal pain, epigastric (R10.13) Active confirmed Problem Peptic ulcer disease (56247320) Peptic ulcer disease (K27.9) Active confirmed Problem Pre-procedure evaluation check (280782906) Pre-procedural examination (Z01.818) Active confirmed Problem Diarrhea (56805881) Diarrhea, unspecified type (R19.7) Active confirmed Plan Of Treatment Pending Test Test Name Order Date LIVER [...] Insured Coverage Start Date Coverage End Date [facility] [place] [address] [place], [place] [id number] DELVIS JOYCE Self - patient is the insured Medical (General) History Medical History History ICD Code Colonoscopy 01-24-2008--[place] except for mild diverticulosis and internal hemorrhoids Hyperlipidemia Denies FL,DM,CVA,Lung disease,renal dise ase Perforated duodenal ulcer in 2010--treated at [facility]-no surgery required--she had been on ASA and [...] without any worrisome findings otherwise Hospitalized at [facility] in 10/2016 for possible recurrent ulcer [...]
--- OUTSIDE RECORDS SUMMARY | 2025-03-29 12:48 | XMS_ITS | Patient Health Record ---
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 Helper Name Role Phone Nury Rubio Primary Care Provider Meredith Mar Unavailable [phone] Allergies Allergen (clinical drug ingredient) Drug/Non Drug [...] Status Risk Notes Problem Acquired hallux valgus (95830874) Hallux valgus (acquired), left foot (M20.12) Active confirmed Chronic problem, Worse (4) Problem Acquired hallux valgus (07583995) Hallux valgus (acquired), right foot (M20.11) Active confirmed Plan Of Treatment No Information Insurance Providers Payer Name Payer Address Payer Phone Subscriber Number Group Number Insured Name Patient Relationship to Insured Coverage Start Date Coverage End Date [employer] [address] [place] [address] [phone] [id number] Mary Jane Valencia Self - patient is the insured Medical (General) History Medical History History ICD Code Cataracts High blood pressure Surgical History Surgery Date(Month/Year) Gall bladder removal
== END 2025-03-29 12:18 | disposition home or self-care (01) ==
LOC: HO.HMCH 10:20
PROVIDERS: PCP Internal Medicine; Visit Provider Internal Medicine
DX: K58.0 Irritable bowel syndrome with diarrhea (principal)

== ENCOUNTER → 2025-03-29 10:19 | Outpatient (BNVA) | payer MEDICARE, SELFPAY | PROVIDERS: PCP Internal Medicine; Visit Provider Internal Medicine | DX: K58.0 Irritable bowel syndrome with diarrhea (principal); M54.50 Low back pain, unspecified | CPT/HCPCS: 96127; 99212 ==

== ENCOUNTER 2025-03-31 14:30 | Emergency (ER) | payer MEDICARE, SELFPAY ==
--- NOTE | ~2025-03-31 | XR_ITS ---
EXAMINATION: XR CHEST CLINICAL INFORMATION: cp COMPARISON: 06/13/2023. TECHNIQUE: 2 views of the chest were obtained. FINDINGS: The cardiac, hilar, and mediastinal contours are normal. Aortic mural calcifications. The lungs are clear bilaterally. There is no pneumothorax or pleural effusion. There is no focal osseous or soft tissue abnormality. XR/XR chest 2V IMPRESSION: No active pulmonary disease. Electronically signed by: Will Mosquera MD 03/31/2025 03:21 PM EDT
--- NOTE | 2025-03-31 14:33 | ECG_ITS ---
Test Reason : chest pain Blood Pressure : */* mmHG Vent. Rate : 78 BPM Atrial Rate : 78 BPM P-R Int : 154 ms QRS Dur : 62 ms QT Int : 380 ms P-R-T Axes : 54 5 42 degrees QTcB Int : 433 ms Normal sinus rhythm Low voltage QRS Borderline ECG When compared with ECG of 05-Jun-2021 12:58, Minimal criteria for Inferior infarct are no longer Present Referred By: Amirah Hickman Electronically Signed By: KAREN ALCAZAR MD
--- NOTE | 2025-03-31 14:55 | ED.CHESTPAIN ---
HPI - Chest Pain General Chief Complaint: Chest Pain Stated Complaint: Chest Pain Time Seen by Provider: 03/31/25 17:39 Source: patient, RN notes reviewed and old records reviewed Mode of arrival: ambulatory Limitations: no limitations History of Present Illness ED Provider: Fuad EDOUARD narrative: Patient is a 75-year-old female presenting to the emergency department with complaint of chest pain for the past 2 days after receiving her flu shot. States her pain was initially soreness and mild. She went bowling this morning and afterwards in the car she felt the pain increased. Denies any dyspnea, palpitations, dizziness or lightheadedness. Took Tylenol this morning with some improvement in pain. Pain is worse with movement and palpation. Denies any nausea or vomiting. MD complaint: chest pain Related Data Home Medications ?Medication ?Instructions ?Recorded ?Confirmed ascorbate calcium (vitamin C) 500 500 mg PO DAILY 05/23/21 03/29/25 mg tablet cholecalciferol (vitamin D3) 50 50 mcg PO DAILY 05/23/21 03/29/25 mcg (2,000 unit) capsule omega-3 acid ethyl esters 1 gram 2 cap PO BID 06/06/24 03/29/25 capsule aspirin 81 mg tablet 81 mg PO DAILY 12/02/24 03/29/25 debbie (Zingiber officinalis) 500 1 g PO TID PRN 12/02/24 03/29/25 mg capsule Previous Rx's ?Medication ?Instructions ?Recorded fexofenadine 180 mg tablet 180 mg PO DAILY #30 tabs 03/17/23 (Suellen Allergy) rosuvastatin 40 mg tablet 40 mg PO DAILY 90 days #90 tabs 05/01/24 lisinopril 20 mg tablet 20 mg PO DAILY #90 tabs 11/18/24 hydrochlorothiazide 25 mg tablet 25 mg PO DAILY #90 tabs 11/22/24 omeprazole 20 mg capsule,delayed 20 mg PO BID #180 caps 12/22/24 release loperamide 2 mg capsule (Imodium 2 mg PO Q6H PRN loose stool #10 03/29/25 A-D) caps rifaximin 550 mg tablet 550 mg PO TID #21 tabs 03/29/25 Allergies Allergy/AdvReac Type Severity Reaction Status Date / Time penicillamine (Cuprimine) Allergy Unknown Rash Verified 03/31/25 14:58 penicillin V Allergy Unknown Rash Verified 03/31/25 14:58 Penicillins (PENICILLINS) Allergy Unknown HIVES Verified 03/31/25 14:58 Sulfa (Sulfonamide Allergy Unknown HIVES Verified 03/31/25 14:58 Antibiotics) (SULFA (SULFONAMIDE ANTIBIOTICS)) sulfasalazine (Sulfazine) Allergy Unknown Rash Verified 03/31/25 14:58 Review of Systems Review of Systems: as per hpi Yes all other systems are reviewed and are negative Constitutional: Constitutional: Reports as per HPI [facility] Past Medical History Medical History Screening for hypothyroidism Arthralgia Pancreatic pseudocyst Hypercholesterolemia GERD (gastroesophageal reflux disease) Hypertension Vitamin D deficiency Finger osteomyelitis Peptic ulcer disease Surgical History Status post laparoscopic cholecystectomy History of ERCP (~2013) History of esophagogastroduodenoscopy (EGD) History of section Cholelithiasis Family History Family History Brother CAD (coronary artery disease) Aneurysm Social History Social History Household Members: Spouse Housing: House Do you presently have visiting nurse or other home services: No Alcohol intake: current Alcohol intake frequency: holidays/special occasions only Comment: one glass 4x a week Patient Tobacco Use Status: Former Tobacco user Tobacco use type: Cigarette Years Smoked: quit 1999 e-Cigarette/Vaping Use: Never Used Second Hand Smoke Exposure: Yes Advance Directives: Yes Advance Directives on File: Yes Advance Directives Date on File: 12/02/24 service: No Current occupational status: retired Cognitive needs: No Hearing needs: No Vision needs: Yes Physical Exam Vital Signs: Vital Signs: Last Vital Signs Temp 97.6 F 03/31/25 14:56 Pulse 72 03/31/25 14:56 Resp 16 03/31/25 14:56 BP 174/70 H 03/31/25 14:56 Pulse Ox 98 03/31/25 14:56 O2 Del Method Room Air 03/31/25 14:56 BMI result Body Mass Index 24.6 Vital signs have been reviewed and appear to be correct. Blood pressure elevated. Heart rate normal. Respiratory rate normal. Temperature normal. Oxygen saturation normal. Const: General: cooperative, healthy appearing and no acute distress Orientation/consciousness: oriented to person, oriented to place, oriented to time and patient oriented x3 Limitations: no limitations HEENT: Head: Yes normocephalic and Yes atraumatic Ears: external ears normal General nose exam: Normal external nose present Face and sinus: Yes face symmetric Mouth: oropharynx normal and moist mucous membranes Throat: Yes uvula midline Eyes: Pupils: Equal, round and reactive pupils present Neck: Neck: Yes normal visual inspection and Yes supple Chest: Chest palpation & inspection: normal inspection of the chest and tenderness pectoral muscle bilaterally diffusely Resp: Effort & Inspection: normal respiratory effort and able to speak in complete sentences Auscultation: clear to auscultation bilaterally Cardio: Rate: regular rate Rhythm: regular rhythm Heart sounds: S1 normal heart sound present and S2 normal heart sound present GI: Palpation (GI): Soft to palpation and nontender Auscultation: normoactive bowel sounds : General: Yes no CVA tenderness Back/Spine/Pelvis: Back: no CVA tenderness Skin: General skin exam: elasticity normal and turgor normal Neuro: General: oriented to person, oriented to place, oriented to time, patient oriented x3, moves all extremities, no focal motor deficits and CN's II-XI intact bilaterally Cranial nerves: Yes Equal, round and reactive pupils present Cognition (Neuro): normal cognition Extrem: General: Yes full ROM, Yes no pedal edema and Yes no calf tenderness Psych: Mental Status: mental status grossly normal Affect: normal affect Thought process: Normal thought process present Course Course Course Narrative: Amirah Hickman APRN 03/31/25 0607 This is a rapid medical exam. deferred additional HPI, ROS, PE to primary provider. 75 yo female with PMH of GERD, HLD, HTN, PUD, duodenal ulcer rupture,here with complaints of chest soreness x several days. Will obtain labs, EKG, CXR VSS Medical Decision Making Medical Decision Making MDM Narrative: Patient is a 75-year-old female presenting to the emergency department with complaint of chest pain for the past 2 days after receiving her flu shot. On exam patient is awake, A+Ox3, VS WNL, afebrile, normal neurological exam without focal deficits, physical exam findings as above. Given reported symptoms and physical exam findings, initial differential includes but is not limited to musculoskeletal pain, adverse reaction to flu shot, costochondritis, GERD. Labs notable for no leukocytosis, no anemia, no significant electrolyte abnormalities, negative troponin. X-ray chest unremarkable, no evidence of pneumonia or pneumothorax. My interpretation is in agreement with the radiologist's interpretation. EKG shows normal sinus rhythm. Given that pain is reproducible upon palpation, feel likely due to musculoskeletal cause, unlikely ACS. Results discussed with patient and all questions answered. Advised Tylenol or ibuprofen as needed for discomfort. Follow up with PCP as needed. Return precautions discussed. Patient verbalized understanding of and agreement with plan. Differential Diagnosis Differential Diagnoses: The differential diagnosis associated with the presentation includes as per [facility] Admission/Observation Consideration of admission/observation: Escalation of care including admission/observation considered Patient would have been admitted to the hospital and transferred to appropriate facility had their clinical presentation warranted hospital admission. Lab Data [facility] Lab Attestation statement: I reviewed the patient's lab results. as per [facility] 03/31/25 15:12 03/31/25 15:12 Labs: Lab Results 03/31/25 Range/Units 15:12 WBC 9.5 (4.8-10.8) X10*3/uL RBC 4.38 (4.20-5.50) X10*6/uL Hgb 13.5 (12.0-16.0) g/dl Hct 40.1 (37.0-47.0) % MCV 91.6 (80.0-98.0) fL MCH 30.8 (27.0-33.0) pg MCHC 33.7 (31.0-35.0) g/dl RDW 12.4 (11.0-16.0) % Plt Count 223 (160-400) X10*3/uL MPV 9.8 (9.4-12.3) fL Immature Gran % (Auto) 0.5 H (0.0-0.4) % Neut % (Auto) 63.7 (45-73) % Lymph % (Auto) 26.1 (20-40) % Overton % (Auto) 7.4 (2-11) % Eos % (Auto) 2.0 (0-4) % Baso % (Auto) 0.3 (0-2) % Lymph # (Auto) 2.5 (1.2-4.9) X10*3/uL Overton # (Auto) 0.7 (0.1-1.2) X10*3/uL Eos # (Auto) 0.2 (0.0-0.4) X10*3/uL Baso # (Auto) 0.0 (0.0-0.2) X10*3/uL Abs Immat Gran (auto) 0.05 H (0.00-0.03) X10*3/uL Absolute Neuts (auto) 6.0 (2.0-8.3) x10*3/uL Absolute Nucleated RBC 0.000 (0.0-0.012) X10*3/uL Nucleated RBC % (auto) 0.0 (0.0-0.2) /100WBC Sodium 142 (135-145) mmol/L Potassium 3.6 (3.3-5.1) mmol/L Chloride 106 (96-108) mmol/L Carbon Dioxide 30 H (22-29) mmol/L Anion Gap 10 L (12-20) BUN 24 H (9-16) mg/dL Creatinine 0.76 (0.5-1.4) mg/dL Estim Creat Clear Calc 54.4 Estimated GFR > 60 Random Glucose 130 H (60-115) mg/dL Calcium 9.7 (8.4-10.2) mg/dL Total Bilirubin 0.3 (0.0-1.0) mg/dL Direct Bilirubin 0.1 (0.0-0.5) mg/dL AST 35 H (5-31) U/L ALT 33 H (0-31) U/L Alkaline Phosphatase 104 (39-117) U/L Troponin I High Sens < 2.7 (<3.5-17.0) ng/L Total Protein 7.2 (6.5-8.0) g/dL Albumin 4.7 (3.5-5.0) g/dL Lipase 23 (8-78) U/L Independent Interpretation I performed an independent interpretation of an: EKG (normal sinus rhythm, rate 78bpm, normal OK interval and QTc) and Plain X-Ray Interpretation: Chest x-ray without evidence of pneumonia or pneumothorax. Radiology Impression Discussion of test interpretation with radiology: I have reviewed the radiologist's reading. Radiologist Impression: XR/XR chest 2V IMPRESSION: No active pulmonary disease. External Record Review External record reviewed: Inpatient record, Office record and Outpatient record Discharge Plan Discharge Clinical Impression: Atypical chest pain Patient Disposition: Home, Self-Care Instructions: Chest Pain (DC), Noncardiac Chest Pain (ED) Additional Instructions: You were evaluated in the emergency department today for chest pain. Your evaluation has shown no signs of medical conditions requiring emergent intervention at this time. Your chest pain was reproducible indicating that it is likely due to a musculoskeletal cause. It is possible this is from your recent flu shot. We recommend that you use Tylenol or ibuprofen per package instructions for pain. Return to the emergency department if you experience worsening or uncontrolled chest pain, shortness of breath, lightheadedness, feeling faint, loss of consciousness, nausea, vomiting, or any other concerning symptoms. Prescriptions: No Action fexofenadine [Suellen Allergy] 180 mg tablet 180 mg PO DAILY Qty: 30 0RF rosuvastatin 40 mg tablet 40 mg PO DAILY 90 Days Qty: 90 3RF lisinopril 20 mg tablet 20 mg PO DAILY Qty: 90 2RF hydrochlorothiazide 25 mg tablet 25 mg PO DAILY Qty: 90 3RF omeprazole 20 mg capsule,delayed release(DR/EC) 20 mg PO BID Qty: 180 0RF cholecalciferol (vitamin D3) 50 mcg (2,000 unit) capsule 50 mcg PO DAILY ascorbate calcium (vitamin C) 500 mg tablet 500 mg PO DAILY omega-3 acid ethyl esters 1 gram capsule 2 cap PO BID aspirin 81 mg tablet 81 mg PO DAILY debbie (Zingiber officinalis) 500 mg capsule 1 g PO TID PRN rifaximin 550 mg tablet 550 mg PO TID Qty: 21 0RF loperamide [Imodium A-D] 2 mg capsule 2 mg PO Q6H PRN (Reason: loose stool) Qty: 10 0RF Print Language: Other
[2025-03-31 14:56] VITALS: BP 174/70; PULSE 72; RESP 16; TEMP 36.4; O2SAT 98; BMI 24.6
[2025-03-31 15:15] LABS: MANUAL DIFF FLAG NO
[2025-03-31 15:21] LABS: Hematocrit 40.1 % (37.0-47.0); Hemoglobin 13.5 g/dl (12.0-16.0); Imm Gran Abs Auto 0.05 X10*3/uL (0.00-0.03); Imm Gran Pct Auto 0.5 % (0.0-0.4); Lymphocytes Absolute Auto 2.5 X10*3/uL (1.2-4.9); Mean Corpuscular HGB Conc 33.7 g/dl (31.0-35.0); Mean Corpuscular Hemoglobin 30.8 pg (27.0-33.0); Mean Corpuscular Volume 91.6 fL (80.0-98.0); NRBC Abs Auto 0.000 X10*3/uL (0.0-0.012); NRBC Pct Auto 0.0 /100WBC (0.0-0.2); Platelet Count 223 X10*3/uL (160-400); Red Blood Count 4.38 X10*6/uL (4.20-5.50); White Blood Count 9.5 X10*3/uL (4.8-10.8)
[2025-03-31 15:33] LABS: Alanine Aminotransferase 33 U/L (0-31); Albumin Level 4.7 g/dL (3.5-5.0); Alkaline Phosphatase 104 U/L (39-117); Anion Gap 10 (12-20); Aspartate Amino Transferase 35 U/L (5-31); Blood Urea Nitrogen 24 mg/dL (9-16); Calcium 9.7 mg/dL (8.4-10.2); Carbon Dioxide 30 mmol/L (22-29); Chloride 106 mmol/L (96-108); Creatinine Clr Calc Pharmacy 54.4; Estimated Glomerular Filt Rate > 60; Lipase 23 U/L (8-78); Potassium 3.6 mmol/L (3.3-5.1); Sodium 142 mmol/L (135-145); Total Protein 7.2 g/dL (6.5-8.0)
[2025-03-31 15:49] LABS: Troponin-I High Sensitivity < 2.7 ng/L (<3.5-17.0)
--- OUTSIDE RECORDS SUMMARY | 2025-03-31 17:30 | XMS_ITS | Data Portability ---
Author Organization [facility] [email or web address] Address [address] [place] [address] Assessment No assessment recorded. Plan of Treatment [...] Diagnosis SNOMED-CT Code Diagnosis ICD10 Code Diagnosis IMO Codes Diagnosis Note [id number] [facility] [address] [place] [phone] 04/14/2017 17:41:32 04/14/2017 19:01:19 Health Concerns Section Related Observation LastModified by Organization Detai ls LastModified Time None Recorded Concern Status LastModified by Organization Details LastModified Time None Recorded Advance Directives Directive None Recorded Payers Insurance Date Sequence Insurance Name Policy Number Policy Ivy Covered Member ID Ivy Member ID Guarantor Name 08/28/2022 1 BCBS-ID: [employer] Shania Valencia [id number] Mary Jane Valencia 08/28/2022 1 [employer] (MEDICARE REPLACEMENT/ ADVANTAGE - PPO) [id number] Mary Jane Valencia [id number] Mary Jane Valencia OBGyn Episode No OBEpisode recorded.
--- OUTSIDE RECORDS SUMMARY | 2025-03-31 17:30 | XMS_ITS | Patient Health Record ---
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 Driver Supervisor Name Role Phone Nury Rubio MD Primary Care Provider Levi Castro [phone] Allergies Allergen (clinical drug ingredient) Drug/Non Drug [...] for nausea; Duration: 30 day(s) 02/25/2023 Active [id number] Ethyl Esters 1 GM TAKE 2 CA [...] Problem Screening for malignant neoplasm of colon (582740653) Encounter for screening for malignant neoplasm of colon (Z12.11) Active confirmed Problem Irritable bowel syndrome with diarrhea (957678031) Irritable bowel syndrome with diarrhea (K58.0) Active confirmed Problem Nausea (029181822) Nausea (R11.0) Active confirmed Problem Epigastric pain (40202052) Abdominal pain, epigastric (R10.13) Active confirmed Problem Peptic ulcer disease (42532740) Peptic ulcer disease (K27.9) Active confirmed Problem Pre-procedure evaluation check (651128001) Pre-procedural examination (Z01.818) Active confirmed Problem Diarrhea (71314351) Diarrhea, unspecified type (R19.7) Active confirmed Plan [...] Insured Coverage Start Date Coverage End Date [facility] [address] [place], [place] [id number] DELVIS JOYCE Self - patient is the insured Medical (General) History Medical History History ICD Code Colonoscopy 01-24-2008--[place] except for mild diverticulosis and internal hemorrhoids Hyperlipidemia Denies ME,DM,CVA,Lung disease,renal dise ase Perforated duodenal ulcer in 2010--treated at [facility]-no surgery required--she had been on [...] without any worrisome findings otherwise Hospitalized at [facility] in 10/2016 for possible recurrent ulcer [...]
--- OUTSIDE RECORDS SUMMARY | 2025-03-31 17:30 | XMS_ITS | Patient Health Record ---
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 Name Role Phone Nury Rubio Primary Care Provider Meredith Mar Unavailable [phone] Allergies Allergen (clinical drug ingredient) Drug/Non Drug [...] Status Risk Notes Problem Acquired hallux valgus (33738900) Hallux valgus (acquired), left foot (M20.12) Active confirmed Chronic problem, Worse (4) Problem Acquired hallux valgus (41639302) Hallux valgus (acquired), right foot (M20.11) Active confirmed Plan Of Treatment No Information Insurance Providers Payer Name Payer Address Payer Phone Subscriber Number Group Number Insured Name Patient Relationship to Insured Coverage Start Date Coverage End Date [employer] [address] [place] [address] [id number] Mary Jane Valencia Self - patient is the insured Medical (General) History Medical History History ICD Code Cataracts High blood pressure Surgical History Surgery Date(Month/Year) Gall bladder removal
--- OUTSIDE RECORDS SUMMARY | 2025-03-31 17:31 | XMS_ITS | Data Portability ---
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 Status post total knee arthroplasty. No evidence of complication, well fixed, well aligned. There is no evidence of loosening or migration. There is no evidence of osteolysis. No fractures are present. Alignment: Neutral Impression: Painful right total knee arthroplasty, 1 year out Plan: I think the next most reasonable diagnostic step to evaluate for possible mechanical cause of her pain in her knee replacement would be to order a hinged knee brace. I want her to use this intermittently, for a day or more at a time, and I want her to follow up with me in 2 months to give me a report of what her symptoms did in response to the use versus non-use of the hinged knee brace. If she finds that her pain is dramatically improved with the use of a hinged knee brace, that suggests instability as a potential cause of her pain. I think most likely is nerve related pain, given her distribution in the region of the recurrent infrapatellar branch of the saphenous nerve. She did not have a positive response to Tinel's maneuver today but that is not necessarily exclude neuroma as a cause of her pain. I am going to refer her both [facility] to evaluate her back for a possible right lower extremity lumbar radiculopathy, as well as to pain management to be evaluated for possible nerve ablation. I will see her back in 2 months [email or web address] Not available 11/01/2024 16:03:20 01/03/2025 01/03/2025 Mary Jane follows up today for repeat evaluation of her right knee. At her last visit, we had essentially exhausted or diagnostic workup options and I recommended she trial a hinged knee brace to try to suss out whether some subclinical instability may be contributing to her pain. She follows up today and states that she only use the knee brace for a few days, she did feel like it helps slightly but was also very bulky and uncomfortable to wear in the summer. She asked about further options of investigation for her knee, I advised her that I am pretty much out of things to try or think about this point. We did talk briefly about going to pain management for nerve ablation, but ultimately decided that it would probably be in her best interest to really give the knee brace a genuine try and to really focus on its impacts on her pain and less on how the brace itself actually feels. She is going to follow up with me in late February to review the results of this. [email or web address] Not available 01/03/2025 16:16:23 03/16/2025 03/16/2025 Dixie followed up today for a repeat postoperative check. Today's visit was approximately 15 minutes in duration, she spent the last 2 months giving the brace a good J Effort and she states that she is fairly certain at this point of the brace seems to make her knee pain worse. She is at the same time stating today that her knee does feel like it starting to get that her, and she can now wear flip-flops where she could not previously and is continuing to experience improvement in her symptoms. She is happy with his improvement and does not wish to do anything else with her knee at this point She has developed some low back pain especially when getting up out of a chair, I advised her that this is very treatable and could improved with a lumbar strengthening and stabilization program, I wrote her today a prescription for physical therapy to this effect with instructions to teach a home exercise program for her. She may follow up with me as needed Not available 03/16/2025 15:52:02 Plan of Treatment Reminders Order Date Submit Date Provider Last Modified By Organization Details Last Modified Time Details Appointments None recorded. Lab None recorded. Referral physical therapist referral - Lumbar Back Pain Strengthe amgdiel and stabiliza tion Program. Teach at-home exercises per dr.brothe dickinson 2024 meme [facility] [place], [address], [place], [address], 15:18:58 pain managemen t referral 2024 025 meme [facility], [address], [place], [address], 07:20:15 pain managemen t referral 2024 025 meme [facility], [address], [address], [place], [address], 07:20:15 Procedures None recorded. Surgeries None recorded. Imaging MRI, knee, w/o contrast - MARS protocol hx RTKR. R lower extremety radiculop athy 2024 025 [place] [place], [address], [address], [place], [address], 5 22:18:08 XR, knee, 3 view - F/U RTKR 10/2023 AB room 203 [facility], [address], [address], [place], [address], 5 07:20:15 XR, knee, 3 view - rm 208 3V right knee pain. S/P RTKR 10/29 AB 2024 025 [facility], [address], [address], [place], [address], 5 12:13:47 Medication Orders gabapenti n 100 mg capsule 2024 025 [facility][id number], [address] [facility] [place], [address], 14:55:10 Patient TargetsNo targets recorded. Patient InstructionsNo instructions recorded. Reason for Referral Pain Management Referral for Radicular pain Right lower extremity Radiculopathy Referring Physician: Felix Carr, Orthopedic Surgery, Encounter Date: 11/01/2024 Pain Management Referral for Radicular pain Referring Physician: Felix Carr Orthopedic Surgery, Encounter Date: 11/01/2024 Physical Therapist Referral for Low back pain Lumbar Back Pain Strengthening and stabilization Program. Teach at-home exercises per . Referring Physician: Felix Carr Orthopedic Surgery, Encounter Date: 03/16/2025 Results Created Date Observation Date Name Description Value Unit Range Abnormal Flag Note LastModifiedBy Organization Detail LastModifiedTime 10/22/1910/21/2024 CBC WITH DIFFE RENTI AL/PL ATELE T WBC 9.7 K/mm3 4.0-11 .0 normal Not Available [address], [address], 10/21/2024 17:22:22 10/22/1910/21/2024 CBC WITH DIFFE RENTI AL/PL ATELE T RBC 4.22 M/mm3 4.20-5 .40 normal Not Available [address], [address], 10/21/2024 17:22:22 10/22/1910/21/2024 CBC WITH DIFFE RENTI AL/PL ATELE T hemoglobin 13.4 gm/dL 11.7-1 5.5 normal Not Available [address], [address], 10/21/2024 17:22:22 10/22/19 25 10/21/2024 CBC WITH DIFFE RENTI AL/PL ATELE T hematocrit 40.1 % 35.7-4 5.8 normal Not Available [address], [address], 10/21/2024 17:22:22 10/22/19 25 10/21/2024 CBC WITH DIFFE RENTI AL/PL ATELE T MCV 95.0 fL 80.0-1 00.0 normal Not Available [address], [address], 10/21/2024 17:22:22 10/22/19 25 10/21/2024 CBC WITH DIFFE RENTI AL/PL ATELE T MCH 31.8 pg 27.0-3 4.0 normal Not Available [address], [address], 10/21/2024 17:22:22 10/22/19 25 10/21/2024 CBC WITH DIFFE RENTI AL/PL ATELE T MCHC 33.4 g/dL 33.0-3 7.0 normal Not Available [address], [address], 10/21/2024 17:22:22 10/22/19 25 10/21/2024 CBC WITH DIFFE RENTI AL/PL ATELE T RDW 43.8 fL <47.0 Not Available [address], [address], 10/21/2024 17:22:22 10/22/19 25 10/21/2024 CBC WITH DIFFE RENTI AL/PL ATELE T platelets 229 K/mm3 150-46 0 normal Not Available [address], [address], 10/21/2024 17:22:22 10/22/19 25 10/21/2024 CBC WITH DIFFE RENTI AL/PL ATELE T neutrophils 61.8 % 44-76 normal Not Available [address], [address], 10/21/2024 17:22:22 10/22/19 25 10/21/2024 CBC WITH DIFFE RENTI AL/PL ATELE T lymphs 29.5 % 15-43 normal Not Available [address], [address], 10/21/2024 17:22:22 10/22/19 25 10/21/2024 CBC WITH DIFFE RENTI AL/PL ATELE T monocytes 6.5 % 4.5-10 .5 normal Not Available [address], [address], 10/21/2024 17:22:22 10/22/19 25 10/21/2024 CBC WITH DIFFE RENTI AL/PL ATELE T eos 1.4 % 0-6 normal Not Available [address], [address], 10/21/2024 17:22:22 10/22/19 25 10/21/2024 CBC WITH DIFFE RENTI AL/PL ATELE T basos 0.5 % 0-2 normal Not Available [address], [address], 10/21/2024 17:22:22 10/22/19 25 10/21/2024 CBC WITH DIFFE RENTI AL/PL ATELE T neutrophils (absolute) 6.0 K/mm3 1.3-7. 0 normal Not Available [address], [address], 10/21/2024 17:22:22 10/22/19 25 10/21/2024 CBC WITH DIFFE RENTI AL/PL ATELE T lymphs (absolute) 2.9 K/mm3 0.8-3. 1 normal Not Available [address], [address], 10/21/2024 17:22:22 10/22/19 25 10/21/2024 CBC WITH DIFFE RENTI AL/PL ATELE T monocytes(ab solute) 0.6 K/mm3 0.4-0. 9 normal Not Available [address], [address], 10/21/2024 17:22:22 10/22/19 25 10/21/2024 CBC WITH DIFFE RENTI AL/PL ATELE T eos (absolute) 0.1 K/mm3 0.0-0. 4 normal Not Available [address], [address], 10/21/2024 17:22:22 10/22/19 25 10/21/2024 CBC WITH DIFFE RENTI AL/PL ATELE T baso (absolute) 0.1 K/mm3 0.0-0. 1 normal Not Available [address], [address], 10/21/2024 17:22:22 10/22/19 25 10/21/2024 CBC WITH DIFFE RENTI AL/PL ATELE T immature granulocytes 0.3 % Not Available [address], [address], 10/21/2024 17:22:22 10/22/19 25 10/21/2024 CBC WITH DIFFE RENTI AL/PL ATELE T immature grans (abs) 0.0 K/mm3 Not Available [address], [address], 10/21/2024 17:22:22 10/22/19 25 10/21/2024 CBC WITH DIFFE RENTI AL/PL ATELE T NRBC 0.0 #/100 _WBC' s Not Available [address], [address], 10/21/2024 17:22:22 10/22/19 25 10/21/2024 CBC WITH DIFFE RENTI AL/PL ATELE T hematology comments: Commen t AUTOM ATED DIFFE RENTI AL MPV 11.2 FL 9.4-1 2.4 N ABS. NRBC 0.0 K/MM3 N Not Available [address], [address], 10/21/2024 17:22:22 10/22/19 25 10/21/2024 SEDIM ENTAT ION RATE- WESTE RGREN sedimentatio n rate-westerg elly 6 mm/HR 0-20 normal Not Available [address], [address], 10/21/2024 17:22:23 10/22/19 25 10/21/2024 C-FERNY CTIVE PROTE IN, QUANT C-reactive protein, quant <0.3 mg/dL 0-0.5 Not Available [address], [address], 10/21/2024 17:22:24 06/24/19 25 06/24/2024 XR, knee, 3 view [email or web address]:/ [email or web address] ?Encry pted=s hAaTro YD8dLq bEUv6g %2BXZw aYqtaq 0bqfl% 2Fg9IQ a4ajBk vP9nXo QUaueC m3YtLR FvZlgJ JJ8mAn HZtai3 5d7112 AC0Kqb 3uFUqu mKiQtr MwF INTERFACE [facility] [address] [facility] [address], [place], [address], 06/24/2024 13:43:30 06/24/19 25 06/24/2024 XR, knee, 3 view [email or web address] ?Encry pted=s hAaTro YD8dLq bEUv6g %2BXZw aYqtaq 0bqfl% 2Fg9IQ a4ajBk vP9nXo QUaueC m3YtLR FvZlgJ JJ8mAn HZtai3 7v5303 AC0Kqb 3uFUqu mKiQtr MwF INTERFACE [facility] [address] [facility] [address], [place], [address], 06/24/2024 13:43:32 11/02/19 25 11/01/2024 XR, knee, 3 view [email or web address] ?Encry pted=s hAaTro YD8dLq bEUv6g %2BXZw aYqtaq 0bqfl% 2Fg9IQ a4ajBk vP9nXo QUaueC m3YtLR FvZlgJ JJ8mAn HZtai3 6h6816 AC0Kla 3iNU6K gKiQtr MwF INTERFACE [facility] [address], [place], [address], 11/01/2024 15:03:18 11/02/19 25 11/01/2024 XR, knee, 3 view [email or web address]:/ [email or web address] ?Encry pted=s hAaTro YD8dLq bEUv6g %2BXZw aYqtaq 0bqfl% 2Fg9IQ a4ajBk vP9nXo QUaueC m3YtLR FvZlgJ JJ8mAn HZtai3 6c9733 AC0Kla 3iNU6K gKiQtr MwF INTERFACE [facility] [address] [facility] [address], [place], [address], 11/01/2024 15:03:19 11/14/19 25 11/11/2024 MRI, knee, w/o contr ast No observ ation record ed. [email or web address] [place] [address] [facility] [address], [place], [address], 11/14/2024 16:00:53 Result Notes Documentation Provider Name and Address Organization Details Recorded Time Xr, Knee, 3 View : [email or web address] Encrypted=eeJdKyeBT5mMxwY Uv6g%9RVPgaDjlzx7ulgr%2Fg 3LCo1gsTctT6oDrUDkekTc4Fq EISdYrkTNG3wYbCUrap73c744 0BP0Cdr0iQGginUwQfiNjV Not Available [facility] 06/24/2024 13:43: 31 Xr, Knee, 3 View : [email or web address] Encrypted=hxWeMowYH5wHzbF Uv6g%3HYGfeHcaoe8bouv%2Fg 2XQy6fgQzsD3yBsPOimgYm6Kz LVJvQzbJOB2dVyMMuoc50o762 3GC0Lzv3aRNnqqMaMbtBgG Not Available [facility] 06/24/2024 13:43: 33 Xr, Knee, 3 View : [email or web address] Encrypted=ixYtLrsIV2vHciB Uv6g%3EKIwiWpqbw6qlko%2Fg 4ZMt9vsQsqD8cPeGXjrvXo0Jk FBIlRfnEJJ3oQvNTcyv79t255 5IF1Tme3sEZ2YlGnCerTwR Not Available [facility] 11/01/2024 15:03: 19 Xr, Knee, 3 View : [email or web address] Encrypted=hjOnQjvXS6vVkpB Uv6g%9MPIpqMiwgd4akco%2Fg 1UOy0jySagZ9rVuFPlhpHp5Sd UNWsEnjKFN4jViMRmld29n234 3BY7Ars2hSR0ZbGsKacRzJ Not Available [facility] 11/01/2024 15:03: 20 Problems Name Problem SNOMED Code Status Onset Date Resolution Date Notes Provider Name and Address Organization Details Recorded Time No complaints 011312532 Active Status : 'I'; Not Available [facility] 4 09:12:24 Osteoarthr itis of right knee joint 2335238221026 00 Active 2023 jana sheikh [place] - [facility] 4 13:05:03 History of right total knee replacemen t 9242411926719 102 Active 2023 Felix Carr MD [address], [place], [address] , [facility] 4 16:02:45 Radicular pain 01950241 Active 2024 Kristine Horton null, [facility] 5 15:58:20 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, [facility] 5 15:18:02 Problem Notes None recorded. Procedures Surgical History Date Name Laterality Status Provider Name and Address Organization Details Recorded Time 4 29419 Therapeutic Exercise (1:1) completed Merlin Ni, PT [address], [place], [address], [facility] 02/01/2024 12:09:35 4 95068: Manual therapy completed Merlin Ni PT [address], [place], [address], [facility] 02/01/2024 14:39:04 4 88560 Therapeutic Exercise (1:1) completed Shirley Sanchez, CENTER REP [address], [place], [address], [facility] 01/26/2024 11:03:45 4 02687 Therapeutic Exercise (1:1) completed Shirley Sanchez, CENTER REP [address], [place], [address], [facility] 01/21/2024 15:04:22 4 72227: Manual therapy completed Shirley Sanchez, CENTER REP [address], [place], [address], [facility] 01/21/2024 15:04:22 08/13/202 4 13645 Therapeutic Exercise (1:1) completed Shirley Formejester, CENTER REP [address], [place], [address], [facility] 01/19/2024 12:58:52 4 80304: Manual therapy completed Shirley Formejester, CENTER REP [address], [place], [address], [facility] 01/19/2024 12:58:52 4 71715 Therapeutic Exercise (1:1) completed Shirley Formejester, CENTER REP [address], [place], [address], [facility] 01/14/2024 17:23:43 27806: Manual therapy completed Shirley Formgiacomoster, CENTER REP [address], [place], [address], [facility] 01/14/2024 17:23:43 4 84564 Therapeutic Exercise (1:1) completed Shirley Formemirtaster, CENTER REP [address], [place], [address], [facility] 01/12/2024 11:30:38 29234: Manual therapy completed Shirley Formgiacomoster, CENTER REP [address], [place], [address], [facility] 01/12/2024 11:30:38 4 98324 Therapeutic Exercise (1:1) completed Shirley Formejester, CENTER REP [address], [place], [address], [facility] 01/06/2024 11:02:13 4 18823: Manual therapy completed Shirley Formejester, CENTER REP [address], [place], [address], [facility] 01/06/2024 11:02:13 4 36933 Therapeutic Exercise (1:1) completed Shirley Formzhou, CENTER REP [address], [place], [address], [facility] 01/04/2024 10:30:09 4 42392: Manual therapy completed Shirley Sanchez, CENTER REP [address], [place], [address], [facility] 01/04/2024 10:30:09 4 68347 Therapeutic Exercise (1:1) completed Shirley Formzhou, CENTER REP [address], [place], [address], [facility] 01/01/2024 13:53:30 14796: Manual therapy completed Shirley Sanchez, CENTER REP [address], [place], [address], [facility] 01/01/2024 13:53:30 4 82460 Therapeutic Exercise (1:1) completed Merlin Ni, PT [address], [place], [address], [facility] 12/31/2023 09:35:48 4 595[address]: Manual therapy completed Merlin Ni, PT [address], [place], [address], [facility] 12/31/2023 09:35:48 4 20019 Therapeutic Exercise (1:1) completed Shirley Formzhou, CENTER REP [address], [place], [address], [facility] 12/23/2023 13:19:04 4 61743: Manual therapy completed Shirley Formzhou, CENTER REP [address], [place], [address], [facility] 12/23/2023 13:19:05 4 33383 Therapeutic Exercise (1:1) completed Shirley Formejester, CENTER REP [address], [place], [address], [facility] 12/21/2023 15:54:01 4 57431: Manual therapy completed Shirley Formgiacomoster, CENTER REP [address], [place], [address], [facility] 12/21/2023 15:54:01 4 23799 Therapeutic Exercise (1:1) completed Shirley Formgiacomoster, CENTER REP [address], [place], [address], [facility] 12/16/2023 11:36:47 4 67147: Manual therapy completed Shirley Formgiacomoster, CENTER REP [address], [place], [address], [facility] 12/16/2023 11:36:47 4 48572 Therapeutic Exercise (1:1) completed Shirley Formgiacomoster, CENTER REP [address], [place], [address], [facility] 12/14/2023 11:14:43 4 30696: Manual therapy completed Shirley Formzhou, CENTER REP [address], [place], [address], [facility] 12/14/2023 11:14:43 4 62970 Therapeutic Exercise (1:1) completed Merlin Ni, PT [address], [place], [address], [facility] 12/11/2023 08:03:19 4 91804: Manual therapy completed Merlin Payano, PT [address], [place], [address], [facility] 12/11/2023 08:00:06 4 01403 Therapeutic Exercise (1:1) completed Shirley Formejester, CENTER REP [address], [place], [address], [facility] - [facility] 12/07/2023 08:56:13 4 74340: Manual therapy completed Shirley Formejester, CENTER REP [address], [place], [address], [facility] 12/07/2023 08:56:13 4 21227 Therapeutic Exercise (1:1) completed Shirley Formejester, CENTER REP [address], [place], [address], [facility] 12/04/2023 10:43:32 4 82730: Manual therapy completed Shirley Formejester, CENTER REP [address], [place], [address], [facility] 12/04/2023 10:43:32 4 59556 Therapeutic Exercise (1:1) completed Shirley Formejester, CENTER REP [address], [place], [address], [facility] 11/30/2023 11:09:53 4 34979: Manual therapy completed Shirley Formejester, CENTER REP [address], [place], [address], [facility] 11/30/2023 11:09:53 4 40824 Therapeutic Exercise (1:1) completed Shirley Formejester, CENTER REP [address], [place], [address], [facility] 11/25/2023 11:28:36 4 31365: Manual therapy completed Shirley Formejester, CENTER REP [address], [place], [address], [facility] 11/25/2023 11:28:36 4 48354 Therapeutic Exercise (1:1) completed Shirley Formejester, CENTER REP [address], [place], [address], [facility] 11/23/2023 09:45:37 4 82828: Manual therapy completed Shirleyrosalva Sanchez, CENTER REP [address], [place], [address], [facility] 11/23/2023 09:45:37 4 64379 Therapeutic Exercise (1:1) completed Shirley Sanchez, CENTER REP [address], [place], [address], [facility] 11/20/2023 12:02:44 4 03513: Manual therapy completed Shirley Sanchez, CENTER REP [address], [place], [address], [facility] 11/20/2023 12:03:16 4 33052 Therapeutic Exercise (1:1) completed Merlin Ni, PT [address], [place], [address], [facility] 11/17/2023 09:17:37 4 11296: Low complexity PT Eval completed Merlin Ni, PT [address], [place], [address], [facility] 11/17/2023 09:17:39 4 03068: Low complexity PT Eval completed Awa Perry, PT [address], [place], [address], [facility] 11/04/2023 12:06:44 4 Euflexxa Knee Injection completed Marcela Colmenares PA-C [address], [place], [address], [facility] 09/03/2023 14:30:01 4 Euflexxa Knee Injection completed Marcela Colmenares PA-C [address], [place], [address], [facility] 08/26/2023 22:08:41 Euflexxa Knee Injection completed Marcela Colmenares PA-C [address], [place], [address], [facility] 08/20/2023 12:25:39 Imaging Results None recorded. Procedure Notes None recorded. Medical Equipment None Reported. Allergies Allergen ID Allergen Name Allergen Category Reaction Reaction Severity Criticality Documentation Date Start Date Code Code System Note Provider Name and Address Organization Details Recorded Time 66586 Product containin g penicilli n (product) medicatio n Not available Not available Not available 08/10/20232012 95684 8001 SNOMED Not Available [facility] 11:53:31 91270 Substance with sulfonami de structure and antibacte rial mechanism of action (substanc e) medicatio n Not available Not available Not available 08/10/20232012 63621 8003 SNOMED Not Available [facility], [facility] 4 11:53:32 Medications Name Sig Start Date Stop Date Status Note LastModified by Organization Details LastModified Time celecoxib 200 mg capsule TAKE 1 CAPSULE BY MOUTH EVERY DAY 11/01 completed Not Available Not Available Not Available doxycycline hyclate 100 mg capsule TAKE 1 CAPSULE BY MOUTH TWICE A DAY active Not Available Not Available No t Available clindamycin HCl 300 mg capsule TAKE 2 TABS HALF AN HOUR PRIOR TO APPOINTME NT. 11/01 completed Not Available Not Available Not Available valacyclovi r 1 gram tablet TAKE 1 TABLET BY MOUTH 3 TIMES A DAY UNTIL GONE active Not Available Not Available No t Available hydrocodone 5 mg-acetamin ophen 325 mg tablet PLEASE SEE ATTACHED FOR DETAILED DIRECTION S 11/01 completed Not Available Not Available Not Available meloxicam 15 mg tablet TAKE 1 TABLET BY MOUTH EVERY DAY FOR 30 DAYS 11/01 completed Not Available Not Available Not Available lisinopril 20 mg tablet TAKE 1 TABLET BY MOUTH EVERY DAY active Not Available Not Available No t Available ondansetron HCl 4 mg tablet TAKE 1 TABLET BY MOUTH EVERY 8 HOURS NEEDED FOR NAUSEA AND VOMITING 11/01 completed Not Available Not Available Not Available prednisone 20 mg tablet TAKE 2 TABLETS BY MOUTH EVERY DAY FOR 5 DAYS 11/01 completed Not Available Not Available Not Available fluorouraci l 5 % topical cream PLEASE SEE ATTACHED FOR DETAILED DIRECTION S 11/01 completed Not Available Not Available Not Available clindamycin HCl 150 mg capsule TAKE 1 CAPSULE BY MOUTH EVERY 8 HOURS UNTIL FINISHED 11/01 completed Not Available Not Available Not Available meclizine 12.5 mg tablet TAKE 1 TABLET BY MOUTH THREE TIMES A DAY FOR 7 DAYS 11/01 completed Not Available Not Available Not Available tramadol 50 mg tablet TAKE TAKE 1 TO 2 TABLETS BY MOUTH EVERY 6 HOURS NEEDED FOR MODERATE PAIN. DO NOT EXCEED 400 MG/ DAY 11/01 completed Not Available Not Available Not Available benzonatate 100 mg capsule TAKE 1 CAPSULE ORALLY 2 TIMES A DAY NEEDED FOR COUGH FOR 7 DAYS 11/01 completed Not Available Not Available Not Available omeprazole 20 mg capsule,del ayed release TAKE 1 CAPSULE BY MOUTH TWICE A DAY active Not Available Not Available No t Available codeine 10 mg-guaifene sin 100 mg/5 mL oral liquid TAKE 5 ML BY MOUTH EVERY 4 TO 6 HOURS NEEDED FOR FLU SYMPTOMS FOR 3 DAYS *NOT COVERED 11/01 completed Not Available Not Available Not Available hydrochloro thiazide 25 mg tablet TAKE 1 TABLET BY MOUTH EVERY DAY active Not Available Not Available No t Available gabapentin 100 mg capsule TAKE 1 CAPSULE BY MOUTH THREE TIMES A DAY FOR 30 DAYS 11/01 completed Not Available Not Available Not Available clobetasol 0.05 % topical ointment APPLY TO AFFECTED AREA TWICE A WEEK 11/01 completed Not Available Not Available Not Available scopolamine 1 mg over 3 days transdermal patch APPLY 1 PATCH TRANSDERM ALLY EVERY 3 DAYS NEEDED FOR NAUSEA AND VOMITING 09/02 completed Not Available Not Available Not Available methylpredn isolone 4 mg tablets in a dose pack take as directed 11/01 completed Not Available Not Available Not Available albuterol sulfate HFA 90 mcg/actuati on aerosol inhaler INHALE 2 PUFFS EVERY 6 HOURS NEEDED FOR SHORTNESS OF BREATH OR WHEEZING 11/01 completed Not Available Not Available Not Available ondansetron 4 mg disintegrat ing tablet PLEASE SEE ATTACHED FOR DETAILED DIRECTION S 09/02 completed Not Available Not Available Not Available fluticasone propionate 50 mcg/actuati on nasal spray,suspe nsion SPRAY 1 SPRAY INTO EACH NOSTRIL DAILY 11/01 completed Not Available Not Available Not Available doxycycline hyclate 100 mg tablet TAKE 1 CAPSULE BY MOUTH TWICE A DAY FOR 7 DAYS 09/02 completed Not Available Not Available Not Available amoxicillin 875 mg-geoffrey day clavulanate 125 mg tablet TAKE 1 TABLET BY MOUTH TWICE A DAY FOR 7 DAYS 09/02 completed Not Available Not Available Not Available oxycodone 5 mg tablet Take 1 tablet every 4 hours by oral route as needed for 14 days, for pain. 11/01 completed Not Available Not Available Not Available neomycin 3.5 mg/g-polymy joe B 10,000 unit/g-dexa meth 0.1 % eye oint PLEASE SEE ATTACHED FOR DETAILED DIRECTION S active Not Available Not Available No t Available rosuvastati n 40 mg tablet TAKE 1 TABLET BY MOUTH EVERY DAY active Not Available Not Available No t Available omega-3 acid ethyl esters 1 gram capsule TAKE 2 CAPSULES BY MOUTH TWICE A DAY FOR 90 DAYS active Not Available Not Available No t Available Flector apply to affected area for 12 hours on then 12 hours off 04/15 completed Statu s: 'Disc ontin ued'; Not Available Not Available Not Available Eliquis 2.5 mg tablet TAKE 1 TABLET BY MOUTH TWO TIMES A DAY 11/01 completed Not Available Not Available Not Available Vitals Date Recorded Body height Provider Name an d Address Organization Details Last Updated DateTime 06/24/2024 154.94 cm RAJANI JONES [facility] 06/24/2024 13:27:37 Date Recorded Body height Provider Name an d Address Organization Details Last Updated DateTime 07/27/2024 154.94 cm RAJANI JONES [facility] 07/27/2024 11:27:12 Date Recorded Body height Provider Name an d Address Organization Details Last Updated DateTime 11/01/2024 154.94 cm Kristine Horton [facility] 11/01/2024 14:52:31 Date Recorded Body height Body mass index (BMI) Body weight Provider Name and Address Organization Details Last Updated DateTime 01/03/2025 154.94 cm 26.5 kg/m2 20783.93 g demetra gregory [facility] 01/03/2025 14:46:56 Date Recorded Body height Provider Name an d Address Organization Details Last Updated DateTime 03/16/2025 154.94 cm demetra gregory [place] [facility] 03/16/2025 14:47:32 Social History None recorded. Functional Status None recorded. Mental Status None recorded. Family History Nothing Reported. Medical History No medical history recorded. Gynecological HistoryNo gynecological history recorded. Obstetrics History GPAL:G 0 P 0 0 0 0 Past Encounters Encounter ID Performer Location Encounter Start Date Encounter Closed Date Diagnosis/Indication Diagnosis SNOMED-CT Code Diagnosis ICD10 Code Diagnosis IMO Codes Diagnosis Note [id number] Marcela Colmenares PA-C [facility] [address] [place] [address] 08/20/2023 11:20:34 08/20/2023 13:16:35 Osteoarthritis of right knee joint 3225710129 76789 M17.11 [id number] Marcela Colmenares PA-C [facility] [address] [place] [address] 08/27/2023 14:10:38 08/27/2023 14:41:09 Osteoarthritis of right knee joint 3896163189 69365 M17.11 [id number] Marcela Colmenares PA-C [facility] [address] [place] [address] 09/03/2023 13:57:17 09/03/2023 14:30:53 Osteoarthritis of right knee joint 0646170690 65884 M17.11 [id number] [facility] [address] [place] [address] 10/23/2023 12:43:12 11/13/2023 14:41:47 Pain of right knee joint 3799940046 93020 M25.561 Osteoarthr itis of right knee joint 6728978973 12206 M17.11 [id number] Felix Carr MD [facility] [address] [place] [address] 10/30/2023 10:04:54 11/24/2023 08:44:24 Osteoarthritis of right knee joint 2786658940 89788 M17.11 [id number] Shari BarnettcliffeGARETH [facility] [address] [place] [address] 11/03/2023 13:19:53 11/24/2023 04:01:15 [id number] Awa Perry, PT [facility] [place] [address] 11/04/2023 11:10:08 11/04/2023 14:48:16 Osteoarthritis of right knee joint 1556435061 10890 M17.11 [id number] Merlin Payano, PT [facility] [place] [address] 11/16/2023 12:24:11 11/16/2023 13:48:32 History of right total knee replacement 1292879755 992041 Z96.651 Z47.1 [id number] Shirley Mcdonald r, CENTER REP [facility] [place] [address] 11/20/2023 09:19:51 11/20/2023 10:35:19 History of right total knee replacement 4928313773 671518 Z96.651 Z47.1 [id number] Shirley Mcdonald r, CENTER REP [facility] [address] [place] [address] 11/23/2023 09:50:09 11/23/2023 10:59:44 History of right total knee replacement 3180630732 714748 Z96.651 Z47.1 [id number] Felix Carr MD [facility] [address] [place] [address] 11/24/2023 12:35:48 12/21/2023 15:41:11 History of right total knee replacement [id number] 192797 Z96.185 [id number] Shirley Mcdonald r, CENTER REP [facility] [address] [place] [address] 11/25/2023 11:20:33 11/25/2023 12:26:16 History of right total knee replacement 7505479365 493301 Z96.651 Z47.1 [id number] Shirley Formejeste r, CENTER REP [facility] [address] [place] [address] 11/30/2023 10:39:23 11/30/2023 11:32:42 History of right total knee replacement 9707961731 344011 Z96.651 Z47.1 [id number] Shirley Formejeste r, CENTER REP [facility] [address] [place] [address] 12/04/2023 10:23:04 12/04/2023 11:28:43 History of right total knee replacement 1016401000 305967 Z96.651 Z47.1 [id number] Shirley Formejeste r, CENTER REP [facility] [address] [place] [address] 12/07/2023 08:53:24 12/07/2023 10:25:14 History of right total knee replacement 4090041801 886064 Z96.651 Z47.1 [id number] Merlin Ni, PT [facility] [address] [place] [address] 12/09/2023 10:57:55 12/09/2023 12:00:35 History of right total knee replacement 9347219051 261872 Z96.651 Z47.1 [id number] Shirley Formejeste r, CENTER REP [facility] [address] [place] [address] 12/14/2023 10:58:41 12/14/2023 11:54:58 History of right total knee replacement 2400559736 822217 Z96.651 Z47.1 [id number] Shirley Formejeste r, CENTER REP [facility] [address] [place] [address] 12/16/2023 10:57:34 12/16/2023 12:37:06 History of right total knee replacement 6542554749 563317 Z96.651 Z47.1 [id number] Shirley Formejeste r, CENTER REP [facility] [address] [place] [address] 12/21/2023 15:25:27 12/21/2023 17:36:59 History of right total knee replacement 5697503990 643643 Z96.651 Z47.1 [id number] MD [facility] [address] [place] [address] 12/22/2023 12:45:02 12/22/2023 14:50:33 History of right total knee replacement 1053697824 484836 Z96.651 Z47.1 [id number] Shirley Formejeste r, CENTER REP [facility] [address] [place] [address] 12/23/2023 12:56:02 12/23/2023 14:19:20 History of right total knee replacement 2139130388 912280 Z96.651 Z47.1 [id number] Merlin Ni, PT [facility] [place] [address] 12/30/2023 10:27:58 12/30/2023 11:49:48 History of right total knee replacement 6761002754 809386 Z96.651 Z47.1 [id number] Shirley Formejeste r, CENTER REP [facility] [address] [place] [address] 01/01/2024 13:32:40 01/01/2024 14:30:52 History of right total knee replacement 7632944416 714319 Z96.651 Z47.1 [id number] Shirley Formejeste r, CENTER REP [facility] [address] [place] [address] 01/04/2024 10:27:54 01/04/2024 11:30:22 History of right total knee replacement 2320517615 519061 Z96.651 Z47.1 [id number] Shirley Formejeste r, CENTER REP [facility] [address] [place] [address] 01/06/2024 10:31:22 01/06/2024 11:30:26 History of right total knee replacement 1180892159 711757 Z96.651 Z47.1 [id number] Shirley Formejeste r, CENTER REP [facility] [address] [place] [address] 01/12/2024 11:20:52 01/12/2024 12:37:19 History of right total knee replacement 7573953000 437165 Z96.651 Z47.1 [id number] Shirley Formejeste r, CENTER REP [facility] [address] [place] [address] 01/14/2024 17:12:52 01/14/2024 18:49:07 History of right total knee replacement 8882024951 543483 Z96.651 Z47.1 [id number] Shirley Formejeste r, CENTER REP [facility] [address] [place] [address] 01/19/2024 12:52:55 01/19/2024 15:21:59 History of right total knee replacement 6500637614 019701 Z96.651 Z47.1 [id number] MD [facility] [address] [place] [address] 01/19/2024 17:15:12 02/09/2024 08:59:58 History of right total knee replacement 4148192373 566133 Z96.651 Z47.1 [id number] Shirley Formejeste r, CENTER REP [facility] [address] [place] [address] 01/21/2024 14:54:26 01/21/2024 15:42:23 History of right total knee replacement 9073860290 476089 Z96.651 Z47.1 [id number] Shirley Formejeste r, CENTER REP [facility] [address] [place] [address] 01/26/2024 10:57:31 01/26/2024 12:35:01 History of right total knee replacement 3527488646 747241 Z96.651 Z47.1 [id number] Merlin Ni, PT [facility] [address] [place] [address] 01/28/2024 13:24:17 01/28/2024 14:22:44 History of right total knee replacement 0034965546 451048 Z96.651 Z47.1 [id number] MD [facility] [address] [place] [address] 03/22/2024 11:29:09 04/11/2024 07:47:42 History of right total knee replacement 8714608431 584026 Z96.651 Z47.1 [id number] CARRINGTON [facility] - [facility] [address] [place] [address] 06/24/2024 13:24:26 07/05/2024 12:13:47 Pain of knee region 5787663587 M25.561 [id number] Osteoarthr itis of right knee joint 2163627504 34641 M17.11 [id number] Pain of ri ght knee joint 0396652792 02273 M25.561 [id number] CARRINGTON [facility] [address] [place] [address] 07/27/2024 11:20:44 08/09/2024 13:39:06 Pain of right knee joint 9076241986 92685 M25.561 [id number] MD [facility] [address] [place] [address] 11/01/2024 14:50:28 11/11/2024 07:20:15 History of right total knee replacement 8655610403 221374 Z96.651 [id number] Radicular pain 22362318 M54.10 41408405 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 3476732650 T84.028A Z96.432 [id number] MD [facility] [address] [place] [address] 01/03/2025 14:44:14 01/11/2025 15:14:23 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 3668007675 T84.028A Z96.139 [id number] MD GRETTA [facility] [address] [place] [address] 03/16/2025 14:44:58 03/23/2025 15:18:58 Low back pain 921231919 M54.50 [id number] History of right total knee replacement 8230646718 111647 Z96.651 Health Concerns Section Related Observation LastModified by Organization Detai ls LastModified Time None Recorded Concern Status LastModified by Organization Details LastModified Time None Recorded Advance Directives Directive None Recorded Payers Insurance Date Sequence Insurance Name Policy Number Policy Ivy Covered Member ID Ivy Member ID Guarantor Name 03/23/2025 1 [employer] (MEDICARE REPLACEMENT/ ADVANTAGE - PPO) [id number] Mary Jane Valencia [id number] Mary Jane Valencia Notes Date Note Type Note Provider Name and Address Organization Details Recorded Time 06/24/2024 text/html I am seeing the patient today under the supervision of Dr. Kraus who was available but who did not see the patient.Dx: Status post right total knee replacement done in October by Dr. CarrInterval History: This pleasant woman presents today for recheck of her right knee. She admits to hypersensitivity and irritability about the anterior lateral aspect of the knee. Also feeling of tightness bandlike sensation with irritability with bent knee activities and at the right knee.Past Medical/Surgical History/Meds/Allergie s reviewed and charted.Physical Exam:afebrile, vital signs stable, in no apparent distress, oriented to person/place/time.Exa mination of the right knee reveals hypersensitivity lateral to the incision. There is slight amount of erythema in this lateral area that blanches when the knee is in flexion. There is no unusual warmth. No pain through passive range of motion easily 0 to 120 degrees. Mild peripatellar tenderness. No laxity to the knee itself and full muscle strength.skin: intact, no erythema.Contralatera l knee: [no deformity, no effusion, full motion, no laxity, no joint line tenderness].New Studies: 3 views ordered obtained and reviewed today in the office of the right knee reveal excellent implant interfaces and alignment.Impression: Right knee hypersensitivity possibly a slight amount of RSD developing anteriorly about the knee. Nothing worrisome otherwise.Plan: 1. In regards to the knee would like her to continue with home exercises. I have discussed with her and recommended at least a low-dose of gabapentin initially to try to decrease the nerve irritability she is having anteriorly. Prescription was sent. Follow-up with me in 4 to 6 weeks to recheck clinical symptoms if continued to have difficulty at that point further discussion of slight course of physical therapy versus referral for genicular nerve block may be in order. All questions answered.[employer] speech recognition vascular radiologist software was used to create portions of this document. An attempt at proofreading has been made to minimize errors. Please call for corrections. Danyel Bronson PA-C [address], [place], [address], [facility] 06/24/2024 16:32:21 07/27/2024 text/html I am seeing the patient today under the supervision of Dr. Kraus who was available but who did not see the patient.Dx: Status post right total knee replacement done in October by Dr. CarrInterval History: This pleasant woman presents today for recheck of her right knee. She admits to pain anteriorly about the lateral border of the patella. Mostly with bent knee activities. She had a short course of gabapentin which gave her no benefit so she stopped this.Past Medical/Surgical History/Meds/Allergie s reviewed and charted.Physical Exam:afebrile, vital signs stable, in no apparent distress, oriented to person/place/time.Exa mination of the right knee reveals hypersensitivity lateral to the incision. There is slight amount of erythema in this lateral area that blanches when the knee is in flexion. There is no unusual warmth. No pain through passive range of motion easily 0 to 120 degrees. Mild peripatellar tenderness. No laxity to the knee itself and full muscle strength.skin: intact, no erythema.Contralatera l knee: [no deformity, no effusion, full motion, no laxity, no joint line tenderness]. Impression: Right knee peripatellar irritability status post total knee replacementPlan: 1. In regards to the knee would like her to continue with home exercises. In regards to her knee have discussed with her should symptoms persist the possibility of arthroscopy with synovectomy but would not want her to wait at least 1 year from surgery. Should she have improvement in the meantime would forego any aggressive treatment.[employer] speech recognition vascular radiologist software was used to create portions of this document. An attempt at proofreading has been made to minimize errors. Please call for corrections. Danyel Bronson PA-C [address], [place], [address], [facility] 07/27/2024 17:09:53 11/01/2024 text/html ROS as noted in the HPI History of present illness: Dixie follows up today for repeat evaluation of her right knee. She is now 1 year out from right total knee arthroplasty and she is still continuing to experience pain in her knee. As mentioned previously, she did phenomenally early on with her postoperative rehabilitation and achieved a full return of range of motion of her right knee, but she has been plagued by pain in the anterior lateral aspect of the knee since her surgery. This has not improved with physical therapy as well as gabapentin, the patient is present with activity but also present at night. Past family, medical, social history and review of systems has been reviewed and updated, and is located in the patient s chart. Felix Carr MD [address] [place] [address] [address], [place], [address], [facility] 11/01/2024 16:04:31 OBGyn Episode No OBEpisode recorded.
[2025-03-31 18:10] VITALS: BP 129/63; PULSE 66; RESP 18; O2SAT 96
[2025-03-31 18:14] VITALS: BP 129/63; PULSE 66; RESP 18; TEMP -17.7; TEMP 0; O2SAT 96
== END 2025-03-31 18:24 | disposition home or self-care (01) ==
PROVIDERS: Nurse Practitioner Family; Emergency Provider Emergency Medicine; PCP Internal Medicine
DX: R07.89 Other chest pain (principal)
CPT/HCPCS: 36415; 71046; 80048; 80076; 83690; 84484; 85025; 93005; 99283

== ENCOUNTER → 2025-03-31 14:33 | Outpatient (BNV) | payer MEDICARE, SELFPAY | PROVIDERS: Emergency Provider Emergency Medicine; PCP Internal Medicine; Visit Provider Internal Medicine Cardiovascular Disease | DX: R07.9 Chest pain, unspecified (principal) | CPT/HCPCS: 93010 ==

== ENCOUNTER → 2025-03-31 14:58 | Outpatient (BNV) | payer MEDICARE, SELFPAY | PROVIDERS: PCP Internal Medicine; Visit Provider Radiology Diagnostic Radiology | DX: R07.9 Chest pain, unspecified (principal) | CPT/HCPCS: 71046 ==

== ENCOUNTER 2025-04-26 12:57 | Outpatient (AMB) | payer MEDICARE, SELFPAY ==
[2025-04-26 13:22] VITALS: BP 128/62; PULSE 68; O2SAT 98; BMI 24.7
--- NOTE | 2025-04-26 13:22 | MHC.PC.OV ---
Vital Signs 04/26/25 13:22 Height 5 ft 1 in Weight 131 lb BMI 24.7 BP 128/62 Blood Pressure Location Lt brachial Position Sitting Pulse 68 Pulse Source Pulse Oximeter Pulse Oximetry (%) 98 Oxygen Delivery Method Room Air Intake Visit Reasons: diarrhea after eating Allergies penicillamine (Cuprimine) Allergy (Unknown, Verified 04/26/25 13:22) Rash penicillin V Allergy (Unknown, Verified 04/26/25 13:22) Rash Penicillins (PENICILLINS) Allergy (Unknown, Verified 04/26/25 13:22) HIVES Sulfa (Sulfonamide Antibiotics) (SULFA (SULFONAMIDE ANTIBIOTICS)) Allergy (Unknown, Verified 04/26/25 13:22) HIVES sulfasalazine (Sulfazine) Allergy (Unknown, Verified 04/26/25 13:22) Rash Medication List - Last Reconciled 04/26/25 by Nury Rubio MD ascorbate calcium (vitamin C) 500 mg PO DAILY aspirin 81 mg PO DAILY cholecalciferol (vitamin D3) 50 mcg PO DAILY cholestyramine (Cholestyramine Light) 4 grams PO BID fexofenadine (Suellen Allergy) 180 mg PO DAILY debbie (Zingiber officinalis) 1 g PO TID PRN hydrochlorothiazide 25 mg PO DAILY lisinopril 20 mg PO DAILY loperamide (Imodium A-D) 2 mg PO Q6H PRN omega-3 acid ethyl esters 2 caps PO BID omeprazole 20 mg PO BID rosuvastatin 40 mg PO DAILY 90 days Tobacco use date assessed: 03/29/25 Fall risk assessment: No Falls in past year Last assessed Fall Risk: 04/26/25 Dental Screening Dental Screen Date: 03/29/25 HPI HPI Comments History of Present Illness Details History of Present Illness The patient is a 75-year-old female presenting for a follow-up visit and evaluation of diarrhea. She has a history of hypertension, GERD, gout, hypercholesterolemia, osteopenia, impaired glucose tolerance, status post cholecystectomy, overactive bladder, right knee osteoarthritis, and hepatic steatosis. The patient reports that her diarrhea began shortly after a cruise in late December to January, where she experienced an acute episode of gastrointestinal upset after a meal. The diarrhea is characterized by multiple watery, foul-smelling bowel movements that can gush out after an initial movement. She denies nausea. She was seen by another provider in March who diagnosed her with irritable bowel syndrome and prescribed rifaximin, which she did not take due to its high cost. She has used Imodium, which provides temporary relief. In March, she had an emergency room visit for atypical chest pain that occurred after receiving a flu shot; the workup was negative. She reports feeling some stress related to her daughter's . For her right knee osteoarthritis, she follows with orthopedics and was recommended a brace, which she does not use continuously, and pain management options were also suggested. She has also seen dermatology for seborrheic keratosis on her chest, which was treated with cryotherapy, as well as sebaceous hyperplasia and milia. Her last wellness exam was in November. The patient's last colonoscopy was in November 2017 and her next mammogram is scheduled for July 2024. Her last bone density scan was in November 2022. Blood work from March 31 showed normal blood count, electrolytes, and renal function, with a blood sugar of 130. Blood work from November showed a normal hemoglobin A1c and improved liver function, and her cholesterol is noted to be under control. Health Maintenance - Last wellness exam was in November. - Last colonoscopy was in November 2017. - Next mammogram is scheduled for July 2024. - Last bone density scan was in November 2022. - Received a flu shot in March. - Discussion about diet included recommendations for a low-fat diet and exercise. Social History - Travel: The patient recently went on a cruise to [facility] in late December/early January. - Diet: She reports eating chicken, soups, and vegetables such as broccoli and spinach. - She avoids fat, drinks lactose-free milk, and has an [place] muffin with a butter-cooked egg for breakfast. - She denies eating sushi. - She drinks lemon debbie tea. - Family: Her daughter is , which she reports is a source of some worry. - Activity: The patient is advised to keep active. Results - Labs (March 31): Blood count, electrolytes, and renal function were normal. - Blood sugar was 130. - Labs (November): Hemoglobin A1c was normal and liver function had improved. - Diagnostics: Last bone density scan in November 2022 showed osteopenia. - Last colonoscopy was in November 2017. - Next mammogram is scheduled for July 2024. [facility] Medical History Screening for hypothyroidism Arthralgia Pancreatic pseudocyst Hypercholesterolemia GERD (gastroesophageal reflux disease) Hypertension Vitamin D deficiency Finger osteomyelitis Peptic ulcer disease Surgical History Status post laparoscopic cholecystectomy History of ERCP (~2013) History of esophagogastroduodenoscopy (EGD) History of section Cholelithiasis Family History Brother CAD (coronary artery disease) Aneurysm Social History Household Members: Spouse Housing: House Do you presently have visiting nurse or other home services: No Alcohol intake: current Alcohol intake frequency: holidays/special occasions only Comment: one glass 4x a week Patient Tobacco Use Status: Former Tobacco user Tobacco use type: Cigarette Years Smoked: quit 1999 e-Cigarette/Vaping Use: Never Used Second Hand Smoke Exposure: Yes Advance Directives Date on File: 12/02/24 service: No Current occupational status: retired Cognitive needs: No Hearing needs: No Vision needs: Yes Questionnaire Thrive Questionnaire Date Thrive assessed: 03/29/25 I am a: Patient What is your living situation today?: I have a steady place to live Within the past 12 months, did the food you bought not last and you didn't have the money to get more?: I choose not to answer this question Within the past 12 months, did you worry whether your food would run out before you got money to buy more?: I choose not to answer this question Do you have trouble paying for medicines?: I choose not to answer this question Do you have trouble getting transportation to medical appointments?: No Do you have trouble paying your heating and electricity bill?: I choose not to answer this question Do you have trouble taking care of your child, family member or friend?: I choose not to answer this question Do you have trouble with day-to-day activities such as bathing, preparing meals, shopping, managing finances, etc.?: I choose not to answer this question Are you currently unemployed and looking for a job?: I choose not to answer this question Are you interested in more education?: I choose not to answer this question Please select the resources that you would like help with: None Currently or been in a relationship where the following occur: I choose not to answer THRIVE Score: 0 DEVAN-7 AMB Questionnaire DEVAN-7 Date DEVAN - 7 assessed: 12/02/24 Source: Developed by Drs. Levi Sage, Georgia Mahnoey, Melo Mooney and colleagues, with an educational izzy from [employer]. Review of Systems Narrative Review of Systems - Gastrointestinal: Reports episodes of foul-smelling, watery diarrhea and an urge to defecate. - Denies nausea. - Denies blood in stool. - Musculoskeletal: Reports stiffness in the right knee and lower back pain. - Cardiovascular: Denies current chest pain but reports a recent episode after a flu shot. - Denies shortness of breath with the chest pain episode. - Constitutional: Denies weight loss. - Psychological: Reports worry related to her daughter's . Physical exam (Primary Care) Vital Signs: Last Vital Signs Pulse 68 04/26/25 13:22 BP 128/62 04/26/25 13:22 Pulse Ox 98 04/26/25 13:22 Oxygen Delivery Method Room Air 04/26/25 13:22 BMI result Body Mass Index 24.7 Tobacco/Smoking Status: Tobacco use Status Tobacco use date assessed 03/29/25 04/26/25 13:26 Patient Tobacco Use Status Former Tobacco user 04/26/25 13:26 Tobacco use type Cigarette 04/26/25 13:26 e-Cigarette/Vaping Use Never Used 04/26/25 13:26 Thrive Assessment: Date of Thrive Assessment Date Thrive assessed 03/29/25 04/26/25 13:26 Currently or been in a relationship where the following occur: I choose not to answer Narrative Physical Exam - Constitutional: Patient appears well, not dehydrated upon inspection of the tongue. - HEENT: Oropharynx is clear. - Cardiovascular: Heart auscultation is normal. - Respiratory: Lungs are clear to auscultation bilaterally, no wheezes noted. - Abdomen: Bowel sounds are hyperactive. - Non-tender to palpation throughout. - There are no signs of a surgical abdomen. - Extremities: No swelling noted. Const General: alert; No acute distress Eyes Conjunctivae: conjunctivae normal Resp Auscultation: clear to auscultation bilaterally Cardio Rate: regular rate Rhythm: regular rhythm GI Inspection: Yes normal to inspection Extrem General: Yes normal to inspection and No edema Coding Level of Care Code Est Pt Level 4 (66463) Complex EM visit Add On G2211 Diagnoses Essential hypertension I10 Hypertension type: essential hypertension Hypercholesterolemia E78.00 Impaired glucose tolerance R73.02 GERD (gastroesophageal reflux disease) K21.9 Status post laparoscopic cholecystectomy Z90.49 Hepatic steatosis K76.0 Primary osteoarthritis of right knee M17.11 Laterality: right Osteoarthritis type: primary Bile salt-induced diarrhea K90.89 Assessment & Plan Assessment & Plan (1) Hypertension: Comment: Echocardiogram November 2019 EF 60-65%, nuclear stress test August 25- Code(s): I10 - Essential (primary) hypertension Category: Medical Qualifiers: Hypertension type: essential hypertension Qualified Code(s): I10 - Essential (primary) hypertension Plan: Continue with blood pressure medication. Decrease salt intake and exercise on hydrochlorothiazide and lisinopril (2) Hypercholesterolemia: Code(s): E78.00 - Pure hypercholesterolemia, unspecified Category: Medical Plan: Avoid fried foods, chicken skin, eggs, butter margarine, pastries and meat. Be it pork or beef they have a lot of cholesterol on rosuvastatin (3) Impaired glucose tolerance: Code(s): R73.02 - Impaired glucose tolerance (oral) Category: Medical Plan: Decrease the amount of carbohydrate intake, pasta, bread, rice and potatoes are all sugar and that is aside from all the sweet stuff, remember that fruits are good but they are Sweet also. Hemoglobin A1c is normal (4) GERD (gastroesophageal reflux disease): Code(s): K21.9 - Gastro-esophageal reflux disease without esophagitis Category: Medical Plan: Avoid the foods that causes that usually spicy foods, tomato products, juices, coffee, soda and foods that your sensitive to. After eating do not lie down, allow 3-4 hours before in lie down. And keep the head of bed above 30 degrees to avoid the acid from going up. On omeprazole (5) Status post laparoscopic cholecystectomy: Code(s): Z90.49 - Acquired absence of other specified parts of digestive tract Category: Surgical Plan: Discussed about diet, low-fat diet (6) Hepatic steatosis: Code(s): K76.0 - Fatty (change of) liver, not elsewhere classified Category: Medical Plan: Low-fat diet and exercise (7) Knee osteoarthritis: Comment: Right knee arthroplasty 10/2023 Dr. Carr Code(s): M17.9 - Osteoarthritis of knee, unspecified Category: Medical Qualifiers: Laterality: right Osteoarthritis type: primary Qualified Code(s): M17.11 - Unilateral primary osteoarthritis, right knee Plan: Keep active (8) Bile salt-induced diarrhea: Code(s): K90.89 - Other intestinal malabsorption Category: Medical Plan Plan Patient was informed and verbally consented to the use of an ambient scribe for clinic note documentation during this visit. 1. Diarrhea The patient's diarrhea may be multifactorial, potentially related to her post-cholecystectomy status, diet, or IBS. Physical exam reveals hyperactive bowel sounds but no tenderness, suggesting a non-surgical etiology. A prior diagnosis of IBS was made, with an expensive prescription for Rifaximin that was not filled. The plan is to prescribe cholestyramine powder to help manage potential bile acid malabsorption. A stool study will be ordered to rule out infectious causes, including C. diff, and to check for blood and white blood cells. The patient is advised to follow a bland, low-fat diet, maintain hydration, and may continue using Metamucil for fiber. 2. Hypertension The patient's hypertension is managed with hydrochlorothiazide and lisinopril. The plan is to continue the current medication regimen. She was counseled on the importance of maintaining adequate hydration, given that hydrochlorothiazide is a diuretic. 3. Hypercholesterolemia Her cholesterol is well-controlled on rosuvastatin. The plan is to continue the current medication and reinforce dietary recommendations for a low-fat diet. 4. Gastroesophageal Reflux Disease (Gerd) The patient's reflux is managed with omeprazole. She will continue her current treatment. 5. Impaired Glucose Tolerance The patient has a history of impaired glucose tolerance, with a recent blood sugar of 130 in March. However, her hemoglobin A1c in November was normal. The plan is to monitor with diet and exercise. Discussion Notes I discussed with the patient that her ongoing diarrhea is likely related to her diet, especially in the context of her prior cholecystectomy, which can affect fat digestion. I noted that my physical exam of her abdomen showed it to be very noisy but not tender, which is reassuring and suggests a non-surgical cause. To investigate further, I explained that we will be testing her stool for infections like C. diff, signs of inflammation, or occult blood. I am prescribing a powder, cholestyramine, to help absorb excess bile and slow down her bowel movements. I advised her that she can also use Metamucil for added fiber. We discussed the importance of a bland, low-fat diet and maintaining good hydration, especially since she is on a diuretic medication. I instructed her that the stool sample must be loose for the lab to process it. I reassured her that based on the current findings, including her stable weight, stomach cancer is not a primary concern. We will follow up next month to review the results. Patient Instructions - Take the new powder medication (cholestyramine) as prescribed to help slow down your diarrhea. - You can continue to take Metamucil for fiber. - Please provide a stool sample for testing. - Remember that the sample must be loose for the lab to be able to test it. - Follow a bland diet. - Avoid fatty, fried, sweet, or salty foods. - Limit dairy products and red meat for now. - Drink plenty of water to stay hydrated. - Continue taking all your other medications as prescribed. - You have a follow-up appointment scheduled for next month. Orders: Orders Ova and Parasite Today K90.89 - Other intestinal malabsorption CDiff Gene PCR Today K90.89 - Other intestinal malabsorption Leukocytes Stool Qualitative Today K90.89 - Other intestinal malabsorption Medications: New cholestyramine (Cholestyramine Light) administer w/meal; avoid other meds within 1hr before or 4-6hr after dose 4 grams PO BID 60 ea 0RF K90.89 - Other intestinal malabsorption
--- OUTSIDE RECORDS SUMMARY | 2025-04-27 00:47 | XMS_ITS | Data Portability ---
Author Organization [place] [facility], [facility] Address [address] [place] [address] Care Team Providers Care Military Science Instructor Name Role Phone ANSON RUFF Primary Care [...] I am going to refer her both [facility] to evaluate her back for a possible right lower extremity lumbar radiculopathy, as well as to pain management to be evaluated for possible nerve ablation. I will see her back in 2 months [email or web address] Not available 11/01/2024 16:03:20 01/03/2025 01/03/2025 Mary [...] February to review the results of this. [email or web address] Not available 01/03/2025 16:16:23 03/16/2025 03/16/2025 Dixie [...] may follow up with me as needed [email or web address] Not available 03/16/2025 15:52:02 Plan of Treatment Reminders Order Date Submit Date Provider Last Modified By Organization Details Last Modified Time Details Appointments None recorded. Lab None recorded. Referral physical therapist referral - Lumbar Back Pain Strengthe magdiel and stabiliza tion Program. Teach at-home exercises per dr.brothe dickinson 2024 [facility] [place], [address], [place], [address], 5 10:10:23 pain managemen t referral 2024 025 kisha [facility], [address], [place], [address], 5 07:20:15 pain managemen t referral 2024 025 [facility], [address], [address], [place], [address], 07:20:15 Procedures None recorded. Surgeries None recorded. Imaging MRI, knee, w/o contrast - MARS protocol hx RTKR. R lower extremety radiculop athy 2024 025 [facility] [place], [address], [address], [place], [address], 5 22:18:08 XR, knee, 3 view - F/U RTKR 10/2023 AB room 203 2024 025 [facility], [address], [address], [place], [address], 5 07:20:15 XR, knee, 3 view - rm 208 3V right knee pain. S/P RTKR 10/29 AB 2024 025 [email or web address] [facility], [address], [address], [place], [address], 5 12:13:47 Medication Orders gabapenti n 100 mg capsule 2024 025 [id number], [address] [place], [address], 14:55:10 Patient TargetsNo targets recorded. Patient InstructionsNo [...] 9.7 K/mm3 4.0-11 .0 normal Not Available [address], [address], 10/21/2024 17:22:22 10/22/1910/21/2024 CBC WITH DIFFE RENTI AL/PL ATELE T RBC 4.22 M/mm3 4.20-5 .40 normal Not Available [address], [address], 10/21/2024 17:22:22 10/22/1910/21/2024 CBC WITH DIFFE RENTI AL/PL ATELE T hemoglobin 13.4 gm/dL 11.7-1 5.5 normal Not Available [address], [address], 10/21/2024 17:22:22 10/22/19 25 10/21/2024 CBC WITH DIFFE RENTI AL/PL ATELE T hematocrit 40.1 % 35.7-4 5.8 normal Not Available [address], [address], 10/21/2024 17:22:22 10/22/19 25 10/21/2024 CBC WITH DIFFE RENTI AL/PL ATELE T MCV 95.0 fL 80.0-1 00.0 normal Not Available [address], [address], 10/21/2024 17:22:22 10/22/19 25 10/21/2024 CBC WITH DIFFE RENTI AL/PL ATELE T MCH 31.8 pg 27.0-3 4.0 normal Not Available [address], [address], 10/21/2024 17:22:22 10/22/19 25 10/21/2024 CBC WITH DIFFE RENTI AL/PL ATELE T MCHC 33.4 g/dL 33.0-3 7.0 normal Not Available [address], [address], 10/21/2024 17:22:22 10/22/19 25 10/21/2024 CBC WITH DIFFE RENTI AL/PL ATELE T RDW 43.8 fL <47.0 Not Available [address], [address], 10/21/2024 17:22:22 10/22/19 25 10/21/2024 CBC WITH DIFFE RENTI AL/PL ATELE T platelets 229 K/mm3 150-46 0 normal Not Available [address], [address], 10/21/2024 17:22:22 10/22/19 25 10/21/2024 CBC WITH DIFFE RENTI AL/PL ATELE T neutrophils 61.8 % 44-76 normal Not Available [address], [address], 10/21/2024 17:22:22 10/22/19 25 10/21/2024 CBC WITH DIFFE RENTI AL/PL ATELE T lymphs 29.5 % 15-43 normal Not Available [address], [address], 10/21/2024 17:22:22 10/22/19 25 10/21/2024 CBC WITH DIFFE RENTI AL/PL ATELE T monocytes 6.5 % 4.5-10 .5 normal Not Available [address], [address], 10/21/2024 17:22:22 10/22/19 25 10/21/2024 CBC WITH DIFFE RENTI AL/PL ATELE T eos 1.4 % 0-6 normal Not Available [address], [address], 10/21/2024 17:22:22 10/22/19 25 10/21/2024 CBC WITH DIFFE RENTI AL/PL ATELE T basos 0.5 % 0-2 normal Not Available [address], [address], 10/21/2024 17:22:22 10/22/19 25 10/21/2024 CBC WITH DIFFE RENTI AL/PL ATELE T neutrophils (absolute) 6.0 K/mm3 1.3-7. 0 normal Not Available [address], [address], 10/21/2024 17:22:22 10/22/19 25 10/21/2024 CBC WITH DIFFE RENTI AL/PL ATELE T lymphs (absolute) 2.9 K/mm3 0.8-3. 1 normal Not Available [address], [address], 10/21/2024 17:22:22 10/22/19 25 10/21/2024 CBC WITH DIFFE RENTI AL/PL ATELE T monocytes(ab solute) 0.6 K/mm3 0.4-0. 9 normal Not Available [address], [address], 10/21/2024 17:22:22 10/22/19 25 10/21/2024 CBC WITH DIFFE RENTI AL/PL ATELE T eos (absolute) 0.1 K/mm3 0.0-0. 4 normal Not Available [address], [address], 10/21/2024 17:22:22 10/22/19 25 10/21/2024 CBC WITH DIFFE RENTI AL/PL ATELE T baso (absolute) 0.1 K/mm3 0.0-0. 1 normal Not Available [address], [address], 10/21/2024 17:22:22 10/22/19 25 10/21/2024 CBC WITH DIFFE RENTI AL/PL ATELE T immature granulocytes 0.3 % Not Available [address], [address], 10/21/2024 17:22:22 10/22/19 25 10/21/2024 CBC WITH DIFFE RENTI AL/PL ATELE T immature grans (abs) 0.0 K/mm3 Not Available [address], [address], 10/21/2024 17:22:22 10/22/19 25 10/21/2024 CBC WITH DIFFE RENTI AL/PL ATELE T NRBC 0.0 #/100 _WBC' s Not Available [address], [address], 10/21/2024 17:22:22 10/22/19 25 10/21/2024 CBC WITH DIFFE RENTI AL/PL ATELE T hematology comments: Commen t AUTOM ATED DIFFE RENTI AL MPV 11.2 FL 9.4-1 2.4 N ABS. NRBC 0.0 K/MM3 N Not Available [address], [address], 10/21/2024 17:22:22 10/22/19 25 10/21/2024 SEDIM ENTAT ION RATE- WESTE RGREN sedimentatio n rate-westerg elly 6 mm/HR 0-20 normal Not Available [address], [address], 10/21/2024 17:22:23 10/22/19 25 10/21/2024 C-FERNY CTIVE PROTE IN, QUANT C-reactive protein, quant <0.3 mg/dL 0-0.5 Not Available [address], [address], 10/21/2024 17:22:24 06/24/19 25 06/24/2024 XR, knee, 3 view [email or web address]:/ [email or web address] ?Encry pted=s hAaTro YD8dLq bEUv6g %2BXZw aYqtaq 0bqfl% 2Fg9IQ a4ajBk vP9nXo QUaueC m3YtLR FvZlgJ JJ8mAn HZtai3 6o3098 AC0Kqb 3uFUqu mKiQtr MwF INTERFACE [facility] [address] [place] [address], [place], [address], 06/24/2024 13:43:30 06/24/19 25 06/24/2024 XR, knee, 3 view [email or web address]:/ [email or web address] ?Encry pted=s hAaTro YD8dLq bEUv6g %2BXZw aYqtaq 0bqfl% 2Fg9IQ a4ajBk vP9nXo QUaueC m3YtLR FvZl JJ8mAn HZtai3 9i6577 AC0Kqb 3uFUqu mKiQtr MwF INTERFACE [facility] [address], [address], 06/24/2024 13:43:32 11/02/19 25 11/01/2024 XR, knee, 3 view http:/ [email or web address] ?Encry pted=s hAaTro YD8dLq bEUv6g %2BXZw aYqtaq 0bqfl% 2Fg9IQ a4ajBk vP9nXo QUaueC m3YtLR FvZlgJ JJ8mAn HZtai3 9g1819 AC0Kla 3iNU6K gKiQtr MwF INTERFACE [facility] [address] [facility] [address], [place], [address], 11/01/2024 15:03:18 11/02/19 25 11/01/2024 XR, knee, 3 view [email or web address]:/ [email or web address] ?Encry pted=s hAaTro YD8dLq bEUv6g %2BXZw aYqtaq 0bqfl% 2Fg9IQ a4ajBk vP9nXo QUaueC m3YtLR FvZlgJ JJ8mAn HZtai3 1c9407 AC0Kla 3iNU6K gKiQtr MwF INTERFACE [facility] [address] [facility] [address], [place], [address], 11/01/2024 15:03:19 11/14/19 25 11/11/2024 MRI, knee, w/o contr ast No observ ation record ed. [facility] [place] [address] [facility] [address], [place], [address], 11/14/2024 16:00:53 Result Notes Documentation Provider Name and Address Organization Details Recorded Time Xr, Knee, 3 View : [email or web address]? Encrypted=vzVoDudOW8dNnqL Uv6g%2GBEipTqwvk0vdmf%2Fg 1SEv6fdItcQ7fVxSGzslGx5Ag WXPxHrdHRA9yQuYJkia09v711 4GI9Dfd1kAVtglFeCzmFpI Not Available [facility] 06/24/2024 13:43: 31 Xr, Knee, 3 View : [email or web address] Encrypted=xnDjZkwHP9cNtmP Uv6g%3VEZdqSeaga4iuhq%2Fg 3IRr4knQsjI4cFnVOxifQr7Ls BUEaGobUYW0oZvWXpbe29w895 4DA1Ybz3vQUftmHwCdyHeH Not Available [facility] 06/24/2024 13:43: 33 Xr, Knee, 3 View : [email or web address]? Encrypted=hjRsYicWP4yEgtS Uv6g%8QGGepInoeh3oqve%2Fg 7HSe7cfNmdS8qXgTIpkqKi7Zn QRAkRhcGZU4wBiLFglk67p777 7QI0Hor5eFH7LbVxEzaGfS Not Available [facility] 11/01/2024 15:03: 19 Xr, Knee, 3 View : [email or web address] Encrypted=vkVsTwyID0vLsdR Uv6g%4BSZleHzoap5riez%2Fg 3PGl0xfHrnW8pWhRIfleXc1Ah VILvGeeOXL9fIkOJopk04x823 3YZ4Hei3jIF6OjEvWgmLnI Not Available [facility] 11/01/2024 15:03: 20 Problems Name Problem SNOMED Code Status Onset Date Resolution Date Notes Provider Name and Address Organization Details Recorded Time No complaints 423526734 Active Status : 'I'; Not Available [facility] 4 09:12:24 Osteoarthr itis of right knee joint 5307439911955 00 Active 2023 jana sheikh [place] - [facility] 4 13:05:03 History of right total knee replacemen t 2691488778255 102 Active 2023 Felix Carr MD [address], [place], [address] , [facility] - [facility] 4 16:02:45 Radicular pain 88623471 Active 2024 Kristine Horton null, 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 5 15:17:43 Low back pain 579828923 Active 2024 [facility] bri null, [facility] 5 15:18:02 Problem Notes None recorded. Procedures Surgical History Date Name Laterality Status Provider Name and Address Organization Details Recorded Time 4 94117 Therapeutic Exercise (1:1) completed Merlin Ni, PT [address], [place], [address], [facility] 02/01/2024 12:09:35 4 43580: Manual therapy completed Merlin Ni PT [address], [place], [address], [facility] 02/01/2024 14:39:04 4 04390 Therapeutic Exercise (1:1) completed Shirley Sanchez 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 [address], [place], [address], [facility] 01/26/2024 11:03:45 4 09761 Therapeutic Exercise (1:1) completed Shirley Sanchez, 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 [address], [place], [address], [facility] 01/21/2024 15:04:22 4 80042: Manual therapy completed Shirley Sanchez, 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 [address], [place], [address], [facility] 01/21/2024 15:04:22 4 36986 Therapeutic Exercise (1:1) completed Shirley Formejester, 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 [address], [place], [address], [facility] 01/19/2024 12:58:52 4 04889: Manual therapy completed Shirley Formejester, 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 [address], [place], [address], [facility] 01/19/2024 12:58:52 4 06759 Therapeutic Exercise (1:1) completed Shirley Formejester, 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 [address], [place], [address], [facility] 01/14/2024 17:23:43 4 98219: Manual therapy completed Shirley Formemirtaster, 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 [address], [place], [address], [facility] 01/14/2024 17:23:43 4 31278 Therapeutic Exercise (1:1) completed Shirley Formejester, 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 [address], [place], [address], [facility] 01/12/2024 11:30:38 4 31240: Manual therapy completed Shirley Formemirtaster, 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 [address], [place], [address], [facility] 01/12/2024 11:30:38 4 13481 Therapeutic Exercise (1:1) completed Shirley Formejester, 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 [address], [place], [address], [facility] 01/06/2024 11:02:13 4 13992: Manual therapy completed Shirley Formejester, 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 [address], [place], [address], [facility] 01/06/2024 11:02:13 4 57950 Therapeutic Exercise (1:1) completed Shirley Formashaer, 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 [address], [place], [address], [facility] 01/04/2024 10:30:09 4 01486: Manual therapy completed Shirley Formgiacomoster, 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 [address], [place], [address], [facility] 01/04/2024 10:30:09 4 85615 Therapeutic Exercise (1:1) completed Shirley Formashaer, 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 [address], [place], [address], [facility] 01/01/2024 13:53:30 72682: Manual therapy completed Shirley Sanchez, 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 [address], [place], [address], [facility] 01/01/2024 13:53:30 4 05052 Therapeutic Exercise (1:1) completed Merlin Ni, PT [address], [place], [address], [facility] 12/31/2023 09:35:48 4 81485: Manual therapy completed Merlin Ni, PT [address], [place], [address], [facility] 12/31/2023 09:35:48 4 62072 Therapeutic Exercise (1:1) completed Shirley Formgiacomoster, 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 [address], [place], [address], [facility] 12/23/2023 13:19:04 4 86884: Manual therapy completed Shirley Formgiacomostspencer, 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 [address], [place], [address], [facility] 12/23/2023 13:19:05 4 65264 Therapeutic Exercise (1:1) completed Shirley Formejester, 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 [address], [place], [address], [facility] 12/21/2023 15:54:01 4 36250: Manual therapy completed Shirley Formejester, 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 [address], [place], [address], [facility] 12/21/2023 15:54:01 4 51127 Therapeutic Exercise (1:1) completed Shirley Formemirtaster, 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 [address], [place], [address], [facility] 12/16/2023 11:36:47 4 22499: Manual therapy completed Shirley Formgiacomoster, 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 [address], [place], [address], [facility] 12/16/2023 11:36:47 4 32687 Therapeutic Exercise (1:1) completed Shirley Formgiacomoster, 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 [address], [place], [address], [facility] 12/14/2023 11:14:43 4 57282: Manual therapy completed Shirley Formzhou, 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 [address], [place], [address], [facility] 12/14/2023 11:14:43 4 27771 Therapeutic Exercise (1:1) completed Merlinanalilia Payano, PT [address], [place], [address], [facility] 12/11/2023 08:03:19 4 51137: Manual therapy completed Merlin Last, PT [address], [place], [address], [facility] 12/11/2023 08:00:06 4 88239 Therapeutic Exercise (1:1) completed Shirley Formejester, 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 [address], [place], [address], [facility] - [place] [facility] 12/07/2023 08:56:13 4 71598: Manual therapy completed Shirley Formejester, 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 [address], [place], [address], [facility] 12/07/2023 08:56:13 4 48420 Therapeutic Exercise (1:1) completed Shirley Formejester, 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 [address], [place], [address], [facility] 12/04/2023 10:43:32 4 63691: Manual therapy completed Shirley Formejester, 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 [address], [place], [address], [facility] 12/04/2023 10:43:32 4 91281 Therapeutic Exercise (1:1) completed Shirley Formejester, 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 [address], [place], [address], [facility] 11/30/2023 11:09:53 4 39353: Manual therapy completed Shirley Formejester, 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 [address], [place], [address], [facility] 11/30/2023 11:09:53 4 66815 Therapeutic Exercise (1:1) completed Shirley Formejester, 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 [address], [place], [address], [facility] 11/25/2023 11:28:36 4 30671: Manual therapy completed Shirley Formejester, 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 [address], [place], [address], [facility] 11/25/2023 11:28:36 4 68153 Therapeutic Exercise (1:1) completed Shirley Formejester, 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 [address], [place], [address], [facility] 11/23/2023 09:45:37 4 63979: Manual therapy completed Shirley Sanchez, 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 [address], [place], [address], [facility] 11/23/2023 09:45:37 4 23176 Therapeutic Exercise (1:1) completed Shirley Sanchez, 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 [address], [place], [address], [facility] 11/20/2023 12:02:44 4 74005: Manual therapy completed Shirley Sanchez, 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 [address], [place], [address], [facility] 11/20/2023 12:03:16 4 76582 Therapeutic Exercise (1:1) completed Merlin Ni, PT [address], [place], [address], [facility] 11/17/2023 09:17:37 4 95819: Low complexity PT Eval completed Merlin Ni, PT [address], [place], [address], [facility] 11/17/2023 09:17:39 4 47113: Low complexity PT Eval completed Awa Perry, PT [address], [place], [address], [facility] 11/04/2023 12:06:44 4 Euflexxa Knee Injection completed Marcela Colmenares PA-C [address], [place], [address], [facility] 09/03/2023 14:30:01 4 Euflexxa Knee Injection completed Marcela Colmenares PA-C [address], [place], [address], [facility] 08/26/2023 22:08:41 Euflexxa Knee Injection completed Marcela Colmenares PA-C [address], [place], [address], [facility] 08/20/2023 12:25:39 Imaging Results None recorded. Procedure Notes None recorded. Medical Equipment None Reported. Allergies Allergen ID Allergen Name Allergen Category Reaction Reaction Severity Criticality Documentation Date Start Date Code Code System Note Provider Name and Address Organization Details Recorded Time 99086 Product containin g penicilli n (product) medicatio n Not available Not available Not available 08/10/20232012 59616 8001 SNOMED Not Available [facility] 4 11:53:31 84886 Substance with sulfonami de structure and antibacte rial mechanism of action (substanc e) medicatio n Not available Not available Not available 08/10/20232012 06822 8003 SNOMED Not Available [facility] 4 11:53:32 Medications Name Sig Start [...] Available Not Available Not Available amoxicillin 875 mg-merrickyuly day clavulanate 125 mg tablet TAKE 1 [...] Updated DateTime 06/24/2024 154.94 cm RAJANI JONES [facility] 06/24/2024 13:27:37 Date Recorded Body height Provider Name an d Address Organization Details Last Updated DateTime 07/27/2024 154.94 cm RAJANI JONES [facility] 07/27/2024 11:27:12 Date Recorded Body height Provider Name an d Address Organization Details Last Updated DateTime 11/01/2024 154.94 cm Kristine Horton [facility] 11/01/2024 14:52:31 Date Recorded Body height Body mass index (BMI) Body weight Provider Name and Address Organization Details Last Updated DateTime 01/03/2025 154.94 cm 26.5 kg/m2 76489.93 g demetra gregory [facility] 01/03/2025 14:46:56 Date [...] ICD10 Code Diagnosis IMO Codes Diagnosis Note [id number] Marcela Colmenares PA-C [facility] [address] [place] [address] 08/20/2023 11:20:34 08/20/2023 13:16:35 Osteoarthritis of right knee joint 7824761782 41682 M17.11 [id number] Marcela Colmenares PA-C [facility] [address] [place] [address] 08/27/2023 14:10:38 08/27/2023 14:41:09 Osteoarthritis of right knee joint 5307815288 91136 M17.11 [id number] Marcela Colmenares PA-C [facility] [address] [place] [address] 09/03/2023 13:57:17 09/03/2023 14:30:53 Osteoarthritis of right knee joint 6437905206 19920 M17.11 [id number] Marcela Colmenares PA-C [facility] [address] [place] [address] 10/23/2023 12:43:12 11/13/2023 14:41:47 Pain of right knee joint 2982288673 29070 M25.561 Osteoarthr itis of right knee joint 8107664493 91731 M17.11 [id number] Felix Carr MD [facility] [address] [place] [address] 10/30/2023 10:04:54 11/24/2023 08:44:24 Osteoarthritis of right knee joint 4781602633 93146 M17.11 [id number] Shari BarnettcliffeGARETH [facility] [address] [place] [address] 11/03/2023 13:19:53 11/24/2023 04:01:15 [id number] Awa Perry, PT [facility] [address] [place] [address] 11/04/2023 11:10:08 11/04/2023 14:48:16 Osteoarthritis of right knee joint 5251349429 77590 M17.11 [id number] Merlin Payano, PT [facility] [address] [place] [address] 11/16/2023 12:24:11 11/16/2023 13:48:32 History of right total knee replacement 9902677628 509891 Z96.651 Z47.1 [id number] Shirley Mcdonald r, 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 [facility] [address] [facility] [address] 11/20/2023 09:19:51 11/20/2023 10:35:19 History of right total knee replacement 8846082023 521125 Z96.651 Z47.1 [id number] Shirley Mcdonald r, 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 [facility] [address] [place] [address] 11/23/2023 09:50:09 11/23/2023 10:59:44 History of right total knee replacement 2190063451 543208 Z96.651 Z47.1 [id number] Felix Carr MD [facility] [address] [place] [address] 11/24/2023 12:35:48 12/21/2023 15:41:11 History of right total knee replacement [id number] 746869 Z96.951 [id number] Shirley Mcdonald r, 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 [facility] [address] [place] [address] 11/25/2023 11:20:33 11/25/2023 12:26:16 History of right total knee replacement 9861458115 993509 Z96.651 Z47.1 [id number] Shirley Formejeste r, 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 Gary PT [address] [place] [address] 11/30/2023 10:39:23 11/30/2023 11:32:42 History of right total knee replacement 5089125762 206751 Z96.651 Z47.1 [id number] Shirley Formejeste r, 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 Rich PT [address] [place] [address] 12/04/2023 10:23:04 12/04/2023 11:28:43 History of right total knee replacement 6192165522 065615 Z96.651 Z47.1 [id number] Shirley Formejeste r, 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 Gary PT [address] [place] [address] 12/07/2023 08:53:24 12/07/2023 10:25:14 History of right total knee replacement 4057006620 042331 Z96.651 Z47.1 [id number] Merlin Ni, PT Gary PT [address] [place] [address] 12/09/2023 10:57:55 12/09/2023 12:00:35 History of right total knee replacement 6869537357 160865 Z96.651 Z47.1 [id number] Shirley Formejeste r, 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 Gary PT [address] [place] [address] 12/14/2023 10:58:41 12/14/2023 11:54:58 History of right total knee replacement 0900162382 149668 Z96.651 Z47.1 [id number] Shirley Formejeste r, 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 Rich PT [address] [place] [address] 12/16/2023 10:57:34 12/16/2023 12:37:06 History of right total knee replacement 8810686211 989089 Z96.651 Z47.1 [id number] Shirley Formejeste r, 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 Rich PT [address] [place] [address] 12/21/2023 15:25:27 12/21/2023 17:36:59 History of right total knee replacement 8652126254 868375 Z96.651 Z47.1 [id number] MD [facility] 2nd floor [address] [place] [address] 12/22/2023 12:45:02 12/22/2023 14:50:33 History of right total knee replacement 9494421510 161034 Z96.651 Z47.1 [id number] Shirley Formejeste r, 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 Rich PT [address] [place] [address] 12/23/2023 12:56:02 12/23/2023 14:19:20 History of right total knee replacement 2320074547 795557 Z96.651 Z47.1 [id number] Merlin Ni, PT Rich PT 1 [place] [address] 12/30/2023 10:27:58 12/30/2023 11:49:48 History of right total knee replacement 2408957740 273310 Z96.651 Z47.1 [id number] Shirley Formejeste r, 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 Gary PT 1 [place] [address] 01/01/2024 13:32:40 01/01/2024 14:30:52 History of right total knee replacement 1221672966 384844 Z96.651 Z47.1 [id number] Shirley Formejeste r, 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 Rich PT 1 [place] [address] 01/04/2024 10:27:54 01/04/2024 11:30:22 History of right total knee replacement 6832539931 455247 Z96.651 Z47.1 [id number] Shirley Formejeste r, 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 Rich PT 1 [place] [address] 01/06/2024 10:31:22 01/06/2024 11:30:26 History of right total knee replacement 4755577553 183539 Z96.651 Z47.1 [id number] Shirley Formejeste r, 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 Rich PT 1 [place] [address] 01/12/2024 11:20:52 01/12/2024 12:37:19 History of right total knee replacement 3536801436 460433 Z96.651 Z47.1 [id number] Shirley Formejeste r, 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 Rich PT [address] [place] [address] 01/14/2024 17:12:52 01/14/2024 18:49:07 History of right total knee replacement 1086977951 421464 Z96.651 Z47.1 [id number] Shirley Formejeste r, 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 Gary PT [address] [place] [address] 01/19/2024 12:52:55 01/19/2024 15:21:59 History of right total knee replacement 5878594290 738417 Z96.651 Z47.1 [id number] MD [facility] [address] [place] [address] 01/19/2024 17:15:12 02/09/2024 08:59:58 History of right total knee replacement 1846094652 445016 Z96.651 Z47.1 [id number] Shirley Formejeste r, 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 Gary PT [address] [place] [address] 01/21/2024 14:54:26 01/21/2024 15:42:23 History of right total knee replacement 7342695765 031695 Z96.651 Z47.1 [id number] Shirley Formejeste r, 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 Rich PT [address] [place] [address] 01/26/2024 10:57:31 01/26/2024 12:35:01 History of right total knee replacement 4789101489 879857 Z96.651 Z47.1 [id number] Merlin Ni, PT Rich PT [address] [place] [address] 01/28/2024 13:24:17 01/28/2024 14:22:44 History of right total knee replacement 9541689527 436067 Z96.651 Z47.1 [id number] MD [facility] [address] [place] [address] 03/22/2024 11:29:09 04/11/2024 07:47:42 History of right total knee replacement 0847147729 889461 Z96.651 Z47.1 [id number] [facility] [address] [place] [address] 06/24/2024 13:24:26 07/05/2024 12:13:47 Pain of knee region 4881281244 M25.561 43705055 Osteoarthr itis of right knee joint 5873558297 51952 M17.11 9583952 Pain of ri ght knee joint 3293595437 07368 M25.561 [id number] [facility] [address] [place] [address] 07/27/2024 11:20:44 08/09/2024 13:39:06 Pain of right knee joint 1666782106 59290 M25.561 [id number] MD [facility] [address] [place] [address] 11/01/2024 14:50:28 11/11/2024 07:20:15 History of right total knee replacement 4249950760 871203 Z96.651 [id number] Radicular pain 43927124 M54.10 12918528 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 9286587102 T84.028A Z96.554 [id number] MD [facility] [address] [place] [address] 01/03/2025 14:44:14 01/11/2025 15:14:23 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 2811644596 T84.028A Z96.344 [id number] MD [facility] [address]nd [address] [place] [address] 03/16/2025 14:44:58 03/23/2025 15:18:58 Low back pain 730873412 M54.50 308788 History of right total knee replacement 3660230585 525442 Z96.651 Health Concerns Section Related Observation LastModified by Organization Detai ls LastModified Time None Recorded Concern Status LastModified by Organization Details LastModified Time None Recorded Advance Directives Directive None Recorded Payers Insurance Date Sequence Insurance Name Policy Number Policy Ivy Covered Member ID Ivy Member ID Guarantor Name 03/23/2025 1 [employer] (MEDICARE REPLACEMENT/ ADVANTAGE - PPO) [id number] Mary Jane Valencia [id number] Mary Jane Valencia Notes Date Note Type [...] block may be in order. All questions answered.99 [employer] speech recognition buyer assistant software was used to create portions of this document. An attempt at proofreading has been made to minimize errors. Please call for corrections. Danyel Bronson PA-C [address], [place], [address], [facility] 06/24/2024 16:32:21 07/27/2024 text/html [...] in the meantime would forego any aggressive treatment.99 [employer] speech recognition buyer assistant software was used to create portions of this document. An attempt at proofreading has been made to minimize errors. Please call for corrections. Danyel Bronson PA-C [address], [place], [address], [facility] 07/27/2024 17:09:53 11/01/2024 text/html [...] the patient s chart. Felix Carr MD [address] [place] [address] [address], [place], [address], [facility] [place] [facility] 11/01/2024 16:04:31 OBGyn Episode No OBEpisode recorded.
--- OUTSIDE RECORDS SUMMARY | 2025-04-27 00:47 | XMS_ITS | Continuity of Care Document ---
Author Organization [place] - [facility], [facility] 2nd floor Address [address] [place] [address] Care Team Providers Care Mapping Pilot Name Role Phone ANSON RUFF Primary Care Provider Assessment Encounter Date Assessment Date Assessment LastModified by Organization Details LastModified Time 03/16/2025 03/16/2025 Dixie followed up today for [...] may follow up with me as needed [email or web address] Not available 03/16/2025 15:52:02 Plan of Treatment Reminders Order Date Submit Date Provider Last Modified By Organization Details Last Modified Time Details Appointments None recorded. Lab None recorded. Referral physical therapist referral - Lumbar Back Pain Strengtheni ng and stabilizati on Program. Teach at-home exercises per . 2024 025 [facility] - [address] [place], [address], 5 10:10:23 Procedures None recorded. Surgeries None recorded. Imaging None recorded. Medication Orders None recorded. Patient TargetsNo targets recorded. Patient InstructionsNo instructions recorded. Reason for Referral Physical Therapist Referral for Low back pain Lumbar Back Pain Strengthening and stabilization Program. Teach at-home exercises per . Referring Physician: Felix Carr, Orthopedic Surgery, Encounter Date: 03/16/2025 Problems Name Problem SNOMED Code Status Onset Date Resolution Date Notes Provider Name and Address Organization Details Recorded Time No complaints 967981343 Active Status : 'I'; Not Available [facility] 4 09:12:24 Osteoarthr itis of right knee joint 4125106417825 00 Active 2023 jana sheikh [facility] 4 13:05:03 History of right total knee replacemen t 4973198231928 102 Active 2023 Felix Carr MD [address], [place], [address] , [facility] 4 16:02:45 Radicular pain 22763266 Active 2024 Kristine sheikh [facility] 5 15:58:20 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 Active 2024 Felix Carr MD [address], [place], [address] , [facility] 5 16:03:40 Lumbar radiculopa thy 925248370 Active 2024 demetra sheikh [facility] 5 15:17:43 Low back pain 263362802 Active 2024 demetra sheikh [facility] 5 15:18:02 Problem Notes None recorded. Procedures Surgical History Date Name Laterality Status Provider Name and Address Organization Details Recorded Time 4 23948 Therapeutic Exercise (1:1) completed Merlin Ni, PT [address], [place], [address], [facility] 02/01/2024 12:09:35 4 66442: Manual therapy completed Merlin Ni, PT [address], [place], [address], [facility] 02/01/2024 14:39:04 4 64246 Therapeutic Exercise (1:1) completed Shirley Sanchez, PATIENT AMBASSADOR [address], [place], [address], [facility] 01/26/2024 11:03:45 4 96525 Therapeutic Exercise (1:1) completed Shirley Formzhou, PATIENT AMBASSADOR [address], [place], [address], [facility] 01/21/2024 15:04:22 4 72345: Manual therapy completed Shirley Sanchez, PATIENT AMBASSADOR [address], [place], [address], [facility] 01/21/2024 15:04:22 4 39306 Therapeutic Exercise (1:1) completed Shirley Sanchez, PATIENT AMBASSADOR [address], [place], [address], [facility] 01/19/2024 12:58:52 4 03135: Manual therapy completed Shirley Sanchez, PATIENT AMBASSADOR [address], [place], [address], [facility] 01/19/2024 12:58:52 4 94767 Therapeutic Exercise (1:1) completed Shirley Sanchez, PATIENT AMBASSADOR [address], [place], [address], [facility] 01/14/2024 17:23:43 4 70470: Manual therapy completed Shirley Sanchez, PATIENT AMBASSADOR [address], [place], [address], [facility] 01/14/2024 17:23:43 4 53217 Therapeutic Exercise (1:1) completed Shirley Formzhou, PATIENT AMBASSADOR [address], [place], [address], [facility] 01/12/2024 11:30:38 4 20237: Manual therapy completed Shirley Sanchez, PATIENT AMBASSADOR [address], [place], [address], [facility] 01/12/2024 11:30:38 4 09412 Therapeutic Exercise (1:1) completed Shirley Formzhou, PATIENT AMBASSADOR [address], [place], [address], [facility] 01/06/2024 11:02:13 4 04408: Manual therapy completed Shirley Sanchez, PATIENT AMBASSADOR [address], [place], [address], [facility] 01/06/2024 11:02:13 4 35229 Therapeutic Exercise (1:1) completed Shirley Sanchez, PATIENT AMBASSADOR [address], [place], [address], [facility] 01/04/2024 10:30:09 4 88900: Manual therapy completed Shirley Sanchez, PATIENT AMBASSADOR [address], [place], [address], [facility] 01/04/2024 10:30:09 4 31754 Therapeutic Exercise (1:1) completed Shirley Formzhou, PATIENT AMBASSADOR [address], [place], [address], [facility] 01/01/2024 13:53:30 4 66973: Manual therapy completed Shirley Sanchez, PATIENT AMBASSADOR [address], [place], [address], [facility] 01/01/2024 13:53:30 4 06756 Therapeutic Exercise (1:1) completed Merlin Ni, PT [address], [place], [address], [facility] 12/31/2023 09:35:48 4 56006: Manual therapy completed Merlin Ni, PT [address], [place], [address], [facility] 12/31/2023 09:35:48 4 82748 Therapeutic Exercise (1:1) completed Shirley Formzhou, PATIENT AMBASSADOR [address], [place], [address], [facility] 12/23/2023 13:19:04 4 59796: Manual therapy completed Shirley Sanchez, PATIENT AMBASSADOR [address], [place], [address], [facility] 12/23/2023 13:19:05 4 80714 Therapeutic Exercise (1:1) completed Shirley Sanchez, PATIENT AMBASSADOR [address], [place], [address], [facility] 12/21/2023 15:54:01 4 26766: Manual therapy completed Shirley Sanchez, PATIENT AMBASSADOR [address], [place], [address], [facility] 12/21/2023 15:54:01 4 20120 Therapeutic Exercise (1:1) completed Shirley Formgiacomostspencer, PATIENT AMBASSADOR [address], [place], [address], [facility] 12/16/2023 11:36:47 4 97939: Manual therapy completed Shirley Sanchez, PATIENT AMBASSADOR [address], [place], [address], [facility] 12/16/2023 11:36:47 4 03369 Therapeutic Exercise (1:1) completed Shirley Sanchez, PATIENT AMBASSADOR [address], [place], [address], [facility] 12/14/2023 11:14:43 4 61386: Manual therapy completed Shirley Sanchez, PATIENT AMBASSADOR [address], [place], [address], [facility] 12/14/2023 11:14:43 4 48064 Therapeutic Exercise (1:1) completed Merlin Ni, PT [address], [place], [address], [facility] 12/11/2023 08:03:19 4 44872: Manual therapy completed Merlin Ni, PT [address], [place], [address], [facility] 12/11/2023 08:00:06 4 12441 Therapeutic Exercise (1:1) completed Shirley Sanchez, PATIENT AMBASSADOR [address], [place], [address], [facility] 12/07/2023 08:56:13 4 22192: Manual therapy completed Shirley Sanchez, PATIENT AMBASSADOR [address], [place], [address], [facility] 12/07/2023 08:56:13 4 93547 Therapeutic Exercise (1:1) completed Shirley Formgiacomostspencer, PATIENT AMBASSADOR [address], [place], [address], [facility] 12/04/2023 10:43:32 4 74899: Manual therapy completed Shirley Formzhou, PATIENT AMBASSADOR [address], [place], [address], [facility] 12/04/2023 10:43:32 4 48566 Therapeutic Exercise (1:1) completed Shirley Formejester, PATIENT AMBASSADOR [address], [place], [address], [facility] 11/30/2023 11:09:53 4 44740: Manual therapy completed Shirley Formejester, PATIENT AMBASSADOR [address], [place], [address], [facility] 11/30/2023 11:09:53 4 45018 Therapeutic Exercise (1:1) completed Shirley Formejester, PATIENT AMBASSADOR [address], [place], [address], [facility] 11/25/2023 11:28:36 4 61173: Manual therapy completed Shirley Formemirtaster, PATIENT AMBASSADOR [address], [place], [address], [facility] 11/25/2023 11:28:36 4 52723 Therapeutic Exercise (1:1) completed Shirley Formejester, PATIENT AMBASSADOR [address], [place], [address], [facility] 11/23/2023 09:45:37 4 94494: Manual therapy completed Shirley Formemirtaster, PATIENT AMBASSADOR [address], [place], [address], [facility] 11/23/2023 09:45:37 4 51940 Therapeutic Exercise (1:1) completed Shirley Formejester, PATIENT AMBASSADOR [address], [place], [address], [facility] 11/20/2023 12:02:44 4 95495: Manual therapy completed Shirley Formejester, PATIENT AMBASSADOR [address], [place], [address], [facility] 11/20/2023 12:03:16 4 56675 Therapeutic Exercise (1:1) completed Merlin Ni, PT [address], [place], [address], [facility] 11/17/2023 09:17:37 4 59832: Low complexity PT Eval completed Merlin Ni, PT [address], [place], [address], [facility] 11/17/2023 09:17:39 4 43068: Low complexity PT Eval completed Awa Perry, PT [address], [place], [address], [facility] 11/04/2023 12:06:44 4 Euflexxa Knee Injection completed Marcela Colmenares PA-C [address], [place], [address], [facility] 09/03/2023 14:30:01 4 Euflexxa Knee Injection completed Marcela Colmenares PA-C [address], [place], [address], [facility] 08/26/2023 22:08:41 4 Euflexxa Knee Injection completed Marcela Colmenares PA-C [address], [place], [address], [facility] 08/20/2023 12:25:39 Imaging Results None recorded. Procedure Notes None recorded. Medical Equipment None Reported. Allergies Allergen ID Allergen Name Allergen Category Reaction Reaction Severity Criticality Documentation Date Start Date Code Code System Note Provider Name and Address Organization Details Recorded Time 23708 Product containin g penicilli n (product) medicatio n Not available Not available Not available 08/10/20232012 47191 8001 SNOMED Not Available [facility] 4 11:53:31 17052 Substance with sulfonami de structure and antibacte rial mechanism of action (substanc e) medicatio n Not available Not available Not available 08/10/20232012 38162 8003 SNOMED Not Available [facility] 4 11:53:32 Medications Name Sig Start [...] Available Not Available Not Available amoxicillin 875 mg-potassiu m clavulanate 125 mg tablet TAKE 1 TABLET [...] DateTime 03/16/2025 154.94 cm demetra gregory [facility] 03/16/2025 14:47:32 Social History None recorded. Functional Status None recorded. Mental Status None recorded. Family History Nothing Reported. Medical History No medical history recorded. Gynecological HistoryNo gynecological history recorded. Obstetrics History GPAL:G 0 P 0 0 0 0 Past Encounters Encounter ID Performer Location Encounter Start Date Encounter Closed Date Diagnosis/Indication Diagnosis SNOMED-CT Code Diagnosis ICD10 Code Diagnosis IMO Codes Diagnosis Note [id number] MD [facility] [address] [facility] [place] [address] 03/16/2025 14:44:58 03/23/2025 15:18:58 Low back pain 809925584 M54.50 691081 History of right total knee replacement 2749253951 229287 Z96.651 Health Concerns Section Related Observation LastModified by Organization Detai ls LastModified Time None Recorded Concern Status LastModified by Organization Details LastModified Time None Recorded Payers Encounter Date Sequence Insurance Name Policy Number Policy Ivy Covered Member ID Ivy Member ID Guarantor Name 03/16/2025 1 [employer] (MEDICARE REPLACEMENT/ ADVANTAGE - PPO) [id number] Mary Jane Valencia [id number] Mary Jane Valencia OBGyn Episode No OBEpisode recorded.
--- OUTSIDE RECORDS SUMMARY | 2025-04-27 00:47 | XMS_ITS | Patient Health Record ---
Author Organization [facility] [place] Address [address] [place] [address] Care Team Providers Care Special Assemblies Supervisor Name Role Phone Nury Rubio Primary Care Provider Meredith Mar Unavailable [phone] Allergies Allergen (clinical drug ingredient) Drug/Non Drug [...] Status Risk Notes Problem Acquired hallux valgus (15010822) Hallux valgus (acquired), left foot (M20.12) Active confirmed Chronic problem, Worse (4) Problem Acquired hallux valgus (69300202) Hallux valgus (acquired), right foot (M20.11) Active confirmed Plan Of Treatment No Information Insurance Providers Payer Name Payer Address Payer Phone Subscriber Number Group Number Insured Name Patient Relationship to Insured Coverage Start Date Coverage End Date [employer] [address] [place] [address] [id number] Mary Jane Valencia Self - patient is the insured Medical (General) History Medical History History ICD Code Cataracts High blood pressure Surgical History Surgery Date(Month/Year) Gall bladder removal
--- OUTSIDE RECORDS SUMMARY | 2025-04-27 00:47 | XMS_ITS | Data Portability ---
Author Organization STEPHANIE Sanchez OctroLianna Maverick [facility] Address [address] [place] [address] Assessment No assessment recorded. Plan of Treatment [...] ICD10 Code Diagnosis IMO Codes Diagnosis Note [id number] [address] [address] [address] [place] [address] 04/14/2017 17:41:32 04/14/2017 19:01:19 Health Concerns Section Related Observation LastModified by Organization Detai ls LastModified Time None Recorded Concern Status LastModified by Organization Details LastModified Time None Recorded Advance Directives Directive None Recorded Payers Insurance Date Sequence Insurance Name Policy Number Policy Ivy Covered Member ID Ivy Member ID Guarantor Name 08/28/2022 1 [place]PL[place]EE PROGRAM Shania Valencia [id number] Mary Jane Valencia 08/28/2022 1 [employer] (MEDICARE REPLACEMENT/ ADVANTAGE - PPO) [id number] Mary Jane Valencia [id number] Mary Jane Valencia OBGyn Episode No OBEpisode recorded.
--- OUTSIDE RECORDS SUMMARY | 2025-04-27 00:47 | XMS_ITS | Patient Health Record ---
Author Organization [facility] Address [address] [place] [address] Care Team Providers Care Renal Dietitian Name Role Phone Nury Rubio MD Primary Care Provider Levi Castro [phone] Allergies Allergen (clinical drug ingredient) Drug/Non Drug Allergy documented on EMR Reaction Allergy Type Onset Date Status Penicillin Unknown Drug Allergy Active Sulfa Unknown Drug Allergy Active Reason For Referral No Information Medications Medication SIG (Take, Route, Frequency, Duration) Notes Start Date End Date Status Rosuvastatin Calcium 40 MG Tablet TAKE 1 TABLET BY MOUTH EVERY DAY Oral; Duration: 90 Active Ondansetron 4 MG Tablet Disintegrating 1 tablet on the tongue and allow to dissolve Orally Every 4 to 6 hours as needed for nausea; Duration: 30 day(s) 02/25/2023 Active Iyebg-8-jxnt Ethyl Esters 1 GM Capsule TAKE 2 CAPSULES BY MOUTH TWICE A DAY FOR 90 DAYS Oral; Duration: 90 Active Multi Vitamin/Minerals - Tablet 1 Orally QD Active Lisinopril 20 MG Tablet 1 tablet Orally Once a day Active Omeprazole 20 MG Capsule Delayed Release 1 capsule Orally Twice a day Active Magnesium Active Vitamin D 1000 UNIT Tablet 1 tablet Oral ly Once a day Active ZyrTEC Allergy 10 MG Tablet 1 tablet Ora lly Once a day Active hydroCHLOROthiazide 25 MG Tablet 1 tablet Orally Once a day Active Vitamin C 500 MG Capsule 1 tablet Orally Once a day Active Immunizations Vaccine Route Administration Date Status Comme nts Flu vaccine no Preserv 3 and > Unknown 04/14/2017 Admin istered Social History Social History Additional Details Category Social Info Options Details Miscellaneous: Marital status: 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 Nonsmoker > 10 yrs ago; usua lly 1 or 2 glasses of wine QD, but stopped alcohol as of 07/2013. Nonsmoker > 10 yrs ago; usua lly 1 or 2 glasses of wine QD. Nonsmoker > 10 yrs ago; usua lly 1 or 2 glasses of wine QD. Nonsmoker > 10 yrs ago; usua lly 1 or 2 glasses of wine QD. Nonsmoker > 10 yrs ago; usua lly 1 or 2 glasses of wine QD. Nonsmoker > 10 yrs ago; usua lly 1 or 2 glasses of wine QD. Problems Problem Type SNOMED Code ICD Code Onset Dates Problem Status W/U Status Risk Notes Problem Screening for malignant neoplasm of colon (814943346) Encounter for screening for malignant neoplasm of colon (Z12.11) Active confirmed Problem Irritable bowel syndrome with diarrhea (543639857) Irritable bowel syndrome with diarrhea (K58.0) Active confirmed Problem Nausea (873284870) Nausea (R11.0) Active confirmed Problem Epigastric pain (60215445) Abdominal pain, epigastric (R10.13) Active confirmed Problem Peptic ulcer disease (87376802) Peptic ulcer disease (K27.9) Active confirmed Problem Pre-procedure evaluation check (545716536) Pre-procedural examination (Z01.818) Active confirmed Problem Diarrhea (11401500) Diarrhea, unspecified type (R19.7) Active confirmed Encounters Encounter Location Date Provider Diagnosis [facility] [address] [facility] [address] [place] [address] 04/24/2025 Levi Coyle Plan Of Treatment Pending Test Test Name [...] 04/26/2014 UPPER GI ENDOSCOPY 01/27/2017 COLONOSCOPY 11/11/2017 Next Appt Details Provider Name:Levi Coyle , 07/19/2025 04:00:00 PM, [address], [address], [place], [address], Insurance Providers Payer Name Payer Address Payer Phone Subscriber Number Group Number Insured Name Patient Relationship to Insured Coverage Start Date Coverage End Date [facility] [address] [place], [place] [id number] DELVIS JOYCE Self - patient is the insured Medical (General) History Medical History History ICD Code Colonoscopy 01-24-2008--negat jesusita except for mild diverticulosis and internal hemorrhoids Hyperlipidemia Denies [place],DM,CVA,Lung disease,renal dise ase Perforated duodenal ulcer in 2010--[place] [facility] surgery required--she had been on ASA and [...] without any worrisome findings otherwise Hospitalized at [facility] in 10/2016 for possible recurrent ulcer [...]
== END 2025-04-26 15:10 | disposition home or self-care (01) ==
PROVIDERS: PCP Internal Medicine; Visit Provider Internal Medicine
DX: I10 Essential (primary) hypertension (principal); E78.00 Pure hypercholesterolemia, unspecified; R73.02 Impaired glucose tolerance (oral); K21.9 Gastro-esophageal reflux disease without esophagitis; Z90.49 Acquired absence of other specified parts of digestive tract; K76.0 Fatty (change of) liver, not elsewhere classified; M17.11 Unilateral primary osteoarthritis, right knee; K90.89 Other intestinal malabsorption

== ENCOUNTER → 2025-04-26 12:57 | Outpatient (BNVA) | payer MEDICARE, SELFPAY | PROVIDERS: PCP Internal Medicine; Visit Provider Internal Medicine | DX: I10 Essential (primary) hypertension (principal); E78.00 Pure hypercholesterolemia, unspecified; R73.02 Impaired glucose tolerance (oral); K21.9 Gastro-esophageal reflux disease without esophagitis; K76.0 Fatty (change of) liver, not elsewhere classified; K90.89 Other intestinal malabsorption; M17.11 Unilateral primary osteoarthritis, right knee; Z90.49 Acquired absence of other specified parts of digestive tract | CPT/HCPCS: 99212 ==

== ENCOUNTER 2025-04-27 11:03 | Outpatient (REF) | payer MEDICARE, SELFPAY ==
[2025-04-27 12:56] LABS: Leukocytes Stool Qualitative NEGATIVE (NEGATIVE)
[2025-04-27 14:06] LABS: CDiff Gene PCR NEGATIVE (Negative)
--- OUTSIDE RECORDS SUMMARY | 2025-04-27 17:16 | XMS_ITS | Patient Health Record ---
Author Organization [facility] Address [address] [place] [address] Care Team Providers Care Engineering Professionals Name Role Phone Nury Rubio MD Primary Care Provider Levi Castro [phone] Allergies Allergen (clinical drug ingredient) Drug/Non Drug [...] for nausea; Duration: 30 day(s) 02/25/2023 Active Rzlqm-2-yhym Ethyl Esters 1 GM Capsule TAKE 2 [...] Problem Screening for malignant neoplasm of colon (518262358) Encounter for screening for malignant neoplasm of colon (Z12.11) Active confirmed Problem Irritable bowel syndrome with diarrhea (672881009) Irritable bowel syndrome with diarrhea (K58.0) Active confirmed Problem Nausea (181795632) Nausea (R11.0) Active confirmed Problem Epigastric pain (73704632) Abdominal pain, epigastric (R10.13) Active confirmed Problem Peptic ulcer disease (69360362) Peptic ulcer disease (K27.9) Active confirmed Problem Pre-procedure evaluation check (515171266) Pre-procedural examination (Z01.818) Active confirmed Problem Diarrhea (56831386) Diarrhea, unspecified type (R19.7) Active confirmed Encounters Encounter Location Date Provider Diagnosis [facility] [address] [facility] [address] [place] [address] 04/24/2025 Levi Coyle Plan Of Treatment Pending [...] 04:00:00 PM, [address], [address], [place], [address], Insurance Providers Payer Name Payer Address Payer Phone Subscriber Number Group Number Insured Name Patient Relationship to Insured Coverage Start Date Coverage End Date [facility] [address] [place], [place] [id number] DELVIS JOYCE Self - patient is the insured Medical (General) History Medical History History ICD Code Colonoscopy 01-24-2008--negat jesusita except for mild diverticulosis and internal hemorrhoids Hyperlipidemia Denies [place],DM,CVA,Lung disease,renal dise ase Perforated duodenal ulcer in 2010--treated at [facility]-no surgery required--she had been on [...] without any worrisome findings otherwise Hospitalized at [facility] in 10/2016 for possible recurrent ulcer [...]
== END 2025-04-27 11:04 | disposition home or self-care (01) ==
LOC: HO.LNP 11:03
PROVIDERS: Visit Provider Internal Medicine
DX: K90.89 Other intestinal malabsorption (principal)
CPT/HCPCS: 87177; 87209; 87493; 89055

== ENCOUNTER 2025-04-28 10:39 | Outpatient (REF) | payer MEDICARE, SELFPAY ==
--- OUTSIDE RECORDS SUMMARY | 2025-04-24 09:53 | XMS_ITS ---
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 Name Role Phone Nury Rubio MD Primary Care Provider Levi Castro [phone] Problems Problem Type SNOMED Code ICD Code Onset Dates Problem Status W/U Status Risk Notes Problem Diarrhea (15081203) Diarrhea (R19.7) Active confirmed Problem Generalized abdominal pain (758201762) Abdominal pain, acute, generalized (R10.84) Active confirmed Encounters Encounter Location Date Provider Diagnosis [facility] [address] [facility] [address] [place] [address] 04/24/2025 Levi Coyle Diarrhea R19.7 and Abdominal pain, acute, generalized R10.84 Assessments Encounter Date Diagnosis (ICD Code) Assessment Notes Treatment Notes Treatment Clinical Notes Section Notes 04/24/2025 Diarrhea (ICD-10 - R19.7) 04/24/2025 Abdominal pain, acute, generalized (ICD-10 - R10.84) Plan Of Treatment Pending Test Test Name Order Date CHEM 7 PROFILE 04/24/2025 LIVER PROFILE 04/24/2025 CRP 04/24/2025 CBC w DIFF 04/24/2025 SED RATE (ESR) 04/24/2025 Lipase 04/24/2025 Calprotectin, Fecal 04/24/2025 GI PANEL 04/24/2025 Next Appt Details Provider Name:Levi Coyle , 07/19/2025 04:00:00 PM, [address] [facility], [address], [place], [address], Progress Notes * DELVIS JOYCEDOB: 2 (75 yo F)Acc No.[id number]:04/24/2025 Patient: DELVIS IZQUIERDO :1950 A ge:75 Y S ex:Female Address:[address] [place] [address] Assessment: * Assessment: 1. D iarrhea - R19.7 (Primary) 2 . A bdominal pain, acute, generalized - R10.84 Plan: * Treatment: 2. A bdominal pain, acute, generalized L AB: CHEM 7 PROFILE L AB: LIVER PROFILE L AB: CRP L AB: CBC w DIFF L AB: SED RATE (ESR) L AB: Lipase L AB: Calprotectin, Fecal L AB: GI PANEL * * Date:
[2025-04-28 10:55] LABS: MANUAL DIFF FLAG NO
[2025-04-28 11:25] LABS: Hematocrit 39.7 % (37.0-47.0); Hemoglobin 13.1 g/dl (12.0-16.0); Imm Gran Abs Auto 0.04 X10*3/uL (0.00-0.03); Imm Gran Pct Auto 0.4 % (0.0-0.4); Lymphocytes Absolute Auto 2.6 X10*3/uL (1.2-4.9); Mean Corpuscular HGB Conc 33.0 g/dl (31.0-35.0); Mean Corpuscular Hemoglobin 30.8 pg (27.0-33.0); Mean Corpuscular Volume 93.2 fL (80.0-98.0); NRBC Abs Auto 0.000 X10*3/uL (0.0-0.012); NRBC Pct Auto 0.0 /100WBC (0.0-0.2); Platelet Count 251 X10*3/uL (160-400); Red Blood Count 4.26 X10*6/uL (4.20-5.50); White Blood Count 10.3 X10*3/uL (4.8-10.8)
--- OUTSIDE RECORDS SUMMARY | 2025-04-28 11:25 | XMS_ITS | Patient Health Record ---
Author [facility] Address [address] [place] [address] Care Team Providers Care Retail Business Manager Name Role Phone Nury Rubio Primary Care Provider Meredith Mar Unavailable [phone] Allergies Allergen (clinical drug ingredient) Drug/Non Drug [...] Status Risk Notes Problem Acquired hallux valgus (60105062) Hallux valgus (acquired), left foot (M20.12) Active confirmed Chronic problem, Worse (4) Problem Acquired hallux valgus (40226401) Hallux valgus (acquired), right foot (M20.11) Active confirmed Plan Of Treatment No Information Insurance Providers Payer Name Payer Address Payer Phone Subscriber Number Group Number Insured Name Patient Relationship to Insured Coverage Start Date Coverage End Date [employer] [address] [place] [address] [id number] Mary Jane Valencia Self - patient is the insured Medical (General) History Medical History History ICD Code Cataracts High blood pressure Surgical History Surgery Date(Month/Year) Gall bladder removal
--- OUTSIDE RECORDS SUMMARY | 2025-04-28 11:26 | XMS_ITS | Patient Health Record ---
Author Organization [facility] Address [address] [place] [address] Care Team Providers Care Apigee Developer Name Role Phone Nury Rubio MD Primary Care Provider Levi Castro [phone] Allergies Allergen (clinical drug ingredient) Drug/Non Drug [...] for nausea; Duration: 30 day(s) 02/25/2023 Active Oxwyg-2-afpq Ethyl Esters 1 GM Capsule TAKE 2 [...] Problem Screening for malignant neoplasm of colon (969961486) Encounter for screening for malignant neoplasm of colon (Z12.11) Active confirmed Problem Diarrhea (75943069) Diarrhea (R19.7) Active confirmed Problem Irritable bowel syndrome with diarrhea (278448244) Irritable bowel syndrome with diarrhea (K58.0) Active confirmed Problem Nausea (466525542) Nausea (R11.0) Active confirmed Problem Epigastric pain (42139746) Abdominal pain, epigastric (R10.13) Active confirmed Problem Peptic ulcer disease (41044428) Peptic ulcer disease (K27.9) Active confirmed Problem Pre-procedure evaluation check (723074070) Pre-procedural examination (Z01.818) Active confirmed Problem Diarrhea (22380191) Diarrhea, unspecified type (R19.7) Active confirmed Problem Generalized abdominal pain (350077568) Abdominal pain, acute, generalized (R10.84) Active confirmed Encounters Encounter Location Date Provider Diagnosis [facility] [address] [place] [address] 04/24/2025 Levi Coyle Diarrhea R19.7 and Abdominal pain, acute, generalized R10.84 Assessments Encounter Date Diagnosis (ICD Code) Assessment Notes Treatment Notes Treatment Clinical Notes Section Notes 04/24/2025 Diarrhea (ICD-10 - R19.7) 04/24/2025 Abdominal pain, acute, generalized (ICD-10 - R10.84) Plan Of Treatment Pending Test Test Name Order Date CHEM 7 PROFILE 04/24/2025 LIVER PROFILE 04/24/2025 LIVER PROFILE 02/27/2016 LIVER PROFILE 10/25/2013 CRP 02/27/2016 CRP 04/24/2025 CBC w DIFF 02/27/2016 CBC w DIFF 04/24/2025 SED RATE (ESR) 02/27/2016 SED RATE (ESR) 04/24/2025 CLOSTRIDIUM DIFF TOXIN A&B (C DIFF) 02/07 STOOL WBC 02/27/2016 CELIAC PANEL #10 02/27/2016 GIARDIA AG, STOOL EIA 02/27/2016 OVA & PARASITES (O&P) 02/27/2016 CULTURE, STOOL 02/27/2016 Lipase 04/24/2025 Calprotectin, Fecal 04/24/2025 GI PANEL 04/24/2025 Future Test Test Name Order Date BUN 04/26/2014 CREATININE 04/26/2014 MRI ABD W&WO CONTRAST 04/26/2014 UPPER GI ENDOSCOPY 01/27/2017 COLONOSCOPY 11/11/2017 Next Appt Details Provider Name:Levi Coyle , 07/19/2025 04:00:00 PM, [address] [place] [address], [address], [place], [address], Insurance Providers Payer Name Payer Address Payer Phone Subscriber Number Group Number Insured Name Patient Relationship to Insured Coverage Start Date Coverage End Date [facility] [address] [place], [place] [id number] DELVIS JOYCE Self - patient is the insured Medical (General) History Medical History History ICD Code Colonoscopy 01-24-2008--negat jesusita except for mild diverticulosis and internal hemorrhoids Hyperlipidemia Denies [place],DM,CVA,Lung disease,renal dise ase Perforated duodenal ulcer in 2010--treated at [facility]-no surgery required--she had been on ASA and [...] without any worrisome findings otherwise Hospitalized at [facility] in 10/2016 for possible recurrent [...]
[2025-04-28 12:14] LABS: Alanine Aminotransferase 21 U/L (0-31); Albumin Level 4.7 g/dL (3.5-5.0); Alkaline Phosphatase 82 U/L (39-117); Anion Gap 11 (12-20); Aspartate Amino Transferase 25 U/L (5-31); Blood Urea Nitrogen 19 mg/dL (9-16); Calcium 9.5 mg/dL (8.4-10.2); Carbon Dioxide 27 mmol/L (22-29); Chloride 106 mmol/L (96-108); Estimated Glomerular Filt Rate > 60; Lipase 25 U/L (8-78); Potassium 3.9 mmol/L (3.3-5.1); Sodium 140 mmol/L (135-145); Total Protein 7.1 g/dL (6.5-8.0)
== END 2025-04-28 10:40 | disposition home or self-care (01) ==
LOC: HO.LAB 10:39
PROVIDERS: PCP Internal Medicine; Visit Provider Internal Medicine
DX: R10.84 Generalized abdominal pain (principal); R19.7 Diarrhea, unspecified
CPT/HCPCS: 36415; 80048; 80076; 83690; 85025; 85652; 86140

== ENCOUNTER 2025-04-29 10:48 | Outpatient (REF) | payer MEDICARE, SELFPAY ==
--- OUTSIDE RECORDS SUMMARY | 2025-04-24 09:53 | XMS_ITS ---
Author Organization [facility] Address [address] [place] [id number] Care Team Providers Care French Folder Name Role Phone Nury Rubio MD Primary Care Provider Levi Castro [phone] Results Component Value Reference Range Flag Notes Lipase (Not yet reviewed by provider) Interpretation: Performing Lab:[facility], [address] [place] [id number] Notes/Report: Lipase 25 8-78 U/L N Problems Problem Type SNOMED Code ICD Code Onset Dates Problem Status W/U Status Risk Notes Problem Diarrhea (06678586) Diarrhea (R19.7) Active confirmed Problem Generalized abdominal pain (922183895) Abdominal pain, acute, generalized (R10.84) Active confirmed Encounters Encounter Location Date Provider Diagnosis [facility] [address] [place] [id number] 04/24/2025 Levi Coyle Diarrhea R19.7 and Abdominal [...] Name:Levi Coyle , 07/19/2025 04:00:00 PM, [address], [address], [place], [phone], Progress Notes * DELVIS JOYCEDOB: 2 (75 yo F)Acc No.[id number]:04/24/2025 Patient: DELVIS IZQUIERDO :1950 A ge:75 Y S ex:Female Address:[address] [place] [id number] Assessment: * Assessment: 1. D iarrhea - R19.7 (Primary) 2 . A bdominal pain, acute, generalized - R10.84 Plan: * Treatment: Value Reference Range L ipase 25 8-78 - U/L 2.?Abdominal pain, acute, generalized?LAB: CHEM 7 PROFILE ?LAB: LIVER PROFILE ?LAB: CRP ?LAB: CBC w DIFF ?LAB: SED RATE (ESR) ?LAB: Calprotectin, Fecal ?LAB: GI PANEL ?LAB: Lipase (Collection Date & Time - 04/28/2025 10:54 AM)* Value Reference Range L ipase 25 8-78 - U/L * * Date:
--- OUTSIDE RECORDS SUMMARY | 2025-04-29 10:53 | XMS_ITS | Data Portability ---
Author Organization STEPHANIE Sanchez Gecko AudioLianna Maverick [address] Address [address] [place] [address] Assessment No assessment recorded. Plan of Treatment [...] ICD10 Code Diagnosis IMO Codes Diagnosis Note [id number] [address] [address] [place] [address] 04/14/2017 17:41:32 04/14/2017 19:01:19 Health Concerns Section Related Observation LastModified by Organization Detai ls LastModified Time None Recorded Concern Status LastModified by Organization Details LastModified Time None Recorded Advance Directives Directive None Recorded Payers Insurance Date Sequence Insurance Name Policy Number Policy Ivy Covered Member ID Ivy Member ID Guarantor Name 08/28/2022 1 [place]ER[place] EMPL[place]EE PROGRAM Shania Valencia [id number] Mary Jane Valencia 08/28/2022 1 [employer] (MEDICARE REPLACEMENT/ ADVANTAGE - PPO) [id number] Mary Jane Valencia [id number] Mary Jane Valencia OBGyn Episode No OBEpisode recorded.
--- OUTSIDE RECORDS SUMMARY | 2025-04-29 10:53 | XMS_ITS | Patient Health Record ---
Author Organization [facility] Address [address] [place] [address] Care Team Providers Care Materials Buyer Name Role Phone Nury Rubio MD Primary Care Provider Levi Castro [phone] Allergies Allergen (clinical drug ingredient) Drug/Non Drug Allergy documented on EMR Reaction Allergy Type Onset Date Status Penicillin Unknown Drug Allergy Active Sulfa Unknown Drug Allergy Active Results Component Value Reference Range Flag Notes Lipase (Not yet reviewed by provider) Interpretation: Performing Lab:[facility], [address] [place] [phone] Notes/Report: Lipase 25 8-78 U/L N Complete Blood Count Auto Di ff (Not yet reviewed by provider) Interpretation: Performing Lab:[facility], [address] [place] [phone] Notes/Report: White Blood Count 10.3 4.8-10.8 X10*3/uL N Red Blood Count 4.26 4.20-5.50 X10*6/uL N Hemoglobin 13.1 12.0-16.0 g/dl N Hematocrit 39.7 37.0-47.0 % N Mean Corpuscular Volume 93.2 80.0-98.0 fL N Mean Corpuscular Hemoglobin 30.8 27.0-33.0 pg N Mean Corpuscular HGB Conc 33.0 31.0-35.0 g/dl N Red Cell Distribution Width 12.2 11.0-16.0 % N Platelet Count 251 160-400 X10*3/uL N Mean Platelet Volume 9.9 9.4-12.3 fL N Neutrophils Percent Auto 65.6 45-73 % N Imm Gran Pct Auto 0.4 0.0-0.4 % N Lymphocytes Percent Auto 24.9 20-40 % N Monocytes Percent Auto 7.0 2-11 % N Eosinophils Percent Auto 1.6 0-4 % N Basophils Percent Auto 0.5 0-2 % N NRBC Pct Auto 0.0 0.0-0.2 /100WBC N Neutrophils Absolute Auto 6.7 2.0-8.3 x10*3/uL N Imm Gran Abs Auto 0.04 0.00-0.03 X10*3/uL H Lymphocytes Absolute Auto 2.6 1.2-4.9 X10*3/uL N Monocytes Absolute Auto 0.7 0.1-1.2 X10*3/uL N Eosinophils Absolute Auto 0.2 0.0-0.4 X10*3/uL N Basophils Absolute Auto 0.1 0.0-0.2 X10*3/uL N NRBC Abs Auto 0.000 0.0-0.012 X10*3/uL N Erythrocyte Sedimentation Ra te (Not yet reviewed by provider) Interpretation: Performing Lab:[address] [address] Notes/Report: Erythrocyte Sedimentation Rate 11 0-20 MM/HR N Patients with polycythemia and many hemoglobin abnormalities may have depressed sed rates whereas patients with anemia may have elevated sed rates. Liver Panel (Not yet reviewe d by provider) Interpretation: Performing Lab:[facility], [address] [place] [phone] Notes/Report: Bilirubin Total 0.5 0.0-1.0 mg/dL N Bilirubin Direct 0.2 0.0-0.5 mg/dL N Aspartate Amino Transferase 25 5-31 U/L N Alanine Aminotransferase 21 0-31 U/L N Total Protein 7.1 6.5-8.0 g/dL N Albumin Level 4.7 3.5-5.0 g/dL N Alkaline Phosphatase 82 39-117 U/L N Basic Metabolic Panel (Not y et reviewed by provider) Interpretation: Performing Lab:[address] [phone] Notes/Report: Sodium 140 135-145 mmol/L N Potassium 3.9 3.3-5.1 mmol/L N Chloride 106 96-108 mmol/L N Carbon Dioxide 27 22-29 mmol/L N Anion Gap 11 12-20 L Blood Urea Nitrogen 19 9-16 mg/dL H Creatinine 0.73 0.5-1.4 mg/dL N Estimated Glomerular Filt Rate > 60 Chronic Kidney Disease: Estimated GFR < 60 mL/min/1.73m2 Severe Kidney Disease: Estimated GFR < 15 mL/min/1.73m2 Glucose Random 102 60-115 mg/dL N Calcium 9.5 8.4-10.2 mg/dL N C Reactive Protein (Not yet reviewed by provider) Interpretation: Performing Lab:[facility], [address] [place] [phone] Notes/Report: C Reactive Protein 0.14 < or = 0.50 mg/dL N Reason For Referral No Information Medications Medication SIG (Take, Route, Frequency, Duration) Notes Start Date End Date Status Rosuvastatin Calcium 40 MG Tablet TAKE 1 TABLET BY MOUTH EVERY DAY Oral; Duration: 90 Active Ondansetron 4 MG Tablet Disintegrating 1 tablet on the tongue and allow to dissolve Orally Every 4 to 6 hours as needed for nausea; Duration: 30 day(s) 02/25/2023 Active Nokjx-4-wioh Ethyl Esters 1 GM Capsule TAKE 2 [...] Problem Screening for malignant neoplasm of colon (708575306) Encounter for screening for malignant neoplasm of colon (Z12.11) Active confirmed Problem Diarrhea (64451493) Diarrhea (R19.7) Active confirmed Problem Irritable bowel syndrome with diarrhea (802528101) Irritable bowel syndrome with diarrhea (K58.0) Active confirmed Problem Nausea (653721198) Nausea (R11.0) Active confirmed Problem Epigastric pain (31119114) Abdominal pain, epigastric (R10.13) Active confirmed Problem Peptic ulcer disease (69815871) Peptic ulcer disease (K27.9) Active confirmed Problem Pre-procedure evaluation check (557493733) Pre-procedural examination (Z01.818) Active confirmed Problem Diarrhea (74909375) Diarrhea, unspecified type (R19.7) Active confirmed Problem Generalized abdominal pain (469187772) Abdominal pain, acute, generalized (R10.84) Active confirmed Encounters Encounter Location Date Provider Diagnosis [facility] [address] [facility] [address] [place] [address] 04/24/2025 Levi Coyle Diarrhea R19.7 and Abdominal [...] w DIFF 04/24/2025 SED RATE (ESR) 04/24/2025 SED RATE (ESR) 02/27/2016 CLOSTRIDIUM DIFF TOXIN A&B (C DIFF) 02/07 STOOL WBC 02/27/2016 CELIAC PANEL #10 02/27/2016 GIARDIA AG, STOOL EIA 02/27/2016 OVA & PARASITES (O&P) 02/27/2016 CULTURE, STOOL 02/27/2016 Complete Blood Count Auto Diff Erythrocyte Sedimentation Rate Liver Panel 04/28/2025 Basic Metabolic Panel 04/28/2025 C Reactive Protein 04/28/2025 Lipase 04/24/2025 Calprotectin, Fecal 04/24/2025 GI PANEL 04/24/2025 Future Test Test Name Order Date BUN 04/26/2014 CREATININE 04/26/2014 MRI ABD W&WO CONTRAST 04/26/2014 UPPER GI ENDOSCOPY 01/27/2017 COLONOSCOPY 11/11/2017 Next Appt Details Provider Name:Levi Coyle , 07/19/2025 04:00:00 PM, [address] [place] [address], [address], [place], [address], Insurance Providers Payer Name Payer Address Payer Phone Subscriber Number Group Number Insured Name Patient Relationship to Insured Coverage Start Date Coverage End Date [facility] [address] [place], [place] [id number] DELVIS JOYCE Self - patient is the insured Medical (General) History Medical History History ICD Code Colonoscopy 01-24-2008--negat jesusita except for mild diverticulosis and internal hemorrhoids Hyperlipidemia Denies [place],DM,CVA,Lung disease,renal dise ase Perforated duodenal ulcer in 2010--treated at [facility]-no surgery required--she had been on ASA [...] without any worrisome findings otherwise Hospitalized at [facility] in 10/2016 for possible recurrent ulcer [...]
--- OUTSIDE RECORDS SUMMARY | 2025-04-29 10:53 | XMS_ITS | Patient Health Record ---
Author Organization [facility] [place] Address [address] [place] [address] Care Team Providers Care General Repairer Name Role Phone Nury Rubio Primary Care Provider Meredith Mar Unavailable [phone] Allergies Allergen (clinical drug ingredient) Drug/Non Drug [...] Status Risk Notes Problem Acquired hallux valgus (21537901) Hallux valgus (acquired), left foot (M20.12) Active confirmed Chronic problem, Worse (4) Problem Acquired hallux valgus (26589424) Hallux valgus (acquired), right foot (M20.11) Active confirmed Plan Of Treatment No Information Insurance Providers Payer Name Payer Address Payer Phone Subscriber Number Group Number Insured Name Patient Relationship to Insured Coverage Start Date Coverage End Date [employer] [address] [place] [phone] [id number] Mary Jane Valencia Self - patient is the insured Medical (General) History Medical History History ICD Code Cataracts High blood pressure Surgical History Surgery Date(Month/Year) Gall bladder removal
--- OUTSIDE RECORDS SUMMARY | 2025-04-29 10:53 | XMS_ITS | Continuity of Care Document ---
Author Organization [place] - [facility], [place] Noe 2nd floor Address [address] [place] [address] Care Team Providers Care Leather Currier Name Role Phone ANSON RUFF Primary Care [...] may follow up with me as needed [email or web address] Not available 03/16/2025 15:52:02 Plan of Treatment Reminders Order Date Submit Date Provider Last Modified By Organization Details Last Modified Time Details Appointments None recorded. Lab None recorded. Referral physical therapist referral - Lumbar Back Pain Strengtheni ng and stabilizati on Program. Teach at-home exercises per . 2024 025 LENI [facility] - [address] [place], [address], 5 10:10:23 Procedures None recorded. Surgeries None [...] Address Organization Details Recorded Time No complaints 269504602 Active Status : 'I'; Not Available [facility] 4 09:12:24 Osteoarthr itis of right knee joint 4556063356385 00 Active 2023 jana sheikh [facility] 4 13:05:03 History of right total knee replacemen t [id number] 102 Active 2023 Felix Carr MD [address], [place], [address] , [facility] 4 16:02:45 Radicular pain 65269165 Active 2024 Kristine sheikh [facility] 5 15:58:20 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 Active 2024 Felix Carr MD [address], [place], [address] , [facility] 5 16:03:40 Lumbar radiculopa thy 349420655 Active 2024 demetra sheikh [facility] 5 15:17:43 Low back pain 190740898 Active 2024 demetra sheikh [facility] 5 15:18:02 Problem Notes None recorded. Procedures Surgical History Date Name Laterality Status Provider Name and Address Organization Details Recorded Time 4 31466 Therapeutic Exercise (1:1) completed Merlin Ni, PT [address], [place], [address], [facility] 02/01/2024 12:09:35 4 51159: Manual therapy completed Merlin Ni, PT [address], [place], [address], [facility] 02/01/2024 14:39:04 4 23698 Therapeutic Exercise (1:1) completed Shirley Sanchez, CENTRAL OFFICE REPAIRER [address], [place], [address], [facility] 01/26/2024 11:03:45 4 10932 Therapeutic Exercise (1:1) completed Shirley Formzhou, CENTRAL OFFICE REPAIRER [address], [place], [address], [facility] 01/21/2024 15:04:22 4 94282: Manual therapy completed Shirley Sanchez, CENTRAL OFFICE REPAIRER [address], [place], [address], [facility] 01/21/2024 15:04:22 4 24672 Therapeutic Exercise (1:1) completed Shirley Sanchez, CENTRAL OFFICE REPAIRER [address], [place], [address], [facility] 01/19/2024 12:58:52 4 88682: Manual therapy completed Shirley Sanchez, CENTRAL OFFICE REPAIRER [address], [place], [address], [facility] 01/19/2024 12:58:52 4 96262 Therapeutic Exercise (1:1) completed Shirley Sanchez, CENTRAL OFFICE REPAIRER [address], [place], [address], [facility] 01/14/2024 17:23:43 4 25073: Manual therapy completed Shirley Sanchez, CENTRAL OFFICE REPAIRER [address], [place], [address], [facility] 01/14/2024 17:23:43 4 07572 Therapeutic Exercise (1:1) completed Shirley Formzhou, CENTRAL OFFICE REPAIRER [address], [place], [address], [facility] 01/12/2024 11:30:38 4 86788: Manual therapy completed Shirley Sanchez, CENTRAL OFFICE REPAIRER [address], [place], [address], [facility] 01/12/2024 11:30:38 4 34687 Therapeutic Exercise (1:1) completed Shirley Formzhou, CENTRAL OFFICE REPAIRER [address], [place], [address], [facility] 01/06/2024 11:02:13 4 04057: Manual therapy completed Shirley Sanchez, CENTRAL OFFICE REPAIRER [address], [place], [address], [facility] 01/06/2024 11:02:13 4 90486 Therapeutic Exercise (1:1) completed Shirley Sanchez, CENTRAL OFFICE REPAIRER [address], [place], [address], [facility] 01/04/2024 10:30:09 4 65222: Manual therapy completed Shirley Sanchez, CENTRAL OFFICE REPAIRER [address], [place], [address], [facility] 01/04/2024 10:30:09 4 73371 Therapeutic Exercise (1:1) completed Shirley Formzhou, CENTRAL OFFICE REPAIRER [address], [place], [address], [facility] 01/01/2024 13:53:30 4 85930: Manual therapy completed Shirley Sanchez, CENTRAL OFFICE REPAIRER [address], [place], [address], [facility] 01/01/2024 13:53:30 4 78029 Therapeutic Exercise (1:1) completed Merlin Ni, PT [address], [place], [address], [facility] 12/31/2023 09:35:48 4 19837: Manual therapy completed Merlin Ni, PT [address], [place], [address], [facility] 12/31/2023 09:35:48 4 48326 Therapeutic Exercise (1:1) completed Shirley Formzhou, CENTRAL OFFICE REPAIRER [address], [place], [address], [facility] 12/23/2023 13:19:04 4 88368: Manual therapy completed Shirley Sanchez, CENTRAL OFFICE REPAIRER [address], [place], [address], [facility] 12/23/2023 13:19:05 4 23883 Therapeutic Exercise (1:1) completed Shirley Sanchez, CENTRAL OFFICE REPAIRER [address], [place], [address], [facility] 12/21/2023 15:54:01 4 57646: Manual therapy completed Shirley Sanchez, CENTRAL OFFICE REPAIRER [address], [place], [address], [facility] 12/21/2023 15:54:01 4 71086 Therapeutic Exercise (1:1) completed Shirley Formgiacomostspencer, CENTRAL OFFICE REPAIRER [address], [place], [address], [facility] 12/16/2023 11:36:47 4 87691: Manual therapy completed Shirley Sanchez, CENTRAL OFFICE REPAIRER [address], [place], [address], [facility] 12/16/2023 11:36:47 4 77629 Therapeutic Exercise (1:1) completed Shirley Sanchez, CENTRAL OFFICE REPAIRER [address], [place], [address], [facility] 12/14/2023 11:14:43 4 16250: Manual therapy completed Shirley Sanchez, CENTRAL OFFICE REPAIRER [address], [place], [address], [facility] 12/14/2023 11:14:43 4 98059 Therapeutic Exercise (1:1) completed Merlin Ni, PT [address], [place], [address], [facility] 12/11/2023 08:03:19 4 52836: Manual therapy completed Merlin Ni, PT [address], [place], [address], [facility] 12/11/2023 08:00:06 4 22378 Therapeutic Exercise (1:1) completed Shirley Sanchez, CENTRAL OFFICE REPAIRER [address], [place], [address], [facility] 12/07/2023 08:56:13 4 53322: Manual therapy completed Shirley Sanchez, CENTRAL OFFICE REPAIRER [address], [place], [address], [facility] 12/07/2023 08:56:13 4 42078 Therapeutic Exercise (1:1) completed Shirley Formgiacomostspencer, CENTRAL OFFICE REPAIRER [address], [place], [address], [facility] 12/04/2023 10:43:32 4 51757: Manual therapy completed Shirley Formzhou, CENTRAL OFFICE REPAIRER [address], [place], [address], [facility] 12/04/2023 10:43:32 4 40533 Therapeutic Exercise (1:1) completed Shirley Formejester, CENTRAL OFFICE REPAIRER [address], [place], [address], [facility] 11/30/2023 11:09:53 4 52234: Manual therapy completed Shirley Formejester, CENTRAL OFFICE REPAIRER [address], [place], [address], [facility] 11/30/2023 11:09:53 4 70650 Therapeutic Exercise (1:1) completed Shirley Formejester, CENTRAL OFFICE REPAIRER [address], [place], [address], [facility] 11/25/2023 11:28:36 4 10013: Manual therapy completed Shirley Formemirtaster, CENTRAL OFFICE REPAIRER [address], [place], [address], [facility] 11/25/2023 11:28:36 4 33870 Therapeutic Exercise (1:1) completed Shirley Formejester, CENTRAL OFFICE REPAIRER [address], [place], [address], [facility] 11/23/2023 09:45:37 4 53031: Manual therapy completed Shirley Formemirtaster, CENTRAL OFFICE REPAIRER [address], [place], [address], [facility] 11/23/2023 09:45:37 4 64095 Therapeutic Exercise (1:1) completed Shirley Formejester, CENTRAL OFFICE REPAIRER [address], [place], [address], [facility] 11/20/2023 12:02:44 4 97770: Manual therapy completed Shirley Formejester, CENTRAL OFFICE REPAIRER [address], [place], [address], [facility] 11/20/2023 12:03:16 4 10681 Therapeutic Exercise (1:1) completed Merlin Ni, PT [address], [place], [address], [facility] 11/17/2023 09:17:37 4 10989: Low complexity PT Eval completed Merlin Ni, PT [address], [place], [address], [facility] 11/17/2023 09:17:39 4 71128: Low complexity PT Eval completed Awa Perry, PT [address], [place], [address], [facility] 11/04/2023 12:06:44 4 Euflexxa Knee Injection completed Marcela Colmenares PA-C [address], [place], [address], [facility] 09/03/2023 14:30:01 4 Euflexxa Knee Injection completed Marcela Colmenares PA-C [address], [place], [address], [facility] 08/26/2023 22:08:41 4 Euflexxa Knee Injection completed Marcela Colmenares PA-C [address], [place], [address], [facility] 08/20/2023 12:25:39 Imaging Results None recorded. Procedure Notes None recorded. Medical Equipment None Reported. Allergies Allergen ID Allergen Name Allergen Category Reaction Reaction Severity Criticality Documentation Date Start Date Code Code System Note Provider Name and Address Organization Details Recorded Time 33553 Product containin g penicilli n (product) medicatio n Not available Not available Not available 08/10/20232012 34895 8001 SNOMED Not Available [facility] 4 11:53:31 05058 Substance with sulfonami de structure and antibacte rial mechanism of action (substanc e) medicatio n Not available Not available Not available 08/10/20232012 23620 8003 SNOMED Not Available [facility] 4 11:53:32 Medications Name Sig Start Date [...] 03/16/2025 154.94 cm [facility]reg[facility] 03/16/2025 [...] ICD10 Code Diagnosis IMO Codes Diagnosis Note [id number] MD GRETTA Villarreal [address] [facility] [place] [address] 03/16/2025 14:44:58 03/23/2025 15:18:58 Low back pain 493849659 M54.50 381862 History of right total knee replacement [id number] 426308 Z96.651 Health Concerns Section Related Observation LastModified by Organization Detai ls LastModified Time None Recorded Concern Status LastModified by Organization Details LastModified Time None Recorded Payers Encounter Date Sequence Insurance Name Policy Number Policy Ivy Covered Member ID Ivy Member ID Guarantor Name 03/16/2025 1 [employer] (MEDICARE REPLACEMENT/ ADVANTAGE - PPO) [id number] Mary Jane Valencia [id number] Mary Jane Valencia OBGyn Episode No OBEpisode recorded.
--- OUTSIDE RECORDS SUMMARY | 2025-04-29 10:54 | XMS_ITS | Data Portability ---
Author Organization [place] [facility] Address [address] [place] [address] Care Team Providers Care Manufacturing Test Engineer Name Role Phone ANSON RUFF Primary Care [...] I am going to refer her both [facility] to evaluate her back for a possible right lower extremity lumbar radiculopathy, as well as to pain management to be evaluated for possible nerve ablation. I will see her back in 2 months [email or web address] Not available 11/01/2024 16:03:20 01/03/2025 01/03/2025 Mary [...] February to review the results of this. [email or web address] Not available 01/03/2025 16:16:23 03/16/2025 03/16/2025 Dixie [...] may follow up with me as needed [email or web address] Not available 03/16/2025 15:52:02 Plan of Treatment Reminders Order Date Submit Date Provider Last Modified By Organization Details Last Modified Time Details Appointments None recorded. Lab None recorded. Referral physical therapist referral - Lumbar Back Pain Strengthe magdiel and stabiliza tion Program. Teach at-home exercises per dr.brothe dickinson 2024 [place] [facility] [place], [address], [place], [address], 5 10:10:23 pain managemen t referral 2024 025 kisha [facility], [address], [place], [address], 5 07:20:15 pain managemen t referral 2024 025 [facility], [address], [address], [place], [address], 07:20:15 Procedures None recorded. Surgeries None recorded. Imaging MRI, knee, w/o contrast - MARS protocol hx RTKR. R lower extremety radiculop athy 2024 025 [place] [facility] [place], [address], [address], [place], [address], 5 22:18:08 XR, knee, 3 view - F/U RTKR 10/2023 AB room 203 2024 025 [facility], [address], [address], [place], [address], 5 07:20:15 XR, knee, 3 view - rm 208 3V right knee pain. S/P RTKR 10/29 AB 2024 025 [email or web address] [facility], [address], [address], [place], [address], 5 12:13:47 Medication Orders gabapenti n 100 mg capsule 2024 025 [place] [id number], [address] [place], [address], 14:55:10 Patient TargetsNo targets recorded. Patient InstructionsNo [...] 9.7 K/mm3 4.0-11 .0 normal Not Available [address], [address], 10/21/2024 17:22:22 10/22/1910/21/2024 CBC WITH DIFFE RENTI AL/PL ATELE T RBC 4.22 M/mm3 4.20-5 .40 normal Not Available [address], [address], 10/21/2024 17:22:22 10/22/1910/21/2024 CBC WITH DIFFE RENTI AL/PL ATELE T hemoglobin 13.4 gm/dL 11.7-1 5.5 normal Not Available [address], [address], 10/21/2024 17:22:22 10/22/19 25 10/21/2024 CBC WITH DIFFE RENTI AL/PL ATELE T hematocrit 40.1 % 35.7-4 5.8 normal Not Available [address], [address], 10/21/2024 17:22:22 10/22/19 25 10/21/2024 CBC WITH DIFFE RENTI AL/PL ATELE T MCV 95.0 fL 80.0-1 00.0 normal Not Available [address], [address], 10/21/2024 17:22:22 10/22/19 25 10/21/2024 CBC WITH DIFFE RENTI AL/PL ATELE T MCH 31.8 pg 27.0-3 4.0 normal Not Available [address], [address], 10/21/2024 17:22:22 10/22/19 25 10/21/2024 CBC WITH DIFFE RENTI AL/PL ATELE T MCHC 33.4 g/dL 33.0-3 7.0 normal Not Available [address], [address], 10/21/2024 17:22:22 10/22/19 25 10/21/2024 CBC WITH DIFFE RENTI AL/PL ATELE T RDW 43.8 fL <47.0 Not Available [address], [address], 10/21/2024 17:22:22 10/22/19 25 10/21/2024 CBC WITH DIFFE RENTI AL/PL ATELE T platelets 229 K/mm3 150-46 0 normal Not Available [address], [address], 10/21/2024 17:22:22 10/22/19 25 10/21/2024 CBC WITH DIFFE RENTI AL/PL ATELE T neutrophils 61.8 % 44-76 normal Not Available [address], [address], 10/21/2024 17:22:22 10/22/19 25 10/21/2024 CBC WITH DIFFE RENTI AL/PL ATELE T lymphs 29.5 % 15-43 normal Not Available [address], [address], 10/21/2024 17:22:22 10/22/19 25 10/21/2024 CBC WITH DIFFE RENTI AL/PL ATELE T monocytes 6.5 % 4.5-10 .5 normal Not Available [address], [address], 10/21/2024 17:22:22 10/22/19 25 10/21/2024 CBC WITH DIFFE RENTI AL/PL ATELE T eos 1.4 % 0-6 normal Not Available [address], [address], 10/21/2024 17:22:22 10/22/19 25 10/21/2024 CBC WITH DIFFE RENTI AL/PL ATELE T basos 0.5 % 0-2 normal Not Available [address], [address], 10/21/2024 17:22:22 10/22/19 25 10/21/2024 CBC WITH DIFFE RENTI AL/PL ATELE T neutrophils (absolute) 6.0 K/mm3 1.3-7. 0 normal Not Available [address], [address], 10/21/2024 17:22:22 10/22/19 25 10/21/2024 CBC WITH DIFFE RENTI AL/PL ATELE T lymphs (absolute) 2.9 K/mm3 0.8-3. 1 normal Not Available [address], [address], 10/21/2024 17:22:22 10/22/19 25 10/21/2024 CBC WITH DIFFE RENTI AL/PL ATELE T monocytes(ab solute) 0.6 K/mm3 0.4-0. 9 normal Not Available [address], [address], 10/21/2024 17:22:22 10/22/19 25 10/21/2024 CBC WITH DIFFE RENTI AL/PL ATELE T eos (absolute) 0.1 K/mm3 0.0-0. 4 normal Not Available [address], [address], 10/21/2024 17:22:22 10/22/19 25 10/21/2024 CBC WITH DIFFE RENTI AL/PL ATELE T baso (absolute) 0.1 K/mm3 0.0-0. 1 normal Not Available [address], [address], 10/21/2024 17:22:22 10/22/19 25 10/21/2024 CBC WITH DIFFE RENTI AL/PL ATELE T immature granulocytes 0.3 % Not Available [address], [address], 10/21/2024 17:22:22 10/22/19 25 10/21/2024 CBC WITH DIFFE RENTI AL/PL ATELE T immature grans (abs) 0.0 K/mm3 Not Available [address], [address], 10/21/2024 17:22:22 10/22/19 25 10/21/2024 CBC WITH DIFFE RENTI AL/PL ATELE T NRBC 0.0 #/100 _WBC' s Not Available [address], [address], 10/21/2024 17:22:22 10/22/19 25 10/21/2024 CBC WITH DIFFE RENTI AL/PL ATELE T hematology comments: Commen t AUTOM ATED DIFFE RENTI AL MPV 11.2 FL 9.4-1 2.4 N ABS. NRBC 0.0 K/MM3 N Not Available [address], [address], 10/21/2024 17:22:22 10/22/19 25 10/21/2024 SEDIM ENTAT ION RATE- WESTE RGREN sedimentatio n rate-westerg elly 6 mm/HR 0-20 normal Not Available [address], [address], 10/21/2024 17:22:23 10/22/19 25 10/21/2024 C-FERNY CTIVE PROTE IN, QUANT C-reactive protein, quant <0.3 mg/dL 0-0.5 Not Available [address], [address], 10/21/2024 17:22:24 06/24/19 25 06/24/2024 XR, knee, 3 view [email or web address]:/ [email or web address] ?Encry pted=s hAaTro YD8dLq bEUv6g %2BXZw aYqtaq 0bqfl% 2Fg9IQ a4ajBk vP9nXo QUaueC m3YtLR FvZlgJ JJ8mAn HZtai3 9e8507 AC0Kqb 3uFUqu mKiQtr MwF INTERFACE [facility] [address] [place] [address], [place], [address], 06/24/2024 13:43:30 06/24/19 25 06/24/2024 XR, knee, 3 view [email or web address]:/ [email or web address] ?Encry pted=s hAaTro YD8dLq bEUv6g %2BXZw aYqtaq 0bqfl% 2Fg9IQ a4ajBk vP9nXo QUaueC m3YtLR FvZl JJ8mAn HZtai3 4y4213 AC0Kqb 3uFUqu mKiQtr MwF INTERFACE [facility] [address], [address], 06/24/2024 13:43:32 11/02/19 25 11/01/2024 XR, knee, 3 view [email or web address]:/ [email or web address] ?Encry pted=s hAaTro YD8dLq bEUv6g %2BXZw aYqtaq 0bqfl% 2Fg9IQ a4ajBk vP9nXo QUaueC m3YtLR FvZlgJ JJ8mAn HZtai3 8r7551 AC0Kla 3iNU6K gKiQtr MwF INTERFACE [facility] [address], [place], [address], 11/01/2024 15:03:18 11/02/19 25 11/01/2024 XR, knee, 3 view [email or web address]:/ [email or web address] ?Encry pted=s hAaTro YD8dLq bEUv6g %2BXZw aYqtaq 0bqfl% 2Fg9IQ a4ajBk vP9nXo QUaueC m3YtLR FvZlgJ JJ8mAn HZtai3 0h7104 AC0Kla 3iNU6K gKiQtr MwF INTERFACE [facility] [address] [facility] [address], [place], [address], 11/01/2024 15:03:19 11/14/19 25 11/11/2024 MRI, knee, w/o contr ast No observ ation record ed. [email or web address] [place] [address], [place], [address], 11/14/2024 16:00:53 Result Notes Documentation Provider Name and Address Organization Details Recorded Time Xr, Knee, 3 View : [email or web address]? Encrypted=qkUzMpwHX0fLxlO Uv6g%1AGHaiHmqkj2ysyg%2Fg 3CVg3xsBuxW2mQgKVgchLi4Oz YBJuDarEZH8gFlNGoyk84q021 2XJ3Pwa9dQZnqjCsWdiVxE Not Available [facility] 06/24/2024 13:43: 31 Xr, Knee, 3 View : [email or web address] Encrypted=wiMlIurCH4kFwyQ Uv6g%4IIVvgTcabn3rshe%2Fg 0OJd7egBsyR6zCcGXdzsXg8Xz WPTrWbjJTX0wBcXVysz81o087 4QD7Maw7lSLmssVjFbjDwZ Not Available [facility] 06/24/2024 13:43: 33 Xr, Knee, 3 View : [email or web address]? Encrypted=emDkDjlZN0pPvkE Uv6g%8VQJwvHvgjp8tjmt%2Fg 5YVs7nmWwyK9yYeNHyuhWj0Bu TJDbRysKUB1nDzIMuxg37p567 8KL1Icb2jQH3AzRxKtnEwF Not Available [facility] 11/01/2024 15:03: 19 Xr, Knee, 3 View : [email or web address] Encrypted=wiXsNsmID6yLheJ Uv6g%3FBTjlSnyio6zkqk%2Fg 3XMe8fkMtzK2pZhCGzbcNj9Wb QOYhJwlPDH5hLuBXtjq26l615 1YR1Dna4xHH8CzMdNrqTaB Not Available [facility] 11/01/2024 15:03: 20 Problems Name Problem SNOMED Code Status Onset Date Resolution Date Notes Provider Name and Address Organization Details Recorded Time No complaints 895966403 Active Status : 'I'; Not Available [facility] 4 09:12:24 Osteoarthr itis of right knee joint 5085685977454 00 Active 2023 jana sheikh [place] - [facility] 4 13:05:03 History of right total knee replacemen t 8868901226041 102 Active 2023 Felix [place] MD [address], [place], [address] , [facility] 4 16:02:45 Radicular pain 41484449 Active 2024 Kristine Horton null, 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 5 16:03:40 Lumbar radiculopa thy 387125958 Active 2024 demetra gregory null, [facility] 5 15:17:43 Low back pain 857924915 Active 2024 [facility] bri null, [facility] 5 15:18:02 Problem Notes None recorded. Procedures Surgical History Date Name Laterality Status Provider Name and Address Organization Details Recorded Time 4 01359 Therapeutic Exercise (1:1) completed Merlin Ni, PT [address], [place], [address], [facility] 02/01/2024 12:09:35 4 33528: Manual therapy completed Merlin Ni PT [address], [place], [address], [facility] 02/01/2024 14:39:04 4 45072 Therapeutic Exercise (1:1) completed Shirley Sanchez INFORMATION MANAGEMENT MANAGER [address], [place], [address], [facility] 01/26/2024 11:03:45 4 73992 Therapeutic Exercise (1:1) completed Shirley Sanchez, INFORMATION MANAGEMENT MANAGER [address], [place], [address], [facility] 01/21/2024 15:04:22 4 93404: Manual therapy completed Shirley Sanchez, INFORMATION MANAGEMENT MANAGER [address], [place], [address], [facility] 01/21/2024 15:04:22 4 37847 Therapeutic Exercise (1:1) completed Shirley Formejester, INFORMATION MANAGEMENT MANAGER [address], [place], [address], [facility] 01/19/2024 12:58:52 4 18265: Manual therapy completed Shirley Formejester, INFORMATION MANAGEMENT MANAGER [address], [place], [address], [facility] 01/19/2024 12:58:52 4 76248 Therapeutic Exercise (1:1) completed Shirley Formejester, INFORMATION MANAGEMENT MANAGER [address], [place], [address], [facility] 01/14/2024 17:23:43 4 42990: Manual therapy completed Shirley Formemirtaster, INFORMATION MANAGEMENT MANAGER [address], [place], [address], [facility] 01/14/2024 17:23:43 4 70576 Therapeutic Exercise (1:1) completed Shirley Formejester, INFORMATION MANAGEMENT MANAGER [address], [place], [address], [facility] 01/12/2024 11:30:38 4 57510: Manual therapy completed Shirley Formemirtaster, INFORMATION MANAGEMENT MANAGER [address], [place], [address], [facility] 01/12/2024 11:30:38 4 84497 Therapeutic Exercise (1:1) completed Shirley Formejester, INFORMATION MANAGEMENT MANAGER [address], [place], [address], [facility] 01/06/2024 11:02:13 4 21855: Manual therapy completed Shirley Formejester, INFORMATION MANAGEMENT MANAGER [address], [place], [address], [facility] 01/06/2024 11:02:13 4 54191 Therapeutic Exercise (1:1) completed Shirley Formashaer, INFORMATION MANAGEMENT MANAGER [address], [place], [address], [facility] 01/04/2024 10:30:09 4 63509: Manual therapy completed Shirley Formgiacomoster, INFORMATION MANAGEMENT MANAGER [address], [place], [address], [facility] 01/04/2024 10:30:09 4 75181 Therapeutic Exercise (1:1) completed Shirley Formashaer, INFORMATION MANAGEMENT MANAGER [address], [place], [address], [facility] 01/01/2024 13:53:30 25317: Manual therapy completed Shirley Sanchez, INFORMATION MANAGEMENT MANAGER [address], [place], [address], [facility] 01/01/2024 13:53:30 4 11179 Therapeutic Exercise (1:1) completed Merlin Ni, PT [address], [place], [address], [facility] 12/31/2023 09:35:48 4 44772: Manual therapy completed Merlin Ni, PT [address], [place], [address], [facility] 12/31/2023 09:35:48 4 24005 Therapeutic Exercise (1:1) completed Shirley Formgiacomoster, INFORMATION MANAGEMENT MANAGER [address], [place], [address], [facility] 12/23/2023 13:19:04 4 72621: Manual therapy completed Shirley Formgiacomostspencer, INFORMATION MANAGEMENT MANAGER [address], [place], [address], [facility] 12/23/2023 13:19:05 4 74704 Therapeutic Exercise (1:1) completed Shirley Formejester, INFORMATION MANAGEMENT MANAGER [address], [place], [address], [facility] 12/21/2023 15:54:01 4 07642: Manual therapy completed Shirley Formejester, INFORMATION MANAGEMENT MANAGER [address], [place], [address], [facility] 12/21/2023 15:54:01 4 93260 Therapeutic Exercise (1:1) completed Shirley Formemirtaster, INFORMATION MANAGEMENT MANAGER [address], [place], [address], [facility] 12/16/2023 11:36:47 4 19357: Manual therapy completed Shirley Formgiacomoster, INFORMATION MANAGEMENT MANAGER [address], [place], [address], [facility] 12/16/2023 11:36:47 4 97725 Therapeutic Exercise (1:1) completed Shirley Formgiacomoster, INFORMATION MANAGEMENT MANAGER [address], [place], [address], [facility] 12/14/2023 11:14:43 4 26299: Manual therapy completed Shirley Formzhou, INFORMATION MANAGEMENT MANAGER [address], [place], [address], [facility] 12/14/2023 11:14:43 4 41363 Therapeutic Exercise (1:1) completed Merlinanalilia Payano, PT [address], [place], [address], [facility] 12/11/2023 08:03:19 4 09878: Manual therapy completed Merlin Last, PT [address], [place], [address], [facility] 12/11/2023 08:00:06 4 22313 Therapeutic Exercise (1:1) completed Shirley Formejester, INFORMATION MANAGEMENT MANAGER [address], [place], [address], [facility] 12/07/2023 08:56:13 4 65418: Manual therapy completed Shirley Formejester, INFORMATION MANAGEMENT MANAGER [address], [place], [address], [facility] 12/07/2023 08:56:13 4 18054 Therapeutic Exercise (1:1) completed Shirley Formejester, INFORMATION MANAGEMENT MANAGER [address], [place], [address], [facility] 12/04/2023 10:43:32 4 18928: Manual therapy completed Shirley Formejester, INFORMATION MANAGEMENT MANAGER [address], [place], [address], [facility] 12/04/2023 10:43:32 4 43534 Therapeutic Exercise (1:1) completed Shirley Formejester, INFORMATION MANAGEMENT MANAGER [address], [place], [address], [facility] 11/30/2023 11:09:53 4 96651: Manual therapy completed Shirley Formejester, INFORMATION MANAGEMENT MANAGER [address], [place], [address], [facility] 11/30/2023 11:09:53 4 57358 Therapeutic Exercise (1:1) completed Shirley Formejester, INFORMATION MANAGEMENT MANAGER [address], [place], [address], [facility] 11/25/2023 11:28:36 4 44163: Manual therapy completed Shirley Formejester, INFORMATION MANAGEMENT MANAGER [address], [place], [address], [facility] 11/25/2023 11:28:36 4 10294 Therapeutic Exercise (1:1) completed Shirley Formejester, INFORMATION MANAGEMENT MANAGER [address], [place], [address], [facility] 11/23/2023 09:45:37 4 95327: Manual therapy completed Shirley Sanchez, INFORMATION MANAGEMENT MANAGER [address], [place], [address], [facility] 11/23/2023 09:45:37 4 71466 Therapeutic Exercise (1:1) completed Shirley Sanchez, INFORMATION MANAGEMENT MANAGER [address], [place], [address], [facility] 11/20/2023 12:02:44 4 25176: Manual therapy completed Shirley Sanchez, INFORMATION MANAGEMENT MANAGER [address], [place], [address], [facility] 11/20/2023 12:03:16 4 77614 Therapeutic Exercise (1:1) completed Merlin Ni, PT [address], [place], [address], [facility] 11/17/2023 09:17:37 4 49814: Low complexity PT Eval completed Merlin Ni, PT [address], [place], [address], [facility] 11/17/2023 09:17:39 4 22681: Low complexity PT Eval completed Awa Perry, PT [address], [place], [address], [facility] 11/04/2023 12:06:44 4 Euflexxa Knee Injection completed Marcela Colmenares PA-C [address], [place], [address], [facility] 09/03/2023 14:30:01 4 Euflexxa Knee Injection completed Marcela Colmenares PA-C [address], [place], [address], [facility] 08/26/2023 22:08:41 Euflexxa Knee Injection completed Marcela Colmenares PA-C [address], [place], [address], [facility] 08/20/2023 12:25:39 Imaging Results None recorded. Procedure Notes None recorded. Medical Equipment None Reported. Allergies Allergen ID Allergen Name Allergen Category Reaction Reaction Severity Criticality Documentation Date Start Date Code Code System Note Provider Name and Address Organization Details Recorded Time 48899 Product containin g penicilli n (product) medicatio n Not available Not available Not available 08/10/20232012 05193 8001 SNOMED Not Available [facility] 4 11:53:31 26001 Substance with sulfonami de structure and antibacte rial mechanism of action (substanc e) medicatio n Not available Not available Not available 08/10/20232012 58516 8003 SNOMED Not Available [facility] 4 11:53:32 Medications Name Sig Start [...] Updated DateTime 06/24/2024 154.94 cm RAJANI JONES [facility] 06/24/2024 13:27:37 Date Recorded Body height Provider Name an d Address Organization Details Last Updated DateTime 07/27/2024 154.94 cm RAJANI JONES [facility] 07/27/2024 11:27:12 Date Recorded Body height Provider Name an d Address Organization Details Last Updated DateTime 11/01/2024 154.94 cm Kristine Horton [facility] 11/01/2024 14:52:31 Date Recorded Body height Body mass index (BMI) Body weight Provider Name and Address Organization Details Last Updated DateTime 01/03/2025 154.94 cm 26.5 kg/m2 09442.93 g demetra gregory [facility] 01/03/2025 14:46:56 Date [...] ICD10 Code Diagnosis IMO Codes Diagnosis Note [id number] Marcela Colmenares PA-C [facility] [address] [place] [address] 08/20/2023 11:20:34 08/20/2023 13:16:35 Osteoarthritis of right knee joint 3703657039 76996 M17.11 [id number] Marcela Colmenares PA-C [facility] [address] [place] [address] 08/27/2023 14:10:38 08/27/2023 14:41:09 Osteoarthritis of right knee joint 0413224293 27797 M17.11 [id number] Marcela Colmenares PA-C [facility] [address] [place] [address] 09/03/2023 13:57:17 09/03/2023 14:30:53 Osteoarthritis of right knee joint 0572589040 66551 M17.11 [id number] Marcela Colmenares PA-C [facility] [address] [place] [address] 10/23/2023 12:43:12 11/13/2023 14:41:47 Pain of right knee joint 5771411128 04587 M25.561 Osteoarthr itis of right knee joint 0878581090 66728 M17.11 [id number] Felix Carr MD [facility] [address] [place] [address] 10/30/2023 10:04:54 11/24/2023 08:44:24 Osteoarthritis of right knee joint 9680340503 46681 M17.11 [id number] Shari BarnettcliffeGARETH [facility] [address] [place] [address] 11/03/2023 13:19:53 11/24/2023 04:01:15 [id number] Awa Perry, PT [facility] [address] [place] [address] 11/04/2023 11:10:08 11/04/2023 14:48:16 Osteoarthritis of right knee joint 9088494686 67563 M17.11 [id number] Merlin Payano, PT [facility] [address] [facility] [place] [address] 11/16/2023 12:24:11 11/16/2023 13:48:32 History of right total knee replacement 6208081751 239904 Z96.651 Z47.1 [id number] Shirley Mcdonald r, INFORMATION MANAGEMENT MANAGER [facility] [address] [facility] [place] [address] 11/20/2023 09:19:51 11/20/2023 10:35:19 History of right total knee replacement [id number] Z96.651 Z47.1 [id number] Shirley Mcdonald r, INFORMATION MANAGEMENT MANAGER [facility] [address] [place] [address] 11/23/2023 09:50:09 11/23/2023 10:59:44 History of right total knee replacement [id number] 838987 Z96.651 Z47.1 [id number] Felix Carr MD [facility] [address] [place] [address] 11/24/2023 12:35:48 12/21/2023 15:41:11 History of right total knee replacement 9276208162 980869 Z96.330 [id number] Shirley Mcdonald r, INFORMATION MANAGEMENT MANAGER [facility] [address] [place] [address] 11/25/2023 11:20:33 11/25/2023 12:26:16 History of right total knee replacement [id number] 870877 Z96.651 Z47.1 [id number] Shirley Formejeste r, INFORMATION MANAGEMENT MANAGER [facility] [address] [place] [address] 11/30/2023 10:39:23 11/30/2023 11:32:42 History of right total knee replacement [id number] 292694 Z96.651 Z47.1 [id number] Shirley Formejeste r, INFORMATION MANAGEMENT MANAGER [facility] [address] [place] [address] 12/04/2023 10:23:04 12/04/2023 11:28:43 History of right total knee replacement [id number] 845778 Z96.651 Z47.1 [id number] Shirley Formejeste r, INFORMATION MANAGEMENT MANAGER [facility] [address] [place] [address] 12/07/2023 08:53:24 12/07/2023 10:25:14 History of right total knee replacement 4464618882 232296 Z96.651 Z47.1 [id number] Merlin Ni, PT [facility] [address] [place] [address] 12/09/2023 10:57:55 12/09/2023 12:00:35 History of right total knee replacement [id number] 163834 Z96.651 Z47.1 [id number] Shirley Formejeste r, INFORMATION MANAGEMENT MANAGER [facility] [address] [place] [address] 12/14/2023 10:58:41 12/14/2023 11:54:58 History of right total knee replacement 9255657865 724453 Z96.651 Z47.1 [id number] Shirley Formejeste r, INFORMATION MANAGEMENT MANAGER [facility] [address] [place] [address] 12/16/2023 10:57:34 12/16/2023 12:37:06 History of right total knee replacement [id number] 567667 Z96.651 Z47.1 [id number] Shirley Formejeste r, INFORMATION MANAGEMENT MANAGER [facility] [address] [place] [address] 12/21/2023 15:25:27 12/21/2023 17:36:59 History of right total knee replacement 1648810756 773036 Z96.651 Z47.1 [id number] MD [facility] [address] [place] [address] 12/22/2023 12:45:02 12/22/2023 14:50:33 History of right total knee replacement [id number] 091673 Z96.651 Z47.1 [id number] Shirley Formejeste r, INFORMATION MANAGEMENT MANAGER [facility] [address] [place] [address] 12/23/2023 12:56:02 12/23/2023 14:19:20 History of right total knee replacement [id number] 999214 Z96.651 Z47.1 [id number] Merlin Ni, PT [facility] [place] [address] 12/30/2023 10:27:58 12/30/2023 11:49:48 History of right total knee replacement [id number] 040673 Z96.651 Z47.1 [id number] Shirley Formejeste r, INFORMATION MANAGEMENT MANAGER [facility] [address] [place] [address] 01/01/2024 13:32:40 01/01/2024 14:30:52 History of right total knee replacement 2587710257 117157 Z96.651 Z47.1 [id number] Shirley Formejeste r, INFORMATION MANAGEMENT MANAGER [facility] [address] [place] [address] 01/04/2024 10:27:54 01/04/2024 11:30:22 History of right total knee replacement 8585857611 253261 Z96.651 Z47.1 [id number] Shirley Formejeste r, INFORMATION MANAGEMENT MANAGER [facility] [address] [place] [address] 01/06/2024 10:31:22 01/06/2024 11:30:26 History of right total knee replacement 8544216127 369197 Z96.651 Z47.1 [id number] Shirley Formejeste r, INFORMATION MANAGEMENT MANAGER [facility] [address] [place] [address] 01/12/2024 11:20:52 01/12/2024 12:37:19 History of right total knee replacement 7240361677 176704 Z96.651 Z47.1 [id number] Shirley Formejeste r, INFORMATION MANAGEMENT MANAGER [facility] [address] [place] [address] 01/14/2024 17:12:52 01/14/2024 18:49:07 History of right total knee replacement 1493700614 060131 Z96.651 Z47.1 [id number] Shirley Formejeste r, INFORMATION MANAGEMENT MANAGER [facility] [address] [place] [address] 01/19/2024 12:52:55 01/19/2024 15:21:59 History of right total knee replacement 7007514613 282632 Z96.651 Z47.1 [id number] MD [facility] [address] [place] [address] 01/19/2024 17:15:12 02/09/2024 08:59:58 History of right total knee replacement 9314677203 802909 Z96.651 Z47.1 [id number] Shirley Formejeste r, INFORMATION MANAGEMENT MANAGER [facility] [address] [place] [address] 01/21/2024 14:54:26 01/21/2024 15:42:23 History of right total knee replacement 8732452837 309601 Z96.651 Z47.1 [id number] Shirley Formejeste r, INFORMATION MANAGEMENT MANAGER [facility] [address] [place] [address] 01/26/2024 10:57:31 01/26/2024 12:35:01 History of right total knee replacement [id number] 214884 Z96.651 Z47.1 [id number] Merlin Ni, PT [facility] [address] [place] [address] 01/28/2024 13:24:17 01/28/2024 14:22:44 History of right total knee replacement 7280937372 592249 Z96.651 Z47.1 [id number] MD [facility] [address] [place] [address] 03/22/2024 11:29:09 04/11/2024 07:47:42 History of right total knee replacement 1301620214 775566 Z96.651 Z47.1 [id number] [facility] [address] [place] [address] 06/24/2024 13:24:26 07/05/2024 12:13:47 Pain of knee region 5642682466 M25.561 [id number] Osteoarthr itis of right knee joint 3292510219 54214 M17.11 [id number] Pain of ri ght knee joint 5779841182 39596 M25.561 [id number] [facility] [address] [place] [address] 07/27/2024 11:20:44 08/09/2024 13:39:06 Pain of right knee joint 0746710810 36358 M25.561 [id number] MD [facility] [address] [place] [address] 11/01/2024 14:50:28 11/11/2024 07:20:15 History of right total knee replacement 4759880450 556002 Z96.651 [id number] Radicular pain 74386591 M54.10 [id number] 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 9599145454 T84.028A Z96.296 [id number] MD [facility] [address] [place] [address] 01/03/2025 14:44:14 01/11/2025 15:14:23 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 5527205592 T84.028A Z96.400 [id number] MD [facility] [address] [place] [address] 03/16/2025 14:44:58 03/23/2025 15:18:58 Low back pain 253027637 M54.50 [id number] History of right total knee replacement 9774771861 010098 Z96.651 Health Concerns Section Related Observation LastModified by Organization Detai ls LastModified Time None Recorded Concern Status LastModified by Organization Details LastModified Time None Recorded Advance Directives Directive None Recorded Payers Insurance Date Sequence Insurance Name Policy Number Policy Ivy Covered Member ID Ivy Member ID Guarantor Name 03/23/2025 1 [employer] (MEDICARE REPLACEMENT/ ADVANTAGE - PPO) [id number] Mary Jane Valencia [id number] Mary Jane Valencia Notes Date Note Type [...] block may be in order. All questions answered.[employer] speech recognition manager medicare marketing software was used to create portions of this document. An attempt at proofreading has been made to minimize errors. Please call for corrections. Danyel Bronson PA-C [address], [place], [address], [facility] 06/24/2024 16:32:21 07/27/2024 text/html [...] in the meantime would forego any aggressive treatment.[employer] speech recognition manager medicare marketing software was used to create portions of this document. An attempt at proofreading has been made to minimize errors. Please call for corrections. Danyel Bronson PA-C [address], [place], [address], [facility] 07/27/2024 17:09:53 11/01/2024 text/html [...] the patient s chart. Felix Carr MD [address] [place] [address] [address], [place], [address], [facility] 11/01/2024 16:04:31 OBGyn Episode No OBEpisode recorded.
[2025-04-30 07:09] LABS: E. coli EAEC Not Detected (Not Detect.); E. coli EPEC Not Detected (Not Detect.); E. coli ETEC Not Detected (Not Detect.); E. coli STEC Not Detected (Not Detect.); Shigella sp./EIEC Not Detected (Not Detect.)
[2025-05-10 20:14] LABS: Calprotectin, Fecal 593 mcg/g
== END 2025-04-29 10:49 | disposition home or self-care (01) ==
LOC: HO.LNP 10:48
PROVIDERS: Visit Provider Internal Medicine
DX: R10.84 Generalized abdominal pain (principal); R19.7 Diarrhea, unspecified
CPT/HCPCS: 83993; 87507

== ENCOUNTER 2025-05-26 07:37 | Outpatient (REF) | payer MEDICARE, SELFPAY ==
--- OUTSIDE RECORDS SUMMARY | 2025-05-18 06:20 | XMS_ITS ---
Author Organization [facility] Address [address] [place] [id number] Care Team Providers Care Director Of Field Coordination Name Role Phone Nury Rubio MD Primary Care Provider Levi Castro [phone] Allergies Allergen (clinical drug ingredient) Drug/Non Drug Allergy documented on EMR Reaction Allergy Type Onset Date Status Penicillin Unknown Drug Allergy Active Sulfa Unknown Drug Allergy Active REASON FOR VISIT Patient presents today for diarrhea Medications Medication SIG (Take, Route, Frequency, Duration) Notes Start Date End Date Status Rosuvastatin Calcium 40 MG Tablet TAKE 1 TABLET BY MOUTH EVERY DAY Oral; Duration: 90 Active Nnxxq-0-ccuy Ethyl Esters 1 GM Capsule TAKE 2 CAPSULES BY MOUTH TWICE A DAY FOR 90 DAYS Oral; Duration: 90 Active Cholestyramine Light 4 GM Packet Oral; Duration: 30 Days Active hydroCHLOROthiazide 25 MG Tablet 1 tablet Orally Once a day Active Vitamin D 1000 UNIT Tablet 1 tablet Oral ly Once a day Active Suellen Active Magnesium Active Omeprazole 20 MG Capsule Delayed Release 1 capsule Orally Twice a day Active Lisinopril 20 MG Tablet 1 tablet Orally Once a day Active Vitamin C 500 MG Capsule 1 tablet Orally Once a day Active Jackeline Active Probiotic Active Baby Aspirin Active ZyrTEC Allergy 10 MG Tablet 1 tablet Ora lly Once a day Not-Taking/PRN Ondansetron 4 MG Tablet Disintegrating 1 tablet on the tongue and allow to dissolve Orally Every 4 to 6 hours as needed for nausea; Duration: 30 day(s) 02/25/2023 Not-Taking/PRN Multi Vitamin/Minerals - Tablet 1 Orally QD Not-Taking/PRN Social History Social History Drug/Alcohol: Social Info Question Answer Notes AUDIT-C (Standard) Did you have a drink containing alcohol in the past year? Yes How often did you have a drink containing alcohol in the past year? 2 to 3 times a week (3 points) How many drinks did you have on a typical day when you were drinking in the past year? 1 or 2 drinks (0 point) How often did you have six or more drinks on one occasion in the past year? 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 Problems Problem Type SNOMED Code ICD Code Onset Dates Problem Status W/U Status Risk Notes Problem Change in bowel habit (37749696) Change in bowel habits (R19.4) Active confirmed Vital Signs Blood pressure systolic 001 mm Hg 05/18/20 25 Blood pressure diastolic 01 mm Hg 025 Height 61 in 05/18/2025 Weight 129.6 lbs 05/18/2025 BMI 24.49 kg/m2 05/18/2025 Encounters Encounter Location Date Provider Diagnosis [facility] [address] [place] [address] 05/18/2025 Levi Coyle Diarrhea, unspecifie d type R19.7 and Change in bowel habits R19.4 Assessments Encounter Date Diagnosis (ICD Code) Assessment Notes Treatment Notes Treatment Clinical Notes Section Notes 05/18/2025 Diarrhea, unspecified type (ICD-10 - R19.7) Overall, Delvis appears very well. I did recommend she undergo a colonoscopy in the relatively near future given her persistent change in her bowel habits with loose stools and a significantly elevated fecal calprotectin level of nearly 600. I advised her that would be important to exclude any component of inflammatory bowel disease or microscopic colitis as the cause of her symptoms. It seems that the cholestyramine has helped her from a symptomatic standpoint and I did advise her that she could continue that up until a couple days before the colonoscopy. If the colonoscopy, including the biopsies, is nonrevealing she may then need further testing for celiac disease if her symptoms are persisting. I did advise her that she could at any point try to stop the cholestyramine to see how she does without it but to certainly stay on it if it is giving her good relief. Full consent has been obtained from her for the colonoscopy, including risks of bleeding and perforation. The procedure will be done with monitored anesthesia care. She was given the below instructions regarding adjustment of her medications and supplements before the procedure. I did advise her to contact me prior to the colonoscopy if she has any problems or questions I can be of assistance with. Delvis and her daughter were comfortable with this plan. Thank you again for allowing me to participate in Merary's care. I shall continue to keep you advised of her progress. 05/18/2025 Change in bowel habits (ICD-10 - R19.4) Overall, Delvis appears very well. I did recommend she undergo a colonoscopy in the relatively near future given her persistent change in her bowel habits with loose stools and a significantly elevated fecal calprotectin level of nearly 600. I advised her that would be important to exclude any component of inflammatory bowel disease or microscopic colitis as the cause of her symptoms. It seems that the cholestyramine has helped her from a symptomatic standpoint and I did advise her that she could continue that up until a couple days before the colonoscopy. If the colonoscopy, including the biopsies, is nonrevealing she may then need further testing for celiac disease if her symptoms are persisting. I did advise her that she could at any point try to stop the cholestyramine to see how she does without it but to certainly stay on it if it is giving her good relief. Full consent has been obtained from her for the colonoscopy, including risks of bleeding and perforation. The procedure will be done with monitored anesthesia care. She was given the below instructions regarding adjustment of her medications and supplements before the procedure. I did advise her to contact me prior to the colonoscopy if she has any problems or questions I can be of assistance with. Delvis and her daughter were comfortable with this plan. Thank you again for allowing me to participate in [place] care. I shall continue to keep you advised of her progress. Plan Of Treatment Future Test Test Name Order Date COLONOSCOPY 05/18/2025 Next Appt Details Provider Name:Levi Coyle , 07/21/2025 09:30:00 AM, [address] [place] [address], [phone], History and Physical Notes * HPI (History of Present Illness) Category Sub-Category Detail Notes Category Not es incontinence I saw Delvis in the office today for evaluation of a change in her bowel habits with some associated diarrhea and a stool specimen with an elevated fecal calprotectin level. She was accompanied by her daughter, Zhen. I last saw Delvis in 2022. She had a negative screening colonoscopy in 2018. She describes that things had been well from a GI standpoint up until about the last couple months. Since that time she describes some intermittent issues with loose stool, urgency, and diarrhea. She had multiple stool specimens that were negative for any sign of infection but a fecal calprotectin level came back with a level of 593. A GI panel was completely negative for any sign of infection. Lab work including a sed rate, C-reactive protein, CBC, liver profile, and lipase were all unremarkable.. She does have an underlying history of irritable bowel syndrome but with previous colonoscopies did not show any sign of inflammatory bowel disease.However, she did not have biopsies to rule out underlying microscopic colitis and she has not had any testing for celiac disease As you know, she was started on some cholestyramine by you and that has given her some fairly good relief of the previous loose stools. She describes that her bowel movements are more formed and less frequent since she started the cholestyramine. She denies any hematochezia nor melena. She has been eating comfortably and denies any significant heartburn or dysphagia. She denies any significant abdominal pain other than some cramps. She denies any jaundice nor any significant weight loss. She denies a known family history of inflammatory bowel disease, celiac disease, or GI malignancy. Progress Notes * DELVIS JOYCEDOB: 2 (75 yo F)Acc No.[id number]:05/18/2025 Progress Notes Patient: DELVIS IZQUIERDO Provider: Precious Coyle MD :1950 A ge:75 Y S ex:Female Date:05/18/2025 Address:[address] [place], [place] [id number] Pcp:Nury Rubio MD Subjective: * Chief Complaints: * P atient presents today for diarrhea * HPI: i ncontinence: I saw Delvis in the office today for evaluation of a change in her bowel habits with some associated diarrhea and a stool specimen with an elevated fecal calprotectin level. She was accompanied by her daughter, Zhen. I last saw Delvis in 2022. She had a negative screening colonoscopy in 2018. She describes that things had been well from a GI standpoint up until about the last couple months. Since that time she describes some intermittent issues with loose stool, urgency, and diarrhea. She had multiple stool specimens that were negative for any sign of infection but a fecal calprotectin level came back with a level of 593. A GI panel was completely negative for any sign of infection. Lab work including a sed rate, C-reactive protein, CBC, liver profile, and lipase were all unremarkable.. She does have an underlying history of irritable bowel syndrome but with previous colonoscopies did not show any sign of inflammatory bowel disease.However, she did not have biopsies to rule out underlying microscopic colitis and she has not had any testing for celiac disease As you know, she was started on some cholestyramine by you and that has given her some fairly good relief of the previous loose stools. She describes that her bowel movements are more formed and less frequent since she started the cholestyramine. She denies any hematochezia nor melena. She has been eating comfortably and denies any significant heartburn or dysphagia. She denies any significant abdominal pain other than some cramps. She denies any jaundice nor any significant weight loss. She denies a known family history of inflammatory bowel disease, celiac disease, or GI malignancy. * Medical History: Colonoscopy 01-24-2008- negative except for mild diverticulosis and internal hemorrhoids Hyperlipidemia Denies [place],DM,CVA,Lung disease,renal disease Perforated duodenal ulcer in 2010- treated at [facility]-no surgery required- she had been on ASA and NSAIDs- -F/U EGD was reportedly negative Kidney stones-[facility] ERCP- 10/06/13- s/p sphincterotomy- no stones seen, although her common bile duct was mildly dilated MRI of the abdomen in September of 2013 showed a 5 mm pancreatic cyst, but without any sign of solid lesion nor any septations- - followup MRI in September of 2014 revealed a slight decrease in the tiny pancreatic cyst and without any worrisome findings otherwise Hospitalized at [facility] in 10/2016 for possible recurrent ulcer disease and/or a perforated duodenal diverticulum - had a NG tube- increased Omeprazole from 20mg QD to BID EGD in 04/2017- small HH, no PUD, gastric biopsies were negative for H.pylori Negative screening colonoscopy in 11/2017 Choledocholithiasis- ERCP with sphincterotomy and stone removal in May of 2021; she had a subsequent cholecystectomy with Dr. Herrera Medical History Verified * Surgical History: Cholecystectomy Right knee replacement 10/2023 Surgical History verified. * Hospitalization/Major Diagno stic Procedure: No Hospitalization Documented. Hospitalization Verified. * Family History: F ather: , diagnosed with HTN (hypertension). M other: unknown, diagnosed with HTN (hypertension). F amily History Verified.. There is no family history of colorectal cancer or polyps. No family history of liver disease. * Social History: T obacco Use: T obacco Use/Smoking A re you a: nonsmoker. D rugs/Alcohol: A lcohol Screen P oints: 1, Interpretation: Negative. M iscellaneous: M arital status: . 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 D rug/Alcohol: A PEDRO PABLO-C (Standard) D id you have a drink containing alcohol in the past year? Y es,?How often did you have a drink containing alcohol in the past year? 2 to 3 times a week (3 points), H ow many drinks did you have on a typical day when you were drinking in the past year??1 or 2 drinks (0 point), H ow often did you have six or more drinks on one occasion in the past year? N ever (0 point), P oints 3 , I nterpretation P ositive. Social History Verified. N onsmoker > 10 yrs ago; usually 1 or 2 glasses of wine QD. * Medications: T Edwin Probiotic Baby Aspirin Suellen Magnesium Omeprazole 20 MG Capsule Delayed Release 1 capsule Orally Twice a day Lisinopril 20 MG Tablet 1 tablet Orally Once a day Vitamin C 500 MG Capsule 1 tablet Orally Once a day hydroCHLOROthiazide 25 MG Tablet 1 tablet Orally Once a day Vitamin D 1000 UNIT Tablet 1 tablet Orally Once a day Rosuvastatin Calcium 40 MG Tablet TAKE 1 TABLET BY MOUTH EVERY DAY Oral Xfilw-6-uthf Ethyl Esters 1 GM Capsule TAKE 2 CAPSULES BY MOUTH TWICE A DAY FOR 90 DAYS Oral Cholestyramine Light 4 GM Packet Oral Taking Jackeline Taking Probiotic Taking Baby Aspirin Taking Suellen Taking Magnesium Taking Omeprazole 20 MG Capsule Delayed Release 1 capsule Orally Twice a day Taking Lisinopril 20 MG Tablet 1 tablet Orally Once a day Taking Vitamin C 500 MG Capsule 1 tablet Orally Once a day Taking hydroCHLOROthiazide 25 MG Tablet 1 tablet Orally Once a day Taking Vitamin D 1000 UNIT Tablet 1 tablet Orally Once a day Taking Rosuvastatin Calcium 40 MG Tablet TAKE 1 TABLET BY MOUTH EVERY DAY Oral Taking Srrpq-5-ysmn Ethyl Esters 1 GM Capsule TAKE 2 CAPSULES BY MOUTH TWICE A DAY FOR 90 DAYS Oral Taking Cholestyramine Light 4 GM Packet Oral Not-Taking/PRNMulti Vitamin/Minerals - Tablet 1 Orally QD ZyrTEC Allergy 10 MG Tablet 1 tablet Orally Once a day Ondansetron 4 MG Tablet Disintegrating 1 tablet on the tongue and allow to dissolve Orally Every 4 to 6 hours as needed for nausea Medication List reviewed and reconciled with the patientNot-Taking/PRN Multi Vitamin/Minerals - Tablet 1 Orally QD Not-Taking/PRN ZyrTEC Allergy 10 MG Tablet 1 tablet Orally Once a day Not-Taking/PRN Ondansetron 4 MG Tablet Disintegrating 1 tablet on the tongue and allow to dissolve Orally Every 4 to 6 hours as needed for nausea Medication List reviewed and reconciled with the patient * Allergies: P enicillinSulfayesAllergies Verified. Objective: * Vitals: W t: 129.6 lbs, Ht: 61 in, BMI: 24.49 Index, BP: 001/01 mm Hg, Ht-cm: 154.94 cm, Wt-k.79 kg. Assessment: * Assessment: 1. D iarrhea, unspecified type - R19.7 (Primary) 2 . C hange in bowel habits - R19.4 Overall, Delvis appears darrell y well. I did recommend she undergo a colonoscopy in the relatively near future given her persistent change in her bowel habits with loose stools and a significantly elevated fecal calprotectin level of nearly 600. I advised her that would be important to exclude any component of inflammatory bowel disease or microscopic colitis as the cause of her symptoms. It seems that the cholestyramine has helped her from a symptomatic standpoint and I did advise her that she could continue that up until a couple days before the colonoscopy. If the colonoscopy, including the biopsies, is nonrevealing she may then need further testing for celiac disease if her symptoms are persisting. I did advise her that she could at any point try to stop the cholestyramine to see how she does without it but to certainly stay on it if it is giving her good relief. Full consent has been obtained from her for the colonoscopy, including risks of bleeding and perforation. The procedure will be done with monitored anesthesia care. She was given the below instructions regarding adjustment of her medications and supplements before the procedure. I did advise her to contact me prior to the colonoscopy if she has any problems or questions I can be of assistance with. Delvis and her daughter were comfortable with this plan. Thank you again for allowing me to participate in Merary's care. I shall continue to keep you advised of her progress. Plan: * Treatment: 2.?Change in bowel habits?Procedure: COLONOSCOPY (Ordered for 05/18/2025)* With MAC. Stop aspirin, Turm vickie/Jackeline, and the [place] Fish oil for 1 week before the colonoscopy. Do not take the Hydrochlorothiazide the day beofre or on the day of the colonoscopy. Do not take the cholestyramine powder for 3 days before the colonoscopy. * Preventive Medicine: Counseling: B P Management: M ODERATION OF ETOH CONSUMPTION RECOMMENDATION:?Alcohol abuse prevention education. Urinary Incontinence: U rinary Incontinence A ssessment: A bsent, P efren of care documented: N o, reason not specified. Screenings: F all Risk Screening F all Risk Assessment: N o falls in the past year, S creening: N o falls in the past year, P efren of Care: N ot documented, no reason specified. * The named appointment provid er may or may not be the originator of this progress note, and it is not deemed complete until electronically signed by the appointment provider. Sign off status: Pending * Provider: Precious Coyle MD Date: 07/19/2024 Generated for Mimi gonzales/Aditi/Cruz on: 07/27/2024 07:39 AM EST
--- OUTSIDE RECORDS SUMMARY | 2025-05-26 07:40 | XMS_ITS | Continuity of Care Document ---
Author Organization [place] - [facility], [place] Noe 2nd floor Address [address] [place] [address] Care Team Providers Care Senior Game Developer Name Role Phone ANSON RUFF Primary Care [...] may follow up with me as needed [email or web address] Not available 03/16/2025 15:52:02 Plan of Treatment Reminders Order Date Submit Date Provider Last Modified By Organization Details Last Modified Time Details Appointments None recorded. Lab None recorded. Referral physical therapist referral - Lumbar Back Pain Strengtheni ng and stabilizati on Program. Teach at-home exercises per . 2024 025 LEN[facility] - [address] [place], [address], 5 10:10:23 Procedures None recorded. Surgeries None [...] Address Organization Details Recorded Time No complaints [id number] Active Status : 'I'; Not Available [facility] 4 09:12:24 Osteoarthr itis of right knee joint 1283313497425 00 Active 2023 jana sheikh [facility] 4 13:05:03 History of right total knee replacemen t [id number] 102 Active 2023 Felix Carr MD [address], [place], [address] , [facility] 4 16:02:45 Radicular pain 58016777 Active 2024 Kristine sheikh [facility] 5 15:58:20 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 Active 2024 Felix Carr MD [address], [place], [address] , [facility] 5 16:03:40 Lumbar radiculopa thy 095493208 Active 2024 demetra sheikh [facility] 5 15:17:43 Low back pain 986211061 Active 2024 demtera sheikh [facility] 5 15:18:02 Problem Notes None recorded. Procedures Surgical History Date Name Laterality Status Provider Name and Address Organization Details Recorded Time 4 00525 Therapeutic Exercise (1:1) completed Merlin Ni, PT [address], [place], [address], [facility] 02/01/2024 12:09:35 4 21288: Manual therapy completed Merlin Ni, PT [address], [place], [address], [facility] 02/01/2024 14:39:04 4 28345 Therapeutic Exercise (1:1) completed Shirley Sanchez, EDUCATION PROFESSOR [address], [place], [address], [facility] 01/26/2024 11:03:45 4 49292 Therapeutic Exercise (1:1) completed Shirley Formzhou, EDUCATION PROFESSOR [address], [place], [address], [facility] 01/21/2024 15:04:22 4 66986: Manual therapy completed Shirley Sanchez, EDUCATION PROFESSOR [address], [place], [address], [facility] 01/21/2024 15:04:22 4 38759 Therapeutic Exercise (1:1) completed Shirley Sanchez, EDUCATION PROFESSOR [address], [place], [address], [facility] 01/19/2024 12:58:52 4 51584: Manual therapy completed Shirley Sanchez, EDUCATION PROFESSOR [address], [place], [address], [facility] 01/19/2024 12:58:52 4 17264 Therapeutic Exercise (1:1) completed Shirley Sanchez, EDUCATION PROFESSOR [address], [place], [address], [facility] 01/14/2024 17:23:43 4 17565: Manual therapy completed Shirley Sanchez, EDUCATION PROFESSOR [address], [place], [address], [facility] 01/14/2024 17:23:43 4 96326 Therapeutic Exercise (1:1) completed Shirley Formzhou, EDUCATION PROFESSOR [address], [place], [address], [facility] 01/12/2024 11:30:38 4 63141: Manual therapy completed Shirley Sanchez, EDUCATION PROFESSOR [address], [place], [address], [facility] 01/12/2024 11:30:38 4 10145 Therapeutic Exercise (1:1) completed Shirely Formzhou, EDUCATION PROFESSOR [address], [place], [address], [facility] 01/06/2024 11:02:13 4 13903: Manual therapy completed Shirley Sanchez, EDUCATION PROFESSOR [address], [place], [address], [facility] 01/06/2024 11:02:13 4 24483 Therapeutic Exercise (1:1) completed Shirley Sanchez, EDUCATION PROFESSOR [address], [place], [address], [facility] 01/04/2024 10:30:09 4 99017: Manual therapy completed Shirley Sanchez, EDUCATION PROFESSOR [address], [place], [address], [facility] 01/04/2024 10:30:09 4 08616 Therapeutic Exercise (1:1) completed Shirley Formzhou, EDUCATION PROFESSOR [address], [place], [address], [facility] 01/01/2024 13:53:30 4 49484: Manual therapy completed Shirley Sanchez, EDUCATION PROFESSOR [address], [place], [address], [facility] 01/01/2024 13:53:30 4 69367 Therapeutic Exercise (1:1) completed Merlin Ni, PT [address], [place], [address], [facility] 12/31/2023 09:35:48 4 84606: Manual therapy completed Merlin Ni, PT [address], [place], [address], [facility] 12/31/2023 09:35:48 4 38200 Therapeutic Exercise (1:1) completed Shirley Formzhou, EDUCATION PROFESSOR [address], [place], [address], [facility] 12/23/2023 13:19:04 4 21133: Manual therapy completed Shirley Sanchez, EDUCATION PROFESSOR [address], [place], [address], [facility] 12/23/2023 13:19:05 4 13808 Therapeutic Exercise (1:1) completed Shirley Sanchez, EDUCATION PROFESSOR [address], [place], [address], [facility] 12/21/2023 15:54:01 4 34968: Manual therapy completed Shirley Sanchez, EDUCATION PROFESSOR [address], [place], [address], [facility] 12/21/2023 15:54:01 4 64380 Therapeutic Exercise (1:1) completed Shirley Formgiacomostspencer, EDUCATION PROFESSOR [address], [place], [address], [facility] 12/16/2023 11:36:47 4 32351: Manual therapy completed Shirley Sanchez, EDUCATION PROFESSOR [address], [place], [address], [facility] 12/16/2023 11:36:47 4 44183 Therapeutic Exercise (1:1) completed Shirley Sanchez, EDUCATION PROFESSOR [address], [place], [address], [facility] 12/14/2023 11:14:43 4 54388: Manual therapy completed Shirley Sanchez, EDUCATION PROFESSOR [address], [place], [address], [facility] 12/14/2023 11:14:43 4 53876 Therapeutic Exercise (1:1) completed Merlin Ni, PT [address], [place], [address], [facility] 12/11/2023 08:03:19 4 29049: Manual therapy completed Merlin Ni, PT [address], [place], [address], [facility] 12/11/2023 08:00:06 4 84081 Therapeutic Exercise (1:1) completed Shirley Sanchez, EDUCATION PROFESSOR [address], [place], [address], [facility] 12/07/2023 08:56:13 4 34984: Manual therapy completed Shirley Sanchez, EDUCATION PROFESSOR [address], [place], [address], [facility] 12/07/2023 08:56:13 4 69108 Therapeutic Exercise (1:1) completed Shirley Formgiacomostspencer, EDUCATION PROFESSOR [address], [place], [address], [facility] 12/04/2023 10:43:32 4 84259: Manual therapy completed Shirley Formzhou, EDUCATION PROFESSOR [address], [place], [address], [facility] 12/04/2023 10:43:32 4 55954 Therapeutic Exercise (1:1) completed Shirley Formejester, EDUCATION PROFESSOR [address], [place], [address], [facility] 11/30/2023 11:09:53 4 84423: Manual therapy completed Shirley Formejester, EDUCATION PROFESSOR [address], [place], [address], [facility] 11/30/2023 11:09:53 4 59497 Therapeutic Exercise (1:1) completed Shirley Formejester, EDUCATION PROFESSOR [address], [place], [address], [facility] 11/25/2023 11:28:36 4 74611: Manual therapy completed Shirley Formemirtaster, EDUCATION PROFESSOR [address], [place], [address], [facility] 11/25/2023 11:28:36 4 02781 Therapeutic Exercise (1:1) completed Shirley Formejester, EDUCATION PROFESSOR [address], [place], [address], [facility] 11/23/2023 09:45:37 4 37480: Manual therapy completed Shirley Formemirtaster, EDUCATION PROFESSOR [address], [place], [address], [facility] 11/23/2023 09:45:37 4 51966 Therapeutic Exercise (1:1) completed Shirley Formejester, EDUCATION PROFESSOR [address], [place], [address], [facility] 11/20/2023 12:02:44 4 99535: Manual therapy completed Shirley Formejester, EDUCATION PROFESSOR [address], [place], [address], [facility] 11/20/2023 12:03:16 4 98345 Therapeutic Exercise (1:1) completed Merlni Ni, PT [address], [place], [address], [facility] 11/17/2023 09:17:37 4 92294: Low complexity PT Eval completed Merlin Ni, PT [address], [place], [address], [facility] 11/17/2023 09:17:39 4 86353: Low complexity PT Eval completed Awa Perry, PT [address], [place], [address], [facility] 11/04/2023 12:06:44 4 Euflexxa Knee Injection completed Marcela Colmenares PA-C [address], [place], [address], [facility] 09/03/2023 14:30:01 4 Euflexxa Knee Injection completed Marcela Colmenares PA-C [address], [place], [address], [facility] 08/26/2023 22:08:41 4 Euflexxa Knee Injection completed Marcela Colmenares PA-C [address], [place], [address], [facility] 08/20/2023 12:25:39 Imaging Results None recorded. Procedure Notes None recorded. Medical Equipment None Reported. Allergies Allergen ID Allergen Name Allergen Category Reaction Reaction Severity Criticality Documentation Date Start Date Code Code System Note Provider Name and Address Organization Details Recorded Time 47194 Product containin g penicilli n (product) medicatio n Not available Not available Not available 08/10/20232012 01462 8001 SNOMED Not Available [facility] 4 11:53:31 27229 Substance with sulfonami de structure and antibacte rial mechanism of action (substanc e) medicatio n Not available Not available Not available 08/10/20232012 38410 8003 SNOMED Not Available [facility] 4 11:53:32 Medications Name Sig Start [...] 03/16/2025 154.94 cm [facility] 03/16/2025 14:47:32 Social History None recorded. Functional Status None recorded. Mental Status None recorded. Family History Nothing Reported. Medical History No medical history recorded. Gynecological HistoryNo gynecological history recorded. Obstetrics History GPAL:G 0 P 0 0 0 0 Past Encounters Encounter ID Performer Location Encounter Start Date Encounter Closed Date Diagnosis/Indication Diagnosis SNOMED-CT Code Diagnosis ICD10 Code Diagnosis IMO Codes Diagnosis Note [id number] MD GRETTA Villarreal [address] [place] [place] [address] 03/16/2025 14:44:58 03/23/2025 15:18:58 Low back pain 600136332 M54.50 145526 History of right total knee replacement 4675120305 754932 Z96.651 Health Concerns Section Related Observation LastModified by Organization Detai ls LastModified Time None Recorded Concern Status LastModified by Organization Details LastModified Time None Recorded Payers Encounter Date Sequence Insurance Name Policy Number Policy Ivy Covered Member ID Ivy Member ID Guarantor Name 03/16/2025 1 [employer] (MEDICARE REPLACEMENT/ ADVANTAGE - PPO) [id number] Mary Jane Valencia [id number] Mary Jane Valencia OBGyn Episode No OBEpisode recorded.
--- OUTSIDE RECORDS SUMMARY | 2025-05-26 07:40 | XMS_ITS | Data Portability ---
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 I will see her back in 2 months [email or web address] Not available 11/01/2024 16:03:20 01/03/2025 01/03/2025 Mary [...] February to review the results of this. Not available 01/03/2025 16:16:23 03/16/2025 03/16/2025 Dixie [...] may follow up with me as needed [email or web address] Not available 03/16/2025 15:52:02 Plan of Treatment Reminders Order Date Submit Date Provider Last Modified By Organization Details Last Modified Time Details Appointments None recorded. Lab None recorded. Referral physical therapist referral - Lumbar Back Pain Strengthe magdiel and stabiliza tion Program. Teach at-home exercises per dr.brothe dickinson 2024 [facility] [place], [address] [facility], [place], [address], 5 10:10:23 pain managemen t referral 2024 025 kisha [facility], [address], [place], [address], 5 07:20:15 pain managemen t referral 2024 [facility]25 [facility], [address], [address], [place], [address], 07:20:15 Procedures None recorded. Surgeries None recorded. Imaging MRI, knee, w/o contrast - MARS protocol hx RTKR. R lower extremety radiculop athy 2024 025 [place] [facility] [place], [address], [address], [place], [address], 5 22:18:08 XR, knee, 3 view - F/U RTKR 10/2023 AB room 203 2024 025 [facility], [address], [address], [place], [address], 5 07:20:15 XR, knee, 3 view - rm 208 3V right knee pain. S/P RTKR 10/29 AB 2024 025 [email or web address] [facility], [address], [address], [place], [address], 5 12:13:47 Medication Orders gabapenti n 100 mg capsule 2024 025 [place] [id number], [address] [place], [address], 14:55:10 Patient TargetsNo targets recorded. Patient InstructionsNo [...] 9.7 K/mm3 4.0-11 .0 normal Not Available [address], [address], 10/21/2024 17:22:22 10/22/1910/21/2024 CBC WITH DIFFE RENTI AL/PL ATELE T RBC 4.22 M/mm3 4.20-5 .40 normal Not Available [address], [address], 10/21/2024 17:22:22 10/22/1910/21/2024 CBC WITH DIFFE RENTI AL/PL ATELE T hemoglobin 13.4 gm/dL 11.7-1 5.5 normal Not Available [address], [address], 10/21/2024 17:22:22 10/22/19 25 10/21/2024 CBC WITH DIFFE RENTI AL/PL ATELE T hematocrit 40.1 % 35.7-4 5.8 normal Not Available [address], [address], 10/21/2024 17:22:22 10/22/19 25 10/21/2024 CBC WITH DIFFE RENTI AL/PL ATELE T MCV 95.0 fL 80.0-1 00.0 normal Not Available [address], [address], 10/21/2024 17:22:22 10/22/19 25 10/21/2024 CBC WITH DIFFE RENTI AL/PL ATELE T MCH 31.8 pg 27.0-3 4.0 normal Not Available [address], [address], 10/21/2024 17:22:22 10/22/19 25 10/21/2024 CBC WITH DIFFE RENTI AL/PL ATELE T MCHC 33.4 g/dL 33.0-3 7.0 normal Not Available [address], [address], 10/21/2024 17:22:22 10/22/19 25 10/21/2024 CBC WITH DIFFE RENTI AL/PL ATELE T RDW 43.8 fL <47.0 Not Available [address], [address], 10/21/2024 17:22:22 10/22/19 25 10/21/2024 CBC WITH DIFFE RENTI AL/PL ATELE T platelets 229 K/mm3 150-46 0 normal Not Available [address], [address], 10/21/2024 17:22:22 10/22/19 25 10/21/2024 CBC WITH DIFFE RENTI AL/PL ATELE T neutrophils 61.8 % 44-76 normal Not Available [address], [address], 10/21/2024 17:22:22 10/22/19 25 10/21/2024 CBC WITH DIFFE RENTI AL/PL ATELE T lymphs 29.5 % 15-43 normal Not Available [address], [address], 10/21/2024 17:22:22 10/22/19 25 10/21/2024 CBC WITH DIFFE RENTI AL/PL ATELE T monocytes 6.5 % 4.5-10 .5 normal Not Available [address], [address], 10/21/2024 17:22:22 10/22/19 25 10/21/2024 CBC WITH DIFFE RENTI AL/PL ATELE T eos 1.4 % 0-6 normal Not Available [address], [address], 10/21/2024 17:22:22 10/22/19 25 10/21/2024 CBC WITH DIFFE RENTI AL/PL ATELE T basos 0.5 % 0-2 normal Not Available [address], [address], 10/21/2024 17:22:22 10/22/19 25 10/21/2024 CBC WITH DIFFE RENTI AL/PL ATELE T neutrophils (absolute) 6.0 K/mm3 1.3-7. 0 normal Not Available [address], [address], 10/21/2024 17:22:22 10/22/19 25 10/21/2024 CBC WITH DIFFE RENTI AL/PL ATELE T lymphs (absolute) 2.9 K/mm3 0.8-3. 1 normal Not Available [address], [address], 10/21/2024 17:22:22 10/22/19 25 10/21/2024 CBC WITH DIFFE RENTI AL/PL ATELE T monocytes(ab solute) 0.6 K/mm3 0.4-0. 9 normal Not Available [address], [address], 10/21/2024 17:22:22 10/22/19 25 10/21/2024 CBC WITH DIFFE RENTI AL/PL ATELE T eos (absolute) 0.1 K/mm3 0.0-0. 4 normal Not Available [address], [address], 10/21/2024 17:22:22 10/22/19 25 10/21/2024 CBC WITH DIFFE RENTI AL/PL ATELE T baso (absolute) 0.1 K/mm3 0.0-0. 1 normal Not Available [address], [address], 10/21/2024 17:22:22 10/22/19 25 10/21/2024 CBC WITH DIFFE RENTI AL/PL ATELE T immature granulocytes 0.3 % Not Available [address], [address], 10/21/2024 17:22:22 10/22/19 25 10/21/2024 CBC WITH DIFFE RENTI AL/PL ATELE T immature grans (abs) 0.0 K/mm3 Not Available [address], [address], 10/21/2024 17:22:22 10/22/19 25 10/21/2024 CBC WITH DIFFE RENTI AL/PL ATELE T NRBC 0.0 #/100 _WBC' s Not Available [address], [address], 10/21/2024 17:22:22 10/22/19 25 10/21/2024 CBC WITH DIFFE RENTI AL/PL ATELE T hematology comments: Commen t AUTOM ATED DIFFE RENTI AL MPV 11.2 FL 9.4-1 2.4 N ABS. NRBC 0.0 K/MM3 N Not Available [address], [address], 10/21/2024 17:22:22 10/22/19 25 10/21/2024 SEDIM ENTAT ION RATE- WESTE RGREN sedimentatio n rate-westerg elly 6 mm/HR 0-20 normal Not Available [address], [address], 10/21/2024 17:22:23 10/22/19 25 10/21/2024 C-FERNY CTIVE PROTE IN, QUANT C-reactive protein, quant <0.3 mg/dL 0-0.5 Not Available [address], [address], 10/21/2024 17:22:24 06/24/19 25 06/24/2024 XR, knee, 3 view [email or web address]:/ [email or web address] ?Encry pted=s hAaTro YD8dLq bEUv6g %2BXZw aYqtaq 0bqfl% 2Fg9IQ a4ajBk vP9nXo QUaueC m3YtLR FvZlgJ JJ8mAn HZtai3 4t7523 AC0Kqb 3uFUqu mKiQtr MwF INTERFACE [facility] [address] [place] [address], [place], [address], 06/24/2024 13:43:30 06/24/19 25 06/24/2024 XR, knee, 3 view [email or web address]:/ [email or web address] ?Encry pted=s hAaTro YD8dLq bEUv6g %2BXZw aYqtaq 0bqfl% 2Fg9IQ a4ajBk vP9nXo QUaueC m3YtLR FvZl JJ8mAn HZtai3 0w0104 AC0Kqb 3uFUqu mKiQtr MwF INTERFACE [facility] [address], [address], 06/24/2024 13:43:32 11/02/19 25 11/01/2024 XR, knee, 3 view http:/ [email or web address] ?Encry pted=s hAaTro YD8dLq bEUv6g %2BXZw aYqtaq 0bqfl% 2Fg9IQ a4ajBk vP9nXo QUaueC m3YtLR FvZlgJ JJ8mAn HZtai3 4h3411 AC0Kla 3iNU6K gKiQtr MwF INTERFACE [facility] [address] [facility] [address], [place], [address], 11/01/2024 15:03:18 11/02/19 25 11/01/2024 XR, knee, 3 view [email or web address]:/ [email or web address] ?Encry pted=s hAaTro YD8dLq bEUv6g %2BXZw aYqtaq 0bqfl% 2Fg9IQ a4ajBk vP9nXo QUaueC m3YtLR FvZlgJ JJ8mAn HZtai3 8n6099 AC0Kla 3iNU6K gKiQtr MwF INTERFACE [facility] [address] [facility] [address], [place], [address], 11/01/2024 15:03:19 11/14/19 25 11/11/2024 MRI, knee, w/o contr ast No observ ation record ed. [facility] [place] [address] [facility] [address], [place], [address], 11/14/2024 16:00:53 Result Notes Documentation Provider Name and Address Organization Details Recorded Time Xr, Knee, 3 View : [email or web address]? Encrypted=coAxXmcEO2hDdwE Uv6g%8YQYzdCxwzs2qgis%2Fg 0CPs8wbGmoB8tTgGNtvrCv2Dr XVOxTikWYL4xHeBPqhc80t209 4SN8Zvv9eDCxfdZkTpbVaL Not Available [facility] 06/24/2024 13:43: 31 Xr, Knee, 3 View : [email or web address] Encrypted=ipEoNnaFU2qBupR Uv6g%6RTNwuRmxsx1tobz%2Fg 1OAs0mdLyaT4cNwSGqrmPg2Tw AZSxAgvQEF2wTmIDmki93m876 6ZZ9Mtr6nIBibiJiIqaBmB Not Available [facility] 06/24/2024 13:43: 33 Xr, Knee, 3 View : [email or web address] Encrypted=hiVsTejKI9nStrV Uv6g%6XHKqwMuygm7jphr%2Fg 2SPn6eiHrvZ3fRhDEvzvYf5Sm VFCuNupXKG9bXwPOkdx22e883 7UE9Prn2qNJ1SxNcSauSaO Not Available [facility] 11/01/2024 15:03: 19 Xr, Knee, 3 View : [email or web address] Encrypted=gyHuYraOG7eGavU Uv6g%6OCGsqYlglo6pvhf%2Fg 6VZv7akUzcP7lOiVAbwvZk5Gy EPZuYvcJJX4iUoUEfhr55d203 0NS7Mdh7pUJ4KmLcKlwRwF Not Available [facility] 11/01/2024 15:03: 20 Problems Name Problem SNOMED Code Status Onset Date Resolution Date Notes Provider Name and Address Organization Details Recorded Time No complaints 547368443 Active Status : 'I'; Not Available [facility] 4 09:12:24 Osteoarthr itis of right knee joint 1595411170957 00 Active 2023 jana sheikh [place] [facility] 4 13:05:03 History of right total knee replacemen t 9571561386537 102 Active 2023 Felix Carr MD [address], [place], [address] , [facility] - [facility] 4 16:02:45 Radicular pain 92290636 Active 2024 Kristine Horton null, [facility] 5 15:58:20 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 Active 2024 Felix Carr MD [address], [facility] [place], [address] , [facility] 5 16:03:40 Lumbar radiculopa thy 779179341 Active 2024 demetra gregory null, [facility] 5 15:17:43 Low back pain 005793524 Active 2024 [facility] bri null, [facility] 5 15:18:02 Problem Notes None recorded. Procedures Surgical History Date Name Laterality Status Provider Name and Address Organization Details Recorded Time 4 43392 Therapeutic Exercise (1:1) completed Merlin Ni, PT [address], [place], [address], [facility] 02/01/2024 12:09:35 4 19753: Manual therapy completed Merlin Ni PT [address], [place], [address], [facility] 02/01/2024 14:39:04 4 82282 Therapeutic Exercise (1:1) completed Shirley Sanchez LABOR DELIVERY RN [address], [place], [address], [facility] 01/26/2024 11:03:45 4 39282 Therapeutic Exercise (1:1) completed Shirley Sanchez, LABOR DELIVERY RN [address], [place], [address], [facility] 01/21/2024 15:04:22 4 56530: Manual therapy completed Shirley Sanchez, LABOR DELIVERY RN [address], [place], [address], [facility] 01/21/2024 15:04:22 4 00285 Therapeutic Exercise (1:1) completed Shirley Formejester, LABOR DELIVERY RN [address], [place], [address], [facility] 01/19/2024 12:58:52 4 50087: Manual therapy completed Shirley Formejester, LABOR DELIVERY RN [address], [place], [address], [facility] 01/19/2024 12:58:52 4 91785 Therapeutic Exercise (1:1) completed Shirley Formejester, LABOR DELIVERY RN [address], [place], [address], [facility] 01/14/2024 17:23:43 4 06582: Manual therapy completed Shirley Formemirtaster, LABOR DELIVERY RN [address], [place], [address], [facility] 01/14/2024 17:23:43 4 75182 Therapeutic Exercise (1:1) completed Shirley Formejester, LABOR DELIVERY RN [address], [place], [address], [facility] 01/12/2024 11:30:38 4 05983: Manual therapy completed Shirley Formemirtaster, LABOR DELIVERY RN [address], [place], [address], [facility] 01/12/2024 11:30:38 4 04634 Therapeutic Exercise (1:1) completed Shirley Formejester, LABOR DELIVERY RN [address], [place], [address], [facility] 01/06/2024 11:02:13 4 34525: Manual therapy completed Shirley Formejester, LABOR DELIVERY RN [address], [place], [address], [facility] 01/06/2024 11:02:13 4 67878 Therapeutic Exercise (1:1) completed Shirley Formashaer, LABOR DELIVERY RN [address], [place], [address], [facility] 01/04/2024 10:30:09 4 40147: Manual therapy completed Shirley Formgiacomoster, LABOR DELIVERY RN [address], [place], [address], [facility] 01/04/2024 10:30:09 4 93904 Therapeutic Exercise (1:1) completed Shirley Formashaer, LABOR DELIVERY RN [address], [place], [address], [facility] 01/01/2024 13:53:30 11086: Manual therapy completed Shirley Sanchez, LABOR DELIVERY RN [address], [place], [address], [facility] 01/01/2024 13:53:30 4 24395 Therapeutic Exercise (1:1) completed Merlin Ni, PT [address], [place], [address], [facility] 12/31/2023 09:35:48 4 14877: Manual therapy completed Merlin Ni, PT [address], [place], [address], [facility] 12/31/2023 09:35:48 4 09592 Therapeutic Exercise (1:1) completed Shirley Formgiacomoster, LABOR DELIVERY RN [address], [place], [address], [facility] 12/23/2023 13:19:04 4 69260: Manual therapy completed Shirley Formgiacomostspencer, LABOR DELIVERY RN [address], [place], [address], [facility] 12/23/2023 13:19:05 4 11403 Therapeutic Exercise (1:1) completed Shirley Formejester, LABOR DELIVERY RN [address], [place], [address], [facility] 12/21/2023 15:54:01 4 17189: Manual therapy completed Shirley Formejester, LABOR DELIVERY RN [address], [place], [address], [facility] 12/21/2023 15:54:01 4 30953 Therapeutic Exercise (1:1) completed Shirley Formemirtaster, LABOR DELIVERY RN [address], [place], [address], [facility] 12/16/2023 11:36:47 4 12353: Manual therapy completed Shirley Formgiacomoster, LABOR DELIVERY RN [address], [place], [address], [facility] 12/16/2023 11:36:47 4 39200 Therapeutic Exercise (1:1) completed Shirley Formgiacomoster, LABOR DELIVERY RN [address], [place], [address], [facility] 12/14/2023 11:14:43 4 04994: Manual therapy completed Shirley Formzhou, LABOR DELIVERY RN [address], [place], [address], [facility] 12/14/2023 11:14:43 4 34801 Therapeutic Exercise (1:1) completed Merlinanalilia Payano, PT [address], [place], [address], [facility] 12/11/2023 08:03:19 4 38183: Manual therapy completed Merlin Last, PT [address], [place], [address], [facility] 12/11/2023 08:00:06 4 35318 Therapeutic Exercise (1:1) completed Shirley Formejester, LABOR DELIVERY RN [address], [place], [address], [facility] - [facility] 12/07/2023 08:56:13 4 04521: Manual therapy completed Shirley Formejester, LABOR DELIVERY RN [address], [place], [address], [facility] 12/07/2023 08:56:13 4 88946 Therapeutic Exercise (1:1) completed Shirley Formejester, LABOR DELIVERY RN [address], [place], [address], [facility] 12/04/2023 10:43:32 4 75593: Manual therapy completed Shirley Formejester, LABOR DELIVERY RN [address], [place], [address], [facility] 12/04/2023 10:43:32 4 01924 Therapeutic Exercise (1:1) completed Shirley Formejester, LABOR DELIVERY RN [address], [place], [address], [facility] 11/30/2023 11:09:53 4 96202: Manual therapy completed Shirley Formejester, LABOR DELIVERY RN [address], [place], [address], [facility] 11/30/2023 11:09:53 4 28273 Therapeutic Exercise (1:1) completed Shirley Formejester, LABOR DELIVERY RN [address], [place], [address], [facility] 11/25/2023 11:28:36 4 92313: Manual therapy completed Shirley Formejester, LABOR DELIVERY RN [address], [place], [address], [facility] 11/25/2023 11:28:36 4 42549 Therapeutic Exercise (1:1) completed Shirley Formejester, LABOR DELIVERY RN [address], [place], [address], [facility] 11/23/2023 09:45:37 4 19326: Manual therapy completed Shirley Sanchez, LABOR DELIVERY RN [address], [place], [address], [facility] 11/23/2023 09:45:37 4 48343 Therapeutic Exercise (1:1) completed Shirley Sanchez, LABOR DELIVERY RN [address], [place], [address], [facility] 11/20/2023 12:02:44 4 16589: Manual therapy completed Shirley Sanchez, LABOR DELIVERY RN [address], [place], [address], [facility] 11/20/2023 12:03:16 4 84972 Therapeutic Exercise (1:1) completed Merlin Ni, PT [address], [place], [address], [facility] 11/17/2023 09:17:37 4 03631: Low complexity PT Eval completed Merlin Ni, PT [address], [place], [address], [facility] 11/17/2023 09:17:39 4 46545: Low complexity PT Eval completed Awa Perry, PT [address], [place], [address], [facility] 11/04/2023 12:06:44 4 Euflexxa Knee Injection completed Marcela Colmenares PA-C [address], [place], [address], [facility] 09/03/2023 14:30:01 4 Euflexxa Knee Injection completed Marcela Colmenares PA-C [address], [place], [address], [facility] 08/26/2023 22:08:41 Euflexxa Knee Injection completed Marcela Colmenares PA-C [address], [place], [address], [facility] 08/20/2023 12:25:39 Imaging Results None recorded. Procedure Notes None recorded. Medical Equipment None Reported. Allergies Allergen ID Allergen Name Allergen Category Reaction Reaction Severity Criticality Documentation Date Start Date Code Code System Note Provider Name and Address Organization Details Recorded Time 64835 Product containin g penicilli n (product) medicatio n Not available Not available Not available 08/10/20232012 10193 8001 SNOMED Not Available [facility] 4 11:53:31 81935 Substance with sulfonami de structure and antibacte rial mechanism of action (substanc e) medicatio n Not available Not available Not available 08/10/20232012 88412 8003 SNOMED Not Available [facility] 4 11:53:32 Medications Name Sig Start Date [...] Updated DateTime 06/24/2024 154.94 cm RAJANI JONES [facility] 06/24/2024 13:27:37 Date Recorded Body height Provider Name an d Address Organization Details Last Updated DateTime 07/27/2024 154.94 cm RAJANI JONES [facility] 07/27/2024 11:27:12 Date Recorded Body height Provider Name an d Address Organization Details Last Updated DateTime 11/01/2024 154.94 cm Kristine Horton [facility] 11/01/2024 14:52:31 Date Recorded Body height Body mass index (BMI) Body weight Provider Name and Address Organization Details Last Updated DateTime 01/03/2025 154.94 cm 26.5 kg/m2 25325.93 g demetra gregory [facility] [place] [...] ICD10 Code Diagnosis IMO Codes Diagnosis Note [id number] Marcela Colmenares PA-C [facility] [address] [place] [address] 08/20/2023 11:20:34 08/20/2023 13:16:35 Osteoarthritis of right knee joint 7351815355 38918 M17.11 [id number] Marcela Colmenares PA-C [facility] [address] [place] [address] 08/27/2023 14:10:38 08/27/2023 14:41:09 Osteoarthritis of right knee joint 6961035475 00220 M17.11 [id number] Marcela Colmenares PA-C [facility] [address] [place] [address] 09/03/2023 13:57:17 09/03/2023 14:30:53 Osteoarthritis of right knee joint 9955679416 17085 M17.11 [id number] Marcela Colmenares PA-C [facility] [address] [place] [address] 10/23/2023 12:43:12 11/13/2023 14:41:47 Pain of right knee joint 4484275456 19986 M25.561 Osteoarthr itis of right knee joint 1722860227 93920 M17.11 [id number] Felix Carr MD [facility] [address] [place] [address] 10/30/2023 10:04:54 11/24/2023 08:44:24 Osteoarthritis of right knee joint 2744819627 74762 M17.11 [id number] Shari BarnettcliffeGARETH [facility] [address] [place] [address] 11/03/2023 13:19:53 11/24/2023 04:01:15 [id number] Awa Perry, PT [place] [facility] [address] [place] [address] 11/04/2023 11:10:08 11/04/2023 14:48:16 Osteoarthritis of right knee joint 3587270523 82571 M17.11 [id number] Merlin Payano, PT [facility] [address] [place] [address] 11/16/2023 12:24:11 11/16/2023 13:48:32 History of right total knee replacement 1505192952 892209 Z96.651 Z47.1 [id number] Shirley Mcdonald r, LABOR DELIVERY RN [facility] [place] [facility] [address] [place] [address] 11/20/2023 09:19:51 11/20/2023 10:35:19 History of right total knee replacement 0751893868 921780 Z96.651 Z47.1 [id number] Shirley Mcdonald r, LABOR DELIVERY RN [facility] [address] [place] [address] 11/23/2023 09:50:09 11/23/2023 10:59:44 History of right total knee replacement 7601674963 415933 Z96.651 Z47.1 [id number] Felix Carr MD [facility] [address] [place] [address] 11/24/2023 12:35:48 12/21/2023 15:41:11 History of right total knee replacement 5360575496 658588 Z96.007 [id number] Shirley Mcdonald r, LABOR DELIVERY RN [facility] [address] [place] [address] 11/25/2023 11:20:33 11/25/2023 12:26:16 History of right total knee replacement 2123314069 065479 Z96.651 Z47.1 [id number] Shirley Formejeste r, LABOR DELIVERY RN [place] [facility] [address] [place] [address] 11/30/2023 10:39:23 11/30/2023 11:32:42 History of right total knee replacement 4285299779 335956 Z96.651 Z47.1 [id number] Shirley Formejeste r, LABOR DELIVERY RN [facility] [address] [place] [address] 12/04/2023 10:23:04 12/04/2023 11:28:43 History of right total knee replacement 4690290331 587223 Z96.651 Z47.1 [id number] Shirley Formejeste r, LABOR DELIVERY RN [place] [facility] [address] [place] [address] 12/07/2023 08:53:24 12/07/2023 10:25:14 History of right total knee replacement [id number] 394413 Z96.651 Z47.1 [id number] Merlin Ni, PT [place] [facility] [address] [place] [address] 12/09/2023 10:57:55 12/09/2023 12:00:35 History of right total knee replacement 7050327689 565849 Z96.651 Z47.1 [id number] Shirley Formejeste r, LABOR DELIVERY RN [place] [facility] [address] [place] [address] 12/14/2023 10:58:41 12/14/2023 11:54:58 History of right total knee replacement 8941639317 667773 Z96.651 Z47.1 [id number] Shirley Formejeste r, LABOR DELIVERY RN [facility] [address] [place] [address] 12/16/2023 10:57:34 12/16/2023 12:37:06 History of right total knee replacement 4299355484 498187 Z96.651 Z47.1 [id number] Shirley Formejeste r, LABOR DELIVERY RN [facility] [address] [place] [address] 12/21/2023 15:25:27 12/21/2023 17:36:59 History of right total knee replacement 3483644919 769553 Z96.651 Z47.1 [id number] MD K[facility] Villarreal [address] floor [address] [place] [address] 12/22/2023 12:45:02 12/22/2023 14:50:33 History of right total knee replacement 8930115284 330574 Z96.651 Z47.1 [id number] Shirley Formejeste r, LABOR DELIVERY RN [facility] [address] [place] [address] 12/23/2023 12:56:02 12/23/2023 14:19:20 History of right total knee replacement 0774652368 115731 Z96.651 Z47.1 [id number] Merlin Ni, PT [facility] [address] [place] [address] 12/30/2023 10:27:58 12/30/2023 11:49:48 History of right total knee replacement 4855476463 525084 Z96.651 Z47.1 [id number] Shirley Formejeste r, LABOR DELIVERY RN [place] [facility] [address] [place] [address] 01/01/2024 13:32:40 01/01/2024 14:30:52 History of right total knee replacement 6490879253 802063 Z96.651 Z47.1 [id number] Shirley Formejeste r, LABOR DELIVERY RN [facility] [address] [place] [address] 01/04/2024 10:27:54 01/04/2024 11:30:22 History of right total knee replacement 2588340266 093703 Z96.651 Z47.1 [id number] Shirley Formejeste r, LABOR DELIVERY RN [facility] [address] [place] [address] 01/06/2024 10:31:22 01/06/2024 11:30:26 History of right total knee replacement 9479907312 458532 Z96.651 Z47.1 [id number] Shirley Formejeste r, LABOR DELIVERY RN [facility] [address] [place] [address] 01/12/2024 11:20:52 01/12/2024 12:37:19 History of right total knee replacement 1871078488 617255 Z96.651 Z47.1 [id number] Shirley Formejeste r, LABOR DELIVERY RN [facility] [address] [place] [address] 01/14/2024 17:12:52 01/14/2024 18:49:07 History of right total knee replacement 1487696111 226840 Z96.651 Z47.1 [id number] Shirley Formejeste r, LABOR DELIVERY RN [place] [facility] [address] [place] [address] 01/19/2024 12:52:55 01/19/2024 15:21:59 History of right total knee replacement 6493070198 121296 Z96.651 Z47.1 [id number] MD Kusum Villarreal [address] [place] [address] 01/19/2024 17:15:12 02/09/2024 08:59:58 History of right total knee replacement 7636644171 758425 Z96.651 Z47.1 [id number] Shirley Formejeste r, LABOR DELIVERY RN [place] [facility] [address] [place] [address] 01/21/2024 14:54:26 01/21/2024 15:42:23 History of right total knee replacement 7947758667 969202 Z96.651 Z47.1 [id number] Shirley Formejeste r, LABOR DELIVERY RN [facility] [address] [place] [address] 01/26/2024 10:57:31 01/26/2024 12:35:01 History of right total knee replacement 9472910300 794364 Z96.651 Z47.1 [id number] Merlin Ni, PT [facility] [address] [place] [address] 01/28/2024 13:24:17 01/28/2024 14:22:44 History of right total knee replacement 6406837844 166964 Z96.651 Z47.1 [id number] MD Kusum Villarreal [address] [place] [address] 03/22/2024 11:29:09 04/11/2024 07:47:42 History of right total knee replacement 3451362561 257346 Z96.651 Z47.1 [id number] [facility] [address] [place] [address] 06/24/2024 13:24:26 07/05/2024 12:13:47 Pain of knee region 7566334409 M25.561 [id number] Osteoarthr itis of right knee joint 8183727648 42270 M17.11 5443221 Pain of ri ght knee joint 6944957460 29734 M25.561 [id number] [facility] [address] [place] [address] 07/27/2024 11:20:44 08/09/2024 13:39:06 Pain of right knee joint 1547241293 77180 M25.561 [id number] MD GRETTA Villarreal [facility] [address] [place] [address] 11/01/2024 14:50:28 11/11/2024 07:20:15 History of right total knee replacement 3270365488 439533 Z96.651 [id number] Radicular pain 02951789 M54.10 71616227 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 0993579248 T84.028A Z96.870 3014374 [id number] MD GRETTA Villarreal [facility] [address] [place] [address] 01/03/2025 14:44:14 01/11/2025 15:14:23 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 9887088915 T84.028A Z96.412 5374933 [id number] MD GRETTA Villarreal [address] [place] [address] 03/16/2025 14:44:58 03/23/2025 15:18:58 Low back pain 105656005 M54.50 804504 History of right total knee replacement 8656393112 171523 Z96.651 Health Concerns Section Related Observation LastModified by Organization Detai ls LastModified Time None Recorded Concern Status LastModified by Organization Details LastModified Time None Recorded Advance Directives Directive None Recorded Payers Insurance Date Sequence Insurance Name Policy Number Policy Ivy Covered Member ID Ivy Member ID Guarantor Name 03/23/2025 1 [employer] (MEDICARE REPLACEMENT/ ADVANTAGE - PPO) [id number] Mary Jane Valencia [id number] Mary Jane Valencia Notes Date Note Type [...] block may be in order. All questions answered.[employer] speech recognition management intern software was used to create portions of this document. An attempt at proofreading has been made to minimize errors. Please call for corrections. Danyel Bronson PA-C [address], [place], [address], [facility] 06/24/2024 16:32:21 07/27/2024 [...] in the meantime would forego any aggressive treatment.[employer] speech recognition management intern software was used to create portions of this document. An attempt at proofreading has been made to minimize errors. Please call for corrections. Danyel Bronson PA-C [address], [place], [address], [facility] 07/27/2024 17:09:53 11/01/2024 [...] the patient s chart. Felix Carr MD [address] [place] [address] [address], [place], [address], [facility] 11/01/2024 16:04:31 OBGyn Episode No OBEpisode recorded.
--- OUTSIDE RECORDS SUMMARY | 2025-05-26 07:40 | XMS_ITS | Patient Health Record ---
Author Organization [facility] Address [address] [place] [address] Care Team Providers Care Rail Walker Name Role Phone Nury Rubio MD Primary Care Provider Levi Castro [phone] Allergies Allergen (clinical drug ingredient) Drug/Non Drug Allergy documented on EMR Reaction Allergy Type Onset Date Status Penicillin Unknown Drug Allergy Active Sulfa Unknown Drug Allergy Active Results Component Value Reference Range Flag Notes Lipase Reviewed date:05/12/2025 01:13:09 AM Interpretation: Performing Lab:[facility], [address] [place] [address] Notes/Report: Lipase 25 8-78 U/L N Calprotectin, Fecal Reviewed date:05/12/2025 01:13:44 AM Interpretation: Performing Lab:[facility], [address] [place] [address] Notes/Report: Calprotectin, Fecal 593 A Reference Range: <50 Normal 50-120 Borderline >120 Elevated Calprotectin in Crohn's disease and ulcerative colitis can be five to several thousand times above the reference population (50 mcg/g or less). Levels are usually 50 mcg/g or less in healthy patients and with irritable bowel syndrome. Repeat testing in 4-6 weeks is suggested for borderline values. THIS TEST WAS PERFORMED AT: [facility] [address] [place] [address] KIRK ARIAS MD,PHD,AKIN GI PANEL Reviewed date:05/12/2025 01:12:53 AM Interpretation: Performing Lab:[facility], [address] [place] [address] Notes/Report: Campylobacter Not Detected Not Detect. Plesiomonas shigelloides Not Detected Not Detect. Salmonella Not Detected Not Detect. Vibrio Not Detected Not Detect. Vibrio Cholerae Not Detected Not Detect. Yersinia enterocolitica Not Detected Not Detect. E. coli EAEC Not Detected Not Detect. E. coli EPEC Not Detected Not Detect. E. coli ETEC Not Detected Not Detect. E. coli STEC Not Detected Not Detect. E. coli O157 Not applicable Not Detect. E. coli containing the O157 antigen are a subset of Shiga-like toxin-producing E. coli (STEC). Shigella sp./EIEC Not Detected Not Detect. Cryptosporidium Not Detected Not Detect. Cyclospora cayetanensis Not Detected Not Detect. Entamoeba histolytica Not Detected Not Detect. Giardia lamblia Not Detected Not Detect. Adenovirus F 40/41 Not Detected Not Detect. Astrovirus Not Detected Not Detect. Norovirus GI/GII Not Detected Not Detect. Rotavirus A Not Detected Not Detect. Sapovirus Not Detected Not Detect. All results must be correlated with clinical findings. Negative results do not exclude the possibility of gastrointestinal infection and should not be used as the sole basis for diagnosis, treatment, or other management decisions. Virus, bacteria, and parasite nucleic acid may persist in vivo independently of organism viability. Additionally, some organisms may be carried asymptomatically. Detection of organism targets does not imply that the corresponding organisms are infectious or are the causative agents for clinical symptoms. There is a risk of false negative values due to the presence of sequence variants in the gene targets of the assay, amplification inhibitors in specimens, or inadequate numbers of organisms for amplification. The identification of several diarrheagenic E. coli pathotypes has historically relied upon phenotypic characteristics. This panel targets genetic determinants characteristic of most pathogenic strains, but may not detect all strains having phenotypic characteristics of a pathotype. The performance of this test has not been established for monitoring treatment of infection with any of the panel organisms. This assay is performed by Multiplexed PCR, utilizing the [employer] Array. Complete Blood Count Auto Di ff Reviewed date:05/12/2025 01:12:10 AM Interpretation: Performing Lab:[facility], [address] [place] [address] Notes/Report: White Blood Count 10.3 4.8-10.8 X10*3/uL [...] 0.0-0.012 X10*3/uL N Erythrocyte Sedimentation Ra te Reviewed date:05/12/2025 01:11:40 AM Interpretation: Performing Lab:[address] [address] Notes/Report: Erythrocyte Sedimentation Rate 11 0-20 MM/HR N Patients with polycythemia and many hemoglobin abnormalities may have depressed sed rates whereas patients with anemia may have elevated sed rates. Liver Panel Reviewed date:05/12/2025 01:11:30 AM Interpretation: Performing Lab:[address] [place] [address] Notes/Report: Bilirubin Total 0.5 0.0-1.0 mg/dL N Bilirubin Direct 0.2 0.0-0.5 mg/dL N Aspartate Amino Transferase 25 5-31 U/L N Alanine Aminotransferase 21 0-31 U/L N Total Protein 7.1 6.5-8.0 g/dL N Albumin Level 4.7 3.5-5.0 g/dL N Alkaline Phosphatase 82 39-117 U/L N Basic Metabolic Panel Reviewed date:05/12/2025 01:11:08 AM Interpretation: Performing Lab:[address] [address] Notes/Report: Sodium 140 135-145 mmol/L N Potassium [...] 9.5 8.4-10.2 mg/dL N C Reactive Protein Reviewed date:05/12/2025 01:10:18 AM Interpretation: Performing Lab:[address] [address] Notes/Report: C Reactive Protein 0.14 < or = 0.50 mg/dL N Reason For Referral No Information Medications Medication SIG (Take, Route, Frequency, Duration) Notes Start Date End Date Status Rosuvastatin Calcium 40 MG Tablet TAKE 1 TABLET BY MOUTH EVERY DAY Oral; Duration: 90 Active Jackeline Active Baby Aspirin Active Multi Vitamin/Minerals - Tablet 1 Orally QD Not-Taking/PRN Suellen Active ZyrTEC Allergy 10 MG Tablet 1 tablet Ora lly Once a day Not-Taking/PRN Magnesium Active Ondansetron 4 MG Tablet Disintegrating 1 tablet on the tongue and allow to dissolve Orally Every 4 to 6 hours as needed for nausea; Duration: 30 day(s) 02/25/2023 Not-Taking/PRN Omeprazole 20 MG Capsule Delayed Release 1 capsule Orally Twice a day Active Lisinopril 20 MG Tablet 1 tablet Orally Once a day Active Vitamin C 500 MG Capsule 1 tablet Orally Once a day Active hydroCHLOROthiazide 25 MG Tablet 1 tablet Orally Once a day Active Vitamin D 1000 UNIT Tablet 1 tablet Oral ly Once a day Active Jnvyb-4-wjoj Ethyl Esters 1 GM Capsule TAKE 2 CAPSULES BY MOUTH TWICE A DAY FOR 90 DAYS Oral; Duration: 90 Active Probiotic Active Cholestyramine Light 4 GM Packet Oral; Duration: 30 Days Active Immunizations Vaccine Route Administration Date Status Comme nts Flu vaccine no Preserv 3 and > Unknown 04/14/2017 Admin istered Influenza Unknown 05/18/2024 Administered Social History Social History Drug/Alcohol: Social Info [...] Problem Screening for malignant neoplasm of colon (585811615) Encounter for screening for malignant neoplasm of colon (Z12.11) Active confirmed Problem Diarrhea (63506085) Diarrhea (R19.7) Active confirmed Problem Change in bowel habit (46752870) Change in bowel habits (R19.4) Active confirmed Problem Irritable bowel syndrome with diarrhea (422461273) Irritable bowel syndrome with diarrhea (K58.0) Active confirmed Problem Nausea (541839950) Nausea (R11.0) Active confirmed Problem Epigastric pain (61698614) Abdominal pain, epigastric (R10.13) Active confirmed Problem Peptic ulcer disease (13533363) Peptic ulcer disease (K27.9) Active confirmed Problem Pre-procedure evaluation check (980622018) Pre-procedural examination (Z01.818) Active confirmed Problem Diarrhea (48334789) Diarrhea, unspecified type (R19.7) Active confirmed Problem Generalized abdominal pain (321367858) Abdominal pain, acute, generalized (R10.84) Active confirmed Vital Signs Blood pressure diastolic 01 mm Hg 05/18/2025 Height 61 in 05/18/2025 Blood pressure systolic 001 mm Hg 05/18/2025 Weight 129.6 lbs 05/18/2025 BMI 24.49 kg/m2 05/18/2025 Encounters Encounter Location Date Provider Diagnosis [facility] [address] [place] [address] 05/18/2025 Levi Coyle Diarrhea, unspecifie d type R19.7 and Change in bowel habits R19.4 [facility] [address] [place] [address] 04/24/2025 Levi Coyle Diarrhea R19.7 and Abdominal pain, acute, generalized R10.84 [facility] [address] [place] [address] 05/11/2025 Levi Coyle Assessments Encounter Date Diagnosis (ICD Code) Assessment Notes Treatment Notes Treatment Clinical Notes Section Notes 05/18/2025 Change in bowel habits (ICD-10 - [...] for allowing me to participate in [facility]. I shall continue to keep you advised of her progress. 05/18/2025 Diarrhea, unspecified type (ICD-10 - R19.7) [...] to keep you advised of her progress. 04/24/2025 Diarrhea (ICD-10 - R19.7) 04/24/2025 Abdominal pain, acute, generalized (ICD-10 - R10.84) Plan Of Treatment Pending Test Test Name Order Date CHEM 7 PROFILE 04/24/2025 LIVER PROFILE 04/24/2025 LIVER PROFILE 02/27/2016 LIVER PROFILE 10/25/2013 CRP 02/27/2016 CRP 04/24/2025 CBC w DIFF 04/24/2025 CBC w DIFF 02/27/2016 SED RATE (ESR) 02/27/2016 SED RATE (ESR) 04/24/2025 CLOSTRIDIUM DIFF TOXIN A&B (C DIFF) 02/07 STOOL WBC 02/27/2016 CELIAC PANEL #10 02/27/2016 GIARDIA AG, STOOL EIA 02/27/2016 OVA & PARASITES (O&P) 02/27/2016 CULTURE, STOOL 02/27/2016 Future Test Test Name Order Date BUN 04/26/2014 CREATININE 04/26/2014 MRI ABD W&WO CONTRAST 04/26/2014 UPPER GI ENDOSCOPY 01/27/2017 COLONOSCOPY 11/11/2017 COLONOSCOPY 05/18/2025 Next Appt Details Provider Name:Levi Coyle , 07/21/2025 09:30:00 AM, [address] [place] [address] , [place], [phone], Insurance Providers Payer Name Payer Address Payer Phone Subscriber Number Group Number Insured Name Patient Relationship to Insured Coverage Start Date Coverage End Date [facility] [address] [place], [place] [id number] DELVIS JOYCE Self - patient is the insured 4 Medical (General) History Medical History History ICD Code Colonoscopy 01-24-2008- negat jesusita except for mild diverticulosis and internal hemorrhoids Hyperlipidemia Denies MN,DM,CVA,Lung disease,renal dise ase Perforated duodenal ulcer in 2010- treated at [facility]-no surgery required- she had been on ASA and NSAIDs- -F/U EGD was reportedly negative Kidney stones-[facility] ERCP- 10/06/13- s/p sphinctero yi- no stones seen, although her common bile duct was mildly dilated MRI of the abdomen in September of 2013 showed a 5 mm pancreatic cyst, but without any sign of solid lesion nor any septations- - followup MRI in September of 2014 revealed a slight decrease in the tiny pancreatic cyst and without any worrisome findings otherwise Hospitalized at [facility] in 10/2016 for possible recurrent ulcer disease and/or a perforated duodenal diverticulum - had a NG tube- increased Omeprazole from 20mg QD to BID EGD in 04/2017- small HH, no PUD, gastric biopsies were negative for H.pylori Negative screening colonoscopy in 11/2017 Choledocholithiasis- ERCP wi th sphincterotomy and stone removal in May of 2021; she had a subsequent cholecystectomy with Dr. Herrera Surgical History Surgery Date(Month/Year) Cholecystectomy Right knee replacement 10/2023
--- OUTSIDE RECORDS SUMMARY | 2025-05-26 07:40 | XMS_ITS | Data Portability ---
Author Organization [facility] Address [address] [place] [address] Assessment No assessment recorded. Plan of Treatment [...] ICD10 Code Diagnosis IMO Codes Diagnosis Note [id number] [address] [address] [place] [address] 04/14/2017 17:41:32 04/14/2017 19:01:19 Health Concerns Section Related Observation LastModified by Organization Detai ls LastModified Time None Recorded Concern Status LastModified by Organization Details LastModified Time None Recorded Advance Directives Directive None Recorded Payers Insurance Date Sequence Insurance Name Policy Number Policy Ivy Covered Member ID Ivy Member ID Guarantor Name 08/28/2022 1 [employer]: [employer] Shania Valencia [id number] Mary Jane Valencia 08/28/2022 1 [employer] (MEDICARE REPLACEMENT/ ADVANTAGE - PPO) [id number] Mary Jane Valencia [id number] Mary Jane Valencia OBGyn Episode No OBEpisode recorded.
--- OUTSIDE RECORDS SUMMARY | 2025-05-26 07:40 | XMS_ITS | Patient Health Record ---
Author Organization [facility] [place] Address [address] [place] [address] Care Team Providers Care Malt House Supervisor Name Role Phone Nury Rubio Primary Care Provider Meredith Mar Unavailable [phone] Allergies Allergen (clinical drug ingredient) Drug/Non Drug [...] Status Risk Notes Problem Acquired hallux valgus (91873319) Hallux valgus (acquired), left foot (M20.12) Active confirmed Chronic problem, Worse (4) Problem Acquired hallux valgus (97552440) Hallux valgus (acquired), right foot (M20.11) Active confirmed Plan Of Treatment No Information Insurance Providers Payer Name Payer Address Payer Phone Subscriber Number Group Number Insured Name Patient Relationship to Insured Coverage Start Date Coverage End Date [employer] [address] [place] [address] [phone] [id number] Mary Jane Valencia Self - patient is the insured Medical (General) History Medical History History ICD Code Cataracts High blood pressure Surgical History Surgery Date(Month/Year) Gall bladder removal
--- OUTSIDE RECORDS SUMMARY | 2025-05-26 07:40 | XMS_ITS | Continuity of Care Document ---
Author Organization [place] - [facility], [facility] Address [address] [place] [address] Care Team Providers Care Accounting Generalist Name Role Phone ELZBIETA ANSON Primary Care Provider [phone] Assessment Encounter Date Assessment Date Assessment LastModified by Organization Details LastModified Time 05/16/2025 05/16/2025 75-year-old femtodd [place] who presents today with multiple ENT concerns including intermittent right ear pain with hearing loss and hearing aid use, chronic postnasal drip with prior allergy testing, and globus sensation. In regards to her ears her ear exam shows tympanosclerosis bilaterally without perforation. Her intermittent otalgia's are likely due to TMJ arthralgia. Audiogram today was reviewed which showed an asymmetric sensorineural hearing loss left greater than right without prior workup. Her nose otherwise appears normal with a very mild deviated septum to the right and some clear appearing rhinorrhea bilaterally. I do not see significant allergic changes on the turbinate -Recommend MRI brain and IAC for evaluation of asymmetric sensorineural hearing loss -Continue wkdb-dtk-kgyerav antihistamine as well as starting ipratropium for likely vasomotor rhinitis. -Okay for mineral oil/baby oil to the ears for cerumen -Encouraged her to send over her prior allergy results to discuss in the future. - Return visit in 5 months for recheck [email or web address] Not available 05/16/2025 11:01:01 Plan of Treatment Reminders Order Date Submit Date Provider Last Modified By Organization Details Last Modified Time Details Appointments Establis hed 15 2025 01:45P Tamiko Sparks, DO Not available Not available Not available Lab None recorded . Referral None recorded . Procedures None recorded . Surgeries None recorded . Imaging MRI, brain + internal auditory canal, w/wo contrast - asymmetr ic SNHL 2024 025 [facility] ([facility]), [address], [place], [address], 05/23/2025 04:29:42 Medication Orders ipratrop ium bromide 42 mcg (0.06 %) nasal spray 2024 025 [email or web address] Not available 05/16/2025 10:54:24 Patient TargetsNo targets recorded. Patient Instructions Encounter Date Encounter Id Patient Instructions Last Modified By Organization Details Last Modified Time 05/16/2025 [id number] - Continue using hearing aids. - Use baby oil or mineral oil weekly for ear lubrication. - Try Astellin nasal spray for allergies and postnasal drip. - Consider combining Flonase and oral antihistamines as needed. - Monitor for any changes in allergy symptoms or ear pain. [email or web address] Not available 05/16/2025 10:54:43 Please note: Parts of this encounter note have been generated by AI based on audio conversation. Patient consent was required prior to utilizing this technology. Content review was required prior to finalizing the note. [email or web address] Not available 05/16/2025 10:54:43 Reason for Referral None Reported. Results Created Date Observation Date Name Description Value Unit Range Abnormal Flag Note LastModifiedBy Organization Detail LastModifiedTime 05/16/20 25 audio gram No observ ation record ed. BARCODE Not Available 2024 13:12:27 Result Notes None recorded. Problems Name Problem SNOMED Code Status Onset Date Resolution Date Notes Provider Name and Address Organization Details Recorded Time Sensorineural hearing loss of bilateral ears 841339954 Active 2024 Duncan Sparks DO [address] [place] [address], [place], [address], [facility] - [facility] 5 12:41:19 Chronic rhinitis 19771034 Active 2024 Duncan Sparks DO [address] [facility],[place] [address], [place], [address], [facility] - [facility] 5 12:41:20 Vasomotor rhinitis 3780472 Active 2024 Duncan Clare, DO [address] [facility] [address], [place], [address], [facility] - [facility] 5 12:41:27 Xerostomia 64240721 Active 2024 Duncan Clare, DO [address] [facility] [address], [place], [address], [facility] - [facility] 5 10:54:06 Problem Notes None recorded. Procedures Surgical History Date Name Laterality Status Provider Name and Address Organization Details Recorded Time 05/16/2025 Comp Audio with Tymps - 11467 & 64199 completed MALCOLM DIAZ, AUD [address] [facility] [address], [place], [address], [facility] 05/16/2025 10:17:58 Imaging Results None recorded. Procedure Notes None recorded. Medical Equipment None Reported. Allergies Allergen ID Allergen Name Allergen Category Reaction Reaction Severity Criticality Documentation Date Start Date Code Code System Note Provider Name and Address Organization Details Recorded Time 711375 Product containin g penicilli n (product) medicatio n Not available Not available Not available 05/16/20252012 22152 8001 SNOMED Not Available [employer] 03:29:22 845157 Substance with sulfonami de structure and antibacte rial mechanism of action (substanc e) medicatio n Not available Not available Not available 05/16/20252012 87106 8003 SNOMED Not Available [employer] - prod 03:29:22 199836 sulfameth oxazole / trimethop rim medicatio n Not available Not available Not available 05/19/2025 04383 RxNorm Not Available [employer] - prod 15:38:48 Medications Name Sig Start Date Stop Date Status Note LastModified by Organization Details LastModified Time celecoxib 200 mg capsule TAKE 1 CAPSULE BY MOUTH EVERY DAY 05/16 completed Not Available Not Available Not Available doxycycline hyclate 100 mg capsule TAKE 1 CAPSULE BY MOUTH TWICE A DAY active Not Available Not Available No t Available clindamycin HCl 300 mg capsule TAKE 2 TABS HALF AN HOUR PRIOR TO APPOINTME NT. 05/16 completed Not Available Not Available Not Available loperamide 2 mg capsule TAKE 1 CAPSULE BY MOUTH EVERY 6 HOURS NEEDED FOR LOOSE STOOL active Not Available Not Available No t Available lisinopril 20 mg tablet TAKE 1 TABLET BY MOUTH EVERY DAY active Not Available Not Available No t Available Cholestyram ine Light 4 gram powder for suspension in a packet 4 G ORALLY 2 TIMES A DAY ADMINISTE R W/MEAL AVOID OTHER MEDS WITHIN 1HR BEFORE OR 4-6HR AFTER DOSE active Not Available Not Available No t Available omeprazole 20 mg capsule,del ayed release TAKE 1 CAPSULE BY MOUTH TWICE A DAY active Not Available Not Available No t Available hydrochloro thiazide 25 mg tablet TAKE 1 TABLET BY MOUTH EVERY DAY active Not Available Not Available No t Available gabapentin 100 mg capsule TAKE 1 CAPSULE BY MOUTH THREE TIMES A DAY FOR 30 DAYS 05/16 completed Not Available Not Available Not Available ipratropium bromide 42 mcg (0.06 %) nasal spray [place] 2 sprays 3 times a day by intranasa l route for 30 days. 2024 active Not Available Not Available Not Avai lable neomycin 3.5 mg/g-polymy joe B 10,000 unit/g-dexa meth 0.1 % eye oint AFTER HOT PACK AND MASSAGE APPLY 1/4 STRIP TO AFFECTED AREA THREE TO FOUR TIMES A DAY 05/13 completed Not Available Not Available Not Available rosuvastati n 40 mg tablet TAKE 1 TABLET BY MOUTH EVERY DAY active Not Available Not Available No t Available omega-3 acid ethyl esters 1 gram capsule TAKE 2 CAPSULES BY MOUTH TWICE A DAY FOR 90 DAYS active Not Available Not Available No t Available aspirin 81 mg capsule Take 1 capsule every day by oral route. active Not Available Not Available No t Available Vitals Date Recorded Body height Body mass index (BMI) Body weight Provider Name and Address Organization Details Last Updated DateTime 05/16/2025 154.94 cm 24.6 kg/m2 80881.01 g JULISSA SHORE [place] - [facility] 05/16/2025 10:31:15 Social History None recorded. Functional Status Question Answer Note LastModified by Organizat ion Details LastModified Time What is your level of alcohol consumption? Occasional ccomi Information not available 05/16/2025 Mental Status None recorded. Family History Nothing Reported. Medical History Condition Response Hypertension Y GERD/Reflux Y Gynecological HistoryNo gynecological history recorded. Obstetrics History GPAL:G 0 P 0 0 0 0 Past Encounters Encounter ID Performer Location Encounter Start Date Encounter Closed Date Diagnosis/Indication Diagnosis SNOMED-CT Code Diagnosis ICD10 Code Diagnosis IMO Codes Diagnosis Note [id number] Duncan Sparks DO [facility] [address] [address] 05/16/2025 09:55:42 05/16/2025 10:58:54 Sensorineural hearing loss of bilateral ears 073763432 H90.3 [id number] Audiologic al evaluation results: 05/16/2025 Right ear: Normal sloping to moderately severe sensorineu ral hearing loss with good word recognitio n. Left ear: Mild sloping to profound sensorineu ral hearing loss with good word recognitio n. Tympanomet ry: Right Ear:Type As with rounded peak Left Ear:Type As with rounded peak Chronic rhinitis 3917106 6 J31.0 2545 Vasomotor rhinitis 19475 03 J30.0 Xerostomia 12219916 K11. 7 8025 Health Concerns Section Related Observation LastModified by Organization Detai ls LastModified Time None Recorded Concern Status LastModified by Organization Details LastModified Time None Recorded Payers Encounter Date Sequence Insurance Name Policy Number Policy Ivy Covered Member ID Ivy Member ID Guarantor Name 05/16/2025 1 [employer] [id number] Mary Jane Valencia [id number] Mary Jane Valencia Notes Date Note Type Note Provider Name and Address Organization Details Recorded Time 05/16/2025 text/html Mary Jane Valencia is a 75-year-old female who presents for evaluation of intermittent sharp pain in the right ear. The pain comes and goes and is slightly alleviated by placing cotton in the ear at night. She reports a history of hearing loss, with the left ear being worse than the right. She uses hearing aids and notes difficulty with high-pitched noises and crowd noise without them. She has a history of ear infections during childhood, which were treated with oil applications, and recalls having perforated eardrums in the past. She has undergone prior hearing tests and consultations with ENT specialists many years ago, where surgeries were discussed but not pursued. She denies current wax buildup in the ears but mentions scarring on the eardrums consistent with past infections. Additionally, she reports postnasal drip, sinus congestion, throat clearing, and allergies, including a vague history of penicillin allergy that was tested in the past with unclear results. She has been taking Suellen daily for allergies but is uncertain of its efficacy and has used Flonase nasal spray previously. Reminder her daughter is a nurse practitioner, the patient is from [place]. Duncan Sparks, [address] [facility],[place] [address], [place], [address], [facility] - [facility] 05/16/2025 11:01:48 OBGyn Episode No OBEpisode recorded.
--- OUTSIDE RECORDS SUMMARY | 2025-05-26 07:40 | XMS_ITS | Data Portability ---
Author Organization [place] - [facility], Allergy Address [address] [place] [address] Care Team Providers Care Barrel Loader And Cleaner Name Role Phone ELZBIETA RAHEEMLIGIA Primary Care Provider Assessment Encounter Date Assessment [...] evaluation of asymmetric sensorineural hearing loss -Continue [id number]-[id number]-[id number] antihistamine as well as starting ipratropium for [...] Details Last Modified Time Details Appointments Establis [facility] 15 2025 01:45P Tamiko Sparks, DO Not available Not available Not available Lab None recorded . Referral None recorded . Procedures None recorded . Surgeries None recorded . Imaging MRI, brain + internal auditory canal, w/wo contrast - asymmetr ic SNHL 2024 025 [facility] ([facility]), [address], [place], [address], 05/23/2025 04:29:42 Medication Orders ipratrop ium bromide 42 mcg (0.06 %) nasal spray 2024 025 [email or web address] Not available 05/16/2025 10:54:24 Patient TargetsNo targets recorded. Patient Instructions Encounter Date Encounter Id Patient Instructions Last Modified By Organization Details Last Modified Time 05/16/2025 [id number] - Continue using hearing aids. - Use [...] Time Sensorineural hearing loss of bilateral ears 479836817 Active 2024 Duncan Sparks [address] [place] [address], [place], [address], [facility] - [facility] 12:41:19 Chronic rhinitis 29199342 Active 2024 Duncan Sparks [address] [place] [address], [place], [address], [facility] - [facility] 12:41:20 Vasomotor rhinitis 1265201 Active 2024 Duncan Clare, DO [address], [place], [address], [facility] - [facility] 5 12:41:27 Xerostomia 47016664 Active 2024 Duncan Clare, DO [address] [facility] [place], [place], [address], [facility] - [facility] 5 10:54:06 Problem Notes None recorded. Procedures Surgical History Date Name Laterality Status Provider Name and Address Organization Details Recorded Time 05/16/2025 Comp Audio with Tymps - 23773 & 93075 completed MALCOLM DIAZ, AUD [address] [facility],[place] [address], [place], [address], [facility] 05/16/2025 10:17:58 Imaging Results None recorded. Procedure Notes None recorded. Medical Equipment None Reported. Allergies Allergen ID Allergen Name Allergen Category Reaction Reaction Severity Criticality Documentation Date Start Date Code Code System Note Provider Name and Address Organization Details Recorded Time 957205 Product containin g penicilli n (product) medicatio n Not available Not available Not available 05/16/20252012 61408 8001 SNOMED Not Available [employer] 03:29:22 010952 Substance with sulfonami de structure and antibacte rial mechanism of action (substanc e) medicatio n Not available Not available Not available 05/16/20252012 27839 8003 SNOMED Not Available [employer] - prod 03:29:22 424778 sulfameth oxazole / trimethop rim medicatio n Not available Not available Not available 05/19/2025 56034 RxNorm Not Available [employer] 15:38:48 Medications Name Sig Start Date Stop [...] bromide 42 mcg (0.06 %) nasal spray [place] 2 sprays 3 times a day by [...] Updated DateTime 05/16/2025 154.94 cm 24.6 kg/m2 51424.01 g JULISSA SHORE [place] - [facility] 05/16/2025 10:31:15 Social History None recorded. Functional [...] ICD10 Code Diagnosis IMO Codes Diagnosis Note [id number] Duncan Sparks DO [facility] of [address] [address] 05/16/2025 09:55:42 05/16/2025 10:58:54 Sensorineural hearing loss of bilateral ears 616113832 H90.3 [id number] Audiologic al evaluation results: 05/16/2025 Right ear: Normal sloping to moderately severe sensorineu ral hearing loss with good word recognitio n. Left ear: Mild sloping to profound sensorineu ral hearing loss with good word recognitio n. Tympanomet ry: Right Ear:Type As with rounded peak Left Ear:Type As with rounded peak Chronic rhinitis 1588756 6 J31.0 2545 Vasomotor rhinitis 34074 03 J30.0 Xerostomia 85558175 K11. 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 Duncan Sparks, [address],[place] [address], [place], [address], [facility] - [facility] 05/16/2025 11:01:48 OBGyn Episode No OBEpisode recorded.
[2025-05-26 10:09] LABS: MANUAL DIFF FLAG NO
[2025-05-26 10:24] LABS: Hematocrit 40.1 % (37.0-47.0); Hemoglobin 13.5 g/dl (12.0-16.0); Imm Gran Abs Auto 0.02 X10*3/uL (0.00-0.03); Imm Gran Pct Auto 0.3 % (0.0-0.4); Lymphocytes Absolute Auto 2.3 X10*3/uL (1.2-4.9); Mean Corpuscular HGB Conc 33.7 g/dl (31.0-35.0); Mean Corpuscular Hemoglobin 31.3 pg (27.0-33.0); Mean Corpuscular Volume 93.0 fL (80.0-98.0); NRBC Abs Auto 0.000 X10*3/uL (0.0-0.012); NRBC Pct Auto 0.0 /100WBC (0.0-0.2); Platelet Count 228 X10*3/uL (160-400); Red Blood Count 4.31 X10*6/uL (4.20-5.50); White Blood Count 7.5 X10*3/uL (4.8-10.8)
[2025-05-26 10:43] LABS: Alanine Aminotransferase 38 U/L (0-31); Albumin Level 4.5 g/dL (3.5-5.0); Alkaline Phosphatase 86 U/L (39-117); Anion Gap 10 (12-20); Aspartate Amino Transferase 37 U/L (5-31); Blood Urea Nitrogen 15 mg/dL (9-16); Calcium 9.6 mg/dL (8.4-10.2); Carbon Dioxide 30 mmol/L (22-29); Chloride 104 mmol/L (96-108); Cholesterol 115 mg/dL (<200); Estimated Glomerular Filt Rate > 60; HDL Cholesterol 53 mg/dL (>40); Magnesium 1.9 mg/dL (1.6-2.6); Potassium 3.9 mmol/L (3.3-5.1); Sodium 140 mmol/L (135-145); Total Protein 6.8 g/dL (6.5-8.0); Triglycerides 158 mg/dL (<150)
[2025-05-26 11:13] LABS: Folate 6.6 ng/mL (> or = 4.0); Vitamin B12 223 pg/mL (200-900)
[2025-05-26 11:17] LABS: Free T4 (Free Thyroxine) 0.94 ng/dL (0.71-1.85); Thyroid Stimulating Hormone 2.30 uIU/mL (0.32-4.0)
== END 2025-05-26 07:38 | disposition home or self-care (01) ==
LOC: HO.HMGCLDS 07:37
PROVIDERS: PCP Internal Medicine; Visit Provider Internal Medicine
DX: K76.0 Fatty (change of) liver, not elsewhere classified (principal); E78.00 Pure hypercholesterolemia, unspecified
CPT/HCPCS: 36415; 80053; 80061; 82306; 82607; 82746; 83735; 84439; 84443; 85025

== ENCOUNTER 2025-06-05 13:30 | Outpatient (AMB) | payer MEDICARE, SELFPAY ==
--- OUTSIDE RECORDS SUMMARY | 2025-05-18 06:20 | XMS_ITS ---
Author Organization [facility] Address [address] [place] [phone] Care Team Providers Care Fence Builder Name Role Phone Nury Rubio MD Primary Care Provider Levi Castro [phone] Allergies Allergen (clinical drug ingredient) Drug/Non Drug [...] MOUTH EVERY DAY Oral; Duration: 90 Active Uxdsd-5-nozs Ethyl Esters 1 GM Capsule TAKE 2 [...] Risk Notes Problem Change in bowel habit (17964570) Change in bowel habits (R19.4) Active confirmed Vital Signs Blood pressure systolic 001 mm Hg 05/18/20 25 Blood pressure diastolic 01 mm Hg 025 Height 61 in 05/18/2025 Weight 129.6 lbs 05/18/2025 BMI 24.49 kg/m2 05/18/2025 Encounters Encounter Location Date Provider Diagnosis [facility] [address] [place] [address] 05/18/2025 Levi Coyle Diarrhea, unspecifie d type [...] Provider Name:Levi Coyle , 07/21/2025 09:30:00 AM, [address] [place] [address], [phone], History and Physical Notes * HPI (History [...] * DELVIS JOYCEDOB: 2 (75 yo F)Acc No.[id number]:05/18/2025 Progress Notes Patient: DELVIS IZQUIERDO Provider: Precious Coyle MD :1950 A ge:75 Y S ex:Female Date:05/18/2025 Address:[address] [place], [place] [phone] Pcp:Nury Rubio MD Subjective: * Chief Complaints: [...] and internal hemorrhoids Hyperlipidemia Denies [place],DM,CVA,Lung disease,renal disease Perforated duodenal ulcer in 2010- treated at [facility]-no surgery required- she had been on ASA [...] without any worrisome findings otherwise Hospitalized at [facility] in 10/2016 for possible recurrent ulcer disease [...] 1 TABLET BY MOUTH EVERY DAY Oral Qcqhh-0-fupd Ethyl Esters 1 GM Capsule TAKE 2 [...] TABLET BY MOUTH EVERY DAY Oral Taking Jsugs-3-cyxl Ethyl Esters 1 GM Capsule TAKE 2 [...] MAC. Stop aspirin, Turm vickie/Jackeline, and the [facility] Fish oil for 1 week before the [...] Date: 07/19/2024 Generated for Mimi gonzales/Aditi/Cruz on: 03:37 PM EST
[2025-06-05 13:38] VITALS: BP 124/62; PULSE 62; O2SAT 97; BMI 25.0
--- NOTE | 2025-06-05 13:38 | A.OFFPC_ITS ---
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 Advertising Required: No Accompanied by: Self / Same As Patient Allergies penicillamine (Cuprimine) Allergy (Unknown, Verified 06/05/25 13:59) Rash penicillin V Allergy (Unknown, Verified 06/05/25 13:59) Rash Penicillins (PENICILLINS) Allergy (Unknown, Verified 06/05/25 13:59) HIVES Sulfa (Sulfonamide Antibiotics) (SULFA (SULFONAMIDE ANTIBIOTICS)) Allergy (Unknown, Verified 06/05/25 13:59) HIVES sulfasalazine (Sulfazine) Allergy (Unknown, Verified 06/05/25 13:59) Rash Medication List - Last Reconciled 06/05/25 by Adonis Goss MD ascorbate calcium (vitamin C) 500 mg PO DAILY aspirin 81 mg PO DAILY cholecalciferol (vitamin D3) 50 mcg PO DAILY cholestyramine (Cholestyramine Light) 4 grams PO BID fexofenadine (Suellen Allergy) 180 mg PO DAILY debbie (Zingiber officinalis) 1 g PO TID PRN hydrochlorothiazide 25 mg PO DAILY lisinopril 20 mg PO DAILY loperamide (Imodium A-D) 2 mg PO Q6H PRN omega-3 acid ethyl esters 2 caps PO BID omeprazole 20 mg PO BID rosuvastatin 40 mg PO DAILY 90 days Tobacco use date assessed: 06/05/25 Fall risk assessment: No Falls in past year Last assessed Fall Risk: 06/05/25 Dental Screening Dental Screen Date: 06/05/25 Did you have a dental visit in the last 12 months?: Yes Did you have a dental problem in the last 6 months where you did not have access to dental care?: No Was dental information given to patient?: Patient has dentist HPI 6 month follow up HPI Details Patient comes in today for her follow up visit - she is a patient of Dr. Rubio who I am seeing today on his behalf Patient states that she feels okay She denies any headaches or dizziness Denies any chest pains, no SOB No nausea/vomiting, no abdominal pain No change in bowel habits noted She had her follow up labs done about 10 days ago - to discuss her results [facility] Medical History (Updated 06/05/25 @ 15:52 by Adonis Goss MD) Essential hypertension Mixed hyperlipidemia Screening for hypothyroidism Arthralgia Pancreatic pseudocyst Hypercholesterolemia GERD (gastroesophageal reflux disease) Hypertension Vitamin D deficiency Finger osteomyelitis Peptic ulcer disease Surgical History Status post laparoscopic cholecystectomy History of ERCP (~2013) History of esophagogastroduodenoscopy (EGD) History of section Cholelithiasis Family History Brother CAD (coronary artery disease) Aneurysm Social History Household Members: Spouse Housing: House Do you presently have visiting nurse or other home services: No Alcohol intake: current Alcohol intake frequency: holidays/special occasions only Comment: one glass 4x a week Patient Tobacco Use Status: Former Tobacco user Tobacco use type: Cigarette Years Smoked: quit 1999 e-Cigarette/Vaping Use: Never Used Second Hand Smoke Exposure: Yes Advance Directives Date on File: 12/02/24 service: No Current occupational status: retired Cognitive needs: No Hearing needs: No Vision needs: Yes Questionnaire PHQ-9 Over the last 2 weeks, how often have you been bothered by any of the following problems? 1. Little interest or pleasure in doing things: not at all 2. Feeling down, depressed, or hopeless: not at all 3. Trouble falling or staying asleep, or sleeping too much: not at all 4. Feeling tired or having little energy: not at all 5. Poor appetite or overeating: not at all 6. Feeling bad about yourself - or that you are a failure or have let yourself or your family down: not at all 7. Trouble concentrating on things, such as reading the newspaper or watching television: not at all 8. Moving or speaking so slowly that other people could have noticed. Or the opposite - being so fidgety or restless that you have been moving around a lot more than usual: not at all 9. Thoughts that you would be better off or of hurting yourself in some way: not at all Total score: 0 Depression Screening Interpretation: Negative Depression Screening Done: Yes 12695 - PHQ-9 Billing: Yes Source: Developed by Drs. Levi Sage, Georgia Mahoney, Melo Mooney and colleagues, with an educational izzy from [employer]. Thrive Questionnaire Date Thrive assessed: 06/05/25 I am a: Patient What is your living situation today?: I have a steady place to live Within the past 12 months, did the food you bought not last and you didn't have the money to get more?: I choose not to answer this question Within the past 12 months, did you worry whether your food would run out before you got money to buy more?: I choose not to answer this question Do you have trouble paying for medicines?: I choose not to answer this question Do you have trouble getting transportation to medical appointments?: No Do you have trouble paying your heating and electricity bill?: I choose not to answer this question Do you have trouble taking care of your child, family member or friend?: I choose not to answer this question Do you have trouble with day-to-day activities such as bathing, preparing meals, shopping, managing finances, etc.?: I choose not to answer this question Are you currently unemployed and looking for a job?: I choose not to answer this question Are you interested in more education?: I choose not to answer this question Currently or been in a relationship where the following occur: I choose not to answer THRIVE Score: 0 AUDIT C Alcohol Use Questionnaire (AUDIT-C) 1. How often do you have a drink containing alcohol?: 2-3 times a week 2. How many drinks containing alcohol do you have on a typical day when you are drinking?: 1 or 2 3. How often do you have six or more drinks on one occasion?: Never Total Score: 3 Score Reviewed/Action Taken: Yes DEVAN-7 AMB Questionnaire DEVAN-7 Date DEVAN - 7 assessed: 06/05/25 Feeling nervous, anxious, or on edge: 0 = Not at all Not being able to stop or control worryin = Not at all Worrying too much about different things: 0 = Not at all Trouble relaxin = Not at all Being so restless that it is hard to sit still: 0 = Not at all Becoming easily annoyed or irritable: 0 = Not at all Feeling afraid as if something awful might happen: 0 = Not at all Total DEVAN-7 score (0-4 normal; 5-9 mild; 10-14 moderate; 15-21 severe): 0 Source: Developed by Drs. Levi Sage, Georgia Mahoney, Melo Mooney and colleagues, with an educational izzy from [employer]. Review of Systems Const Denies chills, Denies fatigue, Denies fever(s) and Denies headache(s) ENT Denies dysphagia, Denies dizziness, Denies otalgia, Denies headache(s), Denies neck pain, Denies odynophagia and Denies sore throat Card Denies chest pain, Denies palpitations and Denies dyspnea Resp Denies chest congestion, Denies cough and Denies dyspnea GI Denies abdominal pain, Denies constipation, Denies dysphagia, Reports excessive flatus (at times), Denies heartburn, Denies diarrhea, Denies nausea, Denies odynophagia and Denies vomiting Denies difficulty voiding, Denies nocturia and Denies dysuria Musc Denies back pain and Denies neck pain Skin/Breast Denies rash Neuro Denies dizziness and Denies headache(s) Endo Denies fatigue and Denies palpitations Physical exam (Primary Care) Vital Signs: Last Vital Signs Pulse 62 06/05/25 13:38 BP 124/62 06/05/25 13:38 Pulse Ox 97 06/05/25 13:38 Oxygen Delivery Method Room Air 06/05/25 13:38 BMI result Body Mass Index 25.0 Tobacco/Smoking Status: Tobacco use Status Tobacco use date assessed 06/05/25 06/05/25 13:43 Patient Tobacco Use Status Former Tobacco user 06/05/25 13:43 Tobacco use type Cigarette 06/05/25 13:43 e-Cigarette/Vaping Use Never Used 06/05/25 13:43 PHQ-9: PHQ-9 Score PHQ-9: Total score 0 06/05/25 13:43 Depression Screening Interpretation: Negative Thrive Assessment: Date of Thrive Assessment Date Thrive assessed 06/05/25 06/05/25 13:43 Currently or been in a relationship where the following occur: I choose not to answer Const General: no acute distress and alert HENMT Throat: Yes posterior oropharynx normal and Yes tonsils normal (no TP congestion) Neck Neck: Yes supple and No lymphadenopathy Thyroid: Thyroid normal Resp Auscultation: clear to auscultation bilaterally, no rales and no wheezes Cardio Rate: regular rate Rhythm: regular rhythm Heart sounds: no murmurs GI Palpation (GI): Soft to palpation and nontender Auscultation: normal bowel sounds General: Yes no CVA tenderness Back/Spine/Pelvis Back: no CVA tenderness Thoracic/Lumbar Spine: No lumbar spinal tenderness Skin Rashes: no rashes Extrem General: Yes no clubbing, cyanosis or edema Results Reviewed Results Reviewed: Laboratory Tests 05/26/25 07:45 WBC 7.5 Hgb 13.5 Hct 40.1 Plt Count 228 Sodium 140 Potassium 3.9 Creatinine 0.68 Estimated GFR > 60 Random Glucose 91 Calcium 9.6 Magnesium 1.9 AST 37 H ALT 38 H Triglycerides 158 H Cholesterol 115 LDL Cholesterol, Calc 31 HDL Cholesterol 53 Vitamin B12 223 25-OH Vitamin D Total 53.7 TSH 2.30 Free T4 0.94 Coding Level of Care Code Est Pt Level 4 (46123) Diagnoses Mixed hyperlipidemia E78.2 Essential hypertension I10 Vitamin D deficiency E55.9 Vitamin B12 deficiency E53.8 Hypercalcemia E83.52 Elevated LFTs R79.89 Bile salt-induced diarrhea 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 Gastroesophageal reflux disease without esophagitis K21.9 Esophagitis presence: without esophagitis Additional Codes PHQ-9 - 34735 - PHQ-9 Billing: Yes ([id number]) Assessment & Plan Assessment & Plan (1) Mixed hyperlipidemia: Code(s): E78.2 - Mixed hyperlipidemia Category: Medical Plan: Results of her labs done about 10 days ago reviewed and discussed with patient - she is advised that her cholesterol levels, including her serum triglycerides, have improved significantly from previous Reinforced low cholesterol diet Continue Rosuvastatin 40 mg QD Will have patient recheck her labs and fasting lipids in 6 months for follow up (2) Essential hypertension: Code(s): I10 - Essential (primary) hypertension Category: Medical Plan: Reinforced low sodium diet - goal is systolic BP of at least 120 to 130 mm or less Continue Lisinopril 20 mg QD and HCTZ 25 mg QD Patient is reminded to continue monitoring her blood pressure regularly (3) Vitamin D deficiency: Code(s): E55.9 - Vitamin D deficiency, unspecified Category: Medical Plan: Corrected - continue Vitamin D3 2000 units QD (4) Vitamin B12 deficiency: Code(s): E53.8 - Deficiency of other specified B group vitamins Category: Medical Plan: Have cautioned patient that her Vitamin B12 level has been steadily dropping over the past year and her most recent level is now at 223 pg/ml Have advised patient to start back on OTC Vitamin B12 1000 mcg 1 tablet every other day - Rx sent but advised that if her insurance does not cover the medication, she can get it OTC without a prescription Will have her recheck her Vitamin B12 level in 6 months for follow up (5) Hypercalcemia: Code(s): E83.52 - Hypercalcemia Category: Medical Plan: Resolved - her serum calcium level remained normal on her recent labs (6) Elevated LFTs: Code(s): R79.89 - Other specified abnormal findings of blood chemistry Category: Medical Plan: She is advised that her LFTs are again slightly higher than normal on her recent labs This is likely due to hepatosteatosis/fatty liver or the effects of her statin Rx or both Patient currently denies any acute abdominal pain or symptoms other than increased abdominal gas Will continue to monitor her LFTs regularly (7) Bile salt-induced diarrhea: Code(s): K90.89 - Other intestinal malabsorption Category: Medical Plan: Continue Questran 4 gm BID PRN She is advised that her recent symptom of increased abdominal gas may be related to this but may also be due to the type of foods that she eats, as she admits to eating a lot of cabbage and beets (8) GERD (gastroesophageal reflux disease): Code(s): K21.9 - Gastro-esophageal reflux disease without esophagitis Category: Medical Qualifiers: Esophagitis presence: without esophagitis Qualified Code(s): K21.9 - Gastro-esophageal reflux disease without esophagitis Plan: Dietary restrictions reinforced Continue Omeprazole 20 mg BID Plan Follow up with Dr. Rubio as scheduled in November 2025 for her annual wellness exam Orders: Orders Complete Blood Count Auto Diff 6 Months D64.9 - Anemia, unspecified Comprehensive [place]. Panel Fast 6 Months E78.00 - Pure hypercholesterolemia, unspecified Lipid Panel 6 Months E78.00 - Pure hypercholesterolemia, unspecified Vitamin B12 and Folate 6 Months E53.8 - Deficiency of other specified B group vitamins UA CC w/rflx Micro + Cult 6 Months R30.0 - Dysuria TSH reflex Free T4 6 Months E78.00 - Pure hypercholesterolemia, unspecified Vitamin D 25-OH Total 6 Months E55.9 - Vitamin D deficiency, unspecified Medications: New cyanocobalamin (vitamin B-12) 1,000 mcg PO Q OTHER DAY 45 tabs 3RF 90 days
--- OUTSIDE RECORDS SUMMARY | 2025-06-05 15:37 | XMS_ITS | Data Portability ---
Author Organization [place] - [facility], Allergy Address [address] [place] [id number] Care Team Providers Care Manufacturing Process Technician Name Role Phone ELZBIETA RAHEEMLIGIA Primary Care [...] evaluation of asymmetric sensorineural hearing loss -Continue eipl-ytp-[id number] antihistamine as well as starting ipratropium for [...] Details Last Modified Time Details Appointments Establis [facility] 15 2025 01:45P Tamiko Sparks, DO Not available Not available Not available Lab None recorded . Referral None recorded . Procedures None recorded . Surgeries None recorded . Imaging MRI, brain + internal auditory canal, w/wo contrast - asymmetr ic SNHL 2024 025 [facility] ([facility]), [address], [place], [address], 06/05/2025 10:59:40 Medication Orders ipratrop ium bromide 42 mcg (0.06 %) nasal spray 2024 025 [email or web address] Not available 05/16/2025 10:54:24 Patient TargetsNo targets recorded. Patient Instructions Encounter Date Encounter Id Patient Instructions Last Modified By Organization Details Last Modified Time 05/16/2025 [id number] - Continue using hearing aids. - Use [...] Time Sensorineural hearing loss of bilateral ears [id number] Active 2024 Duncan Sparks [address] [address], [place], [address], [facility] - [facility] 12:41:19 Chronic rhinitis 03277673 Active 2024 Duncan Sparks [address] [address], [place], [address], [facility] - [facility] 12:41:20 Vasomotor rhinitis 6545275 Active 2024 Duncan Clare, DO [address] [facility] [address] [address], [place], [address], [facility] 5 12:41:27 Xerostomia 86401714 Active 2024 Duncan Clare, DO [address] [facility] [address],[facility] [address], [place], [address], [facility] 5 10:54:06 Problem Notes None recorded. Procedures Surgical History Date Name Laterality Status Provider Name and Address Organization Details Recorded Time 05/16/2025 Comp Audio with Tymps - 41714 & 51608 completed MALCOLM DIAZ, AUD [address] [facility],[address] [address], [place], [address], [facility] 05/16/2025 10:17:58 Imaging Results None recorded. Procedure Notes None recorded. Medical Equipment None Reported. Allergies Allergen ID Allergen Name Allergen Category Reaction Reaction Severity Criticality Documentation Date Start Date Code Code System Note Provider Name and Address Organization Details Recorded Time 760947 Product containin g penicilli n (product) medicatio n Not available Not available Not available 05/16/20252012 00190 8001 SNOMED Not Available [employer] - prod 03:29:22 465738 Substance with sulfonami de structure and antibacte rial mechanism of action (substanc e) medicatio n Not available Not available Not available 05/16/20252012 75663 8003 SNOMED Not Available [employer] - prod 5 03:29:22 657322 sulfameth oxazole / trimethop rim medicatio n Not available Not available Not available 05/19/2025 21467 RxNorm Not Available [employer] - [place] 15:38:48 Medications Name Sig Start Date Stop [...] bromide 42 mcg (0.06 %) nasal spray [place] 2 sprays 3 times a day by [...] Updated DateTime 05/16/2025 154.94 cm 24.6 kg/m2 50643.01 g JULISSA SHORE [place] - [facility] 05/16/2025 10:31:15 Social History None recorded. [...] ICD10 Code Diagnosis IMO Codes Diagnosis Note [id number] Duncan Sparks DO [facility] [address] [address] 05/16/2025 09:55:42 05/16/2025 10:58:54 Sensorineural hearing loss of bilateral ears [id number] H90.3 [id number] Audiologic al evaluation results: 05/16/2025 Right ear: Normal sloping to moderately severe sensorineu ral hearing loss with good word recognitio n. Left ear: Mild sloping to profound sensorineu ral hearing loss with good word recognitio n. Tympanomet ry: Right Ear:Type As with rounded peak Left Ear:Type As with rounded peak Chronic rhinitis 4413951 6 J31.0 2545 Vasomotor rhinitis 32319 03 J30.0 Xerostomia 93571956 K11. 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 Duncan Sparks, [address] [facility],[address] [address], [place], [address], [facility] - [facility] 05/16/2025 11:01:48 OBGyn Episode No OBEpisode recorded.
--- OUTSIDE RECORDS SUMMARY | 2025-06-05 15:37 | XMS_ITS | Patient Health Record ---
Author Organization [facility] Address [address] [place] [address] Care Team Providers Care Store Deli Manager Name Role Phone Nury Rubio Primary Care Provider Meredith Mar Unavailable [phone] Allergies Allergen (clinical drug ingredient) Drug/Non Drug [...] Status Risk Notes Problem Acquired hallux valgus (20128626) Hallux valgus (acquired), left foot (M20.12) Active confirmed Chronic problem, Worse (4) Problem Acquired hallux valgus (00313046) Hallux valgus (acquired), right foot (M20.11) Active confirmed Plan Of Treatment No Information Insurance Providers Payer Name Payer Address Payer Phone Subscriber Number Group Number Insured Name Patient Relationship to Insured Coverage Start Date Coverage End Date [employer] [address] [place] [phone] [id number] Mary Jane Valencia Self - patient is the insured Medical (General) History Medical History History ICD Code Cataracts High blood pressure Surgical History Surgery Date(Month/Year) Gall bladder removal
--- OUTSIDE RECORDS SUMMARY | 2025-06-05 15:37 | XMS_ITS | Continuity of Care Document ---
Author Organization [place] - [facility], [facility] Address [address] [place] [address] Care Team Providers Care Assistant Store Manager Sales Name Role Phone ELZBIETA ANSON Primary Care Provider [phone] Assessment Encounter Date Assessment Date Assessment LastModified [...] evaluation of asymmetric sensorineural hearing loss -Continue [id number]-[id number] antihistamine as well as starting ipratropium for [...] contrast - asymmetr ic SNHL 2024 025 [facility] ([facility]), [address], [place], [address], 06/05/2025 10:59:40 Medication Orders ipratrop ium bromide 42 mcg (0.06 %) nasal spray 2024 025 [email or web address] Not available 05/16/2025 10:54:24 Patient TargetsNo targets recorded. Patient Instructions Encounter Date Encounter Id Patient Instructions Last Modified By Organization Details Last Modified Time 05/16/2025 [id number] - Continue using hearing aids. - Use [...] Time Sensorineural hearing loss of bilateral ears 413686130 Active 2024 Duncan Sparks DO [address] [place] [address], [place], [address], [facility] - [facility] 5 12:41:19 Chronic rhinitis 98686955 Active 2024 Duncan Sparks DO [address] [facility],[place] [address], [place], [address], [facility] - [facility] 5 12:41:20 Vasomotor rhinitis 5312331 Active 2024 Duncan Clare, DO [address] [facility] [address], [place], [address], [facility] - [facility] 5 12:41:27 Xerostomia 49711123 Active 2024 Duncan Clare, DO [address] [facility] [address], [place], [address], [facility] - [facility] 5 10:54:06 Problem Notes None recorded. Procedures Surgical History Date Name Laterality Status Provider Name and Address Organization Details Recorded Time 05/16/2025 Comp Audio with Tymps - 10501 & 64623 completed MALCOLM DIAZ, AUD [address] [facility] [address], [place], [address], [facility] 05/16/2025 10:17:58 Imaging Results None recorded. Procedure Notes None recorded. Medical Equipment None Reported. Allergies Allergen ID Allergen Name Allergen Category Reaction Reaction Severity Criticality Documentation Date Start Date Code Code System Note Provider Name and Address Organization Details Recorded Time 080689 Product containin g penicilli n (product) medicatio n Not available Not available Not available 05/16/20252012 44392 8001 SNOMED Not Available [facility] 03:29:22 084077 Substance with sulfonami de structure and antibacte rial mechanism of action (substanc e) medicatio n Not available Not available Not available 05/16/20252012 75245 8003 SNOMED Not Available [facility] 03:29:22 110998 sulfameth oxazole / trimethop rim medicatio n Not available Not available Not available 05/19/2025 87013 RxNorm Not Available [facility] 15:38:48 Medications Name Sig Start Date Stop [...] bromide 42 mcg (0.06 %) nasal spray [place] 2 sprays 3 times a day by [...] Updated DateTime 05/16/2025 154.94 cm 24.6 kg/m2 54139.01 g JULISSA SHORE [place] - [facility] 05/16/2025 10:31:15 Social History None recorded. [...] ICD10 Code Diagnosis IMO Codes Diagnosis Note [id number] Duncan Sparks DO [facility] [address] [address] 05/16/2025 09:55:42 05/16/2025 10:58:54 Sensorineural hearing loss of bilateral ears 701527190 H90.3 14247360 Audiologic al evaluation results: 05/16/2025 Right ear: Normal sloping to moderately severe sensorineu ral hearing loss with good word recognitio n. Left ear: Mild sloping to profound sensorineu ral hearing loss with good word recognitio n. Tympanomet ry: Right Ear:Type As with rounded peak Left Ear:Type As with rounded peak Chronic rhinitis 3510416 6 J31.0 2545 Vasomotor rhinitis 48543 03 J30.0 Xerostomia 56975060 K11. 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 Duncan Sparks, [address],[place] [address], [place], [address], [facility] - [facility] 05/16/2025 11:01:48 OBGyn Episode No OBEpisode recorded.
--- OUTSIDE RECORDS SUMMARY | 2025-06-05 15:37 | XMS_ITS | Patient Health Record ---
Author Organization [facility] Address [address] [place] [address] Care Team Providers Care Border Patrol Agent Name Role Phone Nury Rubio MD Primary Care Provider Levi Castro [phone] Allergies Allergen (clinical drug ingredient) Drug/Non Drug Allergy documented on EMR Reaction Allergy Type Onset Date Status Penicillin Unknown Drug Allergy Active Sulfa Unknown Drug Allergy Active Results Component Value Reference Range Flag Notes Lipase Reviewed date:05/12/2025 01:13:09 AM Interpretation: Performing Lab:[facility], [address] [place] [phone] Notes/Report: Lipase 25 8-78 U/L N Calprotectin, Fecal Reviewed date:05/12/2025 01:13:44 AM Interpretation: Performing Lab:[facility], [address] [place] [phone] Notes/Report: Calprotectin, Fecal 593 A Reference Range: [...] borderline values. THIS TEST WAS PERFORMED AT: [facility] [address] [place] [address] KIRK ARIAS MD,PHD,AKIN GI PANEL Reviewed date:05/12/2025 01:12:53 AM Interpretation: Performing Lab:[facility], [address] [place] [phone] Notes/Report: Campylobacter Not Detected Not Detect. Plesiomonas [...] is performed by Multiplexed PCR, utilizing the [employer] Array. C Reactive Protein Reviewed date:05/12/2025 01:10:18 AM Interpretation: Performing Lab:[facility], [address] [place] [phone] Notes/Report: C Reactive Protein 0.14 < or = 0.50 mg/dL N Basic Metabolic Panel Reviewed date:05/12/2025 01:11:08 AM Interpretation: Performing Lab:[address] [address] Notes/Report: Sodium 140 135-145 mmol/L N Potassium [...] mg/dL N Calcium 9.5 8.4-10.2 mg/dL N Liver Panel Reviewed date:05/12/2025 01:11:30 AM Interpretation: Performing Lab:[address] [address] Notes/Report: Bilirubin Total 0.5 0.0-1.0 mg/dL N Bilirubin Direct 0.2 0.0-0.5 mg/dL N Aspartate Amino Transferase 25 5-31 U/L N Alanine Aminotransferase 21 0-31 U/L N Total Protein 7.1 6.5-8.0 g/dL N Albumin Level 4.7 3.5-5.0 g/dL N Alkaline Phosphatase 82 39-117 U/L N Erythrocyte Sedimentation Ra te Reviewed date:05/12/2025 01:11:40 AM Interpretation: Performing Lab:[address] [address] Notes/Report: Erythrocyte Sedimentation Rate 11 0-20 MM/HR N Patients with polycythemia and many hemoglobin abnormalities may have depressed sed rates whereas patients with anemia may have elevated sed rates. Complete Blood Count Auto Di ff Reviewed date:05/12/2025 01:12:10 AM Interpretation: Performing Lab:[address] [address] Notes/Report: White Blood Count 10.3 4.8-10.8 X10*3/uL [...] NRBC Abs Auto 0.000 0.0-0.012 X10*3/uL N Reason For Referral No Information Medications [...] tablet Oral ly Once a day Active Hzetm-0-ensn Ethyl Esters 1 GM Capsule TAKE 2 [...] Problem Screening for malignant neoplasm of colon (269759634) Encounter for screening for malignant neoplasm of colon (Z12.11) Active confirmed Problem Diarrhea (62665550) Diarrhea (R19.7) Active confirmed Problem Change in bowel habit (87231884) Change in bowel habits (R19.4) Active confirmed Problem Irritable bowel syndrome with diarrhea (615664252) Irritable bowel syndrome with diarrhea (K58.0) Active confirmed Problem Nausea (690665076) Nausea (R11.0) Active confirmed Problem Epigastric pain (27512528) Abdominal pain, epigastric (R10.13) Active confirmed Problem Peptic ulcer disease (52635351) Peptic ulcer disease (K27.9) Active confirmed Problem Pre-procedure evaluation check (335050513) Pre-procedural examination (Z01.818) Active confirmed Problem Diarrhea (89138314) Diarrhea, unspecified type (R19.7) Active confirmed Problem Generalized abdominal pain (160043057) Abdominal pain, acute, generalized (R10.84) Active confirmed Vital Signs Blood pressure diastolic 01 mm Hg 05/18/2025 Height 61 in 05/18/2025 Blood pressure systolic 001 mm Hg 05/18/2025 Weight 129.6 lbs 05/18/2025 BMI 24.49 kg/m2 05/18/2025 Encounters Encounter Location Date Provider Diagnosis [facility] [address] [place] [address] 05/18/2025 Levi Coyle Diarrhea, unspecifie d type R19.7 and Change in bowel habits R19.4 [facility] [address] [place] [address] 04/24/2025 Levi Coyle Diarrhea R19.7 and Abdominal pain, acute, generalized R10.84 [facility] [address] [place] [address] 05/11/2025 Levi Coyle Assessments Encounter Date Diagnosis [...] for allowing me to participate in [facility]. I shall continue to keep you advised [...] Provider Name:Levi Coyle , 07/21/2025 09:30:00 AM, [address] [place] [address] , [place], [place], [phone], Insurance Providers Payer Name Payer Address Payer Phone Subscriber Number Group Number Insured Name Patient Relationship to Insured Coverage Start Date Coverage End Date [facility] [address] [place], [place] [id number] DELVIS JOYCE Self - patient is the insured 4 Medical (General) History Medical History History ICD Code Colonoscopy 01-24-2008- negat jesusita except for mild diverticulosis and internal hemorrhoids Hyperlipidemia Denies [place],DM,CVA,Lung disease,renal dise ase Perforated duodenal ulcer in 2010- treated at [facility]-no surgery required- she had been on [...] without any worrisome findings otherwise Hospitalized at [facility] in 10/2016 for possible recurrent ulcer [...]
== END 2025-06-05 14:25 | disposition home or self-care (01) ==
LOC: HO.HMCH 13:30
PROVIDERS: PCP Internal Medicine; Visit Provider Internal Medicine
DX: E78.2 Mixed hyperlipidemia (principal); I10 Essential (primary) hypertension; E55.9 Vitamin D deficiency, unspecified; E53.8 Deficiency of other specified B group vitamins; E83.52 Hypercalcemia; R79.89 Other specified abnormal findings of blood chemistry; K90.89 Other intestinal malabsorption; K21.9 Gastro-esophageal reflux disease without esophagitis

== ENCOUNTER → 2025-06-05 13:30 | Outpatient (BNVA) | payer MEDICARE, SELFPAY | PROVIDERS: PCP Internal Medicine; Visit Provider Internal Medicine | DX: K21.9 Gastro-esophageal reflux disease without esophagitis (principal); K90.89 Other intestinal malabsorption; E78.2 Mixed hyperlipidemia; E55.9 Vitamin D deficiency, unspecified; E53.8 Deficiency of other specified B group vitamins; E83.52 Hypercalcemia; I10 Essential (primary) hypertension; R79.89 Other specified abnormal findings of blood chemistry | CPT/HCPCS: 96127; 99212 ==